=== PATIENT | male | born 1955 | race Caucasian/White ===

== ENCOUNTER 2018-04-10 15:36 | Emergency (ER) | payer OTHER ==
--- OUTSIDE RECORDS SUMMARY | 2018-04-10 15:39 | XMS REPORT | Clinical Summary ---
:1955 Author Organization [facility] Address [address] [place] [address] Phone Care Team Providers Name Role Phone Unavailable Primary Care Provider Unavailable Allergies Active Allergy Reactions Severity Noted Date Comments Other Itching 05/02/2017 All anti inflammatory drugs Current Medications Prescription Sig. Disp. Refills Start Date End Date Status metoprolol Take 0.5 60 tablet 0 05/13/2017 05/13/2018 Active (LOPRESSOR) 25 MG tablets (12.5 tablet mg total) by mouth 2 (two) times daily. atorvastatin Take 1 tablet 30 tablet 0 05/14/2017 05/14/2018 Active (LIPITOR) 10 MG (10 mg total) tablet by mouth nightly. aspirin 81 MG EC Take 1 tablet 30 tablet 0 05/14/2017 05/14/2018 Active tablet (81 mg total) by mouth daily. multivitamin per Take 1 tablet 05/09/2017 Discontinued tablet by mouth daily. SAW PALMETTO Take by mouth 05/09/2017 Discontinued XTR/ZINC PICOLIN daily. (SAW PALMETTO EXTRACT ORAL) acetaminophen-codei Take 1 tablet 30 tablet 0 05/13/2017 05/14/2017 Discontinued ne (TYLENOL #3) by mouth every 300-30 mg per 4 (four) hours tablet as needed for up to 10 days. Max Daily Amount: 6 tablets acetaminophen-codei Take 2 tablets 30 tablet 0 05/14/2017 05/24/2017 ne (TYLENOL #3) by mouth every 300-30 mg per 4 (four) hours tablet as needed for up to 10 days. Max Daily Amount: 12 tablets polyethylene glycol Take 17 g by 14 each 0 05/15/2017 05/18/2017 (GLYCOLAX) 17 gram mouth daily packet for 3 days. Hospital, Clinic, or Other Ordered Dose Route Frequency Start Date End Date Status Facility Administered Medication iopamidol (ISOVUE-370) 76 % 100 mL IV ONCE PRN 09/25/2017 09/25/2017 Ended injection 100 mL Active Problems Problem Noted Date Acute pulmonary insufficiency following non-thoracic surgery (HCC) 05/09/2017 Hyperglycemia 05/09/2017 AAA (abdominal aortic aneurysm) (HCC) 05/08/2017 Smoker 05/03/2017 Aneurysm (HCC) Postoperative anemia due to acute blood loss Encounters Date Type Specialty Care Team Description 09/25/2017 Hospital Encounter Radiology Sae Fulton MD aneurysm (AAA) without rupture (HCC) 09/14/2017 Outside Orders Central Scheduling Sae Fulton MD aneurysm (AAA) without rupture (HCC) (Primary Dx) 09/04/2017 Hospital Encounter Radiology Sae Fulton MD aneurysm (AAA) without rupture (HCC) 08/28/2017 Orders Only Cardiology Sae Fulton MD aneurysm (AAA) without rupture (HCC) (Primary Dx) 05/08/2017 - Hospital Encounter Cardiology Sae Fulton 05/14/2017 MD Hieu 05/08/2017 Procedure Pass 05/08/2017 Surgery Sae Fulton REPAIR,AAA MD Hieu 05/02/2017 Hospital Encounter Sae Fulton Aneurysm (HCC) MD Hieu 05/02/2017 Office Visit Cardiology Sae Fulton MD aneurysm (AAA) without rupture (HCC) (Primary Dx);Aneurysm (HCC);Smoker 05/02/2017 Anesthesia Event Jarrett Artis MD 05/02/2017 Orders Only Cardiology Sae Fulton MD aneurysm (AAA) without rupture (HCC) after 04/09/2017 Family History Medical History Relation Name Comments COPD Mother Relation Name Status Comments Mother Social History Tobacco Use Types Packs/Day Years Used Date Current Every Day Smoker 1.5 47 Smokeless Tobacco: Never Used Alcohol Use Drinks/Week oz/Week Comments Yes 24 Cans of beer 14.4 Sex Assigned at Date Recorded Not on file Last Filed Vital Signs Vital Sign Reading Time Taken Blood Pressure 128/74 05/14/2017 7:20 AM SETTER OFF Pulse 72 05/14/2017 7:20 AM SETTER OFF Temperature 36.5 C (97.7 F) 05/14/2017 7:20 AM SETTER OFF Respiratory Rate 18 05/14/2017 7:20 AM SETTER OFF Oxygen Saturation 97% 05/14/2017 7:20 AM SETTER OFF Inhaled Oxygen Concentration - - Weight 86.5 kg (190 lb 11.2 oz) 05/09/2017 5:56 AM SETTER OFF Height 180.3 cm (5' 11") 05/08/2017 5:42 AM SETTER OFF Body Mass Index 26.6 05/09/2017 5:56 AM SETTER OFF Plan of Treatment Health Maintenance Due Date Last Done Comments INFLUENZA VACCINE 03/19/2018 Implants Implanted Type Area Illuminator Device Expiration Model / Identifier Date Serial / Lot Ivan Dukes [id number] [id number] - Sna Graft/Pa N/A: GETINGE 2019 [id number] / Implanted: Qty: 1 on 05/08/2017 by Sae Fulton MD [facility] Aorta IND:MAQUET: CV NA / [id number] Procedures Procedure Name Priority Date/Time Associated Diagnosis Comments REPAIR,AAA 05/08/2017 7:48 AM SETTER OFF AAA after 04/09/2017 Results CTA abdomen AAA protocol (09/25/2017 10:10 AM) Specimen Performing Laboratory [employer] RIS Narrative Addendum Begins REPORT STATUS:A Addendum: I agree with the previously described non vascular findings by Dr. Castro. Signed: Nathan Johnston MD Report Verified Date/Time:09/25/2017 14:34:58 Reading Location: [place] [address] Angio Body Reading Room Addendum Ends FINAL REPORT CT angiography of the abdominal aorta, 25 September 2017 INDICATIONS: This is a 62 year old male with prior abdominal aortic surgery presents for follow-up assessment. The surgery was performed in April 2017, with open infrarenal abdominal aortic aneurysm repair using a 16 Hemashield\\XA0\\graft. This study is performed in an attempt to avoid an invasive procedure. TECHNIQUES: Spiral acquisition before and during intravenous contrast administration using a GE CT scanner. Images were obtained before and during the dynamic passage of intravenous contrast material. Multi-planar 3-D volume-rendering reconstruction was performed using an independent workstation interactively by the interpreting physician as well as the 3-D specialist for optimal visualisation of the abdominal aorta, pelvic arteries, and its proximal branches. Please refer to the contrast sheet scanned in the [employer] system for the amount and route of contrast given. The office was called, and the pelvis is not needed. This exam was performed according to our departmental dose-optimisation programme, which includes automated exposure control, adjustment of the mA and/or kV according to patient size and/or use of iterative reconstruction technique. Dose modulation, iterative reconstruction, and/or weight based adjustment of the mA/kV was utilized to reduce the radiation dose to as low as reasonably achievable. FINDINGS: VASCULAR: The proximal abdominal aorta is unremarkable. In the infrarenal abdominal aorta, a vascular graft is identified that is widely patent with no anastomotic stenosis or extravasation of contrast identified. Hypodensity is seen surrounding the aortic graft, with peripheral calcification identified, likely represent sequelae of prior aortic repair, considered postsurgical phenomenon. No inflammatory change is identified in the surrounding soft tissue. The visualised proximal pelvic arteries are widely patent proximally with eccentric calcific atherosclerosis identified. Quantitative dimensions of the abdominal aorta are as follows: 2.5 cm at the mesenteric segment; 2.3 cm at the renal segment. The coeliac axis and SMA are widely patent. Single left and right renal arteries that are widely patent. The SARAH is seen to enhance by contrast indicating patency. Single left and two right renal veins are seen draining normally into the IVC. NON-VASCULAR: The lung bases are unremarkable. No pleural effusion is identified. In the abdomen, the liver and spleen appears unremarkable. The liver edge is smooth. No abnormal enhancing structure is identified. The gallbladder, adrenal glands appears unremarkable, and the left adrenal gland could be somewhat hyperplastic. The pancreas appears unremarkable. No acute renal pathology is seen and no hydronephrosis or perirenal fluid collections identified. Nonobstructive renal stones identified in the pelvis of the right kidney, at image 29 measures approximately 1-2 mm in diameter. Bowel is not well assessed by CT angiography as enteric contrast is not given. No obvious bowel dilation is identified, where visualised. No free air free fluid seen abdomen. The pelvis is not requested. No acute bony pathology is identified except for the presence of some degenerative changes. CONCLUSIONS: 1.Patient is post abdominal aortic aneurysm repair with a vascular graftand the graft is widely patent with no anastomotic stenosis identified. See above for details. No acute aortic pathology is identified. 2.Patent mesenteric and renal arteries. 3.Other findings as described above. 4.An addendum will be dictated regarding the non-vascular findings by the Casino Controller Radiologist. Signed: Joaquín Castro MD Report Verified Date/Time:09/25/2017 10:55:28 Reading Location: [place] [address] Cardiology MRI Procedure Note Interface, External Ris In - 09/25/2017 2:37 PM CDT Addendum Begins REPORT STATUS:A Addendum: I agree with the previously described non vascular findings by Dr. Castro. Signed: Nathan Johnston MD Report Verified Date/Time: 09/25/2017 14:34:58 Reading Location: [place] [id number] Angio Body Reading Room Addendum Ends FINAL REPORT CT angiography of the abdominal aorta, 25 September 2017 INDICATIONS: This is a 62 year old male with prior abdominal aortic surgery presents for follow-up assessment. The surgery was performed in April 2017, with open infrarenal abdominal aortic aneurysm repair using a 16 Hemashield\\XA0\\graft. This study is performed in an attempt to avoid an invasive procedure. TECHNIQUES: Spiral acquisition before and during intravenous contrast administration using a [employer] CT scanner. Images were obtained before and during the dynamic passage of intravenous contrast material. Multi-planar 3-D volume-rendering reconstruction was performed using an independent workstation interactively by the interpreting physician as well as the 3-D specialist for optimal visualisation of the abdominal aorta, pelvic arteries, and its proximal branches. Please refer to the contrast sheet scanned in the [employer] system for the amount and route of contrast given. The office was called, and the pelvis is not needed. This exam was performed according to our departmental dose-optimisation programme, which includes automated exposure control, adjustment of the mA and/or kV according to patient size and/or use of iterative reconstruction technique. Dose modulation, iterative reconstruction, and/or weight based adjustment of the mA/kV was utilized to reduce the radiation dose to as low as reasonably achievable. FINDINGS: VASCULAR: The proximal abdominal aorta is unremarkable. In the infrarenal abdominal aorta, a vascular graft is identified that is widely patent with no anastomotic stenosis or extravasation of contrast identified. Hypodensity is seen surrounding the aortic graft, with peripheral calcification identified, likely represent sequelae of prior aortic repair, considered postsurgical phenomenon. No inflammatory change is identified in the surrounding soft tissue. The visualised proximal pelvic arteries are widely patent proximally with eccentric calcific atherosclerosis identified. Quantitative dimensions of the abdominal aorta are as follows: 2.5 cm at the mesenteric segment; 2.3 cm at the renal segment. The coeliac axis and SMA are widely patent. Single left and right renal arteries that are widely patent. The SARAH is seen to enhance by contrast indicating patency. Single left and two right renal veins are seen draining normally into the IVC. NON-VASCULAR: The lung bases are unremarkable. No pleural effusion is identified. In the abdomen, the liver and spleen appears unremarkable. The liver edge is smooth. No abnormal enhancing structure is identified. The gallbladder, adrenal glands appears unremarkable, and the left adrenal gland could be somewhat hyperplastic. The pancreas appears unremarkable. No acute renal pathology is seen and no hydronephrosis or perirenal fluid collections identified. Nonobstructive renal stones identified in the pelvis of the right kidney, at image 29 measures approximately 1-2 mm in diameter. Bowel is not well assessed by CT angiography as enteric contrast is not given. No obvious bowel dilation is identified, where visualised. No free air free fluid seen abdomen. The pelvis is not requested. No acute bony pathology is identified except for the presence of some degenerative changes. CONCLUSIONS: 1. Patient is post abdominal aortic aneurysm repair with a vascular graft and the graft is widely patent with no anastomotic stenosis identified. See above for details. No acute aortic pathology is identified. 2. Patent mesenteric and renal arteries. 3. Other findings as described above. 4. An addendum will be dictated regarding the non-vascular findings by the Casino Controller Radiologist. Signed: Joaquín Castro MD Report Verified Date/Time: 09/25/2017 10:55:28 Reading Location: [place] [address] Cardiology MRI -Creatinine (09/25/2017 9:51 AM)Only the most recent of2 resultswithin the time period is included. Component Value Ref Range POC-Creatinine 0.7Comment: TESTED AT [facility] [address] [place] [address] 0.6 - 1.3 mg/dL [facility] [address] POC-EGFR 114 mL/min/1.73M2 Specimen Performing Laboratory Blood [facility] [address] [address] [address]/CTA chest (09/04/2017 3:52 PM) Specimen Performing Laboratory [employer] [facility] RIS Narrative Addendum Begins REPORT STATUS:A Addendum: I agree with the previously described non vascular findings. Signed: Hubert Stiles MD Report Verified Date/Time:09/05/2017 09:31:21 Reading Location: [facility] [address] Angio Body Reading Room Addendum Ends FINAL REPORT CT angiography of the thoracic aorta, 04 September 2017 INDICATION: This is a 62 year old male with a diagnosis of aortic aneurysm presents for assessment. This study is performed in an attempt to avoid an invasive procedure. A CT angiography of the thoracic aorta is requested. TECHNIQUE: Spiral acquisition before and during intravenous contrast administration using a [employer] multidetector CT scanner. Images were obtained before and during the dynamic passage of intravenous contrast material.Multi-planar 3-D volume-rendering reconstruction was performed using an independent workstation interactively by the interpreting physician as well as the 3-D specialist for optimal visualisation of the thoracic aorta and its proximal branches. Please refer to the contrast sheet scanned in the RIS system for the amount and route of contrast given. This exam was performed according to our departmental dose-optimisation programme, which includes automated exposure control, adjustment of the mA and/or kV according to patient size and/or use of iterative reconstruction technique. Dose modulation, iterative reconstruction, and/or weight based adjustment of the mA/kV was utilized to reduce the radiation dose to as low as reasonably achievable. FINDINGS: VASCULAR: The pericardium has normal appearance. No pericardial effusion is identified. The central pulmonary artery is normal in calibre. No evidence of central pulmonary artery embolism. The cardiac chambers demonstrate normal atrioventricular and ventriculoarterial concordance, and systemic and pulmonary venous return. The left ventricle is normal in size. Aortic valvular calcification is present. The coronary artery origins are normal and scattered coronary artery calcification is seen in the left main coronary artery in the proximal LAD, though the left main coronary artery, the proximal LAD are seen to be patent with no obstructive lesion identified. Aortic valvular calcification is identified. In mid diastole, the aortic valve appears to be tricuspid. Ectasia is seen in the aortic root, as well as in the ascending thoracic aorta though no aneurysmal dilation is seen by measurement criteria. The transverse arch and descending thoracic aorta is normal in course, contour, and calibre. There is no evidence of acute aortic pathology, specifically, there is no dissection, intramural hematoma, or contained rupture. The arch vessel branching pattern is normal and the visualised portion of the arch vessels are widely patent.Scattered calcific and noncalcific atherosclerosis is identified, at the takeoff of the left subclavian artery. It is nonobstructive. In addition, in the descending thoracic aorta, scattered calcific and noncalcific atherosclerosis identified. The maximum thickness of the noncalcific atheroma at image 109, is approximately 6 to 7 mm in thickness. Quantitative dimensions of the aorta are as follows: 3.9 x 3.8 cm at the sinuses of Valsalva (the sino-tubular junction is preserved); 4.2 x 3.8 cm at the proximal ascending thoracic aorta; 4.5 x 4.6cm at the mid ascending aorta; 3.8cm at the distal ascending aorta; 2.9 cm at the mid transverse arch; 2.9 cm at the proximal descending aorta; 2.9 cm at the mid descending aorta; 2.7 cm at the diaphragmatic hiatus. NON-VASCULAR: The visualised thyroid gland appears unremarkable. The chest wall and mediastinum appear normal. No significant adenopathy is identified in the mediastinum, except for some small lymph nodes, considered nonspecific in nature. In the lung windows, no obvious endobronchial lesion is seen and no pleural effusion is identified. Mild Paraseptal emphysematous changes are seen predominantly in the lung apex, bilaterally. Overall, no suspicious pulmonary nodule is identified. Limited images of the upper abdomen reveals no gross abnormality. No acute bony pathology is identified. Some degenerative changes is noted. CONCLUSIONS: 1. 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 Thereafter, remainder of the thoracic aortic aorta is normal in course, contour, and calibre. Some atherosclerosis is seen in the descending thoracic aorta, especially noncalcific atherosclerosis. There is no evidence of acute aortic pathology, specifically, there is no dissection, intramural hematoma, or contained rupture. Quantitative dimension of the aorta are as described above. 2. Normal coronary artery origins. Coronary artery calcification. 3. No acute pulmonary pathology. Mild pulmonary emphysematous changes. 4. Other findings as described above. 5. An addendum will be dictated regarding the non-vascular findings by the Casino Controller Radiologist. Signed: Joaquín Castro MD Report Verified Date/Time:09/04/2017 17:13:07 Reading Location: [place] [id number] Cardiology MRI Procedure Note Interface, External Ris In - 09/05/2017 9:33 AM CDT Addendum Begins REPORT STATUS:A Addendum: I agree with the previously described non vascular findings. Signed: Hubert Stiles MD Report Verified Date/Time: 09/05/2017 09:31:21 Reading Location: [facility] [address] Angio Body Reading Room Addendum Ends FINAL REPORT CT angiography of the thoracic aorta, 04 September 2017 INDICATION: This is a 62 year old male with a diagnosis of aortic aneurysm presents for assessment. This study is performed in an attempt to avoid an invasive procedure. A CT angiography of the thoracic aorta is requested. TECHNIQUE: Spiral acquisition before and during intravenous contrast administration using a [employer] multidetector CT scanner. Images were obtained before and during the dynamic passage of intravenous contrast material. Multi-planar 3-D volume-rendering reconstruction was performed using an independent workstation interactively by the interpreting physician as well as the 3-D specialist for optimal visualisation of the thoracic aorta and its proximal branches. Please refer to the contrast sheet scanned in the RIS system for the amount and route of contrast given. This exam was performed according to our departmental dose-optimisation programme, which includes automated exposure control, adjustment of the mA and/or kV according to patient size and/or use of iterative reconstruction technique. Dose modulation, iterative reconstruction, and/or weight based adjustment of the mA/kV was utilized to reduce the radiation dose to as low as reasonably achievable. FINDINGS: VASCULAR: The pericardium has normal appearance. No pericardial effusion is identified. The central pulmonary artery is normal in calibre. No evidence of central pulmonary artery embolism. The cardiac chambers demonstrate normal atrioventricular and ventriculoarterial concordance, and systemic and pulmonary venous return. The left ventricle is normal in size. Aortic valvular calcification is present. The coronary artery origins are normal and scattered coronary artery calcification is seen in the left main coronary artery in the proximal LAD, though the left main coronary artery, the proximal LAD are seen to be patent with no obstructive lesion identified. Aortic valvular calcification is identified. In mid diastole, the aortic valve appears to be tricuspid. Ectasia is seen in the aortic root, as well as in the ascending thoracic aorta though no aneurysmal dilation is seen by measurement criteria. The transverse arch and descending thoracic aorta is normal in course, contour, and calibre. There is no evidence of acute aortic pathology, specifically, there is no dissection, intramural hematoma, or contained rupture. The arch vessel branching pattern is normal and the visualised portion of the arch vessels are widely patent. Scattered calcific and noncalcific atherosclerosis is identified, at the takeoff of the left subclavian artery. It is nonobstructive. In addition, in the descending thoracic aorta, scattered calcific and noncalcific atherosclerosis identified. The maximum thickness of the noncalcific atheroma at image 109, is approximately 6 to 7 mm in thickness. Quantitative dimensions of the aorta are as follows: 3.9 x 3.8 cm at the sinuses of Valsalva (the sino-tubular junction is preserved); 4.2 x 3.8 cm at the proximal ascending thoracic aorta; 4.5 x 4.6 cm at the mid ascending aorta; 3.8 cm at the distal ascending aorta; 2.9 cm at the mid transverse arch; 2.9 cm at the proximal descending aorta; 2.9 cm at the mid descending aorta; 2.7 cm at the diaphragmatic hiatus. NON-VASCULAR: The visualised thyroid gland appears unremarkable. The chest wall and mediastinum appear normal. No significant adenopathy is identified in the mediastinum, except for some small lymph nodes, considered nonspecific in nature. In the lung windows, no obvious endobronchial lesion is seen and no pleural effusion is identified. Mild Paraseptal emphysematous changes are seen predominantly in the lung apex, bilaterally. Overall, no suspicious pulmonary nodule is identified. Limited images of the upper abdomen reveals no gross abnormality. No acute bony pathology is identified. Some degenerative changes is noted. CONCLUSIONS: 1. 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 Thereafter, remainder of the thoracic aortic aorta is normal in course, contour, and calibre. Some atherosclerosis is seen in the descending thoracic aorta, especially noncalcific atherosclerosis. There is no evidence of acute aortic pathology, specifically, there is no dissection, intramural hematoma, or contained rupture. Quantitative dimension of the aorta are as described above. 2. Normal coronary artery origins. Coronary artery calcification. 3. No acute pulmonary pathology. Mild pulmonary emphysematous changes. 4. Other findings as described above. 5. An addendum will be dictated regarding the non-vascular findings by the Casino Controller Radiologist. Signed: Joaquín Castro MD Report Verified Date/Time: 09/04/2017 17:13:07 Reading Location: [place] [address] Cardiology MRI HM STRIP - SCAN (05/22/2017 11:30 AM)Only the most recent of2 resultswithin the time period is included.CBC with platelet count + automated diff (2016 6:35 AM)Only the most recent of7 resultswithin the time period is included. Component Value Ref Range WBC 8.5 3.5 - 10.5 K/L RBC 3.59 (L) 4.63 - 6.08 M/L Hemoglobin 11.1 (L) 13.7 - 17.5 GM/DL Hematocrit 33.6 (L) 40.1 - 51.0 % MCV 93.6 (H) 79.0 - 92.2 fL MCH 30.9 25.7 - 32.2 pg MCHC 33.0 32.3 - 36.5 GM/DL RDW 13.3 11.6 - 14.4 % Platelets 244 150 - 450 K/CU MM MPV 10.0 9.4 - 12.4 fL nRBC 0 0 - 0 /100 WBC % Neutros 64 % % Lymphs 17 % % Monos 13 % % Eos 5 % % Baso 0 % # Neutros 5.44 (H) 1.78 - 5.38 K/L # Lymphs 1.44 1.32 - 3.57 K/L # Monos 1.12 (H) 0.30 - 0.82 K/L # Eos 0.38 0.04 - 0.54 K/L # Baso 0.03 0.01 - 0.08 K/L Immature Granulocytes-Relative 1 0 - 1 % Specimen Performing Laboratory Blood - Arm, Left [address] [place] [address] CBC with platelet count + automated diff (05/13/2017 6:35 AM)Only the most recent of7 resultswithin the time period is included. Specimen Performing Laboratory Blood Narrative The following orders were created for panel order CBC with platelet count + automated diff. Procedure Abnormality Status --------- ------ CBC with platelet count ...[[id number]]AbnormalFinal result Please view results for these tests on the individual orders. Basic Metabolic Panel (05/13/2017 6:35 AM)Only the most recent of7 resultswithin the time period is included. Component Value Ref Range Sodium 139 136 - 145 meq/L Potassium 3.9 3.5 - 5.1 meq/L Chloride 107 98 - 107 meq/L CO2 26 22 - 29 meq/L BUN 8 7 - 21 mg/dL Creatinine 0.66 0.57 - 1.25 mg/dL Glucose 91 70 - 105 mg/dL Calcium 9.1 8.4 - 10.2 mg/dL EGFR 122Comment: ESTIMATED GFR IS NOT ACCURATE mL/min/1.73 sq m CREATININE CLEARANCE IN PREDICTING GLOMERULAR FILTRATION RATE. ESTIMATED GFR IS NOT APPLICABLE FOR DIALYSIS PATIENTS. Specimen Performing Laboratory Blood - Arm, Left [address] [address] POC-Glucose meter (05/11/2017 7:26 AM)Only the most recent of10 resultswithin the time period is included. Component Value Ref Range POC-Glucose Meter 90Comment: TESTED AT [address] [place] 70 - 110 mg/dL [id number] Specimen Performing Laboratory Blood [address] [address] Urinalysis w/Microscopic + Reflex to Culture (05/10/2017 11:56 AM) Component Value Ref Range Color, UA Yellow Clarity, UA Clear Specific [place], UA 1.018 1.001 - 1.035 pH, UA 6.5 5.0 - 8.0 Protein, UA 50 mg/dL (A) Negative Glucose, UA Negative Negative Ketones, UA 60 mg/dL (A) Negative Bilirubin, UA Negative Negative Blood, UA Small (A) Negative Nitrite, UA Negative Negative Leukocytes, UA Negative Negative Urobilinogen, UA 0.2 0.2 - 1.0 mg/dL RBC, UA 4 /HPF WBC, UA 2 /HPF Mucus Occasional Squam Epithel, UA 1 /HPF Specimen Source Specimen Performing Laboratory Urine - Urine, Clean Catch [facility] [address] [address] XR chest 1 view portable / bedside (05/10/2017 7:35 AM)Only the most recent of3 resultswithin the time period is included. Specimen Performing Laboratory GE RIS Narrative FINAL REPORT Chest one view AP 05/10/2017 7:47 AM CLINICAL INDICATION: Post-Op COMPARISON: 05/09/2017 IMPRESSION: There is bibasilar atelectasis. There is a trace left pleural effusion. Cardiomediastinal contours are within normal limits. The central pulmonary vasculature is not engorged. An enteric tube is present. Signed: Wang Kaiser MD Report Verified Date/Time:05/10/2017 07:48:05 Reading Location: [facility] Radiology Reading Room Procedure Note Interface, External Ris In - 05/10/2017 7:50 AM SETTER OFF FINAL REPORT Chest one view AP 05/10/2017 7:47 AM CLINICAL INDICATION: Post-Op COMPARISON: 05/09/2017 IMPRESSION: There is bibasilar atelectasis. There is a trace left pleural effusion. Cardiomediastinal contours are within normal limits. The central pulmonary vasculature is not engorged. An enteric tube is present. Signed: Wang Kaiser MD Report Verified Date/Time: 05/10/2017 07:48:05 Reading Location: [facility] Radiology Reading Room abdomen / KUB 1 view (05/09/2017 12:35 PM) Specimen Performing Laboratory GE RIS Narrative FINAL REPORT Abdomen two views supine 05/09/2017 12:38 PM CLINICAL INDICATION: ileus COMPARISON: None available IMPRESSION: There is no radiographic evidence for bowel obstruction. There is mild ileus. No abnormal calcifications are seen in the region of the gallbladder or kidneys. There are no acute-appearing skeletal abnormalities. Signed: Wang Kaiser MD Report Verified Date/Time:05/09/2017 12:38:47 Reading Location: [facility] [id number] Consult Reading Room Procedure Note Interface, External Ris In - 05/10/2017 12:08 AM SETTER OFF FINAL REPORT Abdomen two views supine 05/09/2017 12:38 PM CLINICAL INDICATION: ileus COMPARISON: None available IMPRESSION: There is no radiographic evidence for bowel obstruction. There is mild ileus. No abnormal calcifications are seen in the region of the gallbladder or kidneys. There are no acute-appearing skeletal abnormalities. Signed: Wang Kaiser MD Report Verified Date/Time: 05/09/2017 12:38:47 Reading Location: [facility] C013 Consult Reading Room Oxygen saturation, measured (05/09/2017 3:17 AM)Only the most recent of2 resultswithin the time period is included. Component Value Ref Range O2 Saturation (Measured) 64.0 % Specimen Performing Laboratory Blood [address] [address] Calcium, Ionized (05/09/2017 3:17 AM)Only the most recent of4 resultswithin the time period is included. Component Value Ref Range Calcium, Ion 1.15 1.12 - 1.27 mmol/L pH, Blood 7.42 Specimen Performing Laboratory Blood [address] [address] Lactic acid, arterial, whole blood (05/09/2017 3:17 AM)Only the most recent of2 resultswithin the time period is included. Component Value Ref Range Lactate, Art 0.9 0.5 - 2.2 mmol/L Specimen Performing Laboratory Blood, Arterial [address] [address] Narrative Effective 10/21/2015: Units/Reference Range Change New: 0.5-2.2 mmol/LPrevious: 5-20 mg/dL Phosphorus (05/09/2017 3:17 AM) Component Value Ref Range Phosphorus 2.7 2.3 - 4.7 mg/dL Specimen Performing Laboratory Blood [facility] [address] Magnesium (05/09/2017 3:17 AM)Only the most recent of2 resultswithin the time period is included. Component Value Ref Range Magnesium 1.8 1.6 - 2.6 mg/dL Specimen Performing Laboratory Blood [address] [address] TRANSFUSION SERVICE REPORT - SCAN (05/08/2017 5:41 PM)Only the most recent of2 resultswithin the time period is included.Blood gas, arterial (05/08/2017 12:17 PM)Only the most recent of4 resultswithin the time period is included. Component Value Ref Range pH, Arterial 7.36 7.35 - 7.45 pCO2, Arterial 40 35 - 45 mmHg pO2, Arterial 287 (H) 80 - 90 mmHg O2 Sat, Arterial 99.6 (H) 96.0 - 97.0 % HCO3, Arterial 22 21 - 29 mmol/L Base Excess, Arterial -2.8 (L) -2.0 - 3.0 mmol/L Patient Temperature 36.6 C FIO2 60.0 % Specimen Performing Laboratory Blood, Arterial - Line, Arterial [address] [address] [facility] Critical Labs (ABG,NA,K,H&H,GLU) (05/08/2017 10:37 AM)Only the most recent of3 resultswithin the time period is included. Specimen Performing Laboratory Blood, Arterial Narrative The following orders were created for panel order [facility] Critical Labs (ABG,NA,K,H&H,GLU). Procedure Abnormality Status --------- ------ Blood gas, arterial[[id number]]AbnormalFinal result Sodium Na-Stat Lab[[id number]] NormalFinal result Potassium-Stat Lab[[id number]] NormalFinal result Glucose-Stat Lab[[id number]] AbnormalFinal result HGB/HCT (H&H)-Stat Lab[[id number]] Normal Final result Please view results for these tests on the individual orders. Potassium-Stat Lab (05/08/2017 10:37 AM)Only the most recent of3 resultswithin the time period is included. Component Value Ref Range Potassium 4.2 3.6 - 5.5 meq/L Specimen Performing Laboratory Blood, Arterial - Line, [address] [address] Sodium Na-Stat Lab (05/08/2017 10:37 AM)Only the most recent of3 resultswithin the time period is included. Component Value Ref Range Sodium 137 135 - 148 meq/L Specimen Performing Laboratory Blood, Arterial - Line, [address] [address] Glucose-Stat Lab (05/08/2017 10:37 AM)Only the most recent of3 resultswithin the time period is included. Component Value Ref Range Glucose 112 (H) 70 - 110 mg/dL Specimen Performing Laboratory Blood, Arterial - Line, [address] [address] PT/aPTT (05/08/2017 10:37 AM) Component Value Ref Range Protime 14.8 (H) 11.7 - 14.7 seconds INR 1.2 <=5.9 PTT 29.1 22.5 - 36.0 seconds Specimen Performing Laboratory Blood - Line, [address] [address] Narrative RECOMMENDED COUMADIN/WARFARIN INR THERAPY RANGES STANDARD DOSE: 2.0 - 3.0 Includes: PROPHYLAXIS for venous thrombosis, systemic embolization; TREATMENT for venous thrombosis and/or pulmonary embolus. HIGH RISK: Target INR is 2.5-3.5 for patients with mechanical heart valves. HGB/HCT (H&H)-Stat Lab (05/08/2017 10:37 AM)Only the most recent of3 resultswithin the time period is included. Component Value Ref Range Hemoglobin 14.4 13.0 - 16.8 g/dL Hematocrit 42.0 40.0 - 50.0 % Specimen Performing Laboratory Blood, Arterial - Line, [address] [address] Prepare RBC (05/07/2017 4:33 PM) Component Value Ref Range CROSSMATCH COMPATIBLE Unit ABO O Pos UNIT NUMBER [id number] Status READY Blood Bank Product RED BLOOD CELLS PRODUCT CODE T5304M20 CROSSMATCH COMPATIBLE Unit ABO O Pos UNIT NUMBER [id number] Status READY Blood Bank Product RED BLOOD CELLS PRODUCT CODE A9498K64 CROSSMATCH COMPATIBLE Unit ABO O Pos UNIT NUMBER [id number] Status READY Blood Bank Product RED BLOOD CELLS PRODUCT CODE M7522I40 CROSSMATCH COMPATIBLE Unit ABO O Pos UNIT NUMBER [id number] Status READY Blood Bank Product RED BLOOD CELLS PRODUCT CODE [id number] Specimen Performing Laboratory [employer] [place] XR chest 2 views (05/02/2017 11:00 AM) Specimen Performing Laboratory GE RIS Narrative FINAL REPORT Chest x-ray, PA and lateral views Clinical History: Pre-Op Comparison:None Findings: The cardiac silhouette is normal. Aorta is mildly tortuous/ectatic. There is no pneumothorax, jeff pulmonary edema, consolidation or pleural effusion.Lungs appear mildly hyperinflated with flattening of the diaphragm. The bony structures demonstrate degenerative changes. Impression: Mild hyperinflation. Signed: Itzel Astudillo MD Report Verified Date/Time:05/02/2017 11:17:15 Reading Location: [facility] Radiology Reading Room Procedure Note Interface, External Ris In - 05/02/2017 11:32 AM SETTER OFF FINAL REPORT Chest x-ray, PA and lateral views Clinical History: Pre-Op Comparison: None Findings: The cardiac silhouette is normal. Aorta is mildly tortuous/ectatic. There is no pneumothorax, jeff pulmonary edema, consolidation or pleural effusion. Lungs appear mildly hyperinflated with flattening of the diaphragm. The bony structures demonstrate degenerative changes. Impression: Mild hyperinflation. Signed: Itzel Astudillo MD Report Verified Date/Time: 05/02/2017 11:17:15 Reading Location: [facility] Radiology Reading Room Type and screen, automated (05/02/2017 10:16 AM) Component Value Ref Range ABO/RH AUTOMATED (BEAKER) O POSITIVE Ab Scrn NEGATIVE Specimen Performing Laboratory Blood [facility] [address] [address] Prothrombin time/INR (05/02/2017 10:16 AM) Component Value Ref Range Protime 12.9 11.7 - 14.7 seconds INR 1.0 <=5.9 Specimen Performing Laboratory Blood [facility] [address] [place] [address] Narrative RECOMMENDED COUMADIN/WARFARIN INR THERAPY RANGES STANDARD DOSE: 2.0 - 3.0 Includes: PROPHYLAXIS for venous thrombosis, systemic embolization; TREATMENT for venous thrombosis and/or pulmonary embolus. HIGH RISK: Target INR is 2.5-3.5 for patients with mechanical heart valves. Hemoglobin A1c (05/02/2017 10:16 AM) Component Value Ref Range Hemoglobin A1C 5.6 4.3 - 6.1 % Specimen Performing Laboratory Blood [facility] [id number] [place] [address] ECG 12 lead (May substitute report if done w/in last 3 months) (05/02/2017 9: 31 AM) Specimen Performing Laboratory [employer] MUSE Narrative Ventricular Rate 86 BPM Atrial Rate 86 BPM P-R Interval 164 ms QRS Duration 88 ms Q-T Interval 330 ms QTC Calculation(Bazett) 394 ms P [place] 78 degrees R [place] 32 degrees T [place] 49 degrees Normal sinus rhythm Normal ECG No previous ECGs available Confirmed by MD Israel Roberto ([id number]) on 05/02/2017 2:07:47 PM Procedure Note Interface, External Ris In - 05/02/2017 2:07 PM SETTER OFF Ventricular Rate 86 BPM Atrial Rate 86 BPM P-R Interval 164 ms QRS Duration 88 ms Q-T Interval 330 ms QTC Calculation(Bazett) 394 ms P [place] 78 degrees R [place] 32 degrees T [place] 49 degrees Normal sinus rhythm Normal ECG No previous ECGs available Confirmed by MD Israel Roberto ([id number]) on 05/02/2017 2:07:47 PM after 04/09/2017
--- OUTSIDE RECORDS SUMMARY | 2018-04-10 15:40 | XMS REPORT ---
:[address] [facility] Address [address] [place] [address] Dr. Harman[address] [place] [address] Care Team Providers Name Role Phone HELDER HERRERA Unavailable Unavailable Problems This patient has no known problems. Allergies, Adverse Reactions, Alerts This patient has no known allergies or adverse reactions. Medications This patient has no known medications. Results Test Description Test Time Test Comments Text Results Atomic Results Result Comments CT, CTA ABDOMEN, AAA 2017-09-25 14:34:00 Addendum BeginsREPORT STATUS:A PROTOCOL Addendum: I agree with the previously described non vascular findings by Dr. Castro. Signed: Nathan Johnston MDReport Verified Date/Time: 09/25/2017 14:34:58 Reading Location: [place] [address] Angio Body Reading RoomAddendum EndsFINAL REPORT CT angiography of the abdominal aorta, 25 September 2017 INDICATIONS: This is a 62 year old male with prior abdominal aortic surgery presents for follow-up assessment. The surgery was performed in April 2017, with open infrarenal abdominal aortic aneurysm repair using a 16 Hemashield\XA0\graft. This study is performed in an attempt to avoid an invasive procedure. TECHNIQUES: Spiral acquisition before and during intravenous contrast administration using a G2 Crowd CT scanner. Images were obtained before and during the dynamic passage of intravenous contrast material. Multi-planar 3-D volume-rendering reconstruction was performed using an independent workstation interactively by the interpreting physician as well as the 3-D specialist for optimal visualisation of the abdominal aorta, pelvic arteries, and its proximal branches. Please refer to the contrast sheet scanned in the [employer] system for the amount and route of [...] dictated regarding the non-vascular findings by the Room Service Waiter/Waitress Radiologist. Signed: Joaquín Castro MDReport Verified Date/Time: 09/25/2017 10:55:28 Reading Location: [place] [address] Cardiology MRI -CREATININE 2017-09-25 09:56:00 Test Item Value Reference Range Comments POC-CREATININE (IRMA) (test 0.7 mg/dL 0.6-1.3 [place] [facility] [place]fb[place]64[place] [facility] [address] POC-EGFR (IRMA) (test 114 mL/min/1.73M2 wftl=6943) CT, CTA, [id number] 09:31:00Addendum BeginsREPORT STATUS:A Addendum: I agree with the previously described non vascular findings. Signed: Hubert Stiles MDReport Verified Date/Time: 09/05/2017 09:31:21 Reading Location: [place] [address] Angio Body Reading RoomAddendum EndsFINAL REPORT CT angiography of the thoracic aorta, [...] the dynamic passage of intravenous contrast material. Multi- planar3-D volume-rendering reconstruction was performed using an independent [...] coronary artery origins are normal and scattered coronaryartery calcification is seen in the left main coronary artery in the proximal LAD, though the left main coronary artery, the proximal LAD are seen to be patent with no obstructive lesion identified. Aortic valvular calcification is identified. 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 The transverse arch and descending thoracic aorta is normalin course, contour, and calibre. There is no [...] cm at the sinuses of Valsalva (the sino- tubular junction is preserved); 4.2 x 3.8 cm at the proximal ascending thoracic aorta; 4.5 x 4.6 cm at the mid ascending aorta; 3.8 cm at the distal ascending aorta; 2.9 cm at the mid transverse arch; 2.9 cm at the proximal descending aorta; 2.9 cm at the mid descending aorta;2.7 cm at the diaphragmatic hiatus. NON-VASCULAR: The visualised thyroid gland appears unremarkable.The chest wall and mediastinum appear normal. No [...] is noted. CONCLUSIONS: 1. 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 Thereafter, remainder of the thoracic aortic aorta is normal in course, contour , and calibre. Some atherosclerosis is seen in [...] An addendum will be dictated regarding the non -vascular findings by the Room Service Waiter/Waitress Radiologist. Signed: Joaquín Castro MDReport Verified Date/Time: 09/04/2017 17:13:07 Reading Location: [place] [address] Cardiology MRI [id number] 14:44:00 Test Item Value Reference Range Comments POC-CREATININE (BEAKER) 0.8 mg/dL 0.6-1.[address] [facility] [address] [facility] (test xidx=4991) [facility] [address] POC-EGFR (BEAKER) (test 98 mL/min/1.73M2 ezfn=2181) BASIC METABOLIC [id number] 07:48:00 Test Item Value Reference Range Comments SODIUM (BEAKER) (test 139 meq/L 136-145 zaxu=822) POTASSIUM (BEAKER) (test 3.9 meq/L 3.5-5.1 uhym=438) CHLORIDE (BEAKER) (test 107 meq/L 98-107 lunv=641) CO2 (BEAKER) (test 26 meq/L 22-29 zbge=670) BLOOD UREA NITROGEN 8 mg/dL 7-21 (BEAKER) (test jspg=125) CREATININE (BEAKER) (test 0.66 mg/dL 0.57-1.25 jnar=067) GLUCOSE RANDOM (BEAKER) 91 mg/dL 70-105 (test szgu=501) CALCIUM (BEAKER) (test 9.1 mg/dL 8.4-10.2 ibnk=806) EGFR (BEAKER) (test 122 mL/min/1.73 sq m ESTIMATED GFR IS NOT joxx=4918) ACCURATE CREATININE CLEARANCE IN PREDICTING GLOMERULAR FILTRATION RATE. ESTIMATED GFR IS NOT APPLICABLE FOR DIALYSIS PATIENTS. CBC W/PLT COUNT & AUTO [id number] 07:14:00 Test Item Value Reference Range Comments WHITE BLOOD CELL COUNT (BEAKER) (test aszm=633) 8.5 K/ L 3.5-10.5 RED BLOOD CELL COUNT (BEAKER) (test nurc=536) 3.59 M/ L 4.63-6.08 HEMOGLOBIN (BEAKER) (test zocy=747) 11.1 GM/DL 13.7-17.5 HEMATOCRIT (BEAKER) (test vfsz=739) 33.6 % 40.1-51.0 MEAN CORPUSCULAR VOLUME (BEAKER) (test trzp=463) 93.6 fL 79.0-92.2 MEAN CORPUSCULAR HEMOGLOBIN (BEAKER) (test 30.9 pg 25.7-32.2 vqyr=241) MEAN CORPUSCULAR HEMOGLOBIN CONC (BEAKER) (test 33.0 GM/DL 32.3-36.5 bsqw=631) RED CELL DISTRIBUTION WIDTH (BEAKER) (test 13.3 % 11.6-14.4 inxq=862) PLATELET COUNT (BEAKER) (test ycbw=428) 244 K/CU MM 150-450 MEAN PLATELET VOLUME (BEAKER) (test jcnw=973) 10.0 fL 9.4-12.4 NUCLEATED RED BLOOD CELLS (BEAKER) (test 0 /100 WBC 0-0 agoi=219) NEUTROPHILS RELATIVE PERCENT (BEAKER) (test 64 % wosq=467) LYMPHOCYTES RELATIVE PERCENT (BEAKER) (test 17 % fcgt=495) MONOCYTES RELATIVE PERCENT (BEAKER) (test 13 % upzb=854) EOSINOPHILS RELATIVE PERCENT (BEAKER) (test 5 % kdpb=790) BASOPHILS RELATIVE PERCENT (BEAKER) (test 0 % kaas=964) NEUTROPHILS ABSOLUTE COUNT (BEAKER) (test 5.44 K/ L 1.78-5.38 bhis=391) LYMPHOCYTES ABSOLUTE COUNT (BEAKER) (test 1.44 K/ L 1.32-3.57 knia=788) MONOCYTES ABSOLUTE COUNT (BEAKER) (test 1.12 K/ L 0.30-0.82 kwhc=906) EOSINOPHILS ABSOLUTE COUNT (BEAKER) (test 0.38 K/ L 0.04-0.54 qnhk=853) BASOPHILS ABSOLUTE COUNT (BEAKER) (test 0.03 K/ L 0.01-0.08 bfpr=848) IMMATURE GRANULOCYTES-RELATIVE PERCENT (BEAKER) 1 % 0-1 (test ucne=3866) CBC W/PLT COUNT & AUTO [id number] 07:30:00 Test Item Value Reference Range Comments WHITE BLOOD CELL COUNT (BEAKER) (test brza=402) 8.6 K/ L 3.5-10.5 RED BLOOD CELL COUNT (BEAKER) (test pvoa=174) 3.99 M/ L 4.63-6.08 HEMOGLOBIN (BEAKER) (test pavp=750) 12.4 GM/DL 13.7-17.5 HEMATOCRIT (BEAKER) (test tvpg=700) 37.1 % 40.1-51.0 MEAN CORPUSCULAR VOLUME (BEAKER) (test pikw=829) 93.0 fL 79.0-92.2 MEAN CORPUSCULAR HEMOGLOBIN (BEAKER) (test 31.1 pg 25.7-32.2 sjff=195) MEAN CORPUSCULAR HEMOGLOBIN CONC (BEAKER) (test 33.4 GM/DL 32.3-36.5 jhat=641) RED CELL DISTRIBUTION WIDTH (BEAKER) (test 13.2 % 11.6-14.4 gdiz=713) PLATELET COUNT (BEAKER) (test xfbo=021) 209 K/CU MM 150-450 MEAN PLATELET VOLUME (BEAKER) (test sooa=251) 10.2 fL 9.4-12.4 NUCLEATED RED BLOOD CELLS (BEAKER) (test 0 /100 WBC 0-0 rqew=998) NEUTROPHILS RELATIVE PERCENT (BEAKER) (test 72 % dtzv=218) LYMPHOCYTES RELATIVE PERCENT (BEAKER) (test 12 % venm=800) MONOCYTES RELATIVE PERCENT (BEAKER) (test 11 % edgq=512) EOSINOPHILS RELATIVE PERCENT (BEAKER) (test 4 % lzon=415) BASOPHILS RELATIVE PERCENT (BEAKER) (test 0 % rwpi=378) NEUTROPHILS ABSOLUTE COUNT (BEAKER) (test 6.16 K/ L 1.78-5.38 ttol=927) LYMPHOCYTES ABSOLUTE COUNT (BEAKER) (test 1.05 K/ L 1.32-3.57 wdla=262) MONOCYTES ABSOLUTE COUNT (BEAKER) (test 0.93 K/ L 0.30-0.82 tcmh=630) EOSINOPHILS ABSOLUTE COUNT (BEAKER) (test 0.36 K/ L 0.04-0.54 erek=525) BASOPHILS ABSOLUTE COUNT (BEAKER) (test 0.03 K/ L 0.01-0.08 ziru=228) IMMATURE GRANULOCYTES-RELATIVE PERCENT (BEAKER) 1 % 0-1 (test qnvz=0090) BASIC METABOLIC [id number] 07:26:00 Test Item Value Reference Range Comments SODIUM (BEAKER) (test 139 meq/L 136-145 mwap=186) POTASSIUM (BEAKER) (test 3.4 meq/L 3.5-5.1 eert=050) CHLORIDE (BEAKER) (test 105 meq/L 98-107 ompu=048) CO2 (BEAKER) (test 25 meq/L 22-29 dkbi=763) BLOOD UREA NITROGEN 7 mg/dL 7-21 (BEAKER) (test mdgq=998) CREATININE (BEAKER) (test 0.63 mg/dL 0.57-1.25 xtyk=535) GLUCOSE RANDOM (BEAKER) 87 mg/dL 70-105 (test vyqp=023) CALCIUM (BEAKER) (test 9.2 mg/dL 8.4-10.2 amdv=820) EGFR (BEAKER) (test 129 mL/min/1.73 sq m ESTIMATED GFR IS NOT vgrw=7663) ACCURATE CREATININE CLEARANCE IN PREDICTING GLOMERULAR FILTRATION RATE. ESTIMATED GFR IS NOT APPLICABLE FOR DIALYSIS PATIENTS. POCT-GLUCOSE [id number] 08:28:00 Test Item Value Reference Range Comments POC-GLUCOSE METER (BEAKER) 90 mg/dL 70-[address] [facility] [address] [facility] (test hpwc=0888) [facility] [address] CBC W/PLT COUNT & AUTO [id number] 06:41:00 Test Item Value Reference Range Comments WHITE BLOOD CELL COUNT (BEAKER) (test oolz=267) 15.3 K/ L 3.5-10.5 RED BLOOD CELL COUNT (BEAKER) (test dhma=183) 3.90 M/ L 4.63-6.08 HEMOGLOBIN (BEAKER) (test xwek=245) 12.2 GM/DL 13.7-17.5 HEMATOCRIT (BEAKER) (test snak=893) 36.7 % 40.1-51.0 MEAN CORPUSCULAR VOLUME (BEAKER) (test zpkv=957) 94.1 fL 79.0-92.2 MEAN CORPUSCULAR HEMOGLOBIN (BEAKER) (test 31.3 pg 25.7-32.2 mihv=389) MEAN CORPUSCULAR HEMOGLOBIN CONC (BEAKER) (test 33.2 GM/DL 32.3-36.5 isor=585) RED CELL DISTRIBUTION WIDTH (BEAKER) (test 13.4 % 11.6-14.4 dmmf=548) PLATELET COUNT (BEAKER) (test vzcz=901) 200 K/CU MM 150-450 MEAN PLATELET VOLUME (BEAKER) (test wtyd=822) 10.3 fL 9.4-12.4 NUCLEATED RED BLOOD CELLS (BEAKER) (test 0 /100 WBC 0-0 czlo=324) NEUTROPHILS RELATIVE PERCENT (BEAKER) (test 77 % awlz=110) LYMPHOCYTES RELATIVE PERCENT (BEAKER) (test 10 % hfhs=253) MONOCYTES RELATIVE PERCENT (BEAKER) (test 10 % xlxh=776) EOSINOPHILS RELATIVE PERCENT (BEAKER) (test 2 % hkqk=999) BASOPHILS RELATIVE PERCENT (BEAKER) (test 0 % xmka=047) NEUTROPHILS ABSOLUTE COUNT (BEAKER) (test 11.83 K/ L 1.78-5.38 qusf=754) LYMPHOCYTES ABSOLUTE COUNT (BEAKER) (test 1.49 K/ L 1.32-3.57 rbwy=889) MONOCYTES ABSOLUTE COUNT (BEAKER) (test 1.56 K/ L 0.30-0.82 oisb=566) EOSINOPHILS ABSOLUTE COUNT (BEAKER) (test 0.29 K/ L 0.04-0.54 jbqj=082) BASOPHILS ABSOLUTE COUNT (BEAKER) (test 0.03 K/ L 0.01-0.08 juwi=156) IMMATURE GRANULOCYTES-RELATIVE PERCENT (BEAKER) 1 % 0-1 (test fehs=0824) BASIC METABOLIC [id number] 06:11:00 Test Item Value Reference Range Comments SODIUM (BEAKER) (test 138 meq/L 136-145 oqfj=564) POTASSIUM (BEAKER) (test 4.6 meq/L 3.5-5.1 Specimen slightly tppw=601) hemolyzed CHLORIDE (BEAKER) (test 105 meq/L 98-107 uwpm=211) CO2 (BEAKER) (test 24 meq/L 22-29 dyoj=863) BLOOD UREA NITROGEN 11 mg/dL 7-21 (BEAKER) (test pucm=758) CREATININE (BEAKER) (test 0.70 mg/dL 0.57-1.25 Specimen slightly xphs=360) hemolyzed GLUCOSE RANDOM (BEAKER) 81 mg/dL 70-105 (test zcbg=845) CALCIUM (BEAKER) (test 9.2 mg/dL 8.4-10.2 ijfv=237) EGFR (BEAKER) (test 114 mL/min/1.73 sq m ESTIMATED GFR IS NOT xcml=1428) ACCURATE CREATININE CLEARANCE IN PREDICTING GLOMERULAR FILTRATION RATE. ESTIMATED GFR IS NOT APPLICABLE FOR DIALYSIS PATIENTS. POCT-GLUCOSE [id number] 03:06:00 Test Item Value Reference Range Comments POC-GLUCOSE METER (BEAKER) 86 mg/dL 70-110 TESTED AT [address] (test tumk=1281) [place] [address] POCT-GLUCOSE [id number] 17:51:00 Test Item Value Reference Range Comments POC-GLUCOSE METER (BEAKER) 98 mg/dL 70-110 TESTED AT [address] (test jjsh=7983) [place] [address] URINALYSIS W/ REFLEX URINE [id number] 12:37:00 Test Item Value Reference Range Comments COLOR (BEAKER) (test lezi=309) Yellow CLARITY (BEAKER) (test tecq=246) Clear SPECIFIC GRAVITY UA (BEAKER) (test wugh=209) 1.018 1.001-1.035 PH UA (BEAKER) (test rfjk=263) 6.5 5.0-8.0 PROTEIN UA (BEAKER) (test wwhb=950) 50 mg/dL Negative GLUCOSE UA (BEAKER) (test mclc=802) Negative Negative KETONES UA (BEAKER) (test cznk=237) 60 mg/dL Negative BILIRUBIN UA (BEAKER) (test ojxm=878) Negative Negative BLOOD UA (BEAKER) (test hrzw=083) Small Negative NITRITE UA (BEAKER) (test auwi=936) Negative Negative LEUKOCYTE ESTERASE UA (BEAKER) (test vikp=153) Negative Negative UROBILINOGEN UA (BEAKER) (test pjtx=198) 0.2 mg/dL 0.2-1.0 RBC UA (BEAKER) (test jglq=761) 4 /HPF WBC UA (BEAKER) (test reir=257) 2 /HPF MUCUS (BEAKER) (test qzus=6148) Occasional SQUAMOUS EPITHELIAL (BEAKER) (test bgoj=937) 1 /HPF SOURCE(BEAKER) (test jyhn=5195) POCT-GLUCOSE [id number] 12:09:00 Test Item Value Reference Range Comments POC-GLUCOSE METER (BEAKER) 119 mg/dL 70-110 TESTED AT [address] (test defl=4369) [place] [address] BASIC METABOLIC [id number] 09:23:00 Test Item Value Reference Range Comments SODIUM (BEAKER) (test 137 meq/L 136-145 ulpr=539) POTASSIUM (BEAKER) (test 3.9 meq/L 3.5-5.1 jsvf=639) CHLORIDE (BEAKER) (test 107 meq/L 98-107 dfbh=879) CO2 (BEAKER) (test 22 meq/L 22-29 sjhl=996) BLOOD UREA NITROGEN 8 mg/dL 7-21 (BEAKER) (test udgd=892) CREATININE (BEAKER) (test 0.74 mg/dL 0.57-1.25 mjjl=299) GLUCOSE RANDOM (BEAKER) 113 mg/dL 70-105 (test mfxa=331) CALCIUM (BEAKER) (test 8.7 mg/dL 8.4-10.2 clhm=385) EGFR (BEAKER) (test 107 mL/min/1.73 sq m ESTIMATED GFR IS NOT yami=4687) ACCURATE CREATININE CLEARANCE IN PREDICTING GLOMERULAR FILTRATION RATE. ESTIMATED GFR IS NOT APPLICABLE FOR DIALYSIS PATIENTS. POCT-GLUCOSE [id number] 08:41:00 Test Item Value Reference Range Comments POC-GLUCOSE METER (BEAKER) 114 mg/dL 70-110 TESTED AT [address] (test kygp=6349) [place] [address] RAD, CHEST, 1 VIEW, NON [id number] 07:48:00Reason for exam:->Post- OpShould this be performed at the bedside?->YesFINAL REPORT Chest one view AP 05/10/2017 7:47 AM CLINICAL INDICATION: Post-Op COMPARISON: 05/09/2017 IMPRESSION: There is bibasilar atelectasis. There is a trace left pleural effusion. Cardiomediastinal contours are within normal limits. The central pulmonary vasculature is notengorged. An enteric tube is present. Signed: Wang Kaiser MDReport Verified Date/Time: 05/10/2017 07:48: 05 Reading Location: [facility] Radiology Reading Room CBC W/PLT COUNT & AUTO [id number] 07:36:00 Test Item Value Reference Range Comments WHITE BLOOD CELL COUNT (BEAKER) (test lbmd=388) 18.9 K/ L 3.5-10.5 RED BLOOD CELL COUNT (BEAKER) (test yjyz=415) 4.03 M/ L 4.63-6.08 HEMOGLOBIN (BEAKER) (test amdt=174) 12.8 GM/DL 13.7-17.5 HEMATOCRIT (BEAKER) (test nlll=650) 38.3 % 40.1-51.0 MEAN CORPUSCULAR VOLUME (BEAKER) (test ybrc=905) 95.0 fL 79.0-92.2 MEAN CORPUSCULAR HEMOGLOBIN (BEAKER) (test 31.8 pg 25.7-32.2 riaz=639) MEAN CORPUSCULAR HEMOGLOBIN CONC (BEAKER) (test 33.4 GM/DL 32.3-36.5 tllj=042) RED CELL DISTRIBUTION WIDTH (BEAKER) (test 13.1 % 11.6-14.4 vqfv=261) PLATELET COUNT (BEAKER) (test zofg=331) 180 K/CU MM 150-450 MEAN PLATELET VOLUME (BEAKER) (test poqu=674) 9.9 fL 9.4-12.4 NUCLEATED RED BLOOD CELLS (BEAKER) (test 0 /100 WBC 0-0 jntb=904) NEUTROPHILS RELATIVE PERCENT (BEAKER) (test 82 % ilye=625) LYMPHOCYTES RELATIVE PERCENT (BEAKER) (test 6 % tneh=888) MONOCYTES RELATIVE PERCENT (BEAKER) (test 10 % gwvb=884) EOSINOPHILS RELATIVE PERCENT (BEAKER) (test 0 % otby=209) BASOPHILS RELATIVE PERCENT (BEAKER) (test 0 % mpko=526) NEUTROPHILS ABSOLUTE COUNT (BEAKER) (test 15.53 K/ L 1.78-5.38 pxhm=537) LYMPHOCYTES ABSOLUTE COUNT (BEAKER) (test 1.18 K/ L 1.32-3.57 yfjn=087) MONOCYTES ABSOLUTE COUNT (BEAKER) (test 1.92 K/ L 0.30-0.82 zhps=645) EOSINOPHILS ABSOLUTE COUNT (BEAKER) (test 0.07 K/ L 0.04-0.54 xzru=046) BASOPHILS ABSOLUTE COUNT (BEAKER) (test 0.04 K/ L 0.01-0.08 riha=512) IMMATURE GRANULOCYTES-RELATIVE PERCENT (BEAKER) 1 % 0-1 (test vqiq=9869) POCT-GLUCOSE [id number] 22:44:00 Test Item Value Reference Range Comments POC-GLUCOSE METER (BEAKER) 128 mg/dL 70-110 TESTED AT [address] (test afgv=0313) [place] [address] POCT-GLUCOSE [id number] 17:22:00 Test Item Value Reference Range Comments POC-GLUCOSE METER (BEAKER) 106 mg/dL 70-110 TESTED AT [address] (test xiiz=1155) [place] [address] RAD, ABDOMEN/KUB, 1 VIEW [id number] 12:38:00Reason for exam:->ileusFINAL REPORT Abdomen two views supine 05/09/2017 12:38 PM CLINICAL INDICATION: ileus COMPARISON: None available IMPRESSION: There is no radiographic evidence for bowel obstruction. There is mild ileus. No abnormal calcifications are seen in the region of the gallbladder or kidneys. There are no acute-appearing skeletal abnormalities. Signed: Wang Kaiser Verified Date/Time: 05/09/2017 12:38:47 Reading Location: [facility] C0[facility] Consult Reading Room POCT-GLUCOSE [id number] 12:19:00 Test Item Value Reference Range Comments POC-GLUCOSE METER (BEAKER) 102 mg/dL 70-110 TESTED AT [address] (test tqnm=6090) [place] [address] POCT-GLUCOSE [id number] 06:45:00 Test Item Value Reference Range Comments POC-GLUCOSE METER (BEAKER) 104 mg/dL 70-110 TESTED AT [address] (test cbih=4647) [facility] [address] RAD, CHEST, 1 VIEW, NON [id number] 05:01:00Reason for exam:->Post- OpShould this be performed at the bedside?->YesFINAL REPORT EXAMINATION: AP PORTABLE CHEST RADIOGRAPH CLINICAL INDICATION: Shortness of breath IMPRESSION: Compared with 05/08/2017 The endotracheal tube has been removed in the interval. The left lung volume has slightly decreased following extubation. Curvilinear opacities along the heart borders persist and are suggestive of atelectatic lung. Increased consolidation of the left lung base is also likely secondary to subsegmental atelectasis. The heart is mildly enlarged but stable. Mediastinal contours are grossly unchanged. No evidence of a significant pneumothorax. Signed: [facility] Verified Date/Time: 05/09/2017 05:01:39 Reading Location: [address] Reading Room [id number] 03:47:00 Test Item Value Reference Range Comments PHOSPHORUS (BEAKER) (test rfuh=117) 2.7 mg/dL 2.3-4.7 [id number] 03:47:00 Test Item Value Reference Range Comments MAGNESIUM (BEAKER) (test bijn=885) 1.8 mg/dL 1.6-2.6 BASIC METABOLIC [id number] 03:47:00 Test Item Value Reference Range Comments SODIUM (BEAKER) (test 139 meq/L 136-145 dnhl=814) POTASSIUM (BEAKER) (test 4.1 meq/L 3.5-5.1 tukn=704) CHLORIDE (BEAKER) (test 111 meq/L 98-107 ilmq=285) CO2 (BEAKER) (test 25 meq/L 22-29 sbga=831) BLOOD UREA NITROGEN 8 mg/dL 7-21 (BEAKER) (test avgv=196) CREATININE (BEAKER) (test 0.71 mg/dL 0.57-1.25 drsj=272) GLUCOSE RANDOM (BEAKER) 106 mg/dL 70-105 (test qjmt=226) CALCIUM (BEAKER) (test 8.2 mg/dL 8.4-10.2 jqfi=440) EGFR (BEAKER) (test 112 mL/min/1.73 sq m ESTIMATED GFR IS NOT gdnz=2372) ACCURATE CREATININE CLEARANCE IN PREDICTING GLOMERULAR FILTRATION RATE. ESTIMATED GFR IS NOT APPLICABLE FOR DIALYSIS PATIENTS. LACTIC ACID, ARTERIAL, WHOLE [id number] 03:42:00 Test Item Value Reference Range Comments LACTATE BLOOD ARTERIAL (2) (BEAKER) (test 0.9 mmol/L 0.5-2.2 qogk=7378) Effective 10/21/2015: Units/Reference Range ChangeNew: 0.5-2.2 mmol/L Previous: 5 -20 mg/dLCALCIUM, [id number] 03:39:00 Test Item Value Reference Range Comments CALCIUM IONIZED (BEAKER) (test usdc=219) 1.15 mmol/L 1.12-1.27 PH, BLOOD (BEAKER) (test wcak=1257) 7.42 CBC W/PLT COUNT & AUTO [id number] 03:36:00 Test Item Value Reference Range Comments WHITE BLOOD CELL COUNT (BEAKER) (test tnoy=488) 13.6 K/ L 3.5-10.5 RED BLOOD CELL COUNT (BEAKER) (test xovv=259) 3.99 M/ L 4.63-6.08 HEMOGLOBIN (BEAKER) (test ublt=215) 12.5 GM/DL 13.7-17.5 HEMATOCRIT (BEAKER) (test pzjk=910) 37.1 % 40.1-51.0 MEAN CORPUSCULAR VOLUME (BEAKER) (test ltqa=822) 93.0 fL 79.0-92.2 MEAN CORPUSCULAR HEMOGLOBIN (BEAKER) (test 31.3 pg 25.7-32.2 orme=707) MEAN CORPUSCULAR HEMOGLOBIN CONC (BEAKER) (test 33.7 GM/DL 32.3-36.5 giff=891) RED CELL DISTRIBUTION WIDTH (BEAKER) (test 13.2 % 11.6-14.4 appo=946) PLATELET COUNT (BEAKER) (test kyaz=773) 162 K/CU MM 150-450 MEAN PLATELET VOLUME (BEAKER) (test vpcd=201) 9.7 fL 9.4-12.4 NUCLEATED RED BLOOD CELLS (BEAKER) (test 0 /100 WBC 0-0 tlmp=867) NEUTROPHILS RELATIVE PERCENT (BEAKER) (test 80 % tvtg=613) LYMPHOCYTES RELATIVE PERCENT (BEAKER) (test 9 % jgvy=146) MONOCYTES RELATIVE PERCENT (BEAKER) (test 10 % wafg=357) EOSINOPHILS RELATIVE PERCENT (BEAKER) (test 1 % mdel=686) BASOPHILS RELATIVE PERCENT (BEAKER) (test 0 % fkbo=566) NEUTROPHILS ABSOLUTE COUNT (BEAKER) (test 10.78 K/ L 1.78-5.38 ikja=556) LYMPHOCYTES ABSOLUTE COUNT (BEAKER) (test 1.28 K/ L 1.32-3.57 xpld=205) MONOCYTES ABSOLUTE COUNT (BEAKER) (test 1.29 K/ L 0.30-0.82 jqmh=666) EOSINOPHILS ABSOLUTE COUNT (BEAKER) (test 0.12 K/ L 0.04-0.54 efib=282) BASOPHILS ABSOLUTE COUNT (BEAKER) (test 0.03 K/ L 0.01-0.08 eeun=661) IMMATURE GRANULOCYTES-RELATIVE PERCENT (BEAKER) 0 % 0-1 (test mfcc=4976) OXYGEN SATURATION, [id number] 03:35:00 Test Item Value Reference Range Comments O2 SATURATION (MEASURED) (BEAKER) (test iwun=0520) 64.0 % POCT-GLUCOSE [id number] 01:07:00 Test Item Value Reference Range Comments POC-GLUCOSE METER (BEAKER) 96 mg/dL 70-110 TESTED AT [address] (test chhf=9418) [facility] [address] BLOOD GAS, [id number] 12:28:00 Test Item Value Reference Range Comments PH ARTERIAL (BEAKER) (test vcby=428) 7.36 7.35-7.45 PCO2 ARTERIAL (BEAKER) (test csyj=933) 40 mmHg 35-45 PO2 ARTERIAL (BEAKER) (test rhja=166) 287 mmHg 80-90 O2 SATURATION ARTERIAL (BEAKER) (test hwqf=376) 99.6 % 96.0-97.0 HCO3 ARTERIAL (BEAKER) (test gevw=221) 22 mmol/L 21-29 BASE EXCESS ARTERIAL (BEAKER) (test ceug=617) -2.8 mmol/L -2.0-3.0 PATIENT TEMPERATURE (BEAKER) (test tgms=5841) 36.6 C FIO2 (BEAKER) (test jpsf=3588) 60.0 % RAD, CHEST, 1 VIEW, NON [id number] 11:05:00Reason for exam:->Post- OpShould this be performed at the bedside?->YesFINAL REPORT Chest one view AP 05/08/2017 11:05 AM CLINICAL INDICATION: Post-Op COMPARISON: 05/02/2017 IMPRESSION: Support hardware is in satisfactory radiographic position. Cardiomediastinal contours are stable. The central pulmonary vasculature is not engorged. The lungs are clear, save for scattered foci of linear atelectasis. Signed: Wang Kaisereport Verified Date/Time : 05/08/2017 11:05:58 Reading Location: [facility] Radiology Reading Room [id number] 11:03:00 Test Item Value Reference Range Comments MAGNESIUM (BEAKER) (test fjwn=588) 2.0 mg/dL 1.6-2.6 BASIC METABOLIC [id number] 11:03:00 Test Item Value Reference Range Comments SODIUM (BEAKER) (test 141 meq/L 136-145 adwd=971) POTASSIUM (BEAKER) (test 4.3 meq/L 3.5-5.1 gsue=134) CHLORIDE (BEAKER) (test 113 meq/L 98-107 jmub=154) CO2 (BEAKER) (test 24 meq/L 22-29 qjnm=927) BLOOD UREA NITROGEN 9 mg/dL 7-21 (BEAKER) (test xvni=909) CREATININE (BEAKER) (test 0.70 mg/dL 0.57-1.25 uweh=989) GLUCOSE RANDOM (BEAKER) 116 mg/dL 70-105 (test ddbe=643) CALCIUM (BEAKER) (test 8.7 mg/dL 8.4-10.2 dwdd=914) EGFR (BEAKER) (test 114 mL/min/1.73 sq m ESTIMATED GFR IS NOT xamy=1524) ACCURATE CREATININE CLEARANCE IN PREDICTING GLOMERULAR FILTRATION RATE. ESTIMATED GFR IS NOT APPLICABLE FOR DIALYSIS PATIENTS. LACTIC ACID, ARTERIAL, WHOLE [id number] 10:58:00 Test Item Value Reference Range Comments LACTATE BLOOD ARTERIAL (2) (BEAKER) (test 0.6 mmol/L 0.5-2.2 kzuv=8164) Effective 10/21/2015: Units/Reference Range ChangeNew: 0.5-2.2 mmol/L Previous: 5 -20 mg/dLPT/[id number] 10:57:00 Test Item Value Reference Range Comments PROTIME (BEAKER) (test wogt=616) 14.8 seconds 11.7-14.7 INR (BEAKER) (test engu=676) 1.2 <=5.9 PARTIAL THROMBOPLASTIN TIME (BEAKER) (test 29.1 seconds 22.5-36.0 zbae=283) RECOMMENDED COUMADIN/WARFARIN INR THERAPY RANGESSTANDARD DOSE: 2.0 - 3.0 Includes: PROPHYLAXIS forvenous thrombosis, systemic embolization; TREATMENT for venous thrombosis and/or pulmonary embolus.HIGH RISK: Target INR is 2.5-3.5 for patients with mechanical heart valves.CBC W/PLT COUNT & AUTO [id number] 10:53:00 Test Item Value Reference Range Comments WHITE BLOOD CELL COUNT (BEAKER) (test yetg=446) 18.0 K/ L 3.5-10.5 RED BLOOD CELL COUNT (BEAKER) (test tbob=993) 4.36 M/ L 4.63-6.08 HEMOGLOBIN (BEAKER) (test qnvj=492) 13.7 GM/DL 13.7-17.5 HEMATOCRIT (BEAKER) (test iguw=187) 40.2 % 40.1-51.0 MEAN CORPUSCULAR VOLUME (BEAKER) (test wtlx=691) 92.2 fL 79.0-92.2 MEAN CORPUSCULAR HEMOGLOBIN (BEAKER) (test 31.4 pg 25.7-32.2 pcuk=394) MEAN CORPUSCULAR HEMOGLOBIN CONC (BEAKER) (test 34.1 GM/DL 32.3-36.5 fpgy=262) RED CELL DISTRIBUTION WIDTH (BEAKER) (test 13.0 % 11.6-14.4 cdng=204) PLATELET COUNT (BEAKER) (test phlm=079) 177 K/CU MM 150-450 MEAN PLATELET VOLUME (BEAKER) (test iauy=476) 9.7 fL 9.4-12.4 NUCLEATED RED BLOOD CELLS (BEAKER) (test 0 /100 WBC 0-0 owbn=000) NEUTROPHILS RELATIVE PERCENT (BEAKER) (test 81 % nzvt=311) LYMPHOCYTES RELATIVE PERCENT (BEAKER) (test 10 % anpu=965) MONOCYTES RELATIVE PERCENT (BEAKER) (test 7 % zeps=459) EOSINOPHILS RELATIVE PERCENT (BEAKER) (test 1 % rljh=452) BASOPHILS RELATIVE PERCENT (BEAKER) (test 0 % joij=810) NEUTROPHILS ABSOLUTE COUNT (BEAKER) (test 14.49 K/ L 1.78-5.38 jpjq=937) LYMPHOCYTES ABSOLUTE COUNT (BEAKER) (test 1.76 K/ L 1.32-3.57 akgh=623) MONOCYTES ABSOLUTE COUNT (BEAKER) (test 1.19 K/ L 0.30-0.82 iovp=844) EOSINOPHILS ABSOLUTE COUNT (BEAKER) (test 0.19 K/ L 0.04-0.54 ygqp=760) BASOPHILS ABSOLUTE COUNT (BEAKER) (test 0.04 K/ L 0.01-0.08 avru=038) IMMATURE GRANULOCYTES-RELATIVE PERCENT (BEAKER) 2 % 0-1 (test sfjd=7559) OXYGEN SATURATION, [id number] 10:44:00 Test Item Value Reference Range Comments O2 SATURATION (MEASURED) (BEAKER) (test jnce=1209) 71.8 % BLOOD GAS, [id number] 10:42:00 Test Item Value Reference Range Comments PH ARTERIAL (BEAKER) (test pjmo=170) 7.37 7.35-7.45 PCO2 ARTERIAL (BEAKER) (test vyau=095) 42 mmHg 35-45 PO2 ARTERIAL (BEAKER) (test veok=216) 158 mmHg 80-90 O2 SATURATION ARTERIAL (BEAKER) (test uziu=060) 99.0 % 96.0-97.0 HCO3 ARTERIAL (BEAKER) (test ipan=616) 24 mmol/L 21-29 BASE EXCESS ARTERIAL (BEAKER) (test ytqm=321) -1.4 mmol/L -2.0-3.0 PATIENT TEMPERATURE (BEAKER) (test fpfm=8676) 36.4 C FIO2 (BEAKER) (test foyn=2613) 60.0 % GLUCOSE-STAT [id number] 10:42:00 Test Item Value Reference Range Comments GLUCOSE RANDOM (BEAKER) (test svnd=636) 112 mg/dL 70-110 SODIUM NA-STAT [id number] 10:41:00 Test Item Value Reference Range Comments SODIUM (BEAKER) (test cijc=091) 137 meq/L 135-148 POTASSIUM-STAT [id number] 10:41:00 Test Item Value Reference Range Comments POTASSIUM (BEAKER) (test mdvk=052) 4.2 meq/L 3.6-5.5 HGB/HCT (H&H) - STAT [id number] 10:41:00 Test Item Value Reference Range Comments HEMOGLOBIN (BEAKER) (test unst=979) 14.4 g/dL 13.0-16.8 HEMATOCRIT (BEAKER) (test tobl=594) 42.0 % 40.0-50.0 CALCIUM, [id number] 10:41:00 Test Item Value Reference Range Comments CALCIUM IONIZED (BEAKER) (test uhwh=403) 1.23 mmol/L 1.12-1.27 PH, BLOOD (BEAKER) (test izct=9500) 7.37 CALCIUM, [id number] 09:43:00 Test Item Value Reference Range Comments CALCIUM IONIZED (BEAKER) (test aupf=343) 1.25 mmol/L 1.12-1.27 PH, BLOOD (BEAKER) (test todz=1568) 7.32 SODIUM NA-STAT [id number] 09:42:00 Test Item Value Reference Range Comments SODIUM (BEAKER) (test wjgn=040) 138 meq/L 135-148 POTASSIUM-STAT [id number] 09:42:00 Test Item Value Reference Range Comments POTASSIUM (BEAKER) (test utmq=739) 3.8 meq/L 3.6-5.5 BLOOD GAS, [id number] 09:42:00 Test Item Value Reference Range Comments PH ARTERIAL (BEAKER) (test qwrv=772) 7.35 7.35-7.45 PCO2 ARTERIAL (BEAKER) (test fqik=036) 46 mmHg 35-45 PO2 ARTERIAL (BEAKER) (test xfhn=895) 99 mmHg 80-90 O2 SATURATION ARTERIAL (BEAKER) (test qtxz=072) 97.6 % 96.0-97.0 HCO3 ARTERIAL (BEAKER) (test tkgv=397) 25 mmol/L 21-29 BASE EXCESS ARTERIAL (BEAKER) (test fihj=206) -1.4 mmol/L -2.0-3.0 PATIENT TEMPERATURE (BEAKER) (test jyny=4058) 35.0 C FIO2 (BEAKER) (test rnks=6590) 61.0 % GLUCOSE-STAT [id number] 09:42:00 Test Item Value Reference Range Comments GLUCOSE RANDOM (BEAKER) (test nbvn=994) 112 mg/dL 70-110 HGB/HCT (H&H) - STAT [id number] 09:42:00 Test Item Value Reference Range Comments HEMOGLOBIN (BEAKER) (test shqv=090) 13.1 g/dL 13.0-16.8 HEMATOCRIT (BEAKER) (test ykjk=548) 39.0 % 40.0-50.0 SODIUM NA-STAT [id number] 08:37:00 Test Item Value Reference Range Comments SODIUM (BEAKER) (test tzxc=619) 137 meq/L 135-148 POTASSIUM-STAT [id number] 08:37:00 Test Item Value Reference Range Comments POTASSIUM (BEAKER) (test eoht=385) 3.9 meq/L 3.6-5.5 HGB/HCT (H&H) - STAT [id number] 08:37:00 Test Item Value Reference Range Comments HEMOGLOBIN (BEAKER) (test pntz=845) 15.2 g/dL 13.0-16.8 HEMATOCRIT (BEAKER) (test inlj=589) 45.0 % 40.0-50.0 CALCIUM, [id number] 08:37:00 Test Item Value Reference Range Comments CALCIUM IONIZED (BEAKER) (test wevu=088) 1.15 mmol/L 1.12-1.27 PH, BLOOD (BEAKER) (test aeyk=5900) 7.37 BLOOD GAS, [id number] 08:37:00 Test Item Value Reference Range Comments PH ARTERIAL (BEAKER) (test cbwc=361) 7.38 7.35-7.45 PCO2 ARTERIAL (BEAKER) (test glik=360) 43 mmHg 35-45 PO2 ARTERIAL (BEAKER) (test ogny=898) 442 mmHg 80-90 O2 SATURATION ARTERIAL (BEAKER) (test cyen=374) 99.8 % 96.0-97.0 HCO3 ARTERIAL (BEAKER) (test nesk=127) 25 mmol/L 21-29 BASE EXCESS ARTERIAL (BEAKER) (test zwsx=695) -0.8 mmol/L -2.0-3.0 PATIENT TEMPERATURE (BEAKER) (test bynq=3768) 36.3 C FIO2 (BEAKER) (test hdvb=2715) 64.0 % GLUCOSE-STAT [id number] 08:37:00 Test Item Value Reference Range Comments GLUCOSE RANDOM (BEAKER) (test dqwg=214) 111 mg/dL 70-110 HEMOGLOBIN [id number] 12:07:00 Test Item Value Reference Range Comments HEMOGLOBIN A1C (BEAKER) (test msjz=469) 5.6 % 4.3-6.1 RAD, CHEST, 2 [id number] 11:17:00Reason for Exam:->Pre-OpFINAL REPORT Chest x-ray, PA and lateral views Clinical History: Pre- Op Comparison: None Findings: The cardiac silhouette is normal. Aorta is mildly tortuous/ectatic. There is no pneumothorax, jeff pulmonary edema, consolidation or pleural effusion. Lungs appear mildly hyperinflated with flattening of the diaphragm. The bony structures demonstrate degenerative changes. Impression: Mild hyperinflation. Signed: Itzel Astudillo Verified Date/Time: 05/02/2017 11:17:15 Reading Location: [facility] Radiology Reading Room Electronically signed by: ITZEL ASTUDILLO M.D. on05/02/2017 11: 17 AMBASIC METABOLIC [id number] 11:09:00 Test Item Value Reference Range Comments SODIUM (BEAKER) (test 138 meq/L 136-145 mmku=276) POTASSIUM (BEAKER) (test 4.6 meq/L 3.5-5.1 kmbl=394) CHLORIDE (BEAKER) (test 105 meq/L 98-107 jooy=753) CO2 (BEAKER) (test 24 meq/L 22-29 eglz=658) BLOOD UREA NITROGEN 13 mg/dL 7-21 (BEAKER) (test rdtn=699) CREATININE (BEAKER) (test 0.81 mg/dL 0.57-1.25 ufjd=303) GLUCOSE RANDOM (BEAKER) 97 mg/dL 70-105 (test shux=635) CALCIUM (BEAKER) (test 9.6 mg/dL 8.4-10.2 eufj=297) EGFR (BEAKER) (test 97 mL/min/1.73 sq m ESTIMATED GFR IS NOT jvef=1547) ACCURATE CREATININE CLEARANCE IN PREDICTING GLOMERULAR FILTRATION RATE. ESTIMATED GFR IS NOT APPLICABLE FOR DIALYSIS PATIENTS. PROTHROMBIN TIME/[id number] 11:05:00 Test Item Value Reference Range Comments PROTIME (BEAKER) (test emlh=584) 12.9 seconds 11.7-14.7 INR (BEAKER) (test mygl=363) 1.0 <=5.9 RECOMMENDED COUMADIN/WARFARIN INR THERAPY RANGESSTANDARD DOSE: 2.0 - 3.0 Includes: PROPHYLAXIS forvenous thrombosis, systemic embolization; TREATMENT for venous thrombosis and/or pulmonary embolus.HIGH RISK: Target INR is 2.5-3.5 for patients with mechanical heart valves.CBC W/PLT COUNT & AUTO [id number] 10:46:00 Test Item Value Reference Range Comments WHITE BLOOD CELL COUNT (BEAKER) (test kect=650) 10.8 K/ L 3.5-10.5 RED BLOOD CELL COUNT (BEAKER) (test tnsm=705) 5.04 M/ L 4.63-6.08 HEMOGLOBIN (BEAKER) (test dppr=753) 15.6 GM/DL 13.7-17.5 HEMATOCRIT (BEAKER) (test elak=403) 46.7 % 40.1-51.0 MEAN CORPUSCULAR VOLUME (BEAKER) (test jvym=719) 92.7 fL 79.0-92.2 MEAN CORPUSCULAR HEMOGLOBIN (BEAKER) (test 31.0 pg 25.7-32.2 lsbn=480) MEAN CORPUSCULAR HEMOGLOBIN CONC (BEAKER) (test 33.4 GM/DL 32.3-36.5 riyt=594) RED CELL DISTRIBUTION WIDTH (BEAKER) (test 13.0 % 11.6-14.4 hdoq=940) PLATELET COUNT (BEAKER) (test vdmb=395) 254 K/CU MM 150-450 MEAN PLATELET VOLUME (BEAKER) (test rtrk=375) 9.8 fL 9.4-12.4 NUCLEATED RED BLOOD CELLS (BEAKER) (test 0 /100 WBC 0-0 oxcu=416) NEUTROPHILS RELATIVE PERCENT (BEAKER) (test 71 % wfnm=537) LYMPHOCYTES RELATIVE PERCENT (BEAKER) (test 17 % mwkb=377) MONOCYTES RELATIVE PERCENT (BEAKER) (test 9 % kkja=515) EOSINOPHILS RELATIVE PERCENT (BEAKER) (test 1 % zdwf=430) BASOPHILS RELATIVE PERCENT (BEAKER) (test 1 % liiu=501) NEUTROPHILS ABSOLUTE COUNT (BEAKER) (test 7.62 K/ L 1.78-5.38 qwse=164) LYMPHOCYTES ABSOLUTE COUNT (BEAKER) (test 1.87 K/ L 1.32-3.57 pkzc=794) MONOCYTES ABSOLUTE COUNT (BEAKER) (test 1.02 K/ L 0.30-0.82 peiv=719) EOSINOPHILS ABSOLUTE COUNT (BEAKER) (test 0.14 K/ L 0.04-0.54 aaxg=297) BASOPHILS ABSOLUTE COUNT (BEAKER) (test 0.06 K/ L 0.01-0.08 iwln=602) IMMATURE GRANULOCYTES-RELATIVE PERCENT (BEAKER) 1 % 0-1 (test qnjt=2106)
--- NOTE | 2018-04-10 17:18 | RAD REPORT ---
EXAM DESCRIPTION: US - AAA Screening - 04/10/2018 4:45 pm CLINICAL HISTORY: r/o AAA;Abd pain COMPARISON: No comparisons FINDINGS: Grayscale, color power, spectral Doppler assessment of the aorta was performed. Normal rocio w velocity is seen throughout the visualized abdominal aorta. Portions of the aorta along the midline were incompletely visualized due to bowel gas. There is no evidence of abdominal aortic aneurysm. Maximum dimension of the aorta seen is 2.8 cm. IMPRESSION: No evidence of abdominal aortic aneurysm.
--- NOTE | 2018-04-10 17:20 | ER ---
Nurse's Notes [facility] Name: Sae Cardozo Age: 62 yrs Sex: Male : 1955 Arrival Date: 04/10/2018 Time: 15:39 Bed 16 Private MD: Adriano Linares Diagnosis: Generalized abdominal pain Presentation: 04/10 15:53 Presenting complaint: Patient states: I have a pain in my abdomen for the last 10 days, la1 I cant really describe it but it doesn't feel right. Pt reports hx of AAA repair. Transition of care: patient was not received from another setting of care. Onset of symptoms was April 10, 2018. Risk Assessment: Do you want to hurt yourself or someone else? Patient reports no desire to harm self or others. Initial Sepsis Screen: Does the patient meet any 2 criteria? No. Patient's initial sepsis screen is negative. Does the patient have a suspected source of infection? No. Patient's initial sepsis screen is negative. Care prior to arrival: None. 15:53 Method Of Arrival: Ambulatory la1 15:53 Acuity: JIMMIE 3 la1 Historical: - Allergies: 15:52 No Known Allergies; la1 - Home Meds: 15:52 None [Active]; la1 - PMHx: 15:52 None; la1 - PSHx: 15:52 AAA repair; neck; la1 - Immunization history:: Adult Immunizations up to date. - Social history:: Smoking status: Patient uses tobacco products, smokes one pack cigarettes per day. - Ebola Screening: : No symptoms or risks identified at this time. Screenin:22 Abuse screen: Denies threats or abuse. Nutritional screening: No deficits noted. tw2 Tuberculosis screening: Fall Risk None identified. Assessment: 16:18 General: Appears in no apparent distress. Behavior is calm, cooperative, appropriate tw2 for age. Pain: Complains of pain in abdomen. Neuro: Level of Consciousness is awake, alert, obeys commands, Oriented to person, place, time, situation. Cardiovascular: Denies chest pain, shortness of breath, Heart tones S1 S2 Patient's skin is warm and dry. Respiratory: Airway is patent Respiratory effort is even, unlabored, Respiratory pattern is regular, symmetrical, Breath sounds are clear bilaterally. GI: Abdomen is round non-distended, Bowel sounds present X 4 quads. Abd is soft X 4 quads Reports lower abdominal pain, upper abdominal pain. : No signs and/or symptoms were reported regarding the genitourinary system. EENT: No signs and/or symptoms were reported regarding the EENT system. Derm: No signs and/or symptoms reported regarding the dermatologic system. Musculoskeletal: Range of motion: intact in all extremities. 16:27 Reassessment: US at bedside at this time. tw2 17:10 Reassessment: pt pacing in room states "im ready to go have my beer can you get me out tw2 of here", provider notified. 17:22 Reassessment: Patient appears in no apparent distress at this time. No changes from tw2 previously documented assessment. Patient and/or family updated on plan of care and expected duration. Pain level reassessed. Patient is alert, oriented x 3, equal unlabored respirations, skin warm/dry/pink. Vital Signs: 15:54 BP 148 / 97; Pulse 85; Resp 16; Temp 98.2(O); Pulse Ox 99% on R/A; Weight 83.46 kg; la1 Height 5 ft. 11 in. (180.34 cm); Pain 3/10; 17:21 BP 147 / 87; Pulse 72; Resp 17; Pulse Ox 100% on R/A; tw2 15:54 Body Mass Index 25.66 (83.46 kg, 180.34 cm) la1 ED Course: 15:39 Patient arrived in ED. as 15:40 Adriano Linares MD is Private Physician. as 15:53 Arm band placed on right wrist. la1 15:54 Triage completed. la1 15:56 Lizzie Avery FNP-C [facility]. kb 15:56 Blayne Decker MD is Attending Physician. kb 15:57 Jonelle Delarosa, [facility] is Primary Nurse. tw2 16:01 Placed in gown. Bed in low position. environmental monitoring specialist on. Pulse ox on. NIBP on. tw2 16:45 AAA Screening In Process Unspecified. EDMS 17:20 Adriano Linares MD is Referral Physician. kb 17:23 No provider procedures requiring assistance completed. Patient did not have IV access tw2 during this emergency room visit. Administered Medications: No medications were administered Outcome: 17:20 Discharge ordered by . kb 17:23 Discharged to home ambulatory. tw2 17:23 Condition: stable 17:23 Discharge instructions given to patient, Instructed on discharge instructions, follow up and referral plans. Demonstrated understanding of instructions, follow-up care. 17:23 Patient left the ED. tw2 Signatures: Dispatcher [employer] Lizzie Hope, LANI-C LANI-Elida Woods Lee, RN RN la1 Jonelle Delarosa RN RN tw2
--- NOTE | 2018-04-10 17:20 | EDPHYS ---
Physician Documentation [facility] Name: Sae Cardozo Age: 62 yrs Sex: Male : 1955 Arrival Date: 04/10/2018 Time: 15:39 Bed 16 Private MD: Adriano Linares ED Physician Blayne Decker HPI: 04/10 16:24 This 62 yrs old Male presents to ER via Ambulatory with complaints of kb Abdominal Pain. 16:24 The patient presents with abdominal pain in the periumbilical area. Onset: The kb symptoms/episode began/occurred 1 week(s) ago. The symptoms do not radiate. Associated signs and symptoms: none. The symptoms are described as constant. Modifying factors: The symptoms are alleviated by nothing, the symptoms are aggravated by nothing. Severity of pain: At its worst the pain was mild moderate in the emergency department the pain is unchanged. The patient has not experienced similar symptoms in the past. The patient has been recently seen by a physician: the patient's primary care provider, Dr. Linares earlier today, with similar presenting complaints, and was sent to the [facility] Emergency Department for further evaluation. Pt reports abd pain for a week. States "I had a triple A repair 11 months ago and want to make sure everything looks ok there. I do not want a cat scan because I've had a lot of them. I only want an ultrasound to make sure the repair still looks good.". Historical: - Allergies: 15:52 No Known Allergies; la1 - Home Meds: 15:52 None [Active]; la1 - PMHx: 15:52 None; la1 - PSHx: 15:52 AAA repair; neck; la1 - Immunization history:: Adult Immunizations up to date. - Social history:: Smoking status: Patient uses tobacco products, smokes one pack cigarettes per day. - Ebola Screening: : No symptoms or risks identified at this time. ROS: 16:23 Constitutional: Negative for fever, chills, and weight loss, Cardiovascular: Negative kb for chest pain, palpitations, and edema, Respiratory: Negative for shortness of breath, cough, wheezing, and pleuritic chest pain, Back: Negative for injury and pain, : Negative for injury, bleeding, discharge, and swelling, MS/Extremity: Negative for injury and deformity, Skin: Negative for injury, rash, and discoloration, Neuro: Negative for headache, weakness, numbness, tingling, and seizure. 16:23 Abdomen/GI: Positive for abdominal pain, Negative for nausea, vomiting, and diarrhea, constipation, abdominal cramps, abdominal distension, anorexia. Exam: 16:26 Constitutional: This is a well developed, well nourished patient who is awake, alert, kb and in no acute distress. Head/Face: Normocephalic, atraumatic. Chest/axilla: Normal chest wall appearance and motion. Nontender with no deformity. No lesions are appreciated. Cardiovascular: Regular rate and rhythm with a normal S1 and S2. No gallops, murmurs, or rubs. Normal PMI, no JVD. No pulse deficits. Respiratory: Lungs have equal breath sounds bilaterally, clear to auscultation and percussion. No rales, rhonchi or wheezes noted. No increased work of breathing, no retractions or nasal flaring. Skin: Warm, dry with normal turgor. Normal color with no rashes, no lesions, and no evidence of cellulitis. MS/ Extremity: Pulses equal, no cyanosis. Neurovascular intact. Full, normal range of motion. Neuro: Awake and alert, GCS 15, oriented to person, place, time, and situation. Cranial nerves II-XII grossly intact. Motor strength 5/5 in all extremities. Sensory grossly intact. Cerebellar exam normal. Normal gait. 16:26 Abdomen/GI: Inspection: scar(s), Bowel sounds: normal, Palpation: abdomen is soft and non-tender. Vital Signs: 15:54 BP 148 / 97; Pulse 85; Resp 16; Temp 98.2(O); Pulse Ox 99% on R/A; Weight 83.46 kg; la1 Height 5 ft. 11 in. (180.34 cm); Pain 3/10; 17:21 BP 147 / 87; Pulse 72; Resp 17; Pulse Ox 100% on R/A; tw2 15:54 Body Mass Index 25.66 (83.46 kg, 180.34 cm) la1 MDM: 15:56 Patient medically screened. kb 16:24 Data reviewed: vital signs, nurses notes. Data interpreted: Pulse oximetry: on room air kb is 99 %. Interpretation: normal. 17:19 Counseling: I had a detailed discussion with the patient and/or guardian regarding: the kb historical points, exam findings, and any diagnostic results supporting the discharge/admit diagnosis, radiology results, the need for outpatient follow up, a family practitioner, to return to the emergency department if symptoms worsen or persist or if there are any questions or concerns that arise at home. ED course: Pt is ready to leave. Refuses CT and lab work. Educated on US results and need for follow up. 04/10 16:19 Order name: AAA Screening; Complete Time: 17:19 EDHI Administered Medications: No medications were administered Disposition: 18:44 Co-signature as Attending Physician, Blayne Decker MD available for consultation at ps1 all times. Disposition: 04/10/18 17:20 Discharged to Home. Impression: Generalized abdominal pain. - Condition is Stable. - Discharge Instructions: Abdominal Pain, Adult, Bzbl-[id number]. - Medication Reconciliation Form, Thank You Letter, Antibiotic Education, Prescription Opioid Use form. - Follow up: Emergency Department; When: As needed; Reason: Worsening of condition. Follow up: Adriano Linares MD; When: 2 - 3 days; Reason: Recheck today's complaints, Continuance of care, Re-evaluation by your physician. Signatures: Dispatcher [employer] [facility] Lizzie Avery, MEDIA ASSOCIATE-C MEDIA ASSOCIATE-Lenny Vinson RN RN la1 Jonelle Delarosa RN RN tw2 Blayne Decker MD MD ps1 Corrections: (The following items were deleted from the chart) 16:19 16:16 Abdomen Complete+US.RAD.BRZ ordered. [facility] 17:23 17:20 04/10/2018 17:20 Discharged to Home. Impression: Generalized abdominal pain. tw2 Condition is Stable. Forms are Medication Reconciliation Form, Thank You Letter, Antibiotic Education, Prescription Opioid Use. Follow up: Emergency Department; When: As needed; Reason: Worsening of condition. Follow up: Adriano Linares; When: 2 - 3 days; Reason: Recheck today's complaints, Continuance of care, Re-evaluation by your physician. kb
== END 2018-04-10 17:23 | disposition home or self-care (01) ==
LOC: ER 15:36
DX: R10.84 Generalized abdominal pain (principal); F17.210 Nicotine dependence, cigarettes, uncomplicated
CPT/HCPCS: 76706; 99284

== ENCOUNTER 2018-08-01 18:18 | Inpatient (IN) | payer OTHER ==
--- OUTSIDE RECORDS SUMMARY | 2018-08-01 18:20 | XMS REPORT | Clinical Summary ---
:1955 Author Organization [facility] Address [address] [place] [address] Care Team Providers Name Role Phone Vijay Adriano Teo Primary Care Provider Viet Brady Unavailable Allergies Active Allergy Reactions Severity Noted Date Comments Other Itching 05/02/2017 All anti inflammatory drugs Medications Medication Sig Dispensed Refills Start Date End Date Status metoprolol Take 0.5 tablets 60 tablet 0 05/13/2017 05/13/2018 (LOPRESSOR) 25 MG (12.5 mg total) tablet by mouth 2 (two) times daily. atorvastatin Take 1 tablet 30 tablet 0 05/14/2017 05/14/2018 (LIPITOR) 10 MG (10 mg total) by tablet mouth nightly. aspirin 81 MG EC Take 1 tablet 30 tablet 0 05/14/2017 05/14/2018 tablet (81 mg total) by mouth daily. Hospital, Clinic, or Ordered Dose Route Frequency Start Date End Date Status Other Facility Administered Medication iopamidol 100 mL IV IMG once as 09/25/2017 09/25/2017 Ended (ISOVUE-370) 76 % needed injection 100 mL Active Problems Problem Noted Date Acute pulmonary insufficiency following non-thoracic surgery 05/09/2017 Hyperglycemia 05/09/2017 AAA (abdominal aortic aneurysm) 05/08/2017 Smoker 05/03/2017 Aneurysm Postoperative anemia due to acute blood loss Encounters Date Type Specialty Care Team Description 09/25/2017 Hospital Encounter Radiology Sae Fulton MD aneurysm (AAA) without rupture (HCC) 09/14/2017 Outside Orders Central Scheduling Sae Fulton MD aneurysm (AAA) without rupture (HCC) (Primary Dx) 09/04/2017 Hospital Encounter Radiology Sae Fulton MD aneurysm (AAA) without rupture (HCC) 08/28/2017 Orders Only Cardiology Sae Fulton Abdominal aortic MD Hieu aneurysm (AAA) without rupture (HCC) (Primary Dx) after 07/31/2017 Family History Medical History Relation Name Comments COPD Mother Relation Name Status Comments Mother Social History Tobacco Use Types Packs/Day Years Used Date Current Every Day Smoker 1.5 47 Smokeless Tobacco: Never Used Alcohol Use Drinks/Week oz/Week Comments Yes 24 Cans of beer 14.4 Sex Assigned at Date Recorded Not on file Job Start Date Occupation Industry Not on file Not on file Not on file Travel History Travel Start Travel End No recent travel history available. Last Filed Vital Signs Not on file Plan of Treatment Health Maintenance Due Date Last Done Comments INFLUENZA VACCINE 03/19/2018 Implants Implanted Type Area Portable Power Tool Repairer Device Shelf Model / Identifier Expiration Serial / Date Lot Ivan Santos Knit Gld [id number] - Sna Graft/Pa N/A: GETINGE 2019 [id number] / Implanted: Qty: 1 on 05/08/2017 by Sae Fulton MD [facility] Aorta IND:MAQUET: CV NA / [id number] Procedures Procedure Name Priority Date/Time Associated Diagnosis Comments CT/CTA ABDOMEN AAA Routine 09/25/2017 10:10 AM Abdominal aortic Results for this PROTOCOL CDT aneurysm (AAA) procedure are in without rupture the results (HCC) section. POCT-CREATININE Routine 09/25/2017 9:51 AM Results for this CDT procedure are in the results section. CT/CTA CHEST Routine 09/04/2017 3:52 PM Abdominal aortic Results for this CDT aneurysm (AAA) procedure are in without rupture the results (HCC) section. POCT-CREATININE Routine 09/04/2017 2:36 PM Results for this CDT procedure are in the results section. after 07/31/2017 Results CTA abdomen AAA protocol (09/25/2017 10:10 AM CDT) Narrative Performed At Addendum [facility] [facility] REPORT STATUS:A Addendum: I agree with the previously described non vascular findings by Dr. Castro. Signed: Nathan Johnston MD Report Verified Date/Time:09/25/2017 14:34:58 Reading Location: [place] [address] Angio Body Reading Room Addendum Ends FINAL [...] and during intravenous contrast administration using a Kids360 CT scanner. Images were obtained before and during the dynamic passage of intravenous contrast material. Multi-planar 3-D volume-rendering reconstruction was performed using an independent workstation interactively by the interpreting physician as well as the 3-D specialist for optimal visualisation of the abdominal aorta, pelvic arteries, and its proximal branches. Please refer to the contrast sheet scanned in the [employer] system for the amount and route of [...] dictated regarding the non-vascular findings by the Sewage Plant Operator Radiologist. Signed: Joaquín Castro MD Report Verified Date/Time:09/25/2017 10:55:28 Reading Location: [place] [address] Cardiology MRI Procedure Note Interface, External Ris In - 09/25/2017 2:37 PM CDT Addendum Begins REPORT STATUS:A Addendum: I agree with the previously described non vascular findings by Dr. Castro. Signed: Nathan Johnston MD Report Verified Date/Time: 09/25/2017 14:34:58 Reading Location: [place] [address] Angio Body Reading Room Addendum Ends FINAL [...] and during intravenous contrast administration using a Kids360 CT scanner. Images were obtained before and during the dynamic passage of intravenous contrast material. Multi-planar 3-D volume-rendering reconstruction was performed using an independent workstation interactively by the interpreting physician as well as the 3-D specialist for optimal visualisation of the abdominal aorta, pelvic arteries, and its proximal branches. Please refer to the contrast sheet scanned in the [employer] system for the amount and route of [...] dictated regarding the non-vascular findings by the Sewage Plant Operator Radiologist. Signed: Joaquín Castro MD Report Verified Date/Time: 09/25/2017 10:55:28 Reading Location: [place] [address] Cardiology MRI Performing Organization Address City/State/Zipcode Phone Number [facility] POC-Creatinine (09/25/2017 9:51 AM CDT)Only the most recent of2 resultswithin the time period is included. POC-Creatinine 0.7Comment: TESTED AT 0.6 - 1.3 mg/dL [facility] [address] [place] [address] POC-EGFR 114 mL/min/1.73M2 [facility] Specimen Blood Narrative Performed At Performing Organization Address City/State/[place] [address]/CTA chest (09/04/2017 3:52 PM CDT) Narrative Performed At Addendum Begins [facility] REPORT STATUS:A Addendum: I agree with the previously described non vascular findings. Signed: Hubert Stiles MD Report Verified Date/Time:09/05/2017 09:31:21 Reading Location: [place] [id number] Angio Body Reading Room Addendum Ends FINAL [...] dictated regarding the non-vascular findings by the Sewage Plant Operator Radiologist. Signed: Joaquín Castro MD Report Verified Date/Time:09/04/2017 17:13:07 Reading Location: [place] [address] Cardiology MRI Procedure Note Interface, External Ris In - 09/05/2017 9:33 AM CDT Addendum Begins REPORT STATUS:A Addendum: I agree with the previously described non vascular findings. Signed: Hubert Stiles MD Report Verified Date/Time: 09/05/2017 09:31:21 Reading Location: [place] [id number] Angio Body Reading Room Addendum Ends FINAL [...] dictated regarding the non-vascular findings by the Sewage Plant Operator Radiologist. Signed: Joaquín Castro MD Report Verified Date/Time: 09/04/2017 17:13:07 Reading Location: [place] [address] Cardiology MRI Performing Organization Address City/State/Zipcode Phone Number [facility] after 07/31/2017 Insurance Payer Benefit Plan / Group Subscriber ID Type Phone Address [employer] - [employer] PPO xxxxxxxxx PPO Advance Directives For more information, please contact:[address] [phone] Code Status Date Activated Date Inactivated Comments Full Code 05/08/2017 5:38 AM 05/14/2017 2:07 PM This code status was determined by: Patient
--- OUTSIDE RECORDS SUMMARY | 2018-08-01 18:21 | XMS REPORT ---
:1955 Author Organization [facility] Address [address] [place] [address] Dr. Harman. [address] [place] [address] Care Team Providers Name Role Phone HELDER [...] MDReport Verified Date/Time: 09/25/2017 14:34:58 Reading Location: [place] [address] Angio Body Reading RoomAddendum EndsFINAL REPORT CT [...] and during intravenous contrast administration using a [employer] CT scanner. Images were obtained before and during the dynamic passage of intravenous contrast material. Multi-planar 3-D volume-rendering reconstruction was performed using an independent workstation interactively by the interpreting physician as well as the 3-D specialist for optimal visualisation of the abdominal aorta, pelvic arteries, and its proximal branches. Please refer to the contrast sheet scanned in the [employer] system for the amount and route of [...] dictated regarding the non-vascular findings by the Loan Teller Radiologist. Signed: Joaquín Castro MDReport Verified Date/Time: 09/25/2017 10:55:28 Reading Location: [place] [address] Cardiology MRI -CREATININE 2017-09-25 09:56:00 Test Item Value Reference Range Comments POC-CREATININE (IRMA) (test 0.7 mg/dL 0.6-1.3 TESTED [place] [facility] [place] edzy=6907) [facility] [address] POC-EGFR (IRMA) (test 114 mL/min/1.73M2 uuju=4655) CT, CTA, [id number] 09:31:00Addendum BeginsREPORT STATUS:A Addendum: I agree with the previously described non vascular findings. Signed: Hubert Stiles MDReport Verified Date/Time: 09/05/2017 09:31:21 Reading Location: [place] [address] Angio Body Reading RoomAddendum EndsFINAL REPORT CT [...] regarding the non -vascular findings by the Loan Teller Radiologist. Signed: Joaquín Castro MDReport Verified Date/Time: 09/04/2017 17:13:07 Reading Location: [place] [address] Cardiology MRI [id number] 14:44:00 Test Item Value Reference Range Comments POC-CREATININE (BEAKER) 0.8 mg/dL 0.6-1.[address] [facility] [address] (test tlmt=8645) [facility] [address] POC-EGFR (BEAKER) (test 98 mL/min/1.73M2 uzsy=4073) BASIC METABOLIC [id number] 07:48:00 Test Item Value Reference Range Comments SODIUM (BEAKER) (test 139 meq/L 136-145 zrzm=443) POTASSIUM (BEAKER) (test 3.9 meq/L 3.5-5.1 vakn=916) CHLORIDE (BEAKER) (test 107 meq/L 98-107 wnie=924) CO2 (BEAKER) (test 26 meq/L 22-29 vbkm=015) BLOOD UREA NITROGEN 8 mg/dL 7-21 (BEAKER) (test ydlh=710) CREATININE (BEAKER) (test 0.66 mg/dL 0.57-1.25 bjbm=237) GLUCOSE RANDOM (BEAKER) 91 mg/dL 70-105 (test bjzk=967) CALCIUM (BEAKER) (test 9.1 mg/dL 8.4-10.2 viaf=590) EGFR (BEAKER) (test 122 mL/min/1.73 sq m ESTIMATED GFR IS NOT ufpd=8089) ACCURATE CREATININE CLEARANCE IN PREDICTING GLOMERULAR FILTRATION RATE. ESTIMATED GFR IS NOT APPLICABLE FOR DIALYSIS PATIENTS. CBC W/PLT COUNT & AUTO [id number] 07:14:00 Test Item Value Reference Range Comments WHITE BLOOD CELL COUNT (BEAKER) (test amkx=786) 8.5 K/ L 3.5-10.5 RED BLOOD CELL COUNT (BEAKER) (test ljmu=257) 3.59 M/ L 4.63-6.08 HEMOGLOBIN (BEAKER) (test bgby=930) 11.1 GM/DL 13.7-17.5 HEMATOCRIT (BEAKER) (test naba=353) 33.6 % 40.1-51.0 MEAN CORPUSCULAR VOLUME (BEAKER) (test zmff=841) 93.6 fL 79.0-92.2 MEAN CORPUSCULAR HEMOGLOBIN (BEAKER) (test 30.9 pg 25.7-32.2 rzjd=237) MEAN CORPUSCULAR HEMOGLOBIN CONC (BEAKER) (test 33.0 GM/DL 32.3-36.5 eowx=014) RED CELL DISTRIBUTION WIDTH (BEAKER) (test 13.3 % 11.6-14.4 zppf=240) PLATELET COUNT (BEAKER) (test nfem=740) 244 K/CU MM 150-450 MEAN PLATELET VOLUME (BEAKER) (test ybce=411) 10.0 fL 9.4-12.4 NUCLEATED RED BLOOD CELLS (BEAKER) (test 0 /100 WBC 0-0 qsob=611) NEUTROPHILS RELATIVE PERCENT (BEAKER) (test 64 % uhkd=976) LYMPHOCYTES RELATIVE PERCENT (BEAKER) (test 17 % fwwr=888) MONOCYTES RELATIVE PERCENT (BEAKER) (test 13 % pdca=157) EOSINOPHILS RELATIVE PERCENT (BEAKER) (test 5 % vxqx=428) BASOPHILS RELATIVE PERCENT (BEAKER) (test 0 % xhxt=694) NEUTROPHILS ABSOLUTE COUNT (BEAKER) (test 5.44 K/ L 1.78-5.38 hsyo=399) LYMPHOCYTES ABSOLUTE COUNT (BEAKER) (test 1.44 K/ L 1.32-3.57 yirr=224) MONOCYTES ABSOLUTE COUNT (BEAKER) (test 1.12 K/ L 0.30-0.82 dvuv=021) EOSINOPHILS ABSOLUTE COUNT (BEAKER) (test 0.38 K/ L 0.04-0.54 dvkv=226) BASOPHILS ABSOLUTE COUNT (BEAKER) (test 0.03 K/ L 0.01-0.08 agrk=346) IMMATURE GRANULOCYTES-RELATIVE PERCENT (BEAKER) 1 % 0-1 (test qflx=5467) CBC W/PLT COUNT & AUTO [id number] 07:30:00 Test Item Value Reference Range Comments WHITE BLOOD CELL COUNT (BEAKER) (test kqzk=385) 8.6 K/ L 3.5-10.5 RED BLOOD CELL COUNT (BEAKER) (test cbez=825) 3.99 M/ L 4.63-6.08 HEMOGLOBIN (BEAKER) (test tuwi=448) 12.4 GM/DL 13.7-17.5 HEMATOCRIT (BEAKER) (test gcul=685) 37.1 % 40.1-51.0 MEAN CORPUSCULAR VOLUME (BEAKER) (test txbj=155) 93.0 fL 79.0-92.2 MEAN CORPUSCULAR HEMOGLOBIN (BEAKER) (test 31.1 pg 25.7-32.2 xitc=329) MEAN CORPUSCULAR HEMOGLOBIN CONC (BEAKER) (test 33.4 GM/DL 32.3-36.5 cbba=995) RED CELL DISTRIBUTION WIDTH (BEAKER) (test 13.2 % 11.6-14.4 zzmn=473) PLATELET COUNT (BEAKER) (test gkmu=861) 209 K/CU MM 150-450 MEAN PLATELET VOLUME (BEAKER) (test bwqf=058) 10.2 fL 9.4-12.4 NUCLEATED RED BLOOD CELLS (BEAKER) (test 0 /100 WBC 0-0 qmuq=522) NEUTROPHILS RELATIVE PERCENT (BEAKER) (test 72 % lcgm=008) LYMPHOCYTES RELATIVE PERCENT (BEAKER) (test 12 % oghw=894) MONOCYTES RELATIVE PERCENT (BEAKER) (test 11 % rfow=407) EOSINOPHILS RELATIVE PERCENT (BEAKER) (test 4 % sfcs=320) BASOPHILS RELATIVE PERCENT (BEAKER) (test 0 % sxuj=701) NEUTROPHILS ABSOLUTE COUNT (BEAKER) (test 6.16 K/ L 1.78-5.38 ogzg=638) LYMPHOCYTES ABSOLUTE COUNT (BEAKER) (test 1.05 K/ L 1.32-3.57 sjpo=736) MONOCYTES ABSOLUTE COUNT (BEAKER) (test 0.93 K/ L 0.30-0.82 eqcx=424) EOSINOPHILS ABSOLUTE COUNT (BEAKER) (test 0.36 K/ L 0.04-0.54 uhpq=971) BASOPHILS ABSOLUTE COUNT (BEAKER) (test 0.03 K/ L 0.01-0.08 jiaj=269) IMMATURE GRANULOCYTES-RELATIVE PERCENT (BEAKER) 1 % 0-1 (test qjkf=1417) BASIC METABOLIC [id number] 07:26:00 Test Item Value Reference Range Comments SODIUM (BEAKER) (test 139 meq/L 136-145 bubv=337) POTASSIUM (BEAKER) (test 3.4 meq/L 3.5-5.1 tapc=135) CHLORIDE (BEAKER) (test 105 meq/L 98-107 hnnh=882) CO2 (BEAKER) (test 25 meq/L 22-29 lpcu=174) BLOOD UREA NITROGEN 7 mg/dL 7-21 (BEAKER) (test jwws=604) CREATININE (BEAKER) (test 0.63 mg/dL 0.57-1.25 hayo=245) GLUCOSE RANDOM (BEAKER) 87 mg/dL 70-105 (test mfok=151) CALCIUM (BEAKER) (test 9.2 mg/dL 8.4-10.2 cidi=026) EGFR (BEAKER) (test 129 mL/min/1.73 sq m ESTIMATED GFR IS NOT jyae=3396) ACCURATE CREATININE CLEARANCE IN PREDICTING GLOMERULAR FILTRATION RATE. ESTIMATED GFR IS NOT APPLICABLE FOR DIALYSIS PATIENTS. POCT-GLUCOSE [id number] 08:28:00 Test Item Value Reference Range Comments POC-GLUCOSE METER (BEAKER) 90 mg/dL 70-[address] [facility] [address] (test zjkr=5997) [facility] [address] CBC W/PLT COUNT & AUTO [id number] 06:41:00 Test Item Value Reference Range Comments WHITE BLOOD CELL COUNT (BEAKER) (test wica=222) 15.3 K/ L 3.5-10.5 RED BLOOD CELL COUNT (BEAKER) (test oonj=668) 3.90 M/ L 4.63-6.08 HEMOGLOBIN (BEAKER) (test ffzo=745) 12.2 GM/DL 13.7-17.5 HEMATOCRIT (BEAKER) (test vcce=417) 36.7 % 40.1-51.0 MEAN CORPUSCULAR VOLUME (BEAKER) (test cmgp=244) 94.1 fL 79.0-92.2 MEAN CORPUSCULAR HEMOGLOBIN (BEAKER) (test 31.3 pg 25.7-32.2 itqe=018) MEAN CORPUSCULAR HEMOGLOBIN CONC (BEAKER) (test 33.2 GM/DL 32.3-36.5 jciu=829) RED CELL DISTRIBUTION WIDTH (BEAKER) (test 13.4 % 11.6-14.4 onrx=797) PLATELET COUNT (BEAKER) (test lcru=629) 200 K/CU MM 150-450 MEAN PLATELET VOLUME (BEAKER) (test lean=731) 10.3 fL 9.4-12.4 NUCLEATED RED BLOOD CELLS (BEAKER) (test 0 /100 WBC 0-0 tuvk=828) NEUTROPHILS RELATIVE PERCENT (BEAKER) (test 77 % annm=195) LYMPHOCYTES RELATIVE PERCENT (BEAKER) (test 10 % dfjo=007) MONOCYTES RELATIVE PERCENT (BEAKER) (test 10 % ydah=447) EOSINOPHILS RELATIVE PERCENT (BEAKER) (test 2 % rqpa=958) BASOPHILS RELATIVE PERCENT (BEAKER) (test 0 % oquh=338) NEUTROPHILS ABSOLUTE COUNT (BEAKER) (test 11.83 K/ L 1.78-5.38 onys=671) LYMPHOCYTES ABSOLUTE COUNT (BEAKER) (test 1.49 K/ L 1.32-3.57 btcd=455) MONOCYTES ABSOLUTE COUNT (BEAKER) (test 1.56 K/ L 0.30-0.82 dvtq=170) EOSINOPHILS ABSOLUTE COUNT (BEAKER) (test 0.29 K/ L 0.04-0.54 snpl=489) BASOPHILS ABSOLUTE COUNT (BEAKER) (test 0.03 K/ L 0.01-0.08 kkbd=393) IMMATURE GRANULOCYTES-RELATIVE PERCENT (BEAKER) 1 % 0-1 (test yiyy=8758) BASIC METABOLIC [id number] 06:11:00 Test Item Value Reference Range Comments SODIUM (BEAKER) (test 138 meq/L 136-145 gmix=207) POTASSIUM (BEAKER) (test 4.6 meq/L 3.5-5.1 Specimen slightly rsep=649) hemolyzed CHLORIDE (BEAKER) (test 105 meq/L 98-107 hafg=669) CO2 (BEAKER) (test 24 meq/L 22-29 whjk=739) BLOOD UREA NITROGEN 11 mg/dL 7-21 (BEAKER) (test etqv=825) CREATININE (BEAKER) (test 0.70 mg/dL 0.57-1.25 Specimen slightly ufko=474) hemolyzed GLUCOSE RANDOM (BEAKER) 81 mg/dL 70-105 (test khrj=555) CALCIUM (BEAKER) (test 9.2 mg/dL 8.4-10.2 xaya=863) EGFR (BEAKER) (test 114 mL/min/1.73 sq m ESTIMATED GFR IS NOT hlmq=6749) ACCURATE CREATININE CLEARANCE IN PREDICTING GLOMERULAR FILTRATION RATE. ESTIMATED GFR IS NOT APPLICABLE FOR DIALYSIS PATIENTS. POCT-GLUCOSE [id number] 03:06:00 Test Item Value Reference Range Comments POC-GLUCOSE METER (BEAKER) 86 mg/dL 70-110 TESTED AT [address] (test txzp=7756) [place] [address] POCT-GLUCOSE [id number] 17:51:00 Test Item Value Reference Range Comments POC-GLUCOSE METER (BEAKER) 98 mg/dL 70-110 TESTED AT [address] (test hmik=6501) [place] [address] URINALYSIS W/ REFLEX URINE [id number] 12:37:00 Test Item Value Reference Range Comments COLOR (BEAKER) (test qudm=148) Yellow CLARITY (BEAKER) (test lida=828) Clear SPECIFIC GRAVITY UA (BEAKER) (test dttl=008) 1.018 1.001-1.035 PH UA (BEAKER) (test hclm=485) 6.5 5.0-8.0 PROTEIN UA (BEAKER) (test ufbv=344) 50 mg/dL Negative GLUCOSE UA (BEAKER) (test nlqn=968) Negative Negative KETONES UA (BEAKER) (test oexv=583) 60 mg/dL Negative BILIRUBIN UA (BEAKER) (test ayky=729) Negative Negative BLOOD UA (BEAKER) (test lvcs=701) Small Negative NITRITE UA (BEAKER) (test qnto=824) Negative Negative LEUKOCYTE ESTERASE UA (BEAKER) (test dygr=550) Negative Negative UROBILINOGEN UA (BEAKER) (test hpoc=091) 0.2 mg/dL 0.2-1.0 RBC UA (BEAKER) (test fsqp=227) 4 /HPF WBC UA (BEAKER) (test qxlu=265) 2 /HPF MUCUS (BEAKER) (test dshp=2068) Occasional SQUAMOUS EPITHELIAL (BEAKER) (test egnd=122) 1 /HPF SOURCE(BEAKER) (test nrre=7844) POCT-GLUCOSE [id number] 12:09:00 Test Item Value Reference Range Comments POC-GLUCOSE METER (BEAKER) 119 mg/dL 70-110 TESTED AT [address] (test yolb=0112) [place] [address] BASIC METABOLIC [id number] 09:23:00 Test Item Value Reference Range Comments SODIUM (BEAKER) (test 137 meq/L 136-145 koyc=463) POTASSIUM (BEAKER) (test 3.9 meq/L 3.5-5.1 hzmd=317) CHLORIDE (BEAKER) (test 107 meq/L 98-107 gnnz=046) CO2 (BEAKER) (test 22 meq/L 22-29 nawu=748) BLOOD UREA NITROGEN 8 mg/dL 7-21 (BEAKER) (test ezjt=365) CREATININE (BEAKER) (test 0.74 mg/dL 0.57-1.25 ljrz=385) GLUCOSE RANDOM (BEAKER) 113 mg/dL 70-105 (test ihhp=854) CALCIUM (BEAKER) (test 8.7 mg/dL 8.4-10.2 ekcl=654) EGFR (BEAKER) (test 107 mL/min/1.73 sq m ESTIMATED GFR IS NOT vbtn=9261) ACCURATE CREATININE CLEARANCE IN PREDICTING GLOMERULAR FILTRATION RATE. ESTIMATED GFR IS NOT APPLICABLE FOR DIALYSIS PATIENTS. POCT-GLUCOSE [id number] 08:41:00 Test Item Value Reference Range Comments POC-GLUCOSE METER (BEAKER) 114 mg/dL 70-110 TESTED AT [address] (test cvux=1094) [place] [address] RAD, CHEST, 1 VIEW, NON [id number] 07:48:00Reason for exam:->Post- OpShould this be performed at the bedside?->YesFINAL REPORT Chest one view AP 05/10/2017 7:47 AM CLINICAL INDICATION: Post-Op COMPARISON: 05/09/2017 IMPRESSION: There is bibasilar atelectasis. There is a trace left pleural effusion. Cardiomediastinal contours are within normal limits. The central pulmonary vasculature is notengorged. An enteric tube is present. Signed: Wang Kaiser MDReport Verified Date/Time: 05/10/2017 07:48: 05 Reading Location: [facility] Radiology Reading Room CBC W/PLT COUNT & AUTO [id number] 07:36:00 Test Item Value Reference Range Comments WHITE BLOOD CELL COUNT (BEAKER) (test kuyd=536) 18.9 K/ L 3.5-10.5 RED BLOOD CELL COUNT (BEAKER) (test jkge=901) 4.03 M/ L 4.63-6.08 HEMOGLOBIN (BEAKER) (test lfkf=265) 12.8 GM/DL 13.7-17.5 HEMATOCRIT (BEAKER) (test bhau=830) 38.3 % 40.1-51.0 MEAN CORPUSCULAR VOLUME (BEAKER) (test tbne=423) 95.0 fL 79.0-92.2 MEAN CORPUSCULAR HEMOGLOBIN (BEAKER) (test 31.8 pg 25.7-32.2 jkdt=532) MEAN CORPUSCULAR HEMOGLOBIN CONC (BEAKER) (test 33.4 GM/DL 32.3-36.5 vnne=817) RED CELL DISTRIBUTION WIDTH (BEAKER) (test 13.1 % 11.6-14.4 qsfs=043) PLATELET COUNT (BEAKER) (test njmc=642) 180 K/CU MM 150-450 MEAN PLATELET VOLUME (BEAKER) (test mhki=453) 9.9 fL 9.4-12.4 NUCLEATED RED BLOOD CELLS (BEAKER) (test 0 /100 WBC 0-0 zlje=257) NEUTROPHILS RELATIVE PERCENT (BEAKER) (test 82 % cabe=121) LYMPHOCYTES RELATIVE PERCENT (BEAKER) (test 6 % ryet=810) MONOCYTES RELATIVE PERCENT (BEAKER) (test 10 % jotk=168) EOSINOPHILS RELATIVE PERCENT (BEAKER) (test 0 % vqjm=542) BASOPHILS RELATIVE PERCENT (BEAKER) (test 0 % ptrb=760) NEUTROPHILS ABSOLUTE COUNT (BEAKER) (test 15.53 K/ L 1.78-5.38 vkyl=638) LYMPHOCYTES ABSOLUTE COUNT (BEAKER) (test 1.18 K/ L 1.32-3.57 kqws=273) MONOCYTES ABSOLUTE COUNT (BEAKER) (test 1.92 K/ L 0.30-0.82 fsos=618) EOSINOPHILS ABSOLUTE COUNT (BEAKER) (test 0.07 K/ L 0.04-0.54 ojrn=443) BASOPHILS ABSOLUTE COUNT (BEAKER) (test 0.04 K/ L 0.01-0.08 pwde=203) IMMATURE GRANULOCYTES-RELATIVE PERCENT (BEAKER) 1 % 0-1 (test kvlu=6225) POCT-GLUCOSE [id number] 22:44:00 Test Item Value Reference Range Comments POC-GLUCOSE METER (BEAKER) 128 mg/dL 70-110 TESTED AT [address] (test lacu=2932) [place] [address] POCT-GLUCOSE [id number] 17:22:00 Test Item Value Reference Range Comments POC-GLUCOSE METER (BEAKER) 106 mg/dL 70-110 TESTED AT [address] (test evjv=6095) [place] [address] RAD, ABDOMEN/KUB, 1 VIEW [id number] 12:38:00Reason for exam:->ileusFINAL REPORT Abdomen two views supine 05/09/2017 12:38 PM CLINICAL INDICATION: ileus COMPARISON: None available IMPRESSION: There is no radiographic evidence for bowel obstruction. There is mild ileus. No abnormal calcifications are seen in the region of the gallbladder or kidneys. There are no acute-appearing skeletal abnormalities. Signed: Wang Kaiser Verified Date/Time: 05/09/2017 12:38:47 Reading Location: [facility] Consult Reading Room POCT-GLUCOSE [id number] 12:19:00 Test Item Value Reference Range Comments POC-GLUCOSE METER (BEAKER) 102 mg/dL 70-110 TESTED AT [address] (test qcep=5924) [place] [address] POCT-GLUCOSE [id number] 06:45:00 Test Item Value Reference Range Comments POC-GLUCOSE METER (BEAKER) 104 mg/dL 70-110 TESTED AT [address] (test uknu=9850) [facility] [address] RAD, CHEST, 1 VIEW, NON [id number] 05:01:00Reason for exam:->Post- OpShould this be performed [...] evidence of a significant pneumothorax. Signed: [facility] Verified Date/Time: 05/09/2017 05:01:39 Reading Location: [address] Reading Room [id number] 03:47:00 Test Item Value Reference Range Comments PHOSPHORUS (BEAKER) (test dtcc=658) 2.7 mg/dL 2.3-4.7 [id number] 03:47:00 Test Item Value Reference Range Comments MAGNESIUM (BEAKER) (test wrlw=068) 1.8 mg/dL 1.6-2.6 BASIC METABOLIC [id number] 03:47:00 Test Item Value Reference Range Comments SODIUM (BEAKER) (test 139 meq/L 136-145 qsfb=928) POTASSIUM (BEAKER) (test 4.1 meq/L 3.5-5.1 ebcy=091) CHLORIDE (BEAKER) (test 111 meq/L 98-107 wfai=348) CO2 (BEAKER) (test 25 meq/L 22-29 toud=484) BLOOD UREA NITROGEN 8 mg/dL 7-21 (BEAKER) (test zfbs=139) CREATININE (BEAKER) (test 0.71 mg/dL 0.57-1.25 ytqj=530) GLUCOSE RANDOM (BEAKER) 106 mg/dL 70-105 (test ervi=225) CALCIUM (BEAKER) (test 8.2 mg/dL 8.4-10.2 naop=300) EGFR (BEAKER) (test 112 mL/min/1.73 sq m ESTIMATED GFR IS NOT fhze=5966) ACCURATE CREATININE CLEARANCE IN PREDICTING GLOMERULAR FILTRATION RATE. ESTIMATED GFR IS NOT APPLICABLE FOR DIALYSIS PATIENTS. LACTIC ACID, ARTERIAL, WHOLE [id number] 03:42:00 Test Item Value Reference Range Comments LACTATE BLOOD ARTERIAL (2) (BEAKER) (test 0.9 mmol/L 0.5-2.2 vyqv=6667) Effective 10/21/2015: Units/Reference Range ChangeNew: 0.5-2.2 mmol/L Previous: 5 -20 mg/dLCALCIUM, [id number] 03:39:00 Test Item Value Reference Range Comments CALCIUM IONIZED (BEAKER) (test zqos=298) 1.15 mmol/L 1.12-1.27 PH, BLOOD (BEAKER) (test eava=3459) 7.42 CBC W/PLT COUNT & AUTO [id number] 03:36:00 Test Item Value Reference Range Comments WHITE BLOOD CELL COUNT (BEAKER) (test liga=946) 13.6 K/ L 3.5-10.5 RED BLOOD CELL COUNT (BEAKER) (test iecc=488) 3.99 M/ L 4.63-6.08 HEMOGLOBIN (BEAKER) (test nffx=926) 12.5 GM/DL 13.7-17.5 HEMATOCRIT (BEAKER) (test xwag=667) 37.1 % 40.1-51.0 MEAN CORPUSCULAR VOLUME (BEAKER) (test ywpw=734) 93.0 fL 79.0-92.2 MEAN CORPUSCULAR HEMOGLOBIN (BEAKER) (test 31.3 pg 25.7-32.2 rwwi=713) MEAN CORPUSCULAR HEMOGLOBIN CONC (BEAKER) (test 33.7 GM/DL 32.3-36.5 iddk=931) RED CELL DISTRIBUTION WIDTH (BEAKER) (test 13.2 % 11.6-14.4 aduv=097) PLATELET COUNT (BEAKER) (test iekl=433) 162 K/CU MM 150-450 MEAN PLATELET VOLUME (BEAKER) (test gckk=381) 9.7 fL 9.4-12.4 NUCLEATED RED BLOOD CELLS (BEAKER) (test 0 /100 WBC 0-0 vqtd=335) NEUTROPHILS RELATIVE PERCENT (BEAKER) (test 80 % liei=874) LYMPHOCYTES RELATIVE PERCENT (BEAKER) (test 9 % vlae=772) MONOCYTES RELATIVE PERCENT (BEAKER) (test 10 % zmok=620) EOSINOPHILS RELATIVE PERCENT (BEAKER) (test 1 % thqs=926) BASOPHILS RELATIVE PERCENT (BEAKER) (test 0 % ajxb=313) NEUTROPHILS ABSOLUTE COUNT (BEAKER) (test 10.78 K/ L 1.78-5.38 kzvi=166) LYMPHOCYTES ABSOLUTE COUNT (BEAKER) (test 1.28 K/ L 1.32-3.57 eaod=939) MONOCYTES ABSOLUTE COUNT (BEAKER) (test 1.29 K/ L 0.30-0.82 fira=537) EOSINOPHILS ABSOLUTE COUNT (BEAKER) (test 0.12 K/ L 0.04-0.54 gqxk=431) BASOPHILS ABSOLUTE COUNT (BEAKER) (test 0.03 K/ L 0.01-0.08 fvzm=912) IMMATURE GRANULOCYTES-RELATIVE PERCENT (BEAKER) 0 % 0-1 (test nabi=7285) OXYGEN SATURATION, [id number] 03:35:00 Test Item Value Reference Range Comments O2 SATURATION (MEASURED) (BEAKER) (test zapw=0687) 64.0 % POCT-GLUCOSE [id number] 01:07:00 Test Item Value Reference Range Comments POC-GLUCOSE METER (BEAKER) 96 mg/dL 70-110 TESTED AT [address] (test mbgw=5742) [facility] [address] BLOOD GAS, [id number] 12:28:00 Test Item Value Reference Range Comments PH ARTERIAL (BEAKER) (test znyg=229) 7.36 7.35-7.45 PCO2 ARTERIAL (BEAKER) (test djxs=833) 40 mmHg 35-45 PO2 ARTERIAL (BEAKER) (test zflf=519) 287 mmHg 80-90 O2 SATURATION ARTERIAL (BEAKER) (test mnty=602) 99.6 % 96.0-97.0 HCO3 ARTERIAL (BEAKER) (test xvgn=189) 22 mmol/L 21-29 BASE EXCESS ARTERIAL (BEAKER) (test lank=617) -2.8 mmol/L -2.0-3.0 PATIENT TEMPERATURE (BEAKER) (test ekho=1394) 36.6 C FIO2 (BEAKER) (test qdsq=4143) 60.0 % RAD, CHEST, 1 VIEW, NON [id number] 11:05:00Reason for exam:->Post- OpShould this be performed at the bedside?->YesFINAL REPORT Chest one view AP 05/08/2017 11:05 AM CLINICAL INDICATION: Post-Op COMPARISON: 05/02/2017 IMPRESSION: Support hardware is in satisfactory radiographic position. Cardiomediastinal contours are stable. The central pulmonary vasculature is not engorged. The lungs are clear, save for scattered foci of linear atelectasis. Signed: Wang Kaisereport Verified Date/Time : 05/08/2017 11:05:58 Reading Location: [facility] Radiology Reading Room [id number] 11:03:00 Test Item Value Reference Range Comments MAGNESIUM (BEAKER) (test gwpk=969) 2.0 mg/dL 1.6-2.6 BASIC METABOLIC [id number] 11:03:00 Test Item Value Reference Range Comments SODIUM (BEAKER) (test 141 meq/L 136-145 mjxt=283) POTASSIUM (BEAKER) (test 4.3 meq/L 3.5-5.1 iuaf=268) CHLORIDE (BEAKER) (test 113 meq/L 98-107 mkeo=467) CO2 (BEAKER) (test 24 meq/L 22-29 ijyu=788) BLOOD UREA NITROGEN 9 mg/dL 7-21 (BEAKER) (test fwva=311) CREATININE (BEAKER) (test 0.70 mg/dL 0.57-1.25 wwnn=817) GLUCOSE RANDOM (BEAKER) 116 mg/dL 70-105 (test ovek=720) CALCIUM (BEAKER) (test 8.7 mg/dL 8.4-10.2 uuem=462) EGFR (BEAKER) (test 114 mL/min/1.73 sq m ESTIMATED GFR IS NOT nyuz=1191) ACCURATE CREATININE CLEARANCE IN PREDICTING GLOMERULAR FILTRATION RATE. ESTIMATED GFR IS NOT APPLICABLE FOR DIALYSIS PATIENTS. LACTIC ACID, ARTERIAL, WHOLE [id number] 10:58:00 Test Item Value Reference Range Comments LACTATE BLOOD ARTERIAL (2) (BEAKER) (test 0.6 mmol/L 0.5-2.2 pptw=4813) Effective 10/21/2015: Units/Reference Range ChangeNew: 0.5-2.2 mmol/L Previous: 5 -20 mg/[id number] 10:57:00 Test Item Value Reference Range Comments PROTIME (BEAKER) (test jkdz=685) 14.8 seconds 11.7-14.7 INR (BEAKER) (test reap=513) 1.2 <=5.9 PARTIAL THROMBOPLASTIN TIME (BEAKER) (test 29.1 seconds 22.5-36.0 pwlb=866) RECOMMENDED COUMADIN/WARFARIN INR THERAPY RANGESSTANDARD DOSE: 2.0 - 3.0 Includes: PROPHYLAXIS forvenous thrombosis, systemic embolization; TREATMENT for venous thrombosis and/or pulmonary embolus.HIGH RISK: Target INR is 2.5-3.5 for patients with mechanical heart valves.CBC W/PLT COUNT & AUTO [id number] 10:53:00 Test Item Value Reference Range Comments WHITE BLOOD CELL COUNT (BEAKER) (test ixdl=531) 18.0 K/ L 3.5-10.5 RED BLOOD CELL COUNT (BEAKER) (test owuq=101) 4.36 M/ L 4.63-6.08 HEMOGLOBIN (BEAKER) (test lxhr=859) 13.7 GM/DL 13.7-17.5 HEMATOCRIT (BEAKER) (test cgsp=119) 40.2 % 40.1-51.0 MEAN CORPUSCULAR VOLUME (BEAKER) (test zkmj=136) 92.2 fL 79.0-92.2 MEAN CORPUSCULAR HEMOGLOBIN (BEAKER) (test 31.4 pg 25.7-32.2 ghbs=310) MEAN CORPUSCULAR HEMOGLOBIN CONC (BEAKER) (test 34.1 GM/DL 32.3-36.5 qiqa=203) RED CELL DISTRIBUTION WIDTH (BEAKER) (test 13.0 % 11.6-14.4 faiu=039) PLATELET COUNT (BEAKER) (test jzgr=010) 177 K/CU MM 150-450 MEAN PLATELET VOLUME (BEAKER) (test vuss=933) 9.7 fL 9.4-12.4 NUCLEATED RED BLOOD CELLS (BEAKER) (test 0 /100 WBC 0-0 disj=695) NEUTROPHILS RELATIVE PERCENT (BEAKER) (test 81 % qsbo=782) LYMPHOCYTES RELATIVE PERCENT (BEAKER) (test 10 % ikbz=529) MONOCYTES RELATIVE PERCENT (BEAKER) (test 7 % kajn=708) EOSINOPHILS RELATIVE PERCENT (BEAKER) (test 1 % xshd=252) BASOPHILS RELATIVE PERCENT (BEAKER) (test 0 % ltrk=472) NEUTROPHILS ABSOLUTE COUNT (BEAKER) (test 14.49 K/ L 1.78-5.38 nzes=156) LYMPHOCYTES ABSOLUTE COUNT (BEAKER) (test 1.76 K/ L 1.32-3.57 qcst=276) MONOCYTES ABSOLUTE COUNT (BEAKER) (test 1.19 K/ L 0.30-0.82 unvy=888) EOSINOPHILS ABSOLUTE COUNT (BEAKER) (test 0.19 K/ L 0.04-0.54 dnif=472) BASOPHILS ABSOLUTE COUNT (BEAKER) (test 0.04 K/ L 0.01-0.08 szxq=632) IMMATURE GRANULOCYTES-RELATIVE PERCENT (BEAKER) 2 % 0-1 (test zscf=9640) OXYGEN SATURATION, [id number] 10:44:00 Test Item Value Reference Range Comments O2 SATURATION (MEASURED) (BEAKER) (test pffe=4009) 71.8 % BLOOD GAS, [id number] 10:42:00 Test Item Value Reference Range Comments PH ARTERIAL (BEAKER) (test dita=894) 7.37 7.35-7.45 PCO2 ARTERIAL (BEAKER) (test yopf=589) 42 mmHg 35-45 PO2 ARTERIAL (BEAKER) (test xrgp=372) 158 mmHg 80-90 O2 SATURATION ARTERIAL (BEAKER) (test cwqo=759) 99.0 % 96.0-97.0 HCO3 ARTERIAL (BEAKER) (test bsft=510) 24 mmol/L 21-29 BASE EXCESS ARTERIAL (BEAKER) (test sqnq=029) -1.4 mmol/L -2.0-3.0 PATIENT TEMPERATURE (BEAKER) (test gsze=1873) 36.4 C FIO2 (BEAKER) (test vlur=2099) 60.0 % GLUCOSE-STAT [id number] 10:42:00 Test Item Value Reference Range Comments GLUCOSE RANDOM (BEAKER) (test brbz=862) 112 mg/dL 70-110 SODIUM NA-STAT [id number] 10:41:00 Test Item Value Reference Range Comments SODIUM (BEAKER) (test nlqi=173) 137 meq/L 135-148 POTASSIUM-STAT [id number] 10:41:00 Test Item Value Reference Range Comments POTASSIUM (BEAKER) (test icvz=025) 4.2 meq/L 3.6-5.5 HGB/HCT (H&H) - STAT [id number] 10:41:00 Test Item Value Reference Range Comments HEMOGLOBIN (BEAKER) (test qqsz=606) 14.4 g/dL 13.0-16.8 HEMATOCRIT (BEAKER) (test fakq=626) 42.0 % 40.0-50.0 CALCIUM, [id number] 10:41:00 Test Item Value Reference Range Comments CALCIUM IONIZED (BEAKER) (test ybyw=621) 1.23 mmol/L 1.12-1.27 PH, BLOOD (BEAKER) (test cuvu=6371) 7.37 CALCIUM, [id number] 09:43:00 Test Item Value Reference Range Comments CALCIUM IONIZED (BEAKER) (test jbun=388) 1.25 mmol/L 1.12-1.27 PH, BLOOD (BEAKER) (test avlx=2824) 7.32 SODIUM NA-STAT [id number] 09:42:00 Test Item Value Reference Range Comments SODIUM (BEAKER) (test rawh=045) 138 meq/L 135-148 POTASSIUM-STAT [id number] 09:42:00 Test Item Value Reference Range Comments POTASSIUM (BEAKER) (test wmhn=590) 3.8 meq/L 3.6-5.5 BLOOD GAS, [id number] 09:42:00 Test Item Value Reference Range Comments PH ARTERIAL (BEAKER) (test vqqt=188) 7.35 7.35-7.45 PCO2 ARTERIAL (BEAKER) (test tchs=325) 46 mmHg 35-45 PO2 ARTERIAL (BEAKER) (test fxrr=060) 99 mmHg 80-90 O2 SATURATION ARTERIAL (BEAKER) (test hkle=469) 97.6 % 96.0-97.0 HCO3 ARTERIAL (BEAKER) (test fhwm=194) 25 mmol/L 21-29 BASE EXCESS ARTERIAL (BEAKER) (test jxic=425) -1.4 mmol/L -2.0-3.0 PATIENT TEMPERATURE (BEAKER) (test dzhf=5271) 35.0 C FIO2 (BEAKER) (test pgdu=0107) 61.0 % GLUCOSE-STAT [id number] 09:42:00 Test Item Value Reference Range Comments GLUCOSE RANDOM (BEAKER) (test mvgg=774) 112 mg/dL 70-110 HGB/HCT (H&H) - STAT [id number] 09:42:00 Test Item Value Reference Range Comments HEMOGLOBIN (BEAKER) (test heyt=470) 13.1 g/dL 13.0-16.8 HEMATOCRIT (BEAKER) (test hqrf=495) 39.0 % 40.0-50.0 SODIUM NA-STAT [id number] 08:37:00 Test Item Value Reference Range Comments SODIUM (BEAKER) (test hgho=340) 137 meq/L 135-148 POTASSIUM-STAT [id number] 08:37:00 Test Item Value Reference Range Comments POTASSIUM (BEAKER) (test goke=175) 3.9 meq/L 3.6-5.5 HGB/HCT (H&H) - STAT [id number] 08:37:00 Test Item Value Reference Range Comments HEMOGLOBIN (BEAKER) (test tnpx=605) 15.2 g/dL 13.0-16.8 HEMATOCRIT (BEAKER) (test plzh=053) 45.0 % 40.0-50.0 CALCIUM, [id number] 08:37:00 Test Item Value Reference Range Comments CALCIUM IONIZED (BEAKER) (test agwr=429) 1.15 mmol/L 1.12-1.27 PH, BLOOD (BEAKER) (test rxuf=5927) 7.37 BLOOD GAS, [id number] 08:37:00 Test Item Value Reference Range Comments PH ARTERIAL (BEAKER) (test vaxt=618) 7.38 7.35-7.45 PCO2 ARTERIAL (BEAKER) (test mfoi=538) 43 mmHg 35-45 PO2 ARTERIAL (BEAKER) (test ayhh=333) 442 mmHg 80-90 O2 SATURATION ARTERIAL (BEAKER) (test qjnz=655) 99.8 % 96.0-97.0 HCO3 ARTERIAL (BEAKER) (test aorb=308) 25 mmol/L 21-29 BASE EXCESS ARTERIAL (BEAKER) (test aejf=597) -0.8 mmol/L -2.0-3.0 PATIENT TEMPERATURE (BEAKER) (test gpbt=0538) 36.3 C FIO2 (BEAKER) (test unzp=6985) 64.0 % GLUCOSE-STAT [id number] 08:37:00 Test Item Value Reference Range Comments GLUCOSE RANDOM (BEAKER) (test twpx=538) 111 mg/dL 70-110 HEMOGLOBIN [id number] 12:07:00 Test Item Value Reference Range Comments HEMOGLOBIN A1C (BEAKER) (test drzf=856) 5.6 % 4.3-6.1 RAD, CHEST, 2 [id number] 11:17:00Reason for Exam:->Pre-OpFINAL REPORT Chest x-ray, PA [...] Astudillo Verified Date/Time: 05/02/2017 11:17:15 Reading Location: [facility] Radiology Reading Room Electronically signed by: ITZEL ASTUDILLO M.D. on05/02/2017 11: 17 AMBASIC METABOLIC [id number] 11:09:00 Test Item Value Reference Range Comments SODIUM (BEAKER) (test 138 meq/L 136-145 dryj=828) POTASSIUM (BEAKER) (test 4.6 meq/L 3.5-5.1 snqc=477) CHLORIDE (BEAKER) (test 105 meq/L 98-107 vejj=776) CO2 (BEAKER) (test 24 meq/L 22-29 hzom=245) BLOOD UREA NITROGEN 13 mg/dL 7-21 (BEAKER) (test ecgh=731) CREATININE (BEAKER) (test 0.81 mg/dL 0.57-1.25 tleh=464) GLUCOSE RANDOM (BEAKER) 97 mg/dL 70-105 (test ahij=098) CALCIUM (BEAKER) (test 9.6 mg/dL 8.4-10.2 mrzu=488) EGFR (BEAKER) (test 97 mL/min/1.73 sq m ESTIMATED GFR IS NOT gcrb=4408) ACCURATE CREATININE CLEARANCE IN PREDICTING GLOMERULAR FILTRATION RATE. ESTIMATED GFR IS NOT APPLICABLE FOR DIALYSIS PATIENTS. PROTHROMBIN TIME/[id number] 11:05:00 Test Item Value Reference Range Comments PROTIME (BEAKER) (test yyal=563) 12.9 seconds 11.7-14.7 INR (BEAKER) (test gcum=274) 1.0 <=5.9 RECOMMENDED COUMADIN/WARFARIN INR THERAPY RANGESSTANDARD DOSE: 2.0 - 3.0 Includes: PROPHYLAXIS forvenous thrombosis, systemic embolization; TREATMENT for venous thrombosis and/or pulmonary embolus.HIGH RISK: Target INR is 2.5-3.5 for patients with mechanical heart valves.CBC W/PLT COUNT & AUTO [id number] 10:46:00 Test Item Value Reference Range Comments WHITE BLOOD CELL COUNT (BEAKER) (test oaeu=522) 10.8 K/ L 3.5-10.5 RED BLOOD CELL COUNT (BEAKER) (test fprq=179) 5.04 M/ L 4.63-6.08 HEMOGLOBIN (BEAKER) (test ibqq=963) 15.6 GM/DL 13.7-17.5 HEMATOCRIT (BEAKER) (test vtdj=530) 46.7 % 40.1-51.0 MEAN CORPUSCULAR VOLUME (BEAKER) (test lwme=888) 92.7 fL 79.0-92.2 MEAN CORPUSCULAR HEMOGLOBIN (BEAKER) (test 31.0 pg 25.7-32.2 bjsd=750) MEAN CORPUSCULAR HEMOGLOBIN CONC (BEAKER) (test 33.4 GM/DL 32.3-36.5 muou=412) RED CELL DISTRIBUTION WIDTH (BEAKER) (test 13.0 % 11.6-14.4 xlmd=797) PLATELET COUNT (BEAKER) (test xwhf=051) 254 K/CU MM 150-450 MEAN PLATELET VOLUME (BEAKER) (test xyll=659) 9.8 fL 9.4-12.4 NUCLEATED RED BLOOD CELLS (BEAKER) (test 0 /100 WBC 0-0 gazx=162) NEUTROPHILS RELATIVE PERCENT (BEAKER) (test 71 % kruq=168) LYMPHOCYTES RELATIVE PERCENT (BEAKER) (test 17 % arde=119) MONOCYTES RELATIVE PERCENT (BEAKER) (test 9 % dwrq=996) EOSINOPHILS RELATIVE PERCENT (BEAKER) (test 1 % teth=017) BASOPHILS RELATIVE PERCENT (BEAKER) (test 1 % fmet=409) NEUTROPHILS ABSOLUTE COUNT (BEAKER) (test 7.62 K/ L 1.78-5.38 tfnh=360) LYMPHOCYTES ABSOLUTE COUNT (BEAKER) (test 1.87 K/ L 1.32-3.57 atwg=541) MONOCYTES ABSOLUTE COUNT (BEAKER) (test 1.02 K/ L 0.30-0.82 ptuk=559) EOSINOPHILS ABSOLUTE COUNT (BEAKER) (test 0.14 K/ L 0.04-0.54 lzls=201) BASOPHILS ABSOLUTE COUNT (BEAKER) (test 0.06 K/ L 0.01-0.08 wido=204) IMMATURE GRANULOCYTES-RELATIVE PERCENT (BEAKER) 1 % 0-1 (test kpum=7059)
[2018-08-01] MEDS ORDERED: LEVALBUTEROL 1.25 MG/3 ML NEB ONE (18:50)
[2018-08-01] MEDS ORDERED: IBUPROFEN 400 MG TAB ONE (18:50)
[2018-08-01] MEDS ORDERED: MAGNESIUM SULFATE 1 gm IVPB 1 GM/100 ML BAG IV ONE ×2 (18:50→19:41)
[2018-08-01] MEDS ORDERED: NA CHLORIDE 0.9% 1,000 ML ONE (18:50)
[2018-08-01] MEDS ORDERED: METHYLPREDNISOLONE 125 MG INJ ONE (18:50)
[2018-08-01] MEDS ORDERED: AMIODARONE HCL 150 MG/3 ML INJ IV ONE (18:59)
[2018-08-01 19:03] LABS: Absolute Lymphocytes (CBC) 0.6 K/uL (0.7-4.9); Absolute Monocytes 1.1 K/uL (0.1-1.3); Absolute Neutrophil 9.6 K/uL (1.8-8.0); Basophils % 0.4 % (0-1.3); Eosinophils % 0.3 % (0-4.4); Hematocrit 48.4 % (39.6-49.0); Lymphocytes % 5.2 % (15.3-44.8); MPV 8.6 fL (7.6-11.3); Monocytes % 9.9 % (3.3-12.3)
[2018-08-01 19:17] LABS: BUN Blood Urea Nitrogen 11 mg/dL (7-18); Bicarbonate 27 mmol/L (21-32); Glucose Level 100 mg/dL (74-106); NT PRO-BNP 147 pg/mL (<125); Potassium 3.9 mmol/L (3.5-5.1); Sodium Level 135 mmol/L (136-145); Troponin (Emerg Dept Use Only) < 0.02 ng/mL (0.0-0.045)
--- NOTE | 2018-08-01 19:44 | ER ---
Nurse's Notes [facility] Name: Sae Cardozo Age: 63 yrs Sex: Male : 1955 Arrival Date: 08/01/2018 Time: 18:20 Bed 3 Private MD: Adriano Linares Diagnosis: Chronic obstructive pulmonary disease with (acute) exacerbation;Ventricular tachycardia;Fever, unspecified;Acute upper respiratory infection, unspecified Presentation: 08/01 18:23 Presenting complaint: Patient states: SOB, nonproductive cough, and fever x 3-4 days. hb TMAX 101. Transition of care: patient was not received from another setting of care. Onset of symptoms was July 29, 2018. Risk Assessment: Do you want to hurt yourself or someone else? Patient reports no desire to harm self or others. Care prior to arrival: None. 18:23 Method Of Arrival: Ambulatory hb 18:23 Acuity: JIMMIE 2 hb 18:25 Initial Sepsis Screen: Does the patient meet any 2 criteria? RR > 20 per min. Temp sg <36.0*C (96.8*F)) or > 38.3*C (100.9*F). HR > 90 bpm. Yes Does the patient have a suspected source of infection? Yes: Productive cough/pneumonia. Historical: - Allergies: 18:24 No Known Allergies; hb - Home Meds: 22:27 None [Active]; aa1 - PMHx: 22:27 None; aa1 - PSHx: 18:24 AAA repair; neck; hb - Immunization history:: Adult Immunizations up to date. - Social history:: Smoking status: Patient uses tobacco products, smokes one-half pack cigarettes per day. - Ebola Screening: : No symptoms or risks identified at this time. - Family history:: not pertinent. - Hospitalizations: : No recent hospitalization is reported. Screenin:40 Abuse screen: Denies threats or abuse. Denies injuries from another. Nutritional sg screening: No deficits noted. Tuberculosis screening: No symptoms or risk factors identified. Never had TB. Fall Risk None identified. No fall in past 12 months (0 pts). Sepsis Screening: SIRS - Systemic Inflammatory Response Syndrome: 2 or more indicates positive screen: [heart rate greater than 90 beats per minute] [respiratory rate is greater than 20 breaths per minute] Provider has been notified and patient further screened based on infection criteria. Assessment: 18:40 General: Appears in no apparent distress. comfortable, well groomed, well developed, sg well nourished, Behavior is calm, cooperative, appropriate for age. Pain: Denies pain. Neuro: Level of Consciousness is awake, alert, obeys commands, Oriented to person, place, time, Sifter And Miller are equal bilaterally Moves all extremities. Speech is normal, Facial symmetry appears normal. Cardiovascular: Heart tones S1 S2 present Patient's skin is warm and dry. Chest pain is denied. Cardiovascular: Rhythm is sinus tachycardia with multifocal PVCs. Respiratory: Airway is patent Respiratory effort is labored, shallow, Respiratory pattern is symmetrical, tachypnea Breath sounds are diminished in left posterior lower lobe and right posterior lower lobe Breath sounds with wheezes. GI: Abdomen is round non-distended, Bowel sounds present X 4 quads. Patient currently denies. : No signs and/or symptoms were reported regarding the genitourinary system. EENT: No signs and/or symptoms were reported regarding the EENT system. Derm: Skin is pink, warm \T\ dry. Musculoskeletal: Circulation, motion, and sensation intact. Range of motion: Swelling absent. 19:02 Reassessment: orders received to hold on administering the IV amiodarone drip at this sg time, ordered to administer the IV medication if the pt goes back into runs of VTACH. 19:15 Reassessment: Patient appears in no apparent distress at this time. Patient and/or sg family updated on plan of care and expected duration. Pain level reassessed. Patient is alert, oriented x 3, equal unlabored respirations, skin warm/dry/pink. Cardiovascular: Rhythm is sinus rhythm with unifocal PVCs. 19:26 Reassessment: Patient appears in no apparent distress at this time. Patient and/or aa1 family updated on plan of care and expected duration. Pain level reassessed. Patient is alert, oriented x 3, equal unlabored respirations, skin warm/dry/pink. Pt having frequent runs of V-tach once again, per Dr. Cummins's order will initiate amiodarone infusion at this time. Patient denies pain at this time. 20:30 Reassessment: Patient appears in no apparent distress at this time. Patient and/or aa1 family updated on plan of care and expected duration. Pain level reassessed. Patient is alert, oriented x 3, equal unlabored respirations, skin warm/dry/pink. Awaiting admission to ICU. 21:30 Reassessment: Patient appears in no apparent distress at this time. Patient and/or aa1 family updated on plan of care and expected duration. Pain level reassessed. Patient is alert, oriented x 3, equal unlabored respirations, skin warm/dry/pink. Pt continues to await orders from admitting MD for admission to ICU. Dr. lAexandre aware of pt. Vital Signs: 18:22 BP 96 / 71; Pulse 144; Resp 24; Temp 101.9(TE); Pulse Ox 93% on R/A; Pain 3/10; hb 18:46 BP 101 / 69; Pulse 131; Resp 24; Pulse Ox 100% on Nebulizer Mask; sv 19:00 BP 98 / 60; Pulse 62; Resp 22; Pulse Ox 100% ; sv 19:20 BP 119 / 81; Pulse 88 LA; Resp 20; Pulse Ox 96% on R/A; sg 19:53 BP 109 / 78; Pulse 109; Resp 18; Temp 99.8(O); Pulse Ox 96% on 2 lpm NC; Pain 0/10; aa1 20:50 BP 102 / 70; Pulse 91; Resp 16; Pulse Ox 96% on R/A; Pain 0/10; aa1 21:30 BP 102 / 66; Pulse 88; Resp 16; Temp 98.9; Pulse Ox 96% on R/A; Pain 0/10; aa1 22:23 BP 97 / 69; Pulse 76; Resp 16; Temp 98.8; Pulse Ox 97% on R/A; Pain 0/10; aa1 19:20 irregular sg ED Course: 18:20 Patient arrived in ED. sb2 18:20 Adriano Linares MD is Private Physician. sb2 18:24 Triage completed. hb 18:24 Arm band placed on. hb 18:30 Kee Cummins MD is Attending Physician. rn 18:50 Inserted saline lock: 20 gauge in left antecubital area, using aseptic technique. Blood sg collected. 18:57 Donald Gould, RN is Primary Nurse. sg 18:59 XRAY CXR (1 view) In Process Unspecified. EDMS 19:00 Patient has correct armband on for positive identification. Placed in gown. Bed in low aa1 position. Call light in reach. Side rails up X2. personnel monitor on. Pulse ox on. NIBP on. Warm blanket given. Head of bed lowered. 19:23 Attending Physician role handed off by Kee Cummins MD angela 19:23 Duane Zamarripa MD is Attending Physician. angela 19:42 Christopher Alxeandre MD is Hospitalizing Provider. angela 19:56 Patient admitted, IV remains in place. aa1 22:24 No provider procedures requiring assistance completed. aa1 Administered Medications: Discontinued: amiodarone 900 mg, D5W 500 ml IVPB at 1 mg/min continuous; for 6 hrs, then change to 0.5 mg/min 18:40 Drug: Xopenex (3) 1.25 mg Route: Inhalation; sg 18:45 Drug: SOLU-Medrol 125 mg Route: IVP; Site: right antecubital; sg 18:45 Drug: NS 0.9% 1000 ml Route: IV; Rate: 1000 ml; Site: right antecubital; sg 19:30 Follow up: IV Status: Completed infusion aa1 18:45 Drug: Motrin 800 mg Route: PO; sg 20:46 Follow up: Response: No adverse reaction; Temperature is decreased aa1 18:45 Drug: Magnesium Sulfate 1 grams Route: IVPB; Infused Over: 1 hrs; Site: right sg antecubital; 19:35 Follow up: IV Status: Completed infusion aa1 19:28 Drug: amiodarone 900 mg, D5W 500 ml Route: IVPB; Rate: 1 mg/min; Site: left antecubital;aa1 19:35 Drug: Magnesium Sulfate 1 grams Route: IVPB; Infused Over: 1 hrs; Site: right aa1 antecubital; 20:47 Follow up: IV Status: Completed infusion aa1 19:51 Drug: Zosyn 3.375 grams Route: IVPB; Infused Over: 60 mins; Site: right antecubital; aa1 20:46 Follow up: IV Status: Completed infusion aa1 19:51 Drug: amiodarone 900 mg, D5W 500 ml Route: IVPB; Rate: 1 mg/min; Site: left antecubital;aa1 22:35 Follow up: IV Status: Infusion continued upon admission aa1 Outcome: 19:44 Decision to Hospitalize by Provider. angela 22:51 Admitted to ICU accompanied by nurse, accompanied by tech, via stretcher, room 5, with aa1 oxygen, on monitor, with chart, Other bedside report given to Vera Cordero RN 22:51 Condition: stable 22:51 Discharge instructions given to patient, Instructed on the need for admit, Demonstrated understanding of instructions. 22:52 Patient left the ED. aa1 Signatures: Dispatcher [employer] EDMS Valarie Maria RN Donald Orr RN RN sg Kern, Alissa, RN RN aa1 Duane Zamarripa MD MD cha Nieto, Roman, MD MD rn Baxter, Heather, RN RN hb Billeau, Sheri sb2
--- NOTE | 2018-08-01 19:44 | EDPHYS ---
Physician Documentation [facility] Name: Sae Cardozo Age: 63 yrs Sex: Male : 1955 Arrival Date: 08/01/2018 Time: 18:20 Bed 3 Private MD: Adriano Linares ED Physician Duane Zamarripa HPI: 08/01 18:38 This 63 yrs old Male presents to ER via Ambulatory with complaints of rn Shortness Of Breath. 18:38 The patient has shortness of breath at rest, with light activity. rn 18:38 Onset: The symptoms/episode began/occurred 3 day(s) ago. Duration: The symptoms are rn continuous. The patient's shortness of breath is aggravated by exertion, light activity, talking, walking. Severity of symptoms: At their worst the symptoms were moderate in the emergency department the symptoms are unchanged. The patient has not experienced similar symptoms in the past. Reports sob, cough/fever/chills/sob for 3 days, getting worse, winded, trouble walking, no hemoptysis, active smoker.. Historical: - Allergies: 18:24 No Known Allergies; hb - Home Meds: 22:27 None [Active]; aa1 - PMHx: 22:27 None; aa1 - PSHx: 18:24 AAA repair; neck; hb - Immunization history:: Adult Immunizations up to date. - Social history:: Smoking status: Patient uses tobacco products, smokes one-half pack cigarettes per day. - Ebola Screening: : No symptoms or risks identified at this time. - Family history:: not pertinent. - Hospitalizations: : No recent hospitalization is reported. 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 Eyes: Pupils equal round and reactive to light, extra-ocular motions intact. Lids and lashes normal. Conjunctiva and sclera are non-icteric and not injected. Cornea within normal limits. Periorbital areas with no swelling, redness, or edema. ENT: No stridor, + pursed lip breathing Neck: Nontender cervical LAD Cardiovascular: tachycardic, irregular, no murmur Respiratory: + moderate respiratory distress with tachypnea and diminished bilateral breath sounds Abdomen/GI: soft, non-tender MS/ Extremity: Pulses equal, no cyanosis. Neurovascular intact. Full, normal range of motion. Equal circumference. Neuro: Awake and alert, GCS 15, oriented to person, place, time, and situation. Cranial nerves II-XII grossly intact. Motor strength 5/5 in all extremities. Sensory grossly intact. Cerebellar exam normal. Vital Signs: 18:22 BP 96 / 71; Pulse 144; Resp 24; Temp 101.9(TE); Pulse Ox 93% on R/A; Pain 3/10; hb 18:46 BP 101 / 69; Pulse 131; Resp 24; Pulse Ox 100% on Nebulizer Mask; sv 19:00 BP 98 / 60; Pulse 62; Resp 22; Pulse Ox 100% ; sv 19:20 BP 119 / 81; Pulse 88 LA; Resp 20; Pulse Ox 96% on R/A; sg 19:53 BP 109 / 78; Pulse 109; Resp 18; Temp 99.8(O); Pulse Ox 96% on 2 lpm NC; Pain 0/10; aa1 20:50 BP 102 / 70; Pulse 91; Resp 16; Pulse Ox 96% on R/A; Pain 0/10; aa1 21:30 BP 102 / 66; Pulse 88; Resp 16; Temp 98.9; Pulse Ox 96% on R/A; Pain 0/10; aa1 22:23 BP 97 / 69; Pulse 76; Resp 16; Temp 98.8; Pulse Ox 97% on R/A; Pain 0/10; aa1 19:20 irregular sg MDM: 18:30 Patient medically screened. rn 19:01 ED course: Pt with persistent runs of vtach, amio ordered, improved, with intermittent rn PVCs.. 19:27 Data reviewed: vital signs, nurses notes, lab test result(s), EKG, radiologic studies. [facility] 08/01 18:37 Order name: Blood Culture Adult (2) 08/01 18:37 Order name: BMP; Complete Time: 19:27 08/01 18:37 Order name: CBC with Diff; Complete Time: 19:27 08/01 18:37 Order name: NT PRO-BNP; Complete Time: 19:27 08/01 18:37 Order name: Troponin (emerg Dept Use Only); Complete Time: 19:27 08/01 18:37 Order name: Flu; Complete Time: 19:27 08/01 18:37 Order name: XRAY CXR (1 view); Complete Time: 20:27 08/01 21:18 Order name: LFT's [facility] 08/01 21:18 Order name: Magnesium [facility] 08/01 21:18 Order name: PT-INR [facility] 08/01 21:39 Order name: Echo with Doppler [facility] 08/01 18:37 Order name: EKG; Complete Time: 18:38 08/01 18:37 Order name: Cardiac monitoring; Complete Time: 19: 08/01 18:37 Order name: EKG - Nurse/Tech; Complete Time: 19:13 08/01 18:37 Order name: IV Saline Lock; Complete Time: 19:13 08/01 18:37 Order name: Labs collected and sent; Complete Time: 19:15 08/01 18:37 Order name: O2 Per Protocol; Complete Time: 19:14 08/01 18:37 Order name: O2 Sat Monitoring; Complete Time: 19:14 08/01 21:39 Order name: CONS Physician Consult EDSC Administered Medications: Discontinued: amiodarone 900 mg, D5W 500 ml IVPB at 1 mg/min continuous; for 6 hrs, then change to 0.5 mg/min 18:40 Drug: Xopenex (3) 1.25 mg Route: Inhalation; sg 18:45 Drug: SOLU-Medrol 125 mg Route: IVP; Site: right antecubital; sg 18:45 Drug: NS 0.9% 1000 ml Route: IV; Rate: 1000 ml; Site: right antecubital; sg 19:30 Follow up: IV Status: Completed infusion aa1 18:45 Drug: Motrin 800 mg Route: PO; sg 20:46 Follow up: Response: No adverse reaction; Temperature is decreased aa1 18:45 Drug: Magnesium Sulfate 1 grams Route: IVPB; Infused Over: 1 hrs; Site: right sg antecubital; 19:35 Follow up: IV Status: Completed infusion aa1 19:28 Drug: amiodarone 900 mg, D5W 500 ml Route: IVPB; Rate: 1 mg/min; Site: left antecubital;aa1 19:35 Drug: Magnesium Sulfate 1 grams Route: IVPB; Infused Over: 1 hrs; Site: right aa1 antecubital; 20:47 Follow up: IV Status: Completed infusion aa1 19:51 Drug: Zosyn 3.375 grams Route: IVPB; Infused Over: 60 mins; Site: right antecubital; aa1 20:46 Follow up: IV Status: Completed infusion aa1 19:51 Drug: amiodarone 900 mg, D5W 500 ml Route: IVPB; Rate: 1 mg/min; Site: left antecubital;aa1 22:35 Follow up: IV Status: Infusion continued upon admission aa1 Disposition: 08/01/18 19:44 Hospitalization ordered by Christopher Alexandre for Inpatient Admission. Preliminary diagnosis are Chronic obstructive pulmonary disease with (acute) exacerbation, Ventricular tachycardia, Fever, unspecified, Acute upper respiratory infection, unspecified. - Bed requested for Intensive Care Unit. - Status is Inpatient Admission. aa1 - Condition is Fair. - Problem is new. - Symptoms have improved. UTI on Admission? No Signatures: Dispatcher [employer] EDMS Donald Gould RN RN Beatriz Arango RN RN [facility] Duane Zamarripa MD MD cha Nieto, Roman, MD MD rn Smirch, Shelby, RN RN Rossana Sauceda RN RN Yanelis Tobin RN RN Corrections: (The following items were deleted from the chart) 21:47 19:44 Hospitalization Ordered by Christopher Alexandre MD for Inpatient Admission. Preliminary diagnosis is Chronic obstructive pulmonary disease with (acute) exacerbation; Ventricular tachycardia; Fever, unspecified; Acute upper respiratory infection, unspecified. Bed requested for Intensive Care Unit. Status is Inpatient Admission. Condition is Fair. Problem is new. Symptoms have improved. UTI on Admission? No. angela 22:52 21:47 08/01/2018 19:44 Hospitalization Ordered by Christopher Alexandre MD for Inpatient aa1 Admission. Preliminary diagnosis is Chronic obstructive pulmonary disease with (acute) exacerbation; Ventricular tachycardia; Fever, unspecified; Acute upper respiratory infection, unspecified. Bed requested for Intensive Care Unit. Status is Inpatient Admission. Condition is Fair. Problem is new. Symptoms have improved. UTI on Admission? No. cg
[2018-08-01] MEDS ORDERED: PIPER/TAZO/NS 3.375gm 3.375 GM/100 ML BAG ONE (19:49)
--- NOTE | 2018-08-01 20:09 | RAD REPORT ---
EXAM DESCRIPTION: RAD - Chest Single View - 08/01/2018 7:01 pm CLINICAL HISTORY: Cough;Dyspnea Chest pain. COMPARISON: ABDOMEN 1 VIEW KUB dated 10/15/2014; Ribs Right dated 01/29/2015 FINDINGS: Portable technique limits examination quality. Linear opacities are present in the left lung base likely representing subsegmental atelectasis. Ther e is mild elevation of left hemidiaphragm seen. The heart is normal in size. No displaced fractures. IMPRESSION: Mild elevation of left hemidiaphragm with subsegmental atelectasis in the left lung.
[2018-08-01] MEDS ORDERED: ACETAMINOPHEN 500 MG TAB PO PRN (21:33)
[2018-08-01] MEDS ORDERED: MAGNESIUM HYDROXIDE 8% 30 ML PO PRN (21:33)
[2018-08-01] MEDS ORDERED: HYDROCODONE/APAP 5/325 MG TAB PO PRN (21:33)
[2018-08-01] MEDS ORDERED: ONDANSETRON 4 MG/2 ML VIAL IV PRN (21:33)
[2018-08-01] MEDS ORDERED: MORPHINE 4 MG/ML SYR IV PRN (21:33)
[2018-08-01] MEDS ORDERED: ALPRAZOLAM 0.25 MG TABLET PO PRN (21:33)
[2018-08-01 21:40] LABS: Protime INR 1.09
[2018-08-01 21:52] LABS: Albumin 4.2 g/dL (3.4-5.0); Bilirubin Direct 0.1 mg/dL (0-0.2); Bilirubin Total 0.5 mg/dL (0.2-1.0); Protein, Total 7.8 g/dL (6.4-8.2)
[2018-08-01] MEDS ORDERED: AMIODARONE HCL 450 MG in D5W 241 ML IV SCH (22:00)
[2018-08-02 05:18] LABS: Absolute Lymphocytes (CBC) 0.5 K/uL (0.7-4.9); Absolute Monocytes 0.3 K/uL (0.1-1.3); Absolute Neutrophil 7.1 K/uL (1.8-8.0); Basophils % 0.1 % (0-1.3); Lymphocytes % 6.3 % (15.3-44.8); MPV 8.1 fL (7.6-11.3); Monocytes % 3.4 % (3.3-12.3)
[2018-08-02 06:00] LABS: Albumin 3.6 g/dL (3.4-5.0); Bilirubin Total 0.3 mg/dL (0.2-1.0); Magnesium 2.8 mg/dL (1.8-2.4); Phosphorus 3.9 mg/dL (2.5-4.9); Potassium 5.1 mmol/L (3.5-5.1); Protein, Total 6.9 g/dL (6.4-8.2)
[2018-08-02 08:22] LABS: Blood Morphology Comment NOT SEEN (NOT SEEN); Platelet Estimate ADEQ
[2018-08-02] MEDS ORDERED: ENOXAPARIN 40 MG/0.4 ML SQ SCH (09:00)
[2018-08-02] MEDS ORDERED: ASPIRIN EC 81 MG TAB PO SCH (09:00)
[2018-08-02] MEDS ORDERED: METOPROLOL TAR 50 MG TAB PO SCH (09:00)
[2018-08-02] MEDS ORDERED: CLOPIDOGREL 75 MG TABLET PO SCH (09:00)
[2018-08-02] MEDS ORDERED: REGADENOSON 0.4 MG/5 ML SYR IV ONE (09:31)
--- NOTE | 2018-08-02 09:50 | EKG ---
Test Date: 2018-08-01 Test Time: 18:35:07 Quality Control Supervisor: CHINO MEASUREMENT RESULTS: Intervals: Rate: 130 [place]: 146 QRSD: 82 QT: 270 QTc: 397 [place]: P: 73 [place]: 146 QRS: 7 T: 76 INTERPRETIVE STATEMENTS: Sinus tachycardia with frequent premature ventricular complexes and fusion complexes Otherwise normal ECG No previous ECG available for comparison Electronically Signed On 08-02-18 08:34:45 MAKEUP SALES ADVISOR by Jatinder Carrillo
--- NOTE | 2018-08-02 10:38 | CON ---
History Of Present Illness: Mr. Cardozo came to the hospital because of cough and congestion, and while he was being evaluated, he was seemed to have frequent runs of ventricular tachycardia. Mr. Cardozo marquez s never had any heart trouble before. He has COPD. He is a regular cigarette smoker. Denies any hi story of CAD, diabetes, dyslipidemia, and hypertension. Takes no medications. Denies any drug aller gies. Alcohol use, moderate. Illegal drug use, none. Physical Examination: General: He is alert, oriented, pleasant. He is not in distress. Lungs: Clear. Heart Exam: Within normal limits. Abdomen: Soft. Laboratory Data: There is no EKG available for viewing. Telemetry shows sinus rhythm. Impression: I think we should do a workup for ischemic and myocardial disease to see why he has vent ricular tachycardia. He is a patient very likely to have ischemic heart disease. We will do a pharm acologic stress test, echo, discontinue amiodarone, and see what we learn. MAX/ANASTASIYA Voice ID: [id number] Report ID: [id number]
[2018-08-02] MEDS ORDERED: Ringers Lactate 1,000 ML IV ONE (12:31)
--- NOTE | 2018-08-02 12:45 | RAD REPORT ---
EXAM DESCRIPTION: NM - Rest Stress Cardiac Imaging - 08/02/2018 12:24 pm CLINICAL HISTORY: Chest pain COMPARISON: None. TECHNIQUE: The patient was administered 10.5 mCi of Tc 99m Sestamibi prior to resting SPECT imaging of the heart. The patient was then administered 32.1 mCi of Tc 99m Sestamibi following exercise or ph armacologic stress. Multiplanar SPECT images were reviewed. FINDINGS: The end diastolic volume is 123 ml, the end systolic volume is 53 ml, and the ejection fra ction is 57 %. No stress-induced ischemia confirmed. Diminished activity it extends along the inferior wall from bas e through the apex not substantially between rest and stress imaging. This is favored to be scarring rather than diaphragm attenuation artifact. IMPRESSION: No stress-induced ischemic change. Fixed defect along the inferior wall favored to be scarring rather than diaphragm attenuation artifac t. End-diastolic volume was 123 mL with 57% ejection fraction.
--- NOTE | 2018-08-02 13:01 | ECHO ---
HEIGHT: 5 ft 11 in WEIGHT: 182 lb 0 oz DATE OF STUDY: 08/02/[address]: Christopher Alexandre MD 2-DIMENSIONAL: YES M.MODE: YES DOPPLER: YES COLOR FLOW: YES TDS: NO PORTABLE: YES DEFINITY: NO BUBBLE STUDY: NO DIAGNOSIS: VTACH CARDIAC HISTORY: CATHERIZATION: NO SURGERY: YES PROSTHETIC VALVE: NO PACEMAKER: NO MEASUREMENTS (cm) DIASTOLIC (NORMALS) SYSTOLIC (NORMALS) IVSd 1.1 (0.6-1.2) LA Diam (1.9-4.0) LVEF 62% LVIDd 4.6 (3.5-5.7) LVIDs 3.1 (2.0-3.5) %FS 33% LVPWd 1.2 (0.6-1.2) Ao Diam 3.7 (2.0-3.7) 2 DIMENSIONAL ASSESSMENT: RIGHT ATRIUM: NORMAL LEFT ATRIUM: NORMAL RIGHT VENTRICLE: NORMAL LEFT VENTRICLE: NORMAL TRICUSPID VALVE: NORMAL MITRAL VALVE: NORMAL PULMONIC VALVE: NORMAL AORTIC VALVE: MILD SCLEROSIS PERICARDIAL EFFUSION: NONE AORTIC ROOT: NORMLA LEFT VENTRICULAR WALL MOTION: NORMAL DOPPLER/COLOR FLOW: MILD AORTIC REGURGITATION. COMMENTS: NORMAL LEFT VENTRICULAR EJECTION FRACTION. MILD AORTIC VALVE SCLEROSIS WITH NO AORTIC SCLEROSIS. MILD AORTIC REGURGITATION. TECHNOLOGIST: Bharti MARLOW
--- NOTE | 2018-08-02 13:21 | TREADPHA ---
DX: CHEST PAIN Date of Study: 08/02/2018 Ht: 5 11 Wt: 182 lb 0 oz Consulting Physician: UNRULY MEDICATIONS: TYLENOL, NORCO, XANAX, ASPIRIN, LIPITOR, PLAVIX, LOVENOX HISTORY: 63 YEAR OLD MALE WITH COMPLAINTS OF CHEST PAIN. MEDICAL HISTORY OF COPD, SMOKER OF 15 CIGARETTES. PHYSICIAL EXAMINATION: RESTING B.P.: 115/80 RESTING H.R.: 60 RESTING EKG: SINUS, LEFT VENTRICULAR HYPERTROPHY BY VOLTAGE. PROTOCOL: LEXISCAN EXERCISE TIME: 3:30 B.P. AT PEAK STRESS: 69/53 101/64 IMPRESSION: LEXISCAN INJECTED. CARDIOLITE INJECTED PER PROTOCOL. SEE NUCLEAR MEDICINE REPORT. NO SUPRAVENTRICULAR TACHYCARDIA. NO VENTRICULAR TACHYCARDIA. OCCASIONAL PREMATURE VENTRICULAR COMPLEXES POST TEST. DENIED CHEST PAIN. PATIENT BECAME CLAMY AND DIZZY AFTER ADMINISTRATION. BLOOD PRESSURE DROPPED. 250 ml BOLUS OF NORMAL SALINE. NON DIAGNOSTIC EKG WITH LEXISCAN.
[2018-08-02] MEDS ORDERED: SODIUM CHL 0.9% 500 ML BAG ONE (13:26)
[2018-08-02] MEDS ORDERED: ATORVASTATIN 20 MG TAB PO SCH (21:00)
--- NOTE | 2018-08-06 06:09 | P.HP ---
Certification for Inpatient Patient admitted to: Observation With expected LOS: <2 Midnights Practitioner: I am a practitioner with admitting privileges, knowledge of patient current condition, hospital course, and medical plan of care. Services: Services provided to patient in accordance with Admission requirements found in Title 42 Section 412.3 of the Code of Federal Regulations Patient History Date of Service: 08/01/18 Reason for admission: CP r/o ACS History of Present Illness: Patient is a 63-year-old gentleman came into the hospital with chest pain. Pain was mainly the sternal region. Patient came into the ER his troponins were negative. EKG did not reveal any acute abnormalities. Patient was admitted to the hospital for further workup. Allergies No Known Allergies Allergy (Verified 08/02/18 12:23) Home Medications: NK [No Home Meds] 08/01/18 - Past Medical/Surgical History Has patient received pneumonia vaccine in the past: No Diabetic: No Past Medical History: Patient denies medical history -: AAA repar -: neck surgery - Family History Mother History Unknown: Yes Medical History: Lung disease - Social History Smoking Status: Current every day smoker Alcohol use: Yes CD- Drugs: No Caffeine use: Yes Place of Residence: Home Review of Systems 10-point ROS is otherwise unremarkable Physical Examination - Vital Signs Temperature: 98.0 F Blood Pressure: 96/51 Pulse: 67 Respirations: 23 Pulse Ox (%): 96 - Physical Exam General: Alert, In no apparent distress, Oriented x3 HEENT: Atraumatic, PERRLA, Mucous membr. moist/pink, EOMI, Sclerae nonicteric Neck: Supple, 2+ carotid pulse no bruit, No LAD, Without JVD or thyroid abnormality Respiratory: Clear to auscultation bilaterally, Normal air movement Cardiovascular: Regular rate/rhythm, Normal S1 S2, No murmurs Gastrointestinal: Normal bowel sounds, Soft and benign, Non-distended, No tenderness Musculoskeletal: No clubbing, No contractures, No tenderness Integumentary: No rashes Neurological: Normal gait, Normal speech, Normal strength at 5/5 x4 extr, Normal tone, Sensation intact, Cranial nerves 3-12 intact, Normal affect Lymphatics: No axilla or inguinal lymphadenopathy Assessment & Plan - Problems (Diagnosis) (1) Chest pain, rule out acute myocardial infarction Status: Acute - Plan 1. Serial troponins and EKG 2. Cardiology consultation 3. Echocardiogram and stress test if cardiology is agreeable 4. Anti-platelet therapy, anti coagulation, beta-paulino, statin, and O2 as needed 5. IV morphine for pain 6. Nitro p.r.n. - Advance Directives Does patient have a Living Will: Yes Does patient have a Durable POA for Healthcare: Yes - Code Status/Comfort Care Code Status Assessed: Yes Code Status: Full Code Critical Care: No Time Spent Managing PTS Care (In Minutes): 50
--- NOTE | 2018-09-25 09:17 | P.DS ---
Discharge Date: 08/02/18 Disposition: ROUTINE DISCHARGE Discharge Condition: GOOD Reason for Admission: CP r/o ACS Consultations: Cardiology - Problems (1) Chest pain, rule out acute myocardial infarction Status: Acute Brief History of Present Illness: Patient is a 63-year-old gentleman came into the hospital with chest pain. Pain was mainly the sternal region. Patient came into the ER his troponins were negative. EKG did not reveal any acute abnormalities. Patient was admitted to the hospital for further workup. Hospital Course: Patient stress test did not reveal any reversible ischemia. Echocardiogram did not reveal any significant abnormality. At this time patient is stable for discharge home with outpatient follow-up with PCP. Vital Signs/Physical Exam: Temp Pulse Resp BP Pulse Ox 98.0 F 67 23 H 96/51 L 96 09/25/18 09:15 09/25/18 09:15 09/25/18 09:15 09/25/18 09:15 09/25/18 09:15 General: Alert, In no apparent distress, Oriented x3 Laboratory Data at Discharge: WBC 7.9 K/uL (4.3-10.9) D 08/02/18 04:54 Hgb 15.8 g/dL (13.6-17.9) 08/02/18 04:54 Hct 46.0 % (39.6-49.0) 08/02/18 04:54 Plt Count 189 K/uL (152-406) 08/02/18 04:54 PT 12.8 SECONDS (9.5-12.5) H 08/01/18 18:45 INR 1.09 08/01/18 18:45 Sodium 140 mmol/L (136-145) 08/02/18 04:54 Potassium 5.1 mmol/L (3.5-5.1) 08/02/18 04:54 BUN 11 mg/dL (7-18) 08/02/18 04:54 Creatinine 0.90 mg/dL (0.55-1.3) 08/02/18 04:54 Glucose 181 mg/dL (74-106) H 08/02/18 04:54 Phosphorus 3.9 mg/dL (2.5-4.9) 08/02/18 04:54 Magnesium 2.8 mg/dL (1.8-2.4) H D 08/02/18 04:54 Total Bilirubin 0.3 mg/dL (0.2-1.0) 08/02/18 04:54 AST 13 U/L (15-37) L 08/02/18 04:54 ALT 24 U/L (12-78) 08/02/18 04:54 Alkaline Phosphatase 70 U/L (45-117) 08/02/18 04:54 Triglycerides 32 mg/dL (<150) 08/02/18 04:54 Cholesterol 183 mg/dL (<200) 08/02/18 04:54 HDL Cholesterol 65 mg/dL (40-60) H 08/02/18 04:54 Cholesterol/HDL Ratio 2.82 08/02/18 04:54 Home Medications: NK [No Home Meds] 08/01/18 Patient Discharge Instructions: Please follow up with the primary care physician in 1 week. Please follow up with cardiology to 3 weeks. Information provided to you, please call the clinic to schedule an appointment. Please return to the emergency room for worsening symptoms. Diet: AHA Activity: Ad derrick Followup: Jatinder Carrillo MD [ACTIVE - CAN ADMIT] - 1-2 Weeks (Call office to schedule an appointment if desired) Time spent managing pt's care (in minutes): 20
== END 2018-08-02 14:40 | disposition home or self-care (01) | DRG 313 ==
LOC: ER 18:18 → ERHOLD 21:33 → 3RD-ICU 22:25
PROVIDERS: ADMIT Hospitalist; ATTEND Hospitalist
DX: R07.9 Chest pain, unspecified (principal); I47.2 Ventricular tachycardia; J44.9 Chronic obstructive pulmonary disease, unspecified; F17.210 Nicotine dependence, cigarettes, uncomplicated
CPT/HCPCS: 36415; 71045; 78452; 80048; 80053; 80061; 80076; 83735; 83880; 84100; 84484; 85025; 85610; 87040; 87804; 93005; 93017; 93306; 99285; A9500; J0282; J1650; J2543; J2785; J2930; J3475; J7030; J7060

== ENCOUNTER 2019-07-07 20:10 | Emergency (ER) | payer OTHER ==
--- OUTSIDE RECORDS SUMMARY | 2019-07-07 20:14 | XMS REPORT ---
:1955 Author Organization [facility] Address [address] [place] [address] Dr. [address]man[address] [place] [address] Care Team Providers Name Role Phone HELDER [...] MDReport Verified Date/Time: 09/25/2017 14:34:58 Reading Location: [place] [address] Angio Body Reading RoomAddendum EndsFINAL REPORT CT [...] and during intravenous contrast administration using a Photorank CT scanner. Images were obtained before and during the dynamic passage of intravenous contrast material. Multi-planar 3-D volume-rendering reconstruction was performed using an independent workstation interactively by the interpreting physician as well as the 3-D specialist for optimal visualisation of the abdominal aorta, pelvic arteries, and its proximal branches. Please refer to the contrast sheet scanned in the [employer] system for the amount and route of [...] dictated regarding the non-vascular findings by the Mechanical Assembly Radiologist. Signed: Joaquín Castro MDReport Verified Date/Time: 09/25/2017 10:55:28 Reading Location: [place] [address] Cardiology MRI -CREATININE 2017-09-25 09:56:00 Test Item Value Reference Range Comments POC-CREATININE (IRMA) (test 0.7 mg/dL 0.6-1.3 TESTED AT [facility] 2457 kpib=4602) [facility] [address] POC-EGFR (IRMA) (test 114 mL/min/1.73M2 ggob=4500) CT, CTA, [id number] 09:31:00Addendum BeginsREPORT STATUS:A Addendum: I agree with the previously described non vascular findings. Signed: Hubert Stiles MDReport Verified Date/Time: 09/05/2017 09:31:21 Reading Location: [place] [address] Angio Body Reading RoomAddendum EndsFINAL REPORT CT [...] regarding the non -vascular findings by the Mechanical Assembly Radiologist. Signed: Joauqín Castro MDReport Verified Date/Time: 09/04/2017 17:13:07 Reading Location: [place] [address] Cardiology MRI [id number] 14:44:00 Test Item Value Reference Range Comments POC-CREATININE (BEAKER) 0.8 mg/dL 0.6-1.3 TESTED AT [facility] [address] [facility] (test fyil=0678) [facility] [address] POC-EGFR (BEAKER) (test 98 mL/min/1.73M2 edmu=4579) BASIC METABOLIC [id number] 07:48:00 Test Item Value Reference Range Comments SODIUM (BEAKER) (test 139 meq/L 136-145 ctsj=701) POTASSIUM (BEAKER) (test 3.9 meq/L 3.5-5.1 mpor=907) CHLORIDE (BEAKER) (test 107 meq/L 98-107 nqje=460) CO2 (BEAKER) (test 26 meq/L 22-29 aonq=779) BLOOD UREA NITROGEN 8 mg/dL 7-21 (BEAKER) (test ttpe=434) CREATININE (BEAKER) (test 0.66 mg/dL 0.57-1.25 fhxe=172) GLUCOSE RANDOM (BEAKER) 91 mg/dL 70-105 (test loei=540) CALCIUM (BEAKER) (test 9.1 mg/dL 8.4-10.2 lkbt=217) EGFR (BEAKER) (test 122 mL/min/1.73 sq m ESTIMATED GFR IS NOT vlxb=8856) ACCURATE CREATININE CLEARANCE IN PREDICTING GLOMERULAR FILTRATION RATE. ESTIMATED GFR IS NOT APPLICABLE FOR DIALYSIS PATIENTS. CBC W/PLT COUNT & AUTO [id number] 07:14:00 Test Item Value Reference Range Comments WHITE BLOOD CELL COUNT (BEAKER) (test tuvw=665) 8.5 K/ L 3.5-10.5 RED BLOOD CELL COUNT (BEAKER) (test hqpi=896) 3.59 M/ L 4.63-6.08 HEMOGLOBIN (BEAKER) (test iptm=298) 11.1 GM/DL 13.7-17.5 HEMATOCRIT (BEAKER) (test tnrv=097) 33.6 % 40.1-51.0 MEAN CORPUSCULAR VOLUME (BEAKER) (test lhiz=302) 93.6 fL 79.0-92.2 MEAN CORPUSCULAR HEMOGLOBIN (BEAKER) (test 30.9 pg 25.7-32.2 vykp=647) MEAN CORPUSCULAR HEMOGLOBIN CONC (BEAKER) (test 33.0 GM/DL 32.3-36.5 vfad=230) RED CELL DISTRIBUTION WIDTH (BEAKER) (test 13.3 % 11.6-14.4 gqol=115) PLATELET COUNT (BEAKER) (test hseo=194) 244 K/CU MM 150-450 MEAN PLATELET VOLUME (BEAKER) (test esys=079) 10.0 fL 9.4-12.4 NUCLEATED RED BLOOD CELLS (BEAKER) (test 0 /100 WBC 0-0 ytic=831) NEUTROPHILS RELATIVE PERCENT (BEAKER) (test 64 % fqpi=431) LYMPHOCYTES RELATIVE PERCENT (BEAKER) (test 17 % kdlj=675) MONOCYTES RELATIVE PERCENT (BEAKER) (test 13 % ksnc=708) EOSINOPHILS RELATIVE PERCENT (BEAKER) (test 5 % ktpi=291) BASOPHILS RELATIVE PERCENT (BEAKER) (test 0 % nmal=752) NEUTROPHILS ABSOLUTE COUNT (BEAKER) (test 5.44 K/ L 1.78-5.38 mvua=369) LYMPHOCYTES ABSOLUTE COUNT (BEAKER) (test 1.44 K/ L 1.32-3.57 jpxy=027) MONOCYTES ABSOLUTE COUNT (BEAKER) (test 1.12 K/ L 0.30-0.82 xmst=371) EOSINOPHILS ABSOLUTE COUNT (BEAKER) (test 0.38 K/ L 0.04-0.54 vwla=374) BASOPHILS ABSOLUTE COUNT (BEAKER) (test 0.03 K/ L 0.01-0.08 vqhw=443) IMMATURE GRANULOCYTES-RELATIVE PERCENT (BEAKER) 1 % 0-1 (test lcxa=4244) CBC W/PLT COUNT & AUTO [id number] 07:30:00 Test Item Value Reference Range Comments WHITE BLOOD CELL COUNT (BEAKER) (test dpny=826) 8.6 K/ L 3.5-10.5 RED BLOOD CELL COUNT (BEAKER) (test oise=969) 3.99 M/ L 4.63-6.08 HEMOGLOBIN (BEAKER) (test hjko=499) 12.4 GM/DL 13.7-17.5 HEMATOCRIT (BEAKER) (test muhu=519) 37.1 % 40.1-51.0 MEAN CORPUSCULAR VOLUME (BEAKER) (test lotm=815) 93.0 fL 79.0-92.2 MEAN CORPUSCULAR HEMOGLOBIN (BEAKER) (test 31.1 pg 25.7-32.2 qavq=657) MEAN CORPUSCULAR HEMOGLOBIN CONC (BEAKER) (test 33.4 GM/DL 32.3-36.5 xypa=358) RED CELL DISTRIBUTION WIDTH (BEAKER) (test 13.2 % 11.6-14.4 ubvl=032) PLATELET COUNT (BEAKER) (test lvvd=642) 209 K/CU MM 150-450 MEAN PLATELET VOLUME (BEAKER) (test mcik=150) 10.2 fL 9.4-12.4 NUCLEATED RED BLOOD CELLS (BEAKER) (test 0 /100 WBC 0-0 cfml=305) NEUTROPHILS RELATIVE PERCENT (BEAKER) (test 72 % ihhu=173) LYMPHOCYTES RELATIVE PERCENT (BEAKER) (test 12 % cgnt=980) MONOCYTES RELATIVE PERCENT (BEAKER) (test 11 % hsso=661) EOSINOPHILS RELATIVE PERCENT (BEAKER) (test 4 % qzoy=097) BASOPHILS RELATIVE PERCENT (BEAKER) (test 0 % cdvk=295) NEUTROPHILS ABSOLUTE COUNT (BEAKER) (test 6.16 K/ L 1.78-5.38 thmu=724) LYMPHOCYTES ABSOLUTE COUNT (BEAKER) (test 1.05 K/ L 1.32-3.57 ubim=997) MONOCYTES ABSOLUTE COUNT (BEAKER) (test 0.93 K/ L 0.30-0.82 pdkq=868) EOSINOPHILS ABSOLUTE COUNT (BEAKER) (test 0.36 K/ L 0.04-0.54 virb=124) BASOPHILS ABSOLUTE COUNT (BEAKER) (test 0.03 K/ L 0.01-0.08 gtcq=998) IMMATURE GRANULOCYTES-RELATIVE PERCENT (BEAKER) 1 % 0-1 (test abbi=3320) BASIC METABOLIC [id number] 07:26:00 Test Item Value Reference Range Comments SODIUM (BEAKER) (test 139 meq/L 136-145 lrjx=935) POTASSIUM (BEAKER) (test 3.4 meq/L 3.5-5.1 izlu=851) CHLORIDE (BEAKER) (test 105 meq/L 98-107 crxq=214) CO2 (BEAKER) (test 25 meq/L 22-29 rtfh=335) BLOOD UREA NITROGEN 7 mg/dL 7-21 (BEAKER) (test cuih=438) CREATININE (BEAKER) (test 0.63 mg/dL 0.57-1.25 pfbs=739) GLUCOSE RANDOM (BEAKER) 87 mg/dL 70-105 (test bndg=136) CALCIUM (BEAKER) (test 9.2 mg/dL 8.4-10.2 qcco=317) EGFR (BEAKER) (test 129 mL/min/1.73 sq m ESTIMATED GFR IS NOT xjzi=2546) ACCURATE CREATININE CLEARANCE IN PREDICTING GLOMERULAR FILTRATION RATE. ESTIMATED GFR IS NOT APPLICABLE FOR DIALYSIS PATIENTS. POCT-GLUCOSE [id number] 08:28:00 Test Item Value Reference Range Comments POC-GLUCOSE METER (BEAKER) 90 mg/dL 70-110 TESTED AT [facility] [address] [facility] (test zyyw=0624) [facility] [address] CBC W/PLT COUNT & AUTO [id number] 06:41:00 Test Item Value Reference Range Comments WHITE BLOOD CELL COUNT (BEAKER) (test tazt=785) 15.3 K/ L 3.5-10.5 RED BLOOD CELL COUNT (BEAKER) (test trhd=054) 3.90 M/ L 4.63-6.08 HEMOGLOBIN (BEAKER) (test ivjs=241) 12.2 GM/DL 13.7-17.5 HEMATOCRIT (BEAKER) (test lbln=879) 36.7 % 40.1-51.0 MEAN CORPUSCULAR VOLUME (BEAKER) (test huua=488) 94.1 fL 79.0-92.2 MEAN CORPUSCULAR HEMOGLOBIN (BEAKER) (test 31.3 pg 25.7-32.2 fbvc=059) MEAN CORPUSCULAR HEMOGLOBIN CONC (BEAKER) (test 33.2 GM/DL 32.3-36.5 gdpm=854) RED CELL DISTRIBUTION WIDTH (BEAKER) (test 13.4 % 11.6-14.4 zcna=161) PLATELET COUNT (BEAKER) (test ahpm=324) 200 K/CU MM 150-450 MEAN PLATELET VOLUME (BEAKER) (test rdch=909) 10.3 fL 9.4-12.4 NUCLEATED RED BLOOD CELLS (BEAKER) (test 0 /100 WBC 0-0 ckpi=088) NEUTROPHILS RELATIVE PERCENT (BEAKER) (test 77 % wbhv=273) LYMPHOCYTES RELATIVE PERCENT (BEAKER) (test 10 % uvte=875) MONOCYTES RELATIVE PERCENT (BEAKER) (test 10 % oyzo=280) EOSINOPHILS RELATIVE PERCENT (BEAKER) (test 2 % tfdr=011) BASOPHILS RELATIVE PERCENT (BEAKER) (test 0 % hgsd=162) NEUTROPHILS ABSOLUTE COUNT (BEAKER) (test 11.83 K/ L 1.78-5.38 mvvh=735) LYMPHOCYTES ABSOLUTE COUNT (BEAKER) (test 1.49 K/ L 1.32-3.57 jisl=745) MONOCYTES ABSOLUTE COUNT (BEAKER) (test 1.56 K/ L 0.30-0.82 jnfb=619) EOSINOPHILS ABSOLUTE COUNT (BEAKER) (test 0.29 K/ L 0.04-0.54 apkz=792) BASOPHILS ABSOLUTE COUNT (BEAKER) (test 0.03 K/ L 0.01-0.08 dbkq=330) IMMATURE GRANULOCYTES-RELATIVE PERCENT (BEAKER) 1 % 0-1 (test bpma=6362) BASIC METABOLIC [id number] 06:11:00 Test Item Value Reference Range Comments SODIUM (BEAKER) (test 138 meq/L 136-145 oxgc=823) POTASSIUM (BEAKER) (test 4.6 meq/L 3.5-5.1 Specimen slightly rewe=203) hemolyzed CHLORIDE (BEAKER) (test 105 meq/L 98-107 boiy=061) CO2 (BEAKER) (test 24 meq/L 22-29 scvc=958) BLOOD UREA NITROGEN 11 mg/dL 7-21 (BEAKER) (test zksd=844) CREATININE (BEAKER) (test 0.70 mg/dL 0.57-1.25 Specimen slightly oius=012) hemolyzed GLUCOSE RANDOM (BEAKER) 81 mg/dL 70-105 (test gryi=942) CALCIUM (BEAKER) (test 9.2 mg/dL 8.4-10.2 elav=834) EGFR (BEAKER) (test 114 mL/min/1.73 sq m ESTIMATED GFR IS NOT inbk=4257) ACCURATE CREATININE CLEARANCE IN PREDICTING GLOMERULAR FILTRATION RATE. ESTIMATED GFR IS NOT APPLICABLE FOR DIALYSIS PATIENTS. POCT-GLUCOSE [id number] 03:06:00 Test Item Value Reference Range Comments POC-GLUCOSE METER (BEAKER) 86 mg/dL 70-110 TESTED AT [address] (test xoqw=4239) [place] [address] POCT-GLUCOSE [id number] 17:51:00 Test Item Value Reference Range Comments POC-GLUCOSE METER (BEAKER) 98 mg/dL 70-110 TESTED AT [address] (test ofyb=1071) [place] [address] URINALYSIS W/ REFLEX URINE [id number] 12:37:00 Test Item Value Reference Range Comments COLOR (BEAKER) (test huqo=209) Yellow CLARITY (BEAKER) (test hors=693) Clear SPECIFIC GRAVITY UA (BEAKER) (test otsn=419) 1.018 1.001-1.035 PH UA (BEAKER) (test xseg=598) 6.5 5.0-8.0 PROTEIN UA (BEAKER) (test qdlg=417) 50 mg/dL Negative GLUCOSE UA (BEAKER) (test xhpf=451) Negative Negative KETONES UA (BEAKER) (test xjsa=650) 60 mg/dL Negative BILIRUBIN UA (BEAKER) (test kjsj=264) Negative Negative BLOOD UA (BEAKER) (test xnvs=501) Small Negative NITRITE UA (BEAKER) (test pegx=638) Negative Negative LEUKOCYTE ESTERASE UA (BEAKER) (test vqes=978) Negative Negative UROBILINOGEN UA (BEAKER) (test sqvj=958) 0.2 mg/dL 0.2-1.0 RBC UA (BEAKER) (test aftz=988) 4 /HPF WBC UA (BEAKER) (test dnqw=954) 2 /HPF MUCUS (BEAKER) (test uvua=5997) Occasional SQUAMOUS EPITHELIAL (BEAKER) (test iksn=612) 1 /HPF SOURCE(BEAKER) (test eprm=9421) POCT-GLUCOSE [id number] 12:09:00 Test Item Value Reference Range Comments POC-GLUCOSE METER (BEAKER) 119 mg/dL 70-110 TESTED AT [address] (test pfox=7818) [place] [address] BASIC METABOLIC [id number] 09:23:00 Test Item Value Reference Range Comments SODIUM (BEAKER) (test 137 meq/L 136-145 atdn=432) POTASSIUM (BEAKER) (test 3.9 meq/L 3.5-5.1 umau=228) CHLORIDE (BEAKER) (test 107 meq/L 98-107 cizf=684) CO2 (BEAKER) (test 22 meq/L 22-29 ihko=315) BLOOD UREA NITROGEN 8 mg/dL 7-21 (BEAKER) (test ypiz=975) CREATININE (BEAKER) (test 0.74 mg/dL 0.57-1.25 yruc=640) GLUCOSE RANDOM (BEAKER) 113 mg/dL 70-105 (test rulz=473) CALCIUM (BEAKER) (test 8.7 mg/dL 8.4-10.2 vytn=505) EGFR (BEAKER) (test 107 mL/min/1.73 sq m ESTIMATED GFR IS NOT xgxc=7045) ACCURATE CREATININE CLEARANCE IN PREDICTING GLOMERULAR FILTRATION RATE. ESTIMATED GFR IS NOT APPLICABLE FOR DIALYSIS PATIENTS. POCT-GLUCOSE [id number] 08:41:00 Test Item Value Reference Range Comments POC-GLUCOSE METER (BEAKER) 114 mg/dL 70-110 TESTED AT [address] (test rvwy=1012) [place] [address] RAD, CHEST, 1 VIEW, NON [id number] 07:48:00Reason for exam:->Post- OpShould this be performed at the bedside?->YesFINAL REPORT Chest one view AP 05/10/2017 7:47 AM CLINICAL INDICATION: Post-Op COMPARISON: 05/09/2017 IMPRESSION: There is bibasilar atelectasis. There is a trace left pleural effusion. Cardiomediastinal contours are within normal limits. The central pulmonary vasculature is notengorged. An enteric tube is present. Signed: Wang Kaiser MDReport Verified Date/Time: 05/10/2017 07:48: 05 Reading Location: [facility] Radiology Reading Room CBC W/PLT COUNT & AUTO [id number] 07:36:00 Test Item Value Reference Range Comments WHITE BLOOD CELL COUNT (BEAKER) (test hsio=155) 18.9 K/ L 3.5-10.5 RED BLOOD CELL COUNT (BEAKER) (test edye=394) 4.03 M/ L 4.63-6.08 HEMOGLOBIN (BEAKER) (test bbcj=671) 12.8 GM/DL 13.7-17.5 HEMATOCRIT (BEAKER) (test uttv=414) 38.3 % 40.1-51.0 MEAN CORPUSCULAR VOLUME (BEAKER) (test ekgi=145) 95.0 fL 79.0-92.2 MEAN CORPUSCULAR HEMOGLOBIN (BEAKER) (test 31.8 pg 25.7-32.2 fspp=245) MEAN CORPUSCULAR HEMOGLOBIN CONC (BEAKER) (test 33.4 GM/DL 32.3-36.5 jbpd=747) RED CELL DISTRIBUTION WIDTH (BEAKER) (test 13.1 % 11.6-14.4 whnp=263) PLATELET COUNT (BEAKER) (test imid=775) 180 K/CU MM 150-450 MEAN PLATELET VOLUME (BEAKER) (test nmxt=020) 9.9 fL 9.4-12.4 NUCLEATED RED BLOOD CELLS (BEAKER) (test 0 /100 WBC 0-0 igzi=450) NEUTROPHILS RELATIVE PERCENT (BEAKER) (test 82 % ptdi=991) LYMPHOCYTES RELATIVE PERCENT (BEAKER) (test 6 % xvfb=809) MONOCYTES RELATIVE PERCENT (BEAKER) (test 10 % ryzw=430) EOSINOPHILS RELATIVE PERCENT (BEAKER) (test 0 % pjqr=997) BASOPHILS RELATIVE PERCENT (BEAKER) (test 0 % vfyg=917) NEUTROPHILS ABSOLUTE COUNT (BEAKER) (test 15.53 K/ L 1.78-5.38 ugju=472) LYMPHOCYTES ABSOLUTE COUNT (BEAKER) (test 1.18 K/ L 1.32-3.57 nlmp=528) MONOCYTES ABSOLUTE COUNT (BEAKER) (test 1.92 K/ L 0.30-0.82 ites=682) EOSINOPHILS ABSOLUTE COUNT (BEAKER) (test 0.07 K/ L 0.04-0.54 mkme=640) BASOPHILS ABSOLUTE COUNT (BEAKER) (test 0.04 K/ L 0.01-0.08 eiko=227) IMMATURE GRANULOCYTES-RELATIVE PERCENT (BEAKER) 1 % 0-1 (test xuol=9160) POCT-GLUCOSE [id number] 22:44:00 Test Item Value Reference Range Comments POC-GLUCOSE METER (BEAKER) 128 mg/dL 70-110 TESTED AT [address] (test vulq=7559) [place] [address] POCT-GLUCOSE [id number] 17:22:00 Test Item Value Reference Range Comments POC-GLUCOSE METER (BEAKER) 106 mg/dL 70-110 TESTED AT [address] (test aibo=6880) [place] [address] RAD, ABDOMEN/KUB, 1 VIEW [id number] 12:38:00Reason for exam:->ileusFINAL REPORT Abdomen two views supine 05/09/2017 12:38 PM CLINICAL INDICATION: ileus COMPARISON: None available IMPRESSION: There is no radiographic evidence for bowel obstruction. There is mild ileus. No abnormal calcifications are seen in the region of the gallbladder or kidneys. There are no acute-appearing skeletal abnormalities. Signed: Wang Kaiser Verified Date/Time: 05/09/2017 12:38:47 Reading Location: [facility] POCT-GLUCOSE [id number] 12:19:00 Test Item Value Reference Range Comments POC-GLUCOSE METER (BEAKER) 102 mg/dL 70-110 TESTED AT [address] (test twku=7459) [place] [address] POCT-GLUCOSE [id number] 06:45:00 Test Item Value Reference Range Comments POC-GLUCOSE METER (BEAKER) 104 mg/dL 70-110 TESTED AT [address] (test uunt=3170) [facility] [address] RAD, CHEST, 1 VIEW, NON [id number] 05:01:00Reason for exam:->Post- OpShould this be performed [...] evidence of a significant pneumothorax. Signed: [facility] Verified Date/Time: 05/09/2017 05:01:39 Reading Location: [address] Reading Room [id number] 03:47:00 Test Item Value Reference Range Comments PHOSPHORUS (BEAKER) (test zeyz=718) 2.7 mg/dL 2.3-4.7 [id number] 03:47:00 Test Item Value Reference Range Comments MAGNESIUM (BEAKER) (test wgdw=642) 1.8 mg/dL 1.6-2.6 BASIC METABOLIC [id number] 03:47:00 Test Item Value Reference Range Comments SODIUM (BEAKER) (test 139 meq/L 136-145 hruv=783) POTASSIUM (BEAKER) (test 4.1 meq/L 3.5-5.1 jpdm=495) CHLORIDE (BEAKER) (test 111 meq/L 98-107 irvu=711) CO2 (BEAKER) (test 25 meq/L 22-29 qecb=118) BLOOD UREA NITROGEN 8 mg/dL 7-21 (BEAKER) (test nkkn=499) CREATININE (BEAKER) (test 0.71 mg/dL 0.57-1.25 mmlb=165) GLUCOSE RANDOM (BEAKER) 106 mg/dL 70-105 (test hbkb=611) CALCIUM (BEAKER) (test 8.2 mg/dL 8.4-10.2 bynj=462) EGFR (BEAKER) (test 112 mL/min/1.73 sq m ESTIMATED GFR IS NOT wahc=4581) ACCURATE CREATININE CLEARANCE IN PREDICTING GLOMERULAR FILTRATION RATE. ESTIMATED GFR IS NOT APPLICABLE FOR DIALYSIS PATIENTS. LACTIC ACID, ARTERIAL, WHOLE [id number] 03:42:00 Test Item Value Reference Range Comments LACTATE BLOOD ARTERIAL (2) (BEAKER) (test 0.9 mmol/L 0.5-2.2 jpyz=1719) Effective 10/21/2015: Units/Reference Range ChangeNew: 0.5-2.2 mmol/L Previous: 5 -20 mg/dLCALCIUM, [id number] 03:39:00 Test Item Value Reference Range Comments CALCIUM IONIZED (BEAKER) (test dmrs=656) 1.15 mmol/L 1.12-1.27 PH, BLOOD (BEAKER) (test pqyi=5778) 7.42 CBC W/PLT COUNT & AUTO [id number] 03:36:00 Test Item Value Reference Range Comments WHITE BLOOD CELL COUNT (BEAKER) (test xizq=149) 13.6 K/ L 3.5-10.5 RED BLOOD CELL COUNT (BEAKER) (test gsok=715) 3.99 M/ L 4.63-6.08 HEMOGLOBIN (BEAKER) (test iahv=221) 12.5 GM/DL 13.7-17.5 HEMATOCRIT (BEAKER) (test mkog=399) 37.1 % 40.1-51.0 MEAN CORPUSCULAR VOLUME (BEAKER) (test qwkf=864) 93.0 fL 79.0-92.2 MEAN CORPUSCULAR HEMOGLOBIN (BEAKER) (test 31.3 pg 25.7-32.2 rxex=974) MEAN CORPUSCULAR HEMOGLOBIN CONC (BEAKER) (test 33.7 GM/DL 32.3-36.5 vlcj=168) RED CELL DISTRIBUTION WIDTH (BEAKER) (test 13.2 % 11.6-14.4 nazj=746) PLATELET COUNT (BEAKER) (test vpfv=094) 162 K/CU MM 150-450 MEAN PLATELET VOLUME (BEAKER) (test kynm=363) 9.7 fL 9.4-12.4 NUCLEATED RED BLOOD CELLS (BEAKER) (test 0 /100 WBC 0-0 oqmu=147) NEUTROPHILS RELATIVE PERCENT (BEAKER) (test 80 % jtsn=704) LYMPHOCYTES RELATIVE PERCENT (BEAKER) (test 9 % kibb=359) MONOCYTES RELATIVE PERCENT (BEAKER) (test 10 % amta=826) EOSINOPHILS RELATIVE PERCENT (BEAKER) (test 1 % lrrj=507) BASOPHILS RELATIVE PERCENT (BEAKER) (test 0 % rdje=756) NEUTROPHILS ABSOLUTE COUNT (BEAKER) (test 10.78 K/ L 1.78-5.38 jhjl=205) LYMPHOCYTES ABSOLUTE COUNT (BEAKER) (test 1.28 K/ L 1.32-3.57 xqpg=820) MONOCYTES ABSOLUTE COUNT (BEAKER) (test 1.29 K/ L 0.30-0.82 blzv=055) EOSINOPHILS ABSOLUTE COUNT (BEAKER) (test 0.12 K/ L 0.04-0.54 dgtc=082) BASOPHILS ABSOLUTE COUNT (BEAKER) (test 0.03 K/ L 0.01-0.08 oqfp=131) IMMATURE GRANULOCYTES-RELATIVE PERCENT (BEAKER) 0 % 0-1 (test xpgg=7598) OXYGEN SATURATION, [id number] 03:35:00 Test Item Value Reference Range Comments O2 SATURATION (MEASURED) (BEAKER) (test uepv=0681) 64.0 % POCT-GLUCOSE [id number] 01:07:00 Test Item Value Reference Range Comments POC-GLUCOSE METER (BEAKER) 96 mg/dL 70-110 TESTED AT [address] (test srwv=4490) [facility] [address] BLOOD GAS, [id number] 12:28:00 Test Item Value Reference Range Comments PH ARTERIAL (BEAKER) (test qhld=345) 7.36 7.35-7.45 PCO2 ARTERIAL (BEAKER) (test joay=369) 40 mmHg 35-45 PO2 ARTERIAL (BEAKER) (test zkbj=839) 287 mmHg 80-90 O2 SATURATION ARTERIAL (BEAKER) (test kxwq=413) 99.6 % 96.0-97.0 HCO3 ARTERIAL (BEAKER) (test zlyh=480) 22 mmol/L 21-29 BASE EXCESS ARTERIAL (BEAKER) (test cosn=158) -2.8 mmol/L -2.0-3.0 PATIENT TEMPERATURE (BEAKER) (test odcm=9794) 36.6 C FIO2 (BEAKER) (test rmji=0058) 60.0 % RAD, CHEST, 1 VIEW, NON [id number] 11:05:00Reason for exam:->Post- OpShould this be performed at the bedside?->YesFINAL REPORT Chest one view AP 05/08/2017 11:05 AM CLINICAL INDICATION: Post-Op COMPARISON: 05/02/2017 IMPRESSION: Support hardware is in satisfactory radiographic position. Cardiomediastinal contours are stable. The central pulmonary vasculature is not engorged. The lungs are clear, save for scattered foci of linear atelectasis. Signed: Wang Kaisereport Verified Date/Time : 05/08/2017 11:05:58 Reading Location: [facility] Radiology Reading Room [id number] 11:03:00 Test Item Value Reference Range Comments MAGNESIUM (BEAKER) (test ussa=279) 2.0 mg/dL 1.6-2.6 BASIC METABOLIC [id number] 11:03:00 Test Item Value Reference Range Comments SODIUM (BEAKER) (test 141 meq/L 136-145 nzzf=853) POTASSIUM (BEAKER) (test 4.3 meq/L 3.5-5.1 qiwb=167) CHLORIDE (BEAKER) (test 113 meq/L 98-107 rhhu=205) CO2 (BEAKER) (test 24 meq/L 22-29 ffua=803) BLOOD UREA NITROGEN 9 mg/dL 7-21 (BEAKER) (test giqm=111) CREATININE (BEAKER) (test 0.70 mg/dL 0.57-1.25 seut=853) GLUCOSE RANDOM (BEAKER) 116 mg/dL 70-105 (test hcct=007) CALCIUM (BEAKER) (test 8.7 mg/dL 8.4-10.2 shli=103) EGFR (BEAKER) (test 114 mL/min/1.73 sq m ESTIMATED GFR IS NOT ccra=6809) ACCURATE CREATININE CLEARANCE IN PREDICTING GLOMERULAR FILTRATION RATE. ESTIMATED GFR IS NOT APPLICABLE FOR DIALYSIS PATIENTS. LACTIC ACID, ARTERIAL, WHOLE [id number] 10:58:00 Test Item Value Reference Range Comments LACTATE BLOOD ARTERIAL (2) (BEAKER) (test 0.6 mmol/L 0.5-2.2 rtgl=7774) Effective 10/21/2015: Units/Reference Range ChangeNew: 0.5-2.2 mmol/L Previous: 5 -20 mg/dLPT/[id number] 10:57:00 Test Item Value Reference Range Comments PROTIME (BEAKER) (test oqsp=537) 14.8 seconds 11.7-14.7 INR (BEAKER) (test cvsw=927) 1.2 <=5.9 PARTIAL THROMBOPLASTIN TIME (BEAKER) (test 29.1 seconds 22.5-36.0 rlpm=840) RECOMMENDED COUMADIN/WARFARIN INR THERAPY RANGESSTANDARD DOSE: 2.0 - 3.0 Includes: PROPHYLAXIS forvenous thrombosis, systemic embolization; TREATMENT for venous thrombosis and/or pulmonary embolus.HIGH RISK: Target INR is 2.5-3.5 for patients with mechanical heart valves.CBC W/PLT COUNT & AUTO [id number] 10:53:00 Test Item Value Reference Range Comments WHITE BLOOD CELL COUNT (BEAKER) (test fgug=735) 18.0 K/ L 3.5-10.5 RED BLOOD CELL COUNT (BEAKER) (test nzyj=632) 4.36 M/ L 4.63-6.08 HEMOGLOBIN (BEAKER) (test agcm=815) 13.7 GM/DL 13.7-17.5 HEMATOCRIT (BEAKER) (test xcgp=447) 40.2 % 40.1-51.0 MEAN CORPUSCULAR VOLUME (BEAKER) (test lwcj=244) 92.2 fL 79.0-92.2 MEAN CORPUSCULAR HEMOGLOBIN (BEAKER) (test 31.4 pg 25.7-32.2 cmbm=641) MEAN CORPUSCULAR HEMOGLOBIN CONC (BEAKER) (test 34.1 GM/DL 32.3-36.5 pmtd=915) RED CELL DISTRIBUTION WIDTH (BEAKER) (test 13.0 % 11.6-14.4 umsy=943) PLATELET COUNT (BEAKER) (test rqld=848) 177 K/CU MM 150-450 MEAN PLATELET VOLUME (BEAKER) (test hfqb=308) 9.7 fL 9.4-12.4 NUCLEATED RED BLOOD CELLS (BEAKER) (test 0 /100 WBC 0-0 vevo=936) NEUTROPHILS RELATIVE PERCENT (BEAKER) (test 81 % trad=675) LYMPHOCYTES RELATIVE PERCENT (BEAKER) (test 10 % tccy=734) MONOCYTES RELATIVE PERCENT (BEAKER) (test 7 % bhvv=435) EOSINOPHILS RELATIVE PERCENT (BEAKER) (test 1 % zrtl=506) BASOPHILS RELATIVE PERCENT (BEAKER) (test 0 % saec=136) NEUTROPHILS ABSOLUTE COUNT (BEAKER) (test 14.49 K/ L 1.78-5.38 epaw=834) LYMPHOCYTES ABSOLUTE COUNT (BEAKER) (test 1.76 K/ L 1.32-3.57 gith=214) MONOCYTES ABSOLUTE COUNT (BEAKER) (test 1.19 K/ L 0.30-0.82 zjfj=520) EOSINOPHILS ABSOLUTE COUNT (BEAKER) (test 0.19 K/ L 0.04-0.54 bacr=319) BASOPHILS ABSOLUTE COUNT (BEAKER) (test 0.04 K/ L 0.01-0.08 dghu=672) IMMATURE GRANULOCYTES-RELATIVE PERCENT (BEAKER) 2 % 0-1 (test ckmg=2857) OXYGEN SATURATION, [id number] 10:44:00 Test Item Value Reference Range Comments O2 SATURATION (MEASURED) (BEAKER) (test abuq=6353) 71.8 % BLOOD GAS, [id number] 10:42:00 Test Item Value Reference Range Comments PH ARTERIAL (BEAKER) (test sbkb=648) 7.37 7.35-7.45 PCO2 ARTERIAL (BEAKER) (test slbl=186) 42 mmHg 35-45 PO2 ARTERIAL (BEAKER) (test kvyt=571) 158 mmHg 80-90 O2 SATURATION ARTERIAL (BEAKER) (test fque=185) 99.0 % 96.0-97.0 HCO3 ARTERIAL (BEAKER) (test joic=999) 24 mmol/L 21-29 BASE EXCESS ARTERIAL (BEAKER) (test tsfe=323) -1.4 mmol/L -2.0-3.0 PATIENT TEMPERATURE (BEAKER) (test vsbp=2441) 36.4 C FIO2 (BEAKER) (test tpey=0152) 60.0 % GLUCOSE-STAT [id number] 10:42:00 Test Item Value Reference Range Comments GLUCOSE RANDOM (BEAKER) (test gzrp=446) 112 mg/dL 70-110 SODIUM NA-STAT [id number] 10:41:00 Test Item Value Reference Range Comments SODIUM (BEAKER) (test flss=158) 137 meq/L 135-148 POTASSIUM-STAT [id number] 10:41:00 Test Item Value Reference Range Comments POTASSIUM (BEAKER) (test lsba=749) 4.2 meq/L 3.6-5.5 HGB/HCT (H&H) - STAT [id number] 10:41:00 Test Item Value Reference Range Comments HEMOGLOBIN (BEAKER) (test vvbb=436) 14.4 g/dL 13.0-16.8 HEMATOCRIT (BEAKER) (test zhld=224) 42.0 % 40.0-50.0 CALCIUM, [id number] 10:41:00 Test Item Value Reference Range Comments CALCIUM IONIZED (BEAKER) (test mpbk=365) 1.23 mmol/L 1.12-1.27 PH, BLOOD (BEAKER) (test tqiy=4742) 7.37 CALCIUM, [id number] 09:43:00 Test Item Value Reference Range Comments CALCIUM IONIZED (BEAKER) (test tvfm=521) 1.25 mmol/L 1.12-1.27 PH, BLOOD (BEAKER) (test bhiy=1274) 7.32 SODIUM NA-STAT [id number] 09:42:00 Test Item Value Reference Range Comments SODIUM (BEAKER) (test skgj=862) 138 meq/L 135-148 POTASSIUM-STAT [id number] 09:42:00 Test Item Value Reference Range Comments POTASSIUM (BEAKER) (test bzlv=112) 3.8 meq/L 3.6-5.5 BLOOD GAS, [id number] 09:42:00 Test Item Value Reference Range Comments PH ARTERIAL (BEAKER) (test ieuh=926) 7.35 7.35-7.45 PCO2 ARTERIAL (BEAKER) (test gdci=834) 46 mmHg 35-45 PO2 ARTERIAL (BEAKER) (test aiuh=595) 99 mmHg 80-90 O2 SATURATION ARTERIAL (BEAKER) (test wxmh=297) 97.6 % 96.0-97.0 HCO3 ARTERIAL (BEAKER) (test aywi=413) 25 mmol/L 21-29 BASE EXCESS ARTERIAL (BEAKER) (test izzs=026) -1.4 mmol/L -2.0-3.0 PATIENT TEMPERATURE (BEAKER) (test rfvq=5824) 35.0 C FIO2 (BEAKER) (test mtgb=5365) 61.0 % GLUCOSE-STAT [id number] 09:42:00 Test Item Value Reference Range Comments GLUCOSE RANDOM (BEAKER) (test jldz=956) 112 mg/dL 70-110 HGB/HCT (H&H) - STAT [id number] 09:42:00 Test Item Value Reference Range Comments HEMOGLOBIN (BEAKER) (test yfro=896) 13.1 g/dL 13.0-16.8 HEMATOCRIT (BEAKER) (test tlua=276) 39.0 % 40.0-50.0 SODIUM NA-STAT [id number] 08:37:00 Test Item Value Reference Range Comments SODIUM (BEAKER) (test dblj=629) 137 meq/L 135-148 POTASSIUM-STAT [id number] 08:37:00 Test Item Value Reference Range Comments POTASSIUM (BEAKER) (test idgc=966) 3.9 meq/L 3.6-5.5 HGB/HCT (H&H) - STAT [id number] 08:37:00 Test Item Value Reference Range Comments HEMOGLOBIN (BEAKER) (test eotg=334) 15.2 g/dL 13.0-16.8 HEMATOCRIT (BEAKER) (test ffuw=590) 45.0 % 40.0-50.0 CALCIUM, [id number] 08:37:00 Test Item Value Reference Range Comments CALCIUM IONIZED (BEAKER) (test vpti=961) 1.15 mmol/L 1.12-1.27 PH, BLOOD (BEAKER) (test gxkk=4334) 7.37 BLOOD GAS, [id number] 08:37:00 Test Item Value Reference Range Comments PH ARTERIAL (BEAKER) (test ubch=759) 7.38 7.35-7.45 PCO2 ARTERIAL (BEAKER) (test sjkd=034) 43 mmHg 35-45 PO2 ARTERIAL (BEAKER) (test gkfe=023) 442 mmHg 80-90 O2 SATURATION ARTERIAL (BEAKER) (test txrm=918) 99.8 % 96.0-97.0 HCO3 ARTERIAL (BEAKER) (test rvaa=134) 25 mmol/L 21-29 BASE EXCESS ARTERIAL (BEAKER) (test vynq=105) -0.8 mmol/L -2.0-3.0 PATIENT TEMPERATURE (BEAKER) (test hfus=2778) 36.3 C FIO2 (BEAKER) (test xsbd=8266) 64.0 % GLUCOSE-STAT [id number] 08:37:00 Test Item Value Reference Range Comments GLUCOSE RANDOM (BEAKER) (test hins=579) 111 mg/dL 70-110 HEMOGLOBIN [id number] 12:07:00 Test Item Value Reference Range Comments HEMOGLOBIN A1C (BEAKER) (test ajuc=161) 5.6 % 4.3-6.1 RAD, CHEST, 2 [id number] 11:17:00Reason for Exam:->Pre-OpFINAL REPORT Chest x-ray, PA [...] Astudillo Verified Date/Time: 05/02/2017 11:17:15 Reading Location: [facility] Radiology Reading Room Electronically signed by: ITZEL ASTUDILLO M.D. on05/02/2017 11: 17 AMBASIC METABOLIC [id number] 11:09:00 Test Item Value Reference Range Comments SODIUM (BEAKER) (test 138 meq/L 136-145 laep=302) POTASSIUM (BEAKER) (test 4.6 meq/L 3.5-5.1 oopb=927) CHLORIDE (BEAKER) (test 105 meq/L 98-107 yczg=976) CO2 (BEAKER) (test 24 meq/L 22-29 zadn=391) BLOOD UREA NITROGEN 13 mg/dL 7-21 (BEAKER) (test dmfa=367) CREATININE (BEAKER) (test 0.81 mg/dL 0.57-1.25 npcf=415) GLUCOSE RANDOM (BEAKER) 97 mg/dL 70-105 (test kkro=248) CALCIUM (BEAKER) (test 9.6 mg/dL 8.4-10.2 sovr=830) EGFR (BEAKER) (test 97 mL/min/1.73 sq m ESTIMATED GFR IS NOT rmew=8121) ACCURATE CREATININE CLEARANCE IN PREDICTING GLOMERULAR FILTRATION RATE. ESTIMATED GFR IS NOT APPLICABLE FOR DIALYSIS PATIENTS. PROTHROMBIN TIME/[id number] 11:05:00 Test Item Value Reference Range Comments PROTIME (BEAKER) (test iuan=049) 12.9 seconds 11.7-14.7 INR (BEAKER) (test juwl=940) 1.0 <=5.9 RECOMMENDED COUMADIN/WARFARIN INR THERAPY RANGESSTANDARD DOSE: 2.0 - 3.0 Includes: PROPHYLAXIS forvenous thrombosis, systemic embolization; TREATMENT for venous thrombosis and/or pulmonary embolus.HIGH RISK: Target INR is 2.5-3.5 for patients with mechanical heart valves.CBC W/PLT COUNT & AUTO [id number] 10:46:00 Test Item Value Reference Range Comments WHITE BLOOD CELL COUNT (BEAKER) (test ubbo=853) 10.8 K/ L 3.5-10.5 RED BLOOD CELL COUNT (BEAKER) (test gxkm=751) 5.04 M/ L 4.63-6.08 HEMOGLOBIN (BEAKER) (test yyke=236) 15.6 GM/DL 13.7-17.5 HEMATOCRIT (BEAKER) (test hfbd=462) 46.7 % 40.1-51.0 MEAN CORPUSCULAR VOLUME (BEAKER) (test qffg=586) 92.7 fL 79.0-92.2 MEAN CORPUSCULAR HEMOGLOBIN (BEAKER) (test 31.0 pg 25.7-32.2 nayo=655) MEAN CORPUSCULAR HEMOGLOBIN CONC (BEAKER) (test 33.4 GM/DL 32.3-36.5 vtsc=793) RED CELL DISTRIBUTION WIDTH (BEAKER) (test 13.0 % 11.6-14.4 ecuh=628) PLATELET COUNT (BEAKER) (test ibwi=136) 254 K/CU MM 150-450 MEAN PLATELET VOLUME (BEAKER) (test udrx=353) 9.8 fL 9.4-12.4 NUCLEATED RED BLOOD CELLS (BEAKER) (test 0 /100 WBC 0-0 bbkw=309) NEUTROPHILS RELATIVE PERCENT (BEAKER) (test 71 % afrt=571) LYMPHOCYTES RELATIVE PERCENT (BEAKER) (test 17 % powv=131) MONOCYTES RELATIVE PERCENT (BEAKER) (test 9 % xixx=215) EOSINOPHILS RELATIVE PERCENT (BEAKER) (test 1 % nfwk=365) BASOPHILS RELATIVE PERCENT (BEAKER) (test 1 % lntk=855) NEUTROPHILS ABSOLUTE COUNT (BEAKER) (test 7.62 K/ L 1.78-5.38 uxww=971) LYMPHOCYTES ABSOLUTE COUNT (BEAKER) (test 1.87 K/ L 1.32-3.57 exhr=213) MONOCYTES ABSOLUTE COUNT (BEAKER) (test 1.02 K/ L 0.30-0.82 cchd=769) EOSINOPHILS ABSOLUTE COUNT (BEAKER) (test 0.14 K/ L 0.04-0.54 dkug=188) BASOPHILS ABSOLUTE COUNT (BEAKER) (test 0.06 K/ L 0.01-0.08 epyu=543) IMMATURE GRANULOCYTES-RELATIVE PERCENT (BEAKER) 1 % 0-1 (test eqyo=1129)
[2019-07-07] MEDS ORDERED: NA CHLORIDE 0.9% 1,000 ML ONE (20:41)
[2019-07-07 20:47] LABS: Absolute Lymphocytes (CBC) 3.4 K/uL (0.7-4.9); Basophils % 0.3 % (0-1.3); Hematocrit 46.4 % (39.6-49.0); MPV 8.5 fL (7.6-11.3); RBC Red Blood Cell Count 4.94 M/uL (4.33-5.43)
[2019-07-07 20:48] LABS: Protime INR 0.95
[2019-07-07 21:03] LABS: ALT/SGPT 143 U/L (12-78); AST/SGOT 133 U/L (15-37); Albumin 3.7 g/dL (3.4-5.0); Alkaline Phosphatase 72 U/L (45-117); BUN Blood Urea Nitrogen 10 mg/dL (7-18); Bicarbonate 27 mmol/L (21-32); Bilirubin Direct 0.1 mg/dL (0-0.2); Bilirubin Total 0.2 mg/dL (0.2-1.0); Glucose Level 107 mg/dL (74-106); Magnesium 2.6 mg/dL (1.8-2.4); NT PRO-BNP 47 pg/mL (<125); Protein, Total 7.3 g/dL (6.4-8.2); Sodium Level 141 mmol/L (136-145); Troponin (Emerg Dept Use Only) < 0.02 ng/mL (0.0-0.045)
--- NOTE | 2019-07-07 21:21 | EDPHYS ---
Physician Documentation [facility] Name: Sae Cardozo Age: 64 yrs Sex: Male : 1955 Arrival Date: 07/07/2019 Time: 20:17 Bed 2 Private MD: ED Physician Duane Zamarripa HPI: 07/07 21:14 This 64 yrs old Male presents to ER via EMS with complaints of choking, angela respiratory arrest and cpr. 21:14 The patient has shortness of breath with light activity. Onset: The symptoms/episode angela began/occurred just prior to arrival. Duration: The symptoms resolved with cpr, food bolus dislodged. The patient's shortness of breath is aggravated by eating, food bolus. Preceding the arrest, the patient was choking. The arrest occurred in a restaurant. smoking, drinking and eating. Historical: - Allergies: 20:17 No Known Allergies; jb4 - Home Meds: 20:17 None [Active]; jb4 - PMHx: 20:17 AAA; jb4 - PSHx: 20:17 AAA Repair; jb4 - Immunization history:: Adult Immunizations up to date. - Social history:: Smoking status: Patient/guardian denies using tobacco, Patient uses alcohol, patient/guardian reports recent binge of alcohol consumption. - Ebola Screening: : No symptoms or risks identified at this time. - Family history:: not pertinent. ROS: 21:14 Constitutional: Negative for fever, chills, and weight loss, Eyes: Negative for injury, angela pain, redness, and discharge, ENT: Negative for injury, pain, and discharge, Neck: Negative for injury, pain, and swelling, Respiratory: Negative for shortness of breath, cough, wheezing, and pleuritic chest pain, Back: Negative for injury and pain, : Negative for injury, bleeding, discharge, and swelling, MS/Extremity: Negative for injury and deformity, Skin: Negative for injury, rash, and discoloration, Neuro: Negative for headache, weakness, numbness, tingling, and seizure, Psych: Negative for depression, anxiety, suicide ideation, homicidal ideation, and hallucinations, Allergy/Immunology: Negative for hives, rash, and allergies, Endocrine: Negative for neck swelling, polydipsia, polyuria, polyphagia, and marked weight changes. 21:14 Cardiovascular: Positive for chest pain. 21:14 Abdomen/GI: Positive for choking. Exam: 21:14 Constitutional: This is a well developed, well nourished patient who is awake, alert, angela and in no acute distress. Head/Face: Normocephalic, atraumatic. Eyes: Pupils equal round and reactive to light, extra-ocular motions intact. Lids and lashes normal. Conjunctiva and sclera are non-icteric and not injected. Cornea within normal limits. Periorbital areas with no swelling, redness, or edema. ENT: Nares patent. No nasal discharge, no septal abnormalities noted. Tympanic membranes are normal and external auditory canals are clear. Oropharynx with no redness, swelling, or masses, exudates, or evidence of obstruction, uvula midline. Mucous membranes moist. Neck: Trachea midline, no thyromegaly or masses palpated, and no cervical lymphadenopathy. Supple, full range of motion without nuchal rigidity, or vertebral point tenderness. No Meningismus. Chest/axilla: Normal chest wall appearance and motion. Nontender with no deformity. No lesions are appreciated. Respiratory: Lungs have equal breath sounds bilaterally, clear to auscultation and percussion. No rales, rhonchi or wheezes noted. No increased work of breathing, no retractions or nasal flaring. Abdomen/GI: Soft, non-tender, with normal bowel sounds. No distension or tympany. No guarding or rebound. No evidence of tenderness throughout. Back: No spinal tenderness. No costovertebral tenderness. Full range of motion. Male : Normal genitalia with no discharge or lesions. MS/ Extremity: Pulses equal, no cyanosis. Neurovascular intact. Full, normal range of motion. Neuro: Awake and alert, GCS 15, oriented to person, place, time, and situation. Cranial nerves II-XII grossly intact. Motor strength 5/5 in all extremities. Sensory grossly intact. Cerebellar exam normal. Normal gait. Psych: Awake, alert, with orientation to person, place and time. Behavior, mood, and affect are within normal limits. 21:14 Cardiovascular: Rate: tachycardic, Rhythm: regular, Pulses: Pulses are 4+ in bilateral radial, brachial, femoral, popliteal, posterior tibial and and dorsalis pedis arteries.. Heart sounds: normal, Edema: is not appreciated, JVD: is not appreciated. Vital Signs: 20:17 BP 136 / 93; Pulse 108; Resp 22; Temp 97.3(O); Pulse Ox 100% on R/A; Weight 92.08 kg jb4 (R); Height 5 ft. 10 in. (177.80 cm) (R); Pain 3/10; 21:00 BP 122 / 78; Pulse 109; Resp 17; Pulse Ox 95% on R/A; jb4 20:17 Body Mass Index 29.13 (92.08 kg, 177.80 cm) jb4 [place] Coma Score: 20:17 Eye Response: spontaneous(4). Verbal Response: confused(4). Motor Response: obeys jb4 commands(6). Total: 14. 21:00 Eye Response: spontaneous(4). Verbal Response: oriented(5). Motor Response: obeys jb4 commands(6). Total: 15. Trauma Score (Adult): 20:17 Eye Response: spontaneous(1); Verbal Response: confused(1); Motor Response: obeys jb4 commands(2); Systolic BP: > 89 mm Hg(4); Respiratory Rate: 10 to 29 per min(4); Ashley Score: 14; Trauma Score: 12 21:00 Eye Response: spontaneous(1); Verbal Response: oriented(1); Motor Response: obeys jb4 commands(2); Systolic BP: > 89 mm Hg(4); Respiratory Rate: 10 to 29 per min(4); [place] Score: 15; Trauma Score: 12 MDM: 20:24 Patient medically screened. [facility] 21:17 Data reviewed: vital signs, nurses notes, lab test result(s), EKG, radiologic studies, [facility] CT scan, plain films. 07/07 20:26 Order name: Basic Metabolic Panel; Complete Time: 21:13 [facility] 07/07 20:26 Order name: CBC with Diff; Complete Time: 21:13 [facility] 07/07 20:26 Order name: LFT's; Complete Time: 21:13 [facility] 07/07 20:26 Order name: Magnesium; Complete Time: 21:13 [facility] 07/07 20:26 Order name: NT PRO-BNP; Complete Time: 21:13 [facility] 07/07 20:26 Order name: PT-INR; Complete Time: 21:13 [facility] 07/07 20:26 Order name: Troponin (emerg Dept Use Only); Complete Time: 21:13 [facility] 07/07 20:26 Order name: XRAY Chest (1 view) [facility] 07/07 20:26 Order name: Cardiac monitoring; Complete Time: 21:18 [facility] 07/07 20:26 Order name: ETOH Level; Complete Time: 21:13 [facility] 07/07 20:26 Order name: EKG - Nurse/Tech; Complete Time: 21:18 [facility] 07/07 20:26 Order name: IV Saline Lock; Complete Time: 21: [facility] 07/07 20: Order name: Labs collected and sent; Complete Time: 21: [facility] 07/07 20: Order name: O2 Per Protocol; Complete Time: : [facility] 07/07 20: Order name: O2 Sat Monitoring; Complete Time: : [facility] Administered Medications: 20:39 Drug: NS 0.9% 1000 ml Route: IV; Rate: 1 bolus; Site: left antecubital; rv 21:10 Follow up: Response: No adverse reaction; IV Status: Order to discontinue infusion; IV jb4 Intake: 700ml Disposition: 07/07/19 21:20 Patient has left against medical advice. Impression: Respiratory arrest - choking, Tobacco use, Alcohol abuse with intoxication, Unspecified injury of face and head. - Patients states they are going to Home. - Condition is Serious. Follow up: Private Physician; When: Upon discharge from the Emergency Department; Reason: Recheck today's complaints, Continuance of care, Re-evaluation by your physician. - Problem is new. - Symptoms have improved. Signatures: Dispatcher [employer] EDMS Duane Zamarripa MD MD cha Bryson, James, RN RN jb4 Daniel Garcia RN RN rv Corrections: (The following items were deleted from the chart) 21:25 21:20 07/07/2019 21:20 Patients has left against medical advice. Impression: jb4 Respiratory arrest - choking; Tobacco use; Alcohol abuse with intoxication; Unspecified injury of face and head. Patient states they are going to Home. Condition is Serious. Follow up: Private Physician; When: Upon discharge from the Emergency Department; Reason: Recheck today's complaints, Continuance of care, Re-evaluation by your physician. Problem is new. Symptoms have improved. [facility]
--- NOTE | 2019-07-07 21:21 | ER ---
Nurse's Notes [facility] Name: Sae Cardozo Age: 64 yrs Sex: Male : 1955 Arrival Date: 07/07/2019 Time: 20:17 Bed 2 Private MD: Diagnosis: Respiratory arrest-choking;Tobacco use;Alcohol abuse with intoxication;Unspecified injury of face and head Presentation: 07/07 20:17 Presenting complaint: EMS states: PT was at the bar drinking, per his friends he choked jb4 or had a seizure and went un-responsive. PT fell to the ground, his friends initiated CPR. We witness a food bolus being expelled. Pt had slow aganol breathing. Pt progressively improved until he was awake and alert, color returned to normal , respirations even and unlabored. Pt has a skin tear to his right elbow, 18g in the LAC. Transition of care: patient was not received from another setting of care. Onset of symptoms was July 07, 2019. Risk Assessment: Do you want to hurt yourself or someone else? Patient reports no desire to harm self or others. Initial Sepsis Screen: Does the patient meet any 2 criteria? RR > 20 per min. HR > 90 bpm. Yes Does the patient have a suspected source of infection? No. Patient's initial sepsis screen is negative. Care prior to arrival: IV initiated. 18 GA, in the left antecubital area. 20:17 Method Of Arrival: EMS: [facility] jb4 20:17 Acuity: JIMMIE 2 jb4 20:17 Trauma event details: Injury occurred in the [facility]. jb4 Trauma Activation: Alert Physician: ED Physician; Name: Dallin; Notified At: 20:26; Arrived At: 20:26 Physician: General Surgeon; Name: ; Notified At: 20:26; Arrived At: Physician: Radiology; Name: Jaron; Notified At: 20:26; Arrived At: 20:26 Physician: Respiratory; Name: ; Notified At: 20:26; Arrived At: Physician: Lab; Name: ; Notified At: 20:26; Arrived At: Historical: - Allergies: 20:17 No Known Allergies; jb4 - Home Meds: 20:17 None [Active]; jb4 - PMHx: 20:17 AAA; jb4 - PSHx: 20:17 AAA Repair; jb4 - Immunization history:: Adult Immunizations up to date. - Social history:: Smoking status: Patient/guardian denies using tobacco, Patient uses alcohol, patient/guardian reports recent binge of alcohol consumption. - Ebola Screening: : No symptoms or risks identified at this time. - Family history:: not pertinent. Screenin:17 Abuse screen: Denies threats or abuse. Tuberculosis screening: No symptoms or risk jb4 factors identified. 20:17 Nutritional screening: No deficits noted. Fall Risk IV access (20 points). jb4 Primary Survey: 20:17 NO uncontrolled hemorrhage observed. A: The patient is alert. Airway: patent, No jb4 supplemental oxygen in use on arrival. Breathing/Chest: Respiratory pattern: regular, Respiratory effort: spontaneous, unlabored, Breath sounds: clear, bilaterally. Chest inspection: symmetrical rise and fall of the chest. Circulation: Skin color: pink, Skin temperature: warm, dry. Disability Alert. Exposure/Environment: All clothing and personal items were removed. Forensic evidence collection is not deemed to be indicated at this time. Items placed in patient belonging bag. There is no evidence of uncontrolled external bleeding. Obvious injury(ies) are noted at this time: abrasion to the right of the forehead, skin tear to the right elbow. A warming method has been applied: A warm blanket has been provided to the patient. 21:00 Reassessment Airway Airway Patent Oxygen No O2 Breathing/Chest Respiratory pattern jb4 Regular Respiratory effort Spontaneous Unlabored Circulation Color [place] Temperature Warm. Secondary Survey: 20:17 HEENT: Head Other Abrasion to the right of the forehead. Face No injury/deformity Eyes: jb4 No injury or deformity noted. Ears: clear Nose: clear Throat: is clear with gag reflex present. Gastrointestinal: No deficits noted. : No deficits noted. Musculoskeletal: No deficits noted. Injury Description: Abrasion sustained to forehead Skin tears sustained to right elbow. Assessment: 20:17 General: Appears in no apparent distress. comfortable, Behavior is calm, cooperative, jb4 appropriate for age. Pain: Complains of pain in chest Pain does not radiate. Pain currently is 3 out of 10 on a pain scale. Neuro: Level of Consciousness is awake, alert, obeys commands, Oriented to person, place, time. Cardiovascular: Patient's skin is warm and dry. Respiratory: Airway is patent Respiratory effort is even, unlabored, Respiratory pattern is regular, symmetrical. GI: No signs and/or symptoms were reported involving the gastrointestinal system. : No signs and/or symptoms were reported regarding the genitourinary system. EENT: No signs and/or symptoms were reported regarding the EENT system. Derm: Skin is pink, warm \T\ dry. Musculoskeletal: Circulation, motion, and sensation intact. Range of motion: intact in all extremities. 21:22 Reassessment: Patient appears in no apparent distress at this time. Patient and/or jb4 family updated on plan of care and expected duration. Pain level reassessed. Patient is alert, oriented x 3, equal unlabored respirations, skin warm/dry/pink. Provider at the bedside explaining the possibility of worsening of symptoms such as seizures, and cardiac Arrythmias, up to . Pt verbalized understanding of these possibilities, pt and friend signed AMA form. PT discharged home ambulatory with steady gait with friend. Vital Signs: 20:17 BP 136 / 93; Pulse 108; Resp 22; Temp 97.3(O); Pulse Ox 100% on R/A; Weight 92.08 kg jb4 (R); Height 5 ft. 10 in. (177.80 cm) (R); Pain 3/10; 21:00 BP 122 / 78; Pulse 109; Resp 17; Pulse Ox 95% on R/A; jb4 20:17 Body Mass Index 29.13 (92.08 kg, 177.80 cm) jb4 [place] Coma Score: 20:17 Eye Response: spontaneous(4). Verbal Response: confused(4). Motor Response: obeys jb4 commands(6). Total: 14. 21:00 Eye Response: spontaneous(4). Verbal Response: oriented(5). Motor Response: obeys jb4 commands(6). Total: 15. Trauma Score (Adult): 20:17 Eye Response: spontaneous(1); Verbal Response: confused(1); Motor Response: obeys jb4 commands(2); Systolic BP: > 89 mm Hg(4); Respiratory Rate: 10 to 29 per min(4); [place] Score: 14; Trauma Score: 12 21:00 Eye Response: spontaneous(1); Verbal Response: oriented(1); Motor Response: obeys jb4 commands(2); Systolic BP: > 89 mm Hg(4); Respiratory Rate: 10 to 29 per min(4); Ashley Score: 15; Trauma Score: 12 ED Course: 20:17 Patient arrived in ED. jb4 20:17 Arm band placed on right wrist. jb4 20:17 Patient has correct armband on for positive identification. Patient maintains SpO2 jb4 saturation greater than 95% on room air. 20:17 Patient maintains SpO2 saturation greater than 95% on room air. jb4 20:17 Maintain EMS IV. Dressing intact. Good blood return noted. Site clean \T\ dry. Gauge \T\ radha 4 site: 20g LAC. 20:17 Thermoregulation: warm blanket given to patient. jb4 20:24 Duane Zamarripa MD is Attending Physician. angela 20:27 Triage completed. jb4 20:37 Yessi Garcia, RN is Primary Nurse. rv 20:54 Note: pt stated hes very claustraphobic. Note: pt tried to climb out of the gantry bq twice. pts nurseyessi notified. 21:23 No provider procedures requiring assistance completed. IV discontinued, intact, jb4 bleeding controlled, No redness/swelling at site. Pressure dressing applied. 21:30 XRAY Chest (1 view) In Process Unspecified. EDMS Administered Medications: 20:39 Drug: NS 0.9% 1000 ml Route: IV; Rate: 1 bolus; Site: left antecubital; rv 21:10 Follow up: Response: No adverse reaction; IV Status: Order to discontinue infusion; IV jb4 Intake: 700ml Intake: 21:10 IV: 700ml; Total: 700ml. jb4 Outcome: 21:23 AMA AMA form signed jb4 21:23 Condition: stable 21:25 Patient left the ED. jb4 Signatures: Dispatcher [employer] EDMS Duane Zamarripa MD MD cha Quilty, Betty bq Bryson, James, RN RN jb4 Yessi Garcia, PARADISE RN rv Corrections: (The following items were deleted from the chart) 20:27 20:17 Care prior to arrival: None. jb4 jb4 21:24 21:24 Reassessment Airway Airway Patent Oxygen No O2 Breathing/Chest Respiratory jb4 pattern Regular Respiratory effort Spontaneous Unlabored Circulation Color [place] Temperature Warm jb4 22:56 21:22 Reassessment: Patient appears in no apparent distress at this time. Patient jb4 and/or family updated on plan of care and expected duration. Pain level reassessed. Patient is alert, oriented x 3, equal unlabored respirations, skin warm/dry/pink. jb4
--- NOTE | 2019-07-07 21:48 | RAD REPORT ---
EXAM DESCRIPTION: RAD - Chest Single View - 07/07/2019 9:30 pm CLINICAL HISTORY: COUGH Chest pain. COMPARISON: Chest Single View dated 08/01/2018; ABDOMEN 1 VIEW KUB dated 10/15/2014 FINDINGS: Portable technique limits examination quality. The lungs are underinflated resulting in vascular crowding. The heart is normal in size. Prominent to rtuous thoracic aorta is seen.This aortic tortuosity is more prominent than on the prior study. IMPRESSION: Thoracic aorta appears more tortuous than on the comparative study. Suggest followup CT angiogram of the aorta clinically indicated.
[2019-07-07 22:28] VITALS: TEMP 97.3
[2019-07-07 22:31] VITALS: BP 122/78; O2SAT 95
== END 2019-07-07 21:25 | disposition left against medical advice (07) ==
LOC: ER 20:10
DX: R09.2 Respiratory arrest (principal); S09.90XA Unspecified injury of head, initial encounter; W18.30XA Fall on same level, unspecified, initial encounter; Y93.89 Activity, other specified; Y92.89 Other specified places as the place of occurrence of the external cause; F10.129 Alcohol abuse with intoxication, unspecified; Z72.0 Tobacco use
CPT/HCPCS: 85025; 80048; 36415; 80320; 83735; 85610; 80076; 84484; 83880; 71045; 96360; 99284; J7030

== ENCOUNTER 2020-01-23 06:30 | Day surgery (SDC) | payer OTHER ==
--- OUTSIDE RECORDS SUMMARY | 2020-01-23 06:32 | XMS REPORT | Clinical Summary ---
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 05/09/2017 Hyperglycemia 05/09/2017 AAA (abdominal aortic aneurysm) 05/08/2017 Smoker 05/03/2017 Aneurysm Postoperative anemia due to acute blood loss Family History Medical History Relation Name Comments [...] Health Maintenance Due Date Last Done Comments COLON CANCER SCREENING COLONOSCOPY 1955 PNEUMOCOCCAL 65+ LOW/MEDIUM RISK (1 of 2 - PCV13) 2019 INFLUENZA VACCINE (#1) 2020 Implants Implanted Type Area Pharmaceutical Operator Device Shelf Model / Identifier Expiration Serial / Date Lot Ivan [employer] [id number] - Sna Graft/Pa N/A: GETING E 07/19/2019 [id number] / Implanted: Qty: 1 on 05/08/2017 by Sae Fulton MD [facility] Aor ta IND:MAQUET:CV NA / [id number] Results Not on fileafter 01/22/2019 Insurance Payer Benefit Plan / Group Subscriber ID Type Phone A ddress [employer] - [place] CARE CIG[employer] PPO xxxxxxxxx PPO Advance Directives For more information, please contact:[address] [phone] Code Status Date Activated Date Inactivated Comments Full Code 05/08/2017 5:38 AM 05/14/2017 2:07 PM This code status was determined by: Patient
--- OUTSIDE RECORDS SUMMARY | 2020-01-23 06:33 | XMS REPORT | Continuity of Care Document ---
:1955 Author Organization [facility] t Address [address] [place] [address] Care Team Providers Name Role Phone ErinTeo alvarado Primary Care Physician RABIA HERRERA Attending Clinician Unavailable RABIA HERRERA Admitting Clinician Unavailable Problems Condition Condition Condition Status Onset Resolution Last Treating Co mments Source Name Details Category Date Date Treatment Clinician Date Acute Acute Disease Active 2016-[address] [facility] pulmonary pulmonary 07-09 [facility] - insufficie insufficie 00:00: Me dical ncy ncy 00 Center following following non-thorac non-thorac ic surgery ic surgery Hyperglyce Hyperglyce Disease Active 2016-[address] florencio florencio 07[facility]09 [facility] 00 Center AAA AAA Disease Active 2016-[address] [facility] [address] (abdominal (abdominal 20 [facility]ney kes - aortic aortic 00:00: Medical aneurysm) aneurysm) 00 Cent er Smoker Smoker Disease Active 2016-[address] [facility] - 00:[facility]: Medical 00 [place] Aneurysm Aneurysm Disease [facility] Postoperat Postoperat Disease Active [facility] compa anemia compa anemia Courtney kes - due to due to Medical acute acute Center blood loss blood loss Allergies, Adverse Reactions, Alerts Allergy Allergy Status Severity Reaction(s) Onset Inactive Treating Comm ents Source Name Type Date Date Clinician Other Propensi Active Itching 2016-06 All anti [facility] 14 inflammat [facility] - adverse 00:00: ory drugs Medica l reaction 00 Center s Family History Family Member Diagnosis Comments Start Date Stop Date Source Natural mother COPD [facility] Social History Social Habit Start Date Stop Date Quantity Comments Source Sex Assigned At [facility] Cigarettes smoked 2017-05-10 2017-05-10 [facility] - current (pack per 00:00:00 00:00:00 Medical Center day) - Reported Cigarette pack-years 2017-05[facility]10 [facility] Center Smoking Status Start Date Stop Date Source Current every day smoker 2017-05-10 00:00:00 [facility] Medications This patient has no known medications. Procedures This patient has no known procedures. Plan of Care Planned Activity Planned Date Details Comments Source Future Scheduled 2020-02-18 INFLUENZA VACCINE (#1) [facility] 00:00:00 [code = INFLUENZA Medical Ce nter VACCINE (#1)] Future Scheduled 2019 PNEUMOCOCCAL [address] Test 00:00:00 LOW/MEDIUM RISK (1 of [facility] 2 - PCV13) [code = PNEUMOCOCCAL 65+ LOW/MEDIUM RISK (1 of 2 - PCV13)] Future Scheduled 1955 Screening for [facility] - Test 00:00:00 malignant neoplasm of [facility] colon (procedure) [code = 651980455] Results Test Description Test Time Test Comments Results Result Sour e Comments CT, CTA ABDOMEN, 2017-09-25 Addendum BeginsREPORT AAA PROTOCOL 14:34:00 STATUS:A Addendum: I agree with the previously described non vascular findings by Dr. Castro. Signed: Nathan Johnston MDReport Verified Date/Time: 09/25/2017 14:34:58 Reading Location: [place] [id number] Angio Body Reading RoomAddendum EndsFINAL REPORT CT [...] and during intravenous contrast administration using a [employer] CT scanner. Images were obtained before and [...] dictated regarding the non-vascular findings by the Rice Drier Operator Radiologist. Signed: Joaquín Castro MDReport Verified Date/Time: 09/25/2017 10:55:28 Reading Location: [place] [address] Cardiology MRI -CREATININE 2017-09-25 09:56:00 Test Item Value Reference Range Interpretation Comme nts POC-CREATININE (BEAKER) (test 0.7 mg/dL 0.6-1.3 TESTED AT [place] [address] code = 1859) [facility] [address] POC-EGFR (BEAKER) (test code = 114 mL/min/1.73M2 1860) CT, CTA, [id number] 09:31:00Addendum BeginsREPORT STATUS:A Addendum: I agree with the previously described non vascular findings. Signed: Maryellen Quinones MDReport Verified Date/Time: 09/05/2017 09:31:21 Reading Location: [place] [address] Angio Body Reading RoomAddendum EndsFINAL REPORT CT [...] the dynamic passage of intravenous contrast material. Cjuip--Y volume- rendering reconstruction was performed using an independent workstation [...] atheroma at image 109, is approximately 6 t o 7 mm in thickness. Quantitative dimensions of [...] artery origins. Coronary artery calcification. 3. No acut e pulmonary pathology. Mild pulmonary emphysematous changes. 4. Other findings as described above. 5. An addendum will be dictated regarding the non-vascular findings by the Rice Drier Operator Radiologist. Signed: Joaquín Castro Verified Date/Time: 09/04/2017 17:13:07 Reading Location: [place] [address] Cardiology MRI -[id number] 14:44:00 Test Item Value Reference Range Interpretation Comments POC-CREATININE 0.8 mg/dL 0.6-1.3 TESTED AT [facility] 6720 (BEAKER) (test [place] code = 1859) [address] POC-EGFR (BEAKER) 98 mL/min/1.73M2 (test code = 1860) BASIC METABOLIC [id number] 07:48:00 Test Item Value Reference Range Interpretation Comments SODIUM (BEAKER) 139 meq/L 136-145 (test code = 381) POTASSIUM (BEAKER) 3.9 meq/L 3.5-5.1 (test code = 379) CHLORIDE (BEAKER) 107 meq/L 98-107 (test code = 382) CO2 (BEAKER) (test 26 meq/L 22-29 code = 355) BLOOD UREA NITROGEN 8 mg/dL 7-21 (BEAKER) (test code = 354) CREATININE (BEAKER) 0.66 mg/dL 0.57-1.25 (test code = 358) GLUCOSE RANDOM 91 mg/dL 70-105 (BEAKER) (test code = 652) CALCIUM (BEAKER) 9.1 mg/dL 8.4-10.2 (test code = 697) EGFR (BEAKER) (test 122 mL/min/1.73 ESTIM ATED GFR IS code = 1092) sq m NOT ACCURATE CREATININE CLEARANCE IN PREDICTING GLOMERULAR FILTRATION RATE . ESTIMATED GFR I S NOT APPLICABLE FOR DIALYSIS PATIEN TS. CBC W/PLT COUNT & AUTO [id number] 07:14:00 Test Item Value Reference Range Interpretation Comments WHITE BLOOD CELL COUNT (BEAKER) 8.5 K/ L 3.5-10.5 (test code = 775) RED BLOOD CELL COUNT (BEAKER) 3.59 M/ L 4.63-6.08 L (test code = 761) HEMOGLOBIN (BEAKER) (test code = 11.1 GM/DL 13.7-17.5 L 410) HEMATOCRIT (BEAKER) (test code = 33.6 % 40.1-51.0 L 411) MEAN CORPUSCULAR VOLUME (BEAKER) 93.6 fL 79.0-92.2 H (test code = 753) MEAN CORPUSCULAR HEMOGLOBIN 30.9 pg 25.7-32.2 (BEAKER) (test code = 751) MEAN CORPUSCULAR HEMOGLOBIN CONC 33.0 GM/DL 32.3-36.5 (BEAKER) (test code = 752) RED CELL DISTRIBUTION WIDTH 13.3 % 11.6-14.4 (BEAKER) (test code = 412) PLATELET COUNT (BEAKER) (test 244 K/CU MM 150-450 code = 756) MEAN PLATELET VOLUME (BEAKER) 10.0 fL 9.4-12.4 (test code = 754) NUCLEATED RED BLOOD CELLS 0 /100 WBC 0-0 (BEAKER) (test code = 413) NEUTROPHILS RELATIVE PERCENT 64 % (BEAKER) (test code = 429) LYMPHOCYTES RELATIVE PERCENT 17 % (BEAKER) (test code = 430) MONOCYTES RELATIVE PERCENT 13 % (BEAKER) (test code = 431) EOSINOPHILS RELATIVE PERCENT 5 % (BEAKER) (test code = 432) BASOPHILS RELATIVE PERCENT 0 % (BEAKER) (test code = 437) NEUTROPHILS ABSOLUTE COUNT 5.44 K/ L 1.78-5.38 H (BEAKER) (test code = 670) LYMPHOCYTES ABSOLUTE COUNT 1.44 K/ L 1.32-3.57 (BEAKER) (test code = 414) MONOCYTES ABSOLUTE COUNT (BEAKER) 1.12 K/ L 0.30-0.82 H (test code = 415) EOSINOPHILS ABSOLUTE COUNT 0.38 K/ L 0.04-0.54 (BEAKER) (test code = 416) BASOPHILS ABSOLUTE COUNT (BEAKER) 0.03 K/ L 0.01-0.08 (test code = 417) IMMATURE GRANULOCYTES-RELATIVE 1 % 0-1 PERCENT (BEAKER) (test code = 2801) CBC W/PLT COUNT & AUTO [id number] 07:30:00 Test Item Value Reference Range Interpretation Comments WHITE BLOOD CELL COUNT (BEAKER) 8.6 K/ L 3.5-10.5 (test code = 775) RED BLOOD CELL COUNT (BEAKER) 3.99 M/ L 4.63-6.08 L (test code = 761) HEMOGLOBIN (BEAKER) (test code = 12.4 GM/DL 13.7-17.5 L 410) HEMATOCRIT (BEAKER) (test code = 37.1 % 40.1-51.0 L 411) MEAN CORPUSCULAR VOLUME (BEAKER) 93.0 fL 79.0-92.2 H (test code = 753) MEAN CORPUSCULAR HEMOGLOBIN 31.1 pg 25.7-32.2 (BEAKER) (test code = 751) MEAN CORPUSCULAR HEMOGLOBIN CONC 33.4 GM/DL 32.3-36.5 (BEAKER) (test code = 752) RED CELL DISTRIBUTION WIDTH 13.2 % 11.6-14.4 (BEAKER) (test code = 412) PLATELET COUNT (BEAKER) (test 209 K/CU MM 150-450 code = 756) MEAN PLATELET VOLUME (BEAKER) 10.2 fL 9.4-12.4 (test code = 754) NUCLEATED RED BLOOD CELLS 0 /100 WBC 0-0 (BEAKER) (test code = 413) NEUTROPHILS RELATIVE PERCENT 72 % (BEAKER) (test code = 429) LYMPHOCYTES RELATIVE PERCENT 12 % (BEAKER) (test code = 430) MONOCYTES RELATIVE PERCENT 11 % (BEAKER) (test code = 431) EOSINOPHILS RELATIVE PERCENT 4 % (BEAKER) (test code = 432) BASOPHILS RELATIVE PERCENT 0 % (BEAKER) (test code = 437) NEUTROPHILS ABSOLUTE COUNT 6.16 K/ L 1.78-5.38 H (BEAKER) (test code = 670) LYMPHOCYTES ABSOLUTE COUNT 1.05 K/ L 1.32-3.57 L (BEAKER) (test code = 414) MONOCYTES ABSOLUTE COUNT (BEAKER) 0.93 K/ L 0.30-0.82 H (test code = 415) EOSINOPHILS ABSOLUTE COUNT 0.36 K/ L 0.04-0.54 (BEAKER) (test code = 416) BASOPHILS ABSOLUTE COUNT (BEAKER) 0.03 K/ L 0.01-0.08 (test code = 417) IMMATURE GRANULOCYTES-RELATIVE 1 % 0-1 PERCENT (BEAKER) (test code = 2801) BASIC METABOLIC [id number] 07:26:00 Test Item Value Reference Range Interpretation Comments SODIUM (BEAKER) 139 meq/L 136-145 (test code = 381) POTASSIUM (BEAKER) 3.4 meq/L 3.5-5.1 L (test code = 379) CHLORIDE (BEAKER) 105 meq/L 98-107 (test code = 382) CO2 (BEAKER) (test 25 meq/L 22-29 code = 355) BLOOD UREA NITROGEN 7 mg/dL 7-21 (BEAKER) (test code = 354) CREATININE (BEAKER) 0.63 mg/dL 0.57-1.25 (test code = 358) GLUCOSE RANDOM 87 mg/dL 70-105 (BEAKER) (test code = 652) CALCIUM (BEAKER) 9.2 mg/dL 8.4-10.2 (test code = 697) EGFR (BEAKER) (test 129 mL/min/1.73 ESTIM ATED GFR IS code = 1092) sq m NOT ACCURATE CREATININE CLEARANCE IN PREDICTING GLOMERULAR FILTRATION RATE . ESTIMATED GFR I S NOT APPLICABLE FOR DIALYSIS PATIEN TS. POCT-GLUCOSE [id number] 08:28:00 Test Item Value Reference Range Interpretation Comments POC-GLUCOSE METER 90 mg/dL 70-110 TESTED AT [facility] 6720 (BEAKER) (test code = [place] [address] 1538) CBC W/PLT COUNT & AUTO [id number] 06:41:00 Test Item Value Reference Range Interpretation Comments WHITE BLOOD CELL COUNT (BEAKER) 15.3 K/ L 3.5-10.5 H (test code = 775) RED BLOOD CELL COUNT (BEAKER) 3.90 M/ L 4.63-6.08 L (test code = 761) HEMOGLOBIN (BEAKER) (test code = 12.2 GM/DL 13.7-17.5 L 410) HEMATOCRIT (BEAKER) (test code = 36.7 % 40.1-51.0 L 411) MEAN CORPUSCULAR VOLUME (BEAKER) 94.1 fL 79.0-92.2 H (test code = 753) MEAN CORPUSCULAR HEMOGLOBIN 31.3 pg 25.7-32.2 (BEAKER) (test code = 751) MEAN CORPUSCULAR HEMOGLOBIN CONC 33.2 GM/DL 32.3-36.5 (BEAKER) (test code = 752) RED CELL DISTRIBUTION WIDTH 13.4 % 11.6-14.4 (BEAKER) (test code = 412) PLATELET COUNT (BEAKER) (test 200 K/CU MM 150-450 code = 756) MEAN PLATELET VOLUME (BEAKER) 10.3 fL 9.4-12.4 (test code = 754) NUCLEATED RED BLOOD CELLS 0 /100 WBC 0-0 (BEAKER) (test code = 413) NEUTROPHILS RELATIVE PERCENT 77 % (BEAKER) (test code = 429) LYMPHOCYTES RELATIVE PERCENT 10 % (BEAKER) (test code = 430) MONOCYTES RELATIVE PERCENT 10 % (BEAKER) (test code = 431) EOSINOPHILS RELATIVE PERCENT 2 % (BEAKER) (test code = 432) BASOPHILS RELATIVE PERCENT 0 % (BEAKER) (test code = 437) NEUTROPHILS ABSOLUTE COUNT 11.83 K/ L 1.78-5.38 H (BEAKER) (test code = 670) LYMPHOCYTES ABSOLUTE COUNT 1.49 K/ L 1.32-3.57 (BEAKER) (test code = 414) MONOCYTES ABSOLUTE COUNT (BEAKER) 1.56 K/ L 0.30-0.82 H (test code = 415) EOSINOPHILS ABSOLUTE COUNT 0.29 K/ L 0.04-0.54 (BEAKER) (test code = 416) BASOPHILS ABSOLUTE COUNT (BEAKER) 0.03 K/ L 0.01-0.08 (test code = 417) IMMATURE GRANULOCYTES-RELATIVE 1 % 0-1 PERCENT (BEAKER) (test code = 2801) BASIC METABOLIC [id number] 06:11:00 Test Item Value Reference Range Interpretation Comments SODIUM (BEAKER) 138 meq/L 136-145 (test code = 381) POTASSIUM (BEAKER) 4.6 meq/L 3.5-5.1 Specimen slightly (test code = 379) hemolyzed CHLORIDE (BEAKER) 105 meq/L 98-107 (test code = 382) CO2 (BEAKER) (test 24 meq/L 22-29 code = 355) BLOOD UREA NITROGEN 11 mg/dL 7-21 (BEAKER) (test code = 354) CREATININE (BEAKER) 0.70 mg/dL 0.57-1.25 Specimen slightly (test code = 358) hemolyzed GLUCOSE RANDOM 81 mg/dL 70-105 (BEAKER) (test code = 652) CALCIUM (BEAKER) 9.2 mg/dL 8.4-10.2 (test code = 697) EGFR (BEAKER) (test 114 mL/min/1.73 ESTIM ATED GFR IS code = 1092) sq m NOT ACCURATE CREATININE CLEARANCE IN PREDICTING GLOMERULAR FILTRATION RATE . ESTIMATED GFR I S NOT APPLICABLE FOR DIALYSIS PATIEN TS. POCT-GLUCOSE [id number] 03:06:00 Test Item Value Reference Range Interpretation Comments POC-GLUCOSE METER 86 mg/dL 70-110 TESTED AT [facility] 6720 (BEAKER) (test code = [facility] [place] [address] 1538) POCT-GLUCOSE [id number] 17:51:00 Test Item Value Reference Range Interpretation Comments POC-GLUCOSE METER 98 mg/dL 70-110 TESTED AT [place] [id number] (BEAKER) (test code = [facility] [place] [address] 1538) URINALYSIS W/ REFLEX URINE [id number] 12:37:00 Test Item Value Reference Range Interpretation Comments COLOR (BEAKER) (test code = 470) Yellow CLARITY (BEAKER) (test code = 469) Clear SPECIFIC GRAVITY UA (BEAKER) (test 1.018 1.001-1.035 code = 468) PH UA (BEAKER) (test code = 467) 6.5 5.0-8.0 PROTEIN UA (BEAKER) (test code = 50 mg/dL Negative A 464) GLUCOSE UA (BEAKER) (test code = Negative Negative 365) KETONES UA (BEAKER) (test code = 60 mg/dL Negative A 371) BILIRUBIN UA (BEAKER) (test code = Negative Negative 462) BLOOD UA (BEAKER) (test code = Small Negative A 461) NITRITE UA (BEAKER) (test code = Negative Negative 465) LEUKOCYTE ESTERASE UA (BEAKER) Negative Negative (test code = 466) UROBILINOGEN UA (BEAKER) (test 0.2 mg/dL 0.2-1.0 code = 463) RBC UA (BEAKER) (test code = 519) 4 /HPF WBC UA (BEAKER) (test code = 520) 2 /HPF MUCUS (BEAKER) (test code = 1574) Occasional SQUAMOUS EPITHELIAL (BEAKER) (test 1 /HPF code = 516) SOURCE(BEAKER) (test code = 2795) POCT-GLUCOSE [id number] 12:09:00 Test Item Value Reference Range Interpretation Comments POC-GLUCOSE METER 119 mg/dL 70-110 H TESTED AT [facility] 6720 (BEAKER) (test code = [facility] [place] 1538) [address] BASIC METABOLIC [id number] 09:23:00 Test Item Value Reference Range Interpretation Comments SODIUM (BEAKER) 137 meq/L 136-145 (test code = 381) POTASSIUM (BEAKER) 3.9 meq/L 3.5-5.1 (test code = 379) CHLORIDE (BEAKER) 107 meq/L 98-107 (test code = 382) CO2 (BEAKER) (test 22 meq/L 22-29 code = 355) BLOOD UREA NITROGEN 8 mg/dL 7-21 (BEAKER) (test code = 354) CREATININE (BEAKER) 0.74 mg/dL 0.57-1.25 (test code = 358) GLUCOSE RANDOM 113 mg/dL 70-105 H (BEAKER) (test code = 652) CALCIUM (BEAKER) 8.7 mg/dL 8.4-10.2 (test code = 697) EGFR (BEAKER) (test 107 mL/min/1.73 ESTIM ATED GFR IS code = 1092) sq m NOT ACCURATE CREATININE CLEARANCE IN PREDICTING GLOMERULAR FILTRATION RATE . ESTIMATED GFR I S NOT APPLICABLE FOR DIALYSIS PATIEN TS. POCT-GLUCOSE [id number] 08:41:00 Test Item Value Reference Range Interpretation Comments POC-GLUCOSE METER 114 mg/dL 70-110 H TESTED AT [facility] 6720 (BEAKER) (test code = [place] 1538) [address] RAD, CHEST, 1 VIEW, NON [id number] 07:48:00Reason for exam:->Post-OpShould this be performed at the bedside?->YesFINAL REPORT Chest one view AP 05/10/2017 7:47 AM CLINICAL INDICATION: Post-Op COMPARISON: 05/09/2017 IMPRESSION: There is bibasilar atelectasis. There is a trace left pleural effusion. Cardiomediastinal contours are within normal limits. The central pulmonary vasculature is notengorged. An enteric tube is present. Signed: Wang Kaiser Verified Date/Time: 05/10/2017 07:48:05 Reading Location: [facility] Radiology Reading Room CBC W/PLT COUNT & AUTO [id number] 07:36:00 Test Item Value Reference Range Interpretation Comments WHITE BLOOD CELL COUNT (BEAKER) 18.9 K/ L 3.5-10.5 H (test code = 775) RED BLOOD CELL COUNT (BEAKER) 4.03 M/ L 4.63-6.08 L (test code = 761) HEMOGLOBIN (BEAKER) (test code = 12.8 GM/DL 13.7-17.5 L 410) HEMATOCRIT (BEAKER) (test code = 38.3 % 40.1-51.0 L 411) MEAN CORPUSCULAR VOLUME (BEAKER) 95.0 fL 79.0-92.2 H (test code = 753) MEAN CORPUSCULAR HEMOGLOBIN 31.8 pg 25.7-32.2 (BEAKER) (test code = 751) MEAN CORPUSCULAR HEMOGLOBIN CONC 33.4 GM/DL 32.3-36.5 (BEAKER) (test code = 752) RED CELL DISTRIBUTION WIDTH 13.1 % 11.6-14.4 (BEAKER) (test code = 412) PLATELET COUNT (BEAKER) (test 180 K/CU MM 150-450 code = 756) MEAN PLATELET VOLUME (BEAKER) 9.9 fL 9.4-12.4 (test code = 754) NUCLEATED RED BLOOD CELLS 0 /100 WBC 0-0 (BEAKER) (test code = 413) NEUTROPHILS RELATIVE PERCENT 82 % (BEAKER) (test code = 429) LYMPHOCYTES RELATIVE PERCENT 6 % (BEAKER) (test code = 430) MONOCYTES RELATIVE PERCENT 10 % (BEAKER) (test code = 431) EOSINOPHILS RELATIVE PERCENT 0 % (BEAKER) (test code = 432) BASOPHILS RELATIVE PERCENT 0 % (BEAKER) (test code = 437) NEUTROPHILS ABSOLUTE COUNT 15.53 K/ L 1.78-5.38 H (BEAKER) (test code = 670) LYMPHOCYTES ABSOLUTE COUNT 1.18 K/ L 1.32-3.57 L (BEAKER) (test code = 414) MONOCYTES ABSOLUTE COUNT (BEAKER) 1.92 K/ L 0.30-0.82 H (test code = 415) EOSINOPHILS ABSOLUTE COUNT 0.07 K/ L 0.04-0.54 (BEAKER) (test code = 416) BASOPHILS ABSOLUTE COUNT (BEAKER) 0.04 K/ L 0.01-0.08 (test code = 417) IMMATURE GRANULOCYTES-RELATIVE 1 % 0-1 PERCENT (BEAKER) (test code = 2801) POCT-GLUCOSE [id number] 22:44:00 Test Item Value Reference Range Interpretation Comments POC-GLUCOSE METER 128 mg/dL 70-110 H TESTED AT [place] [address] ([facility]) (test code = [place] [facility] 1538) [address] POCT-GLUCOSE [id number] 17:22:00 Test Item Value Reference Range Interpretation Comments POC-GLUCOSE METER 106 mg/dL 70-110 TESTED AT [facility] 6720 ([facility]) (test code = [facility] Marg[place] [facility] 1538) [address] RAD, ABDOMEN/KUB, 1 VIEW [id number] 12:38:00Reason for exam:->ileusFINAL REPORT Abdomen two views supine 05/09/2017 12:38 PM CLINICAL INDICATION: ileus COMPARISON: None available IMPRESSION: There is no radiographic evidence for bowel obstruction. There is mild ileus. No abnormal calcifications are seen in the region of the gallbladder or kidneys. There are no acute-appearing skeletal abnormalities. Signed: Wang Kaiser Verified Date/Time: 05/09/2017 12:38:47 Reading Location: [place] [id number] Consult Reading Room POCT-GLUCOSE [id number] 12:19:00 Test Item Value Reference Range Interpretation Comments POC-GLUCOSE METER 102 mg/dL 70-110 TESTED AT [place] [address] ([facility]) (test code = [facility] Margareth [facility] 1538) [address] POCT-GLUCOSE [id number] 06:45:00 Test Item Value Reference Range Interpretation Comments POC-GLUCOSE METER 104 mg/dL 70-110 TESTED AT [place] [address] ([facility]) (test code = [facility] [place] 1538) [address] RAD, CHEST, 1 VIEW, NON [id number] 05:01:00Reason for exam:->Post-OpShould this be performed at the bedside?->YesFINAL REPORT EXAMINATION: AP PORTABLE CHEST RADIOGRAPH CLINICAL INDICATION:Shortness of breath IMPRESSION: Compared with 05/08/2017 The [...] evidence of a significant pneumothorax. Signed: Solomon Peres Verified Date/Time: 05/09/2017 05:01:39 Reading Location: [facility] C013T Tra nsitional Reading Room [id number] 03:47:00 Test Item Value Reference Range Interpretation Comments PHOSPHORUS (BEAKER) (test code = 2.7 mg/dL 2.3-4.7 604) [id number] 03:47:00 Test Item Value Reference Range Interpretation Comments MAGNESIUM (BEAKER) (test code = 1.8 mg/dL 1.6-2.6 627) BASIC METABOLIC [id number] 03:47:00 Test Item Value Reference Range Interpretation Comments SODIUM (BEAKER) 139 meq/L 136-145 (test code = 381) POTASSIUM (BEAKER) 4.1 meq/L 3.5-5.1 (test code = 379) CHLORIDE (BEAKER) 111 meq/L 98-107 H (test code = 382) CO2 (BEAKER) (test 25 meq/L 22-29 code = 355) BLOOD UREA NITROGEN 8 mg/dL 7-21 (BEAKER) (test code = 354) CREATININE (BEAKER) 0.71 mg/dL 0.57-1.25 (test code = 358) GLUCOSE RANDOM 106 mg/dL 70-105 H (BEAKER) (test code = 652) CALCIUM (BEAKER) 8.2 mg/dL 8.4-10.2 L (test code = 697) EGFR (BEAKER) (test 112 mL/min/1.73 ESTIM ATED GFR IS code = 1092) sq m NOT ACCURATE CREATININE CLEARANCE IN PREDICTING GLOMERULAR FILTRATION RATE . ESTIMATED GFR I S NOT APPLICABLE FOR DIALYSIS PATIEN TS. LACTIC ACID, ARTERIAL, WHOLE [id number] 03:42:00 Test Item Value Reference Range Interpretation Comments LACTATE BLOOD ARTERIAL (2) 0.9 mmol/L 0.5-2.2 (BEAKER) (test code = 2874) Effective 10/21/2015: Units/Reference Range ChangeNew: 0.5-2.2 mmol/L Previous: 5-20 mg/dLCALCIUM, [id number] 03:39:00 Test Item Value Reference Range Interpretation Comments CALCIUM IONIZED (BEAKER) (test 1.15 mmol/L 1.12-1.27 code = 698) PH, BLOOD (BEAKER) (test code = 7.42 1810) CBC W/PLT COUNT & AUTO [id number] 03:36:00 Test Item Value Reference Range Interpretation Comments WHITE BLOOD CELL COUNT (BEAKER) 13.6 K/ L 3.5-10.5 H (test code = 775) RED BLOOD CELL COUNT (BEAKER) 3.99 M/ L 4.63-6.08 L (test code = 761) HEMOGLOBIN (BEAKER) (test code = 12.5 GM/DL 13.7-17.5 L 410) HEMATOCRIT (BEAKER) (test code = 37.1 % 40.1-51.0 L 411) MEAN CORPUSCULAR VOLUME (BEAKER) 93.0 fL 79.0-92.2 H (test code = 753) MEAN CORPUSCULAR HEMOGLOBIN 31.3 pg 25.7-32.2 (BEAKER) (test code = 751) MEAN CORPUSCULAR HEMOGLOBIN CONC 33.7 GM/DL 32.3-36.5 (BEAKER) (test code = 752) RED CELL DISTRIBUTION WIDTH 13.2 % 11.6-14.4 (BEAKER) (test code = 412) PLATELET COUNT (BEAKER) (test 162 K/CU MM 150-450 code = 756) MEAN PLATELET VOLUME (BEAKER) 9.7 fL 9.4-12.4 (test code = 754) NUCLEATED RED BLOOD CELLS 0 /100 WBC 0-0 (BEAKER) (test code = 413) NEUTROPHILS RELATIVE PERCENT 80 % (BEAKER) (test code = 429) LYMPHOCYTES RELATIVE PERCENT 9 % (BEAKER) (test code = 430) MONOCYTES RELATIVE PERCENT 10 % (BEAKER) (test code = 431) EOSINOPHILS RELATIVE PERCENT 1 % (BEAKER) (test code = 432) BASOPHILS RELATIVE PERCENT 0 % (BEAKER) (test code = 437) NEUTROPHILS ABSOLUTE COUNT 10.78 K/ L 1.78-5.38 H (BEAKER) (test code = 670) LYMPHOCYTES ABSOLUTE COUNT 1.28 K/ L 1.32-3.57 L (BEAKER) (test code = 414) MONOCYTES ABSOLUTE COUNT (BEAKER) 1.29 K/ L 0.30-0.82 H (test code = 415) EOSINOPHILS ABSOLUTE COUNT 0.12 K/ L 0.04-0.54 (BEAKER) (test code = 416) BASOPHILS ABSOLUTE COUNT (BEAKER) 0.03 K/ L 0.01-0.08 (test code = 417) IMMATURE GRANULOCYTES-RELATIVE 0 % 0-1 PERCENT (BEAKER) (test code = 2801) OXYGEN SATURATION, [id number] 03:35:00 Test Item Value Reference Range Interpretation Comments O2 SATURATION (MEASURED) (BEAKER) 64.0 % (test code = 1455) POCT-GLUCOSE [id number] 01:07:00 Test Item Value Reference Range Interpretation Comments POC-GLUCOSE METER 96 mg/dL 70-110 TESTED AT [facility] [address] (BEAKER) (test code = [place] [address] 1538) BLOOD GAS, [id number] 12:28:00 Test Item Value Reference Range Interpretation Comments PH ARTERIAL (BEAKER) (test code = 7.36 7.35-7.45 383) PCO2 ARTERIAL (BEAKER) (test code 40 mmHg 35-45 = 384) PO2 ARTERIAL (BEAKER) (test code 287 mmHg 80-90 H = 385) O2 SATURATION ARTERIAL (BEAKER) 99.6 % 96.0-97.0 H (test code = 386) HCO3 ARTERIAL (BEAKER) (test code 22 mmol/L 21-29 = 388) BASE EXCESS ARTERIAL (BEAKER) -2.8 mmol/L -2.0-3.0 L (test code = 387) PATIENT TEMPERATURE (BEAKER) 36.6 C (test code = 1818) FIO2 (BEAKER) (test code = 1819) 60.0 % RAD, CHEST, 1 VIEW, NON [id number] 11:05:00Reason for exam:->Post-OpShould this be performed at the bedside?->YesFINAL REPORT Chest one view AP 05/08/2017 11:05 AM CLINICAL INDICATION: Post-Op COMPARISON: 05/02/2017 IMPRESSION: Support hardware is in satisfactory radiographic position. Cardiomediastinal contours are stable. The central pulmonary vasculature is not engorged. The lungs are clear, save for scattered foci of linear atelectasis. Signed: Wang Kaiser Verified Date/Time: 05/08/2017 11:05:58 Reading Location: [facility] Radiology Reading Room [id number] 11:03:00 Test Item Value Reference Range Interpretation Comments MAGNESIUM (BEAKER) (test code = 2.0 mg/dL 1.6-2.6 627) BASIC METABOLIC [id number] 11:03:00 Test Item Value Reference Range Interpretation Comments SODIUM (BEAKER) 141 meq/L 136-145 (test code = 381) POTASSIUM (BEAKER) 4.3 meq/L 3.5-5.1 (test code = 379) CHLORIDE (BEAKER) 113 meq/L 98-107 H (test code = 382) CO2 (BEAKER) (test 24 meq/L 22-29 code = 355) BLOOD UREA NITROGEN 9 mg/dL 7-21 (BEAKER) (test code = 354) CREATININE (BEAKER) 0.70 mg/dL 0.57-1.25 (test code = 358) GLUCOSE RANDOM 116 mg/dL 70-105 H (BEAKER) (test code = 652) CALCIUM (BEAKER) 8.7 mg/dL 8.4-10.2 (test code = 697) EGFR (BEAKER) (test 114 mL/min/1.73 ESTIM ATED GFR IS code = 1092) sq m NOT ACCURATE CREATININE CLEARANCE IN PREDICTING GLOMERULAR FILTRATION RATE . ESTIMATED GFR I S NOT APPLICABLE FOR DIALYSIS PATIEN TS. LACTIC ACID, ARTERIAL, WHOLE [id number] 10:58:00 Test Item Value Reference Range Interpretation Comments LACTATE BLOOD ARTERIAL (2) 0.6 mmol/L 0.5-2.2 (BEAKER) (test code = 2874) Effective 10/21/2015: Units/Reference Range ChangeNew: 0.5-2.2 mmol/L Previous: 5-20 mg/dLPT/[id number] 10:57:00 Test Item Value Reference Range Interpretation Comments PROTIME (BEAKER) (test code = 14.8 seconds 11.7-14.7 H 759) INR (BEAKER) (test code = 370) 1.2 <=5.9 PARTIAL THROMBOPLASTIN TIME 29.1 seconds 22.5-36.0 (BEAKER) (test code = 760) RECOMMENDED COUMADIN/WARFARIN INR THERAPY RANGESSTANDARD DOSE: 2.0 - 3.0 Includes: PROPHYLAXIS forvenous thrombosis, systemic embolization; TREATMENT for venous thrombosis and/or pulmonary embolus.HIGH RISK: Target INR is 2.5-3.5 for patients with mechanical heart valves.CBC W/PLT COUNT & AUTO DIFFERENTIAL 2017-05-08 10:53:00 Test Item Value Reference Range Interpretation Comments WHITE BLOOD CELL COUNT (BEAKER) 18.0 K/ L 3.5-10.5 H (test code = 775) RED BLOOD CELL COUNT (BEAKER) 4.36 M/ L 4.63-6.08 L (test code = 761) HEMOGLOBIN (BEAKER) (test code = 13.7 GM/DL 13.7-17.5 410) HEMATOCRIT (BEAKER) (test code = 40.2 % 40.1-51.0 411) MEAN CORPUSCULAR VOLUME (BEAKER) 92.2 fL 79.0-92.2 (test code = 753) MEAN CORPUSCULAR HEMOGLOBIN 31.4 pg 25.7-32.2 (BEAKER) (test code = 751) MEAN CORPUSCULAR HEMOGLOBIN CONC 34.1 GM/DL 32.3-36.5 (BEAKER) (test code = 752) RED CELL DISTRIBUTION WIDTH 13.0 % 11.6-14.4 (BEAKER) (test code = 412) PLATELET COUNT (BEAKER) (test 177 K/CU MM 150-450 code = 756) MEAN PLATELET VOLUME (BEAKER) 9.7 fL 9.4-12.4 (test code = 754) NUCLEATED RED BLOOD CELLS 0 /100 WBC 0-0 (BEAKER) (test code = 413) NEUTROPHILS RELATIVE PERCENT 81 % (BEAKER) (test code = 429) LYMPHOCYTES RELATIVE PERCENT 10 % (BEAKER) (test code = 430) MONOCYTES RELATIVE PERCENT 7 % (BEAKER) (test code = 431) EOSINOPHILS RELATIVE PERCENT 1 % (BEAKER) (test code = 432) BASOPHILS RELATIVE PERCENT 0 % (BEAKER) (test code = 437) NEUTROPHILS ABSOLUTE COUNT 14.49 K/ L 1.78-5.38 H (BEAKER) (test code = 670) LYMPHOCYTES ABSOLUTE COUNT 1.76 K/ L 1.32-3.57 (BEAKER) (test code = 414) MONOCYTES ABSOLUTE COUNT (BEAKER) 1.19 K/ L 0.30-0.82 H (test code = 415) EOSINOPHILS ABSOLUTE COUNT 0.19 K/ L 0.04-0.54 (BEAKER) (test code = 416) BASOPHILS ABSOLUTE COUNT (BEAKER) 0.04 K/ L 0.01-0.08 (test code = 417) IMMATURE GRANULOCYTES-RELATIVE 2 % 0-1 H PERCENT (BEAKER) (test code = 2801) OXYGEN SATURATION, [id number] 10:44:00 Test Item Value Reference Range Interpretation Comments O2 SATURATION (MEASURED) (BEAKER) 71.8 % (test code = 1455) BLOOD GAS, [id number] 10:42:00 Test Item Value Reference Range Interpretation Comments PH ARTERIAL (BEAKER) (test code = 7.37 7.35-7.45 383) PCO2 ARTERIAL (BEAKER) (test code 42 mmHg 35-45 = 384) PO2 ARTERIAL (BEAKER) (test code 158 mmHg 80-90 H = 385) O2 SATURATION ARTERIAL (BEAKER) 99.0 % 96.0-97.0 H (test code = 386) HCO3 ARTERIAL (BEAKER) (test code 24 mmol/L 21-29 = 388) BASE EXCESS ARTERIAL (BEAKER) -1.4 mmol/L -2.0-3.0 (test code = 387) PATIENT TEMPERATURE (BEAKER) 36.4 C (test code = 1818) FIO2 (BEAKER) (test code = 1819) 60.0 % GLUCOSE-STAT [id number] 10:42:00 Test Item Value Reference Range Interpretation Comments GLUCOSE RANDOM (BEAKER) (test code 112 mg/dL 70-110 H = 652) SODIUM NA-STAT [id number] 10:41:00 Test Item Value Reference Range Interpretation Comments SODIUM (BEAKER) (test code = 381) 137 meq/L 135-148 POTASSIUM-STAT [id number] 10:41:00 Test Item Value Reference Range Interpretation Comments POTASSIUM (BEAKER) (test code = 4.2 meq/L 3.6-5.5 379) HGB/HCT (H&H) - STAT [id number] 10:41:00 Test Item Value Reference Range Interpretation Comments HEMOGLOBIN (BEAKER) (test code = 14.4 g/dL 13.0-16.8 410) HEMATOCRIT (BEAKER) (test code = 42.0 % 40.0-50.0 411) CALCIUM, [id number] 10:41:00 Test Item Value Reference Range Interpretation Comments CALCIUM IONIZED (BEAKER) (test 1.23 mmol/L 1.12-1.27 code = 698) PH, BLOOD (BEAKER) (test code = 7.37 1810) CALCIUM, [id number] 09:43:00 Test Item Value Reference Range Interpretation Comments CALCIUM IONIZED (BEAKER) (test 1.25 mmol/L 1.12-1.27 code = 698) PH, BLOOD (BEAKER) (test code = 7.32 1810) SODIUM NA-STAT [id number] 09:42:00 Test Item Value Reference Range Interpretation Comments SODIUM (BEAKER) (test code = 381) 138 meq/L 135-148 POTASSIUM-STAT [id number] 09:42:00 Test Item Value Reference Range Interpretation Comments POTASSIUM (BEAKER) (test code = 3.8 meq/L 3.6-5.5 379) BLOOD GAS, [id number] 09:42:00 Test Item Value Reference Range Interpretation Comments PH ARTERIAL (BEAKER) (test code = 7.35 7.35-7.45 383) PCO2 ARTERIAL (BEAKER) (test code 46 mmHg 35-45 H = 384) PO2 ARTERIAL (BEAKER) (test code 99 mmHg 80-90 H = 385) O2 SATURATION ARTERIAL (BEAKER) 97.6 % 96.0-97.0 H (test code = 386) HCO3 ARTERIAL (BEAKER) (test code 25 mmol/L 21-29 = 388) BASE EXCESS ARTERIAL (BEAKER) -1.4 mmol/L -2.0-3.0 (test code = 387) PATIENT TEMPERATURE (BEAKER) 35.0 C (test code = 1818) FIO2 (BEAKER) (test code = 1819) 61.0 % GLUCOSE-STAT [id number] 09:42:00 Test Item Value Reference Range Interpretation Comments GLUCOSE RANDOM (BEAKER) (test code 112 mg/dL 70-110 H = 652) HGB/HCT (H&H) - STAT [id number] 09:42:00 Test Item Value Reference Range Interpretation Comments HEMOGLOBIN (BEAKER) (test code = 13.1 g/dL 13.0-16.8 410) HEMATOCRIT (BEAKER) (test code = 39.0 % 40.0-50.0 L 411) SODIUM NA-STAT [id number] 08:37:00 Test Item Value Reference Range Interpretation Comments SODIUM (BEAKER) (test code = 381) 137 meq/L 135-148 POTASSIUM-STAT [id number] 08:37:00 Test Item Value Reference Range Interpretation Comments POTASSIUM (BEAKER) (test code = 3.9 meq/L 3.6-5.5 379) HGB/HCT (H&H) - STAT [id number] 08:37:00 Test Item Value Reference Range Interpretation Comments HEMOGLOBIN (BEAKER) (test code = 15.2 g/dL 13.0-16.8 410) HEMATOCRIT (BEAKER) (test code = 45.0 % 40.0-50.0 411) CALCIUM, [id number] 08:37:00 Test Item Value Reference Range Interpretation Comments CALCIUM IONIZED (BEAKER) (test 1.15 mmol/L 1.12-1.27 code = 698) PH, BLOOD (BEAKER) (test code = 7.37 1810) BLOOD GAS, [id number] 08:37:00 Test Item Value Reference Range Interpretation Comments PH ARTERIAL (BEAKER) (test code = 7.38 7.35-7.45 383) PCO2 ARTERIAL (BEAKER) (test code 43 mmHg 35-45 = 384) PO2 ARTERIAL (BEAKER) (test code 442 mmHg 80-90 H = 385) O2 SATURATION ARTERIAL (BEAKER) 99.8 % 96.0-97.0 H (test code = 386) HCO3 ARTERIAL (BEAKER) (test code 25 mmol/L 21-29 = 388) BASE EXCESS ARTERIAL (BEAKER) -0.8 mmol/L -2.0-3.0 (test code = 387) PATIENT TEMPERATURE (BEAKER) 36.3 C (test code = 1818) FIO2 (BEAKER) (test code = 1819) 64.0 % GLUCOSE-STAT [id number] 08:37:00 Test Item Value Reference Range Interpretation Comments GLUCOSE RANDOM (BEAKER) (test code 111 mg/dL 70-110 H = 652) HEMOGLOBIN [id number] 12:07:00 Test Item Value Reference Range Interpretation Comments HEMOGLOBIN A1C (BEAKER) (test code = 5.6 % 4.3-6.1 368) RAD, CHEST, 2 [id number] 11:17:00Reason for Exam:->Pre-OpFINAL REPORT Chest x-ray, PA and lateral views Clinical History: Pre- Op Comparison: None Findings: The cardiac silhouette is normal. Aorta is mildly tortuous/ectatic. There is no pneumothorax, jeff pulmonary edema, consolidation or pleural effusion. Lungs appear mildly hyperinflated with flattening of the diaphragm. The bony structures demonstrate degenerative changes. Impression: Mild hyperinflation. Signed: Itzel Astudilloeport Verified Date/Time: 05/02/2017 11:17:15 Reading Location: [facility] Radiology Reading Room Electronically signed by: ITZEL ASTUDILLO M.D. on05/02/2017 11:17 AMBASIC METABOLIC [id number] 11:09:00 Test Item Value Reference Range Interpretation Comments SODIUM (BEAKER) 138 meq/L 136-145 (test code = 381) POTASSIUM (BEAKER) 4.6 meq/L 3.5-5.1 (test code = 379) CHLORIDE (BEAKER) 105 meq/L 98-107 (test code = 382) CO2 (BEAKER) (test 24 meq/L 22-29 code = 355) BLOOD UREA NITROGEN 13 mg/dL 7-21 (BEAKER) (test code = 354) CREATININE (BEAKER) 0.81 mg/dL 0.57-1.25 (test code = 358) GLUCOSE RANDOM 97 mg/dL 70-105 (BEAKER) (test code = 652) CALCIUM (BEAKER) 9.6 mg/dL 8.4-10.2 (test code = 697) EGFR (BEAKER) (test 97 mL/min/1.73 ESTIMA LUCIANO GFR IS code = 1092) sq m NOT ACCURATE CREATININE CLEARANCE IN PREDICTING GLOMERULAR FILTRATION RATE . ESTIMATED GFR I S NOT APPLICABLE FOR DIALYSIS PATIEN TS. PROTHROMBIN TIME/[id number] 11:05:00 Test Item Value Reference Range Interpretation Comments PROTIME (BEAKER) (test code = 12.9 seconds 11.7-14.7 759) INR (BEAKER) (test code = 370) 1.0 <=5.9 RECOMMENDED COUMADIN/WARFARIN INR THERAPY RANGESSTANDARD DOSE: 2.0 - 3.0 Includes: PROPHYLAXIS forvenous thrombosis, systemic embolization; TREATMENT for venous thrombosis and/or pulmonary embolus.HIGH RISK: Target INR is 2.5-3.5 for patients with mechanical heart valves.CBC W/PLT COUNT & AUTO DIFFERENTIAL 2017-05-02 10:46:00 Test Item Value Reference Range Interpretation Comments WHITE BLOOD CELL COUNT (BEAKER) 10.8 K/ L 3.5-10.5 H (test code = 775) RED BLOOD CELL COUNT (BEAKER) 5.04 M/ L 4.63-6.08 (test code = 761) HEMOGLOBIN (BEAKER) (test code = 15.6 GM/DL 13.7-17.5 410) HEMATOCRIT (BEAKER) (test code = 46.7 % 40.1-51.0 411) MEAN CORPUSCULAR VOLUME (BEAKER) 92.7 fL 79.0-92.2 H (test code = 753) MEAN CORPUSCULAR HEMOGLOBIN 31.0 pg 25.7-32.2 (BEAKER) (test code = 751) MEAN CORPUSCULAR HEMOGLOBIN CONC 33.4 GM/DL 32.3-36.5 (BEAKER) (test code = 752) RED CELL DISTRIBUTION WIDTH 13.0 % 11.6-14.4 (BEAKER) (test code = 412) PLATELET COUNT (BEAKER) (test 254 K/CU MM 150-450 code = 756) MEAN PLATELET VOLUME (BEAKER) 9.8 fL 9.4-12.4 (test code = 754) NUCLEATED RED BLOOD CELLS 0 /100 WBC 0-0 (BEAKER) (test code = 413) NEUTROPHILS RELATIVE PERCENT 71 % (BEAKER) (test code = 429) LYMPHOCYTES RELATIVE PERCENT 17 % (BEAKER) (test code = 430) MONOCYTES RELATIVE PERCENT 9 % (BEAKER) (test code = 431) EOSINOPHILS RELATIVE PERCENT 1 % (BEAKER) (test code = 432) BASOPHILS RELATIVE PERCENT 1 % (BEAKER) (test code = 437) NEUTROPHILS ABSOLUTE COUNT 7.62 K/ L 1.78-5.38 H (BEAKER) (test code = 670) LYMPHOCYTES ABSOLUTE COUNT 1.87 K/ L 1.32-3.57 (BEAKER) (test code = 414) MONOCYTES ABSOLUTE COUNT (BEAKER) 1.02 K/ L 0.30-0.82 H (test code = 415) EOSINOPHILS ABSOLUTE COUNT 0.14 K/ L 0.04-0.54 (BEAKER) (test code = 416) BASOPHILS ABSOLUTE COUNT (BEAKER) 0.06 K/ L 0.01-0.08 (test code = 417) IMMATURE GRANULOCYTES-RELATIVE 1 % 0-1 PERCENT (IRMA) (test code = 2801)
[2020-01-23] MEDS ORDERED: LIDOCAINE 2% MPF 5 ML VIAL ONE (07:46)
[2020-01-23] MEDS ORDERED: propofoL 200 MG/20 ML VIAL IV ONE ×2 (07:46→09:24)
[2020-01-23] MEDS ORDERED: FENTANYL CITR 100 MCG/2 ML ONE (07:46)
[2020-01-23] MEDS ORDERED: MIDAZOLAM HCL 2 MG/2 ML INJ ONE (07:46)
[2020-01-23] MEDS ORDERED: Phenylephrine HCl 10 MG/ML 1 ML VIAL ONE (07:49)
[2020-01-23] MEDS ORDERED: ONDANSETRON 4 MG/2 ML VIAL ONE (07:51)
[2020-01-23] MEDS: Ringers Lactate 1,000 ML IV ONE (07:52)
[2020-01-23] MEDS ORDERED: SUCCINYLCHOLINE 20 MG/ML (10 ML) IV ONE (07:54)
[2020-01-23] MEDS ORDERED: LIDOCAINE 1% MPF 30 ML VIAL ONE ×2 (07:56→08:00)
[2020-01-23] MEDS ORDERED: LIDOCAINE VISCOUS 2% SOLN 15 ML UDC ONE (07:57)
--- NOTE | 2020-01-23 09:47 | RAD REPORT ---
EXAM DESCRIPTION: RAD - FLUORO-GUIDE FOR BRONCH UPT1HR - 01/23/2020 9:41 am FINDINGS: There were 10 portable C-arm images acquired during a fluoroscopic assisted left lower lob e bronchoscopy. No suspicious or unexpected findings. Fluoro time was 3.6 minutes. Cumulative dose was 37.8 mGy.
--- NOTE | 2020-01-23 10:39 | RAD REPORT ---
EXAM DESCRIPTION: RAD - Chest Single View - 01/23/2020 10:33 am CLINICAL HISTORY: S/P BRONCHOSCOPY; R/O PNEUMO COMPARISON: CT chest August 2019, two view chest June 2019 TECHNIQUE: AP portable chest image was obtained 01/23/2020 10:33 am . FINDINGS: No post bronchoscopy pneumothorax present. Right lung field is clear. Left base parenchyma l opacification is present. No recent chest imaging available. Lung parenchymal opacification can be an infiltrative process, mass, post bronchoscopy parenchymal hemorrhage or a combination. IMPRESSION: No post bronchoscopy pneumothorax.
[2020-01-23 10:40] VITALS: O2SAT 97
[2020-01-23 10:42] VITALS: BP 130/80; TEMP 98
--- NOTE | 2020-02-26 08:43 | P.OP ---
Date of Service: 01/23/20 Findings and Operative Technique Patient is 64 years of age evaluated by me for a left lung mass has a reason for bronchoscopy left lower lobe mass was extending to the hilum Narrative report after obtaining informed consent from the patient he was premedicated by anesthesia finding normal vocal cords normal trachea normal negrita multiple biopsies were obtained from the left lower lobe patient tolerated the procedure very well did not experience any hemodynamic compromise or hypoxemia
== END 2020-01-23 10:58 | disposition home or self-care (01) ==
LOC: PRE 06:30
PROVIDERS: ATTEND Internal Medicine Sleep Medicine
PROC: 0BBB8ZX Excision of Left Lower Lobe Bronchus, Via Natural or Artificial Opening Endoscopic, Diagnostic (ICD-10-PCS; principal; 2020-01-23 08:00)
DX: C34.32 Malignant neoplasm of lower lobe, left bronchus or lung (principal); J44.9 Chronic obstructive pulmonary disease, unspecified; Z87.891 Personal history of nicotine dependence; Z20.828 Contact with and (suspected) exposure to other viral communicable diseases
CPT/HCPCS: 31625; 87070; 88108; 88305 ×2; 87015; 87206; 87116; 87102; 71045; 76000; U0002; J2704 ×2; J0330; J2370; J7120; J2405; J2250; J3010

== ENCOUNTER 2020-03-25 14:34 | Emergency (ER) | payer OTHER ==
[2020-03-25] MEDS ORDERED: ONDANSETRON 4 MG/2 ML VIAL ONE (15:07)
[2020-03-25 15:26] LABS: Protime INR 0.91
[2020-03-25 15:30] LABS: Absolute Lymphocytes (CBC) 0.4 K/uL (0.7-4.9); Basophils % 0.2 % (0-1.3); Hematocrit 44.5 % (39.6-49.0); Lymphocytes % 40.9 % (15.3-44.8); MPV 8.8 fL (7.6-11.3); RBC Red Blood Cell Count 4.79 M/uL (4.33-5.43)
[2020-03-25 15:43] LABS: ALT/SGPT 27 U/L (12-78); AST/SGOT 14 U/L (15-37); Albumin 3.3 g/dL (3.4-5.0); Alkaline Phosphatase 96 U/L (45-117); BUN Blood Urea Nitrogen 15 mg/dL (7-18); Bicarbonate 27 mmol/L (21-32); Bilirubin Direct 0.3 mg/dL (0-0.2); Bilirubin Total 1.1 mg/dL (0.2-1.0); Glucose Level 100 mg/dL (74-106); Lipase 90 U/L (73-393); Potassium 4.1 mmol/L (3.5-5.1); Protein, Total 6.5 g/dL (6.4-8.2); Sodium Level 134 mmol/L (136-145)
--- NOTE | 2020-03-25 16:04 | RAD REPORT ---
EXAM DESCRIPTION: CT - Angio Aorta For Dissection - 03/25/2020 3:54 pm CLINICAL HISTORY: Chest pain radiating to the back. abdominal pain;Abdominal distention COMPARISON: CT-RAD THERAPY FLD PLACE-CHEST dated 03/12/2020 TECHNIQUE: CT angiography of the aorta was performed with MIPs. All CT scans are performed using dose optimization technique as appropriate and may include automated exposure control or mA/KV adjustment according to patient size. FINDINGS: A left aortic arch is present with normal branching pattern of the great vessels.Evidence of previous AAA repair noted involving the abdominal aorta. There is slight dilatation of the infrare nal abdominal aorta measuring 3.6 cm seen. 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 The celiac axis, SMA, SARAH and renal arteries are widely rubio nt. No evidence of pulmonary embolism. Scarring is present in the left lung base. Lungs are grossly clear. Mild fatty liver noted.The spleen, pancreas, adrenal glands and kidneys are within normal limits for arterial phase imaging. No bowel obstruction, free fluid or abscess.Normal appendix.No pathologic enlarged lymphadenopathy id entified. Moderate lumbosacral degenerative changes. IMPRESSION: No acute aortic finding is demonstrated. Mild fatty liver. Evidence of previous AAA repair.
[2020-03-25 16:11] LABS: Blood Morphology Comment NOT SEEN (NOT SEEN); Platelet Estimate DECR; Platelets, Giant PRESENT; White Blood Cell Scan OK (OK)
[2020-03-25] MEDS ORDERED: DICYCLOMINE HCL 10 MG CAP ONE (16:35)
[2020-03-25] MEDS ORDERED: KETOROLAC 30 MG/ML INJ ONE (16:35)
--- NOTE | 2020-03-25 16:40 | EDPHYS ---
Physician Documentation [facility] – [place], [place] Name: Sae Cardozo Age: 64 yrs Sex: Male : 1955 Arrival Date: 03/25/2020 Time: 14:35 Bed 5 Private MD: ED Physician Kee Cummins HPI: 03/25 14:55 This 64 yrs old Male presents to ER via Wheelchair with complaints of cp Abdominal Pain, Vision Problem. 14:55 The patient presents with abdominal pain that is diffuse, abdominal distention that is cp diffuse. Onset: The symptoms/episode began/occurred this morning. Associated signs and symptoms: Pertinent positives: diarrhea, Pertinent negatives: blood in stools, chest pain, constipation, fever, shortness of breath, vomiting, flatulence. Patient reports brief episode of right eye blurry vision while traveling to ED. Denies loss of vision, denies headache, denies weakness. Historical: - Allergies: 14:54 No Known Allergies; iw - Home Meds: 14:54 trelegy inhaler [Active]; iw - PMHx: 14:54 AAA; Cancer, Lung; COPD; iw - PSHx: 14:54 AAA Repair; iw - Immunization history:: Adult Immunizations not up to date. - Social history:: Smoking status: Patient/guardian denies using tobacco, the patient reports quitting approximately 2 years ago. ROS: 15:00 Constitutional: Negative for body aches, chills, fever, poor PO intake. cp 15:00 Eyes: Negative for injury, pain, redness, and discharge. cp 15:00 Cardiovascular: Negative for chest pain, palpitations. 15:00 Respiratory: Negative for cough, shortness of breath, wheezing. 15:00 Abdomen/GI: Positive for abdominal pain, diarrhea, abdominal distension, Negative for vomiting, constipation, anorexia, black/tarry stool, rectal bleeding. 15:00 Back: Negative for radiated pain. 15:00 : Negative for urinary symptoms. 15:00 Neuro: Negative for altered mental status, dizziness, headache, syncope, weakness. 15:00 All other systems are negative. Exam: 15:05 Constitutional: The patient appears in no acute distress, alert, awake, cp non-diaphoretic, non-toxic, well developed, well nourished, uncomfortable. 15:05 Head/Face: Normocephalic, atraumatic. cp 15:05 Eyes: Periorbital structures: appear normal, Conjunctiva: normal, no exudate, no injection, Sclera: no appreciated abnormality, Lids and lashes: appear normal, bilaterally. 15:05 ENT: External ear(s): are unremarkable, Nose: is normal, Posterior pharynx: Airway: no evidence of obstruction, patent. 15:05 Chest/axilla: Inspection: normal, Palpation: is normal, no crepitus, no tenderness. 15:05 Cardiovascular: Rate: tachycardic, Rhythm: regular, Edema: is not appreciated, JVD: is not appreciated. 15:05 Respiratory: the patient does not display signs of respiratory distress, Respirations: normal, no use of accessory muscles, no retractions, labored breathing, is not present, Breath sounds: stridor, is not appreciated, wheezing: is not appreciated. 15:05 Abdomen/GI: Inspection: distension, that is mild, Bowel sounds: active, all quadrants, Palpation: soft, in all quadrants, moderate abdominal tenderness, in all quadrants, rebound tenderness, is not appreciated, involuntary guarding, is not appreciated. 15:05 Back: CVA tenderness, is absent. Vital Signs: 14:51 BP 122 / 80; Pulse 107; Resp 16 S; Pulse Ox 95% on R/A; Weight 94.35 kg; Height 5 ft. iw 10 in. (177.80 cm); Pain 3/10; 15:56 BP 134 / 80; Pulse 98; Resp 17; Pulse Ox 97% ; bp 16:53 BP 114 / 80; Pulse 98; Resp 16; Temp 98; Pulse Ox 97% ; bp 14:51 Body Mass Index 29.84 (94.35 kg, 177.80 cm) iw MDM: 14:53 Patient medically screened. cp 16:36 Data reviewed: vital signs, nurses notes, lab test result(s), radiologic studies, CT cp scan. Counseling: I had a detailed discussion with the patient and/or guardian regarding: the historical points, exam findings, and any diagnostic results supporting the discharge/admit diagnosis, lab results, radiology results, the need for outpatient follow up, oncology, to return to the emergency department if symptoms worsen or persist or if there are any questions or concerns that arise at home. 03/25 14:50 Order name: Basic Metabolic Panel; Complete Time: 16:02 cp 03/25 16:08 Interpretation: Normal except: NA 134. cp 03/25 14:50 Order name: CBC with Diff; Complete Time: 16:15 cp 03/25 16:16 Interpretation: Normal except: PLT 39; NEUT A 0.5; LYMA 0.4. cp 03/25 14:50 Order name: Hepatic Function; Complete Time: 16:02 cp 03/25 16:09 Interpretation: Normal except: AST 14; BILIT 1.1; BILID 0.3; ALB 3.3; A/G 1.0. cp 03/25 14:50 Order name: Lipase; Complete Time: 16:02 cp 03/25 14:53 Order name: PT-INR; Complete Time: 16:02 cp 03/25 14:53 Order name: Magnesium; Complete Time: 16:02 cp 03/25 14:50 Order name: IV Saline Lock; Complete Time: 15:05 cp 03/25 14:53 Order name: CT Aorta for Dissection; Complete Time: 16:06 cp 03/25 16:11 Order name: CBC Smear Scan; Complete Time: 16:15 EDMS 03/25 14:50 Order name: Labs collected and sent; Complete Time: 15:05 cp Administered Medications: 15:00 Drug: NS 0.9% 500 ml Route: IV; Rate: bolus; Site: right forearm; bp 16:55 Follow up: IV Status: Completed infusion; IV Intake: 500ml bp 15:00 Drug: Zofran (Ondansetron) 4 mg Route: IVP; Site: right forearm; bp 16:20 Follow up: Response: Nausea is decreased bp 16:26 Not Given (Patient Refused): morphine 2 mg IVP once; (PAIN>8) RASS on ADMN: Combtv4, bp Very Agttd3, Agttd2, Rstlss1, AlertClm0, Drwsy-1, LtSdtn-2, ModSdtn-3, DpSdtn-4, UnArsble-5 x2 16:26 Drug: Bentyl 20 mg Route: PO; bp 16:55 Follow up: Response: Pain is decreased bp 16:26 Drug: Ketorolac 15 mg Route: IVP; Site: right forearm; bp 16:55 Follow up: Response: Pain is decreased bp Disposition: 17:31 Co-signature as Attending Physician, Kee Cummins MD. rn Disposition: 03/25/20 16:39 Discharged to Home. Impression: Generalized abdominal pain, Diarrhea, unspecified. - Condition is Stable. - Discharge Instructions: Abdominal Pain, Adult, Diarrhea, Adult. - Prescriptions for Bentyl 20 mg Oral Tablet - take 1 tablet by ORAL route every 6 hours As needed; 30 tablet. Zofran 4 mg Oral Tablet - take 1 tablet by ORAL route every 12 hours As needed; 20 tablet. - Medication Reconciliation Form, Thank You Letter, Antibiotic Education, Prescription Opioid Use form. - Follow up: Private Physician; When: 1 - 2 days; Reason: Recheck today's complaints. - Problem is new. - Symptoms have improved. Signatures: Dispatcher [employer] Anat Wright RN RN Kee Wooten MD MD rn Duane Burrows PA PA cp Peltier, Brian, RN RN bp Corrections: (The following items were deleted from the chart) 16:16 16:15 Normal except: WBC 0.9; PLT 39. cp cp 16:55 16:39 03/25/2020 16:39 Discharged to Home. Impression: Generalized abdominal pain; bp Diarrhea, unspecified. Condition is Stable. Forms are Medication Reconciliation Form, Thank You Letter, Antibiotic Education, Prescription Opioid Use. Follow up: Private Physician; When: 1 - 2 days; Reason: Recheck today's complaints. Problem is new. Symptoms have improved. cp
--- NOTE | 2020-03-25 16:40 | ER ---
Nurse's Notes [facility] Name: Sae Cardozo Age: 64 yrs Sex: Male : 1955 Arrival Date: 03/25/2020 Time: 14:35 Bed 5 Private MD: Diagnosis: Generalized abdominal pain;Diarrhea, unspecified Presentation: 03/25 14:51 Chief complaint: Patient states: mid abd pain and diarrhea since about 0200 today, iw feels like he has a lot of gas, currently on chemo for lung cancer. Ebola Screen: Patient negative for fever greater than or equal to 101.5 degrees Fahrenheit, and additional compatible Ebola Virus Disease symptoms Patient denies exposure to infectious person. Patient denies travel to an Ebola-affected area in the 21 days before illness onset. No symptoms or risks identified at this time. Initial Sepsis Screen: Does the patient meet any 2 criteria? No. Patient's initial sepsis screen is negative. Does the patient have a suspected source of infection? No. Patient's initial sepsis screen is negative. Risk Assessment: Do you want to hurt yourself or someone else? Patient reports no desire to harm self or others. Onset of symptoms was March 25, 2020. 14:51 Method Of Arrival: Wheelchair iw 14:51 Acuity: JIMMIE 3 iw 15:00 Coronavirus screen: At this time, the client does not indicate any symptoms associated bp with coronavirus-19. Triage Assessment: 15:00 General: Appears in no apparent distress. uncomfortable, Behavior is cooperative, bp appropriate for age, anxious. Pain: Complains of pain in abdomen. EENT: No deficits noted. Neuro: No deficits noted. Cardiovascular: No deficits noted. Respiratory: No deficits noted. GI: Reports lower abdominal pain, diarrhea, nausea. : No signs and/or symptoms were reported regarding the genitourinary system. Derm: No deficits noted. Musculoskeletal: No deficits noted. Historical: - Allergies: 14:54 No Known Allergies; iw - Home Meds: 14:54 trelegy inhaler [Active]; iw - PMHx: 14:54 AAA; Cancer, Lung; COPD; iw - PSHx: 14:54 AAA Repair; iw - Immunization history:: Adult Immunizations not up to date. - Social history:: Smoking status: Patient/guardian denies using tobacco, the patient reports quitting approximately 2 years ago. Screenin:00 Abuse screen: Denies threats or abuse. Denies injuries from another. Nutritional bp screening: No deficits noted. Tuberculosis screening: No symptoms or risk factors identified. Fall Risk None identified. Assessment: 15:00 General: SEE TRIAGE NOTE. Pain: Complains of pain in abdomen. GI: Bowel sounds present bp X 4 quads. Abd is soft X 4 quads. 15:45 Reassessment: PT TO RAD. bp 15:57 Reassessment: PT RETURNED FROM RAD. bp 16:53 Reassessment: PT D/C HOME AMBULATORY, DX WITH GENERALIZED ABDOMINAL PAIN. bp Vital Signs: 14:51 BP 122 / 80; Pulse 107; Resp 16 S; Pulse Ox 95% on R/A; Weight 94.35 kg; Height 5 ft. iw 10 in. (177.80 cm); Pain 3/10; 15:56 BP 134 / 80; Pulse 98; Resp 17; Pulse Ox 97% ; bp 16:53 BP 114 / 80; Pulse 98; Resp 16; Temp 98; Pulse Ox 97% ; bp 14:51 Body Mass Index 29.84 (94.35 kg, 177.80 cm) iw ED Course: 14:35 Patient arrived in ED. ag5 14:37 Duane Burrows PA is PHCP. cp 14:37 Kee Cummins MD is Attending Physician. cp 14:38 Adriano Han, [place] is Primary Nurse. bp 14:53 Triage completed. iw 14:54 Arm band placed on. iw 15:00 Patient has correct armband on for positive identification. Allergy band placed. Bed in bp low position. Call light in reach. Side rails up X2. 15:00 Inserted saline lock: 20 gauge in right forearm, using aseptic technique. Blood bp collected. 15:33 Notified Nurse Practitioner and/or Physician Associate Embalmer/Funeral Director of a critical lab result(s), iw WBC=0.9, PLT=40. 15:54 CT Aorta for Dissection In Process Unspecified. EDMS 16:53 No provider procedures requiring assistance completed. IV discontinued, intact, bp bleeding controlled, No redness/swelling at site. Pressure dressing applied. Administered Medications: 15:00 Drug: NS 0.9% 500 ml Route: IV; Rate: bolus; Site: right forearm; bp 16:55 Follow up: IV Status: Completed infusion; IV Intake: 500ml bp 15:00 Drug: Zofran (Ondansetron) 4 mg Route: IVP; Site: right forearm; bp 16:20 Follow up: Response: Nausea is decreased bp 16:26 Not Given (Patient Refused): morphine 2 mg IVP once; (PAIN>8) RASS on ADMN: Combtv4, bp Very Agttd3, Agttd2, Rstlss1, AlertClm0, Drwsy-1, LtSdtn-2, ModSdtn-3, DpSdtn-4, UnArsble-5 x2 16:26 Drug: Bentyl 20 mg Route: PO; bp 16:55 Follow up: Response: Pain is decreased bp 16:26 Drug: Ketorolac 15 mg Route: IVP; Site: right forearm; bp 16:55 Follow up: Response: Pain is decreased bp Intake: 16:55 IV: 500ml; Total: 500ml. bp Outcome: 16:39 Discharge ordered by MD. cp 16:53 Discharged to home ambulatory. bp 16:53 Condition: stable 16:53 Discharge instructions given to patient, Instructed on discharge instructions, follow up and referral plans. medication usage, Demonstrated understanding of instructions, follow-up care, medications, Prescriptions given X 2. 16:55 Patient left the ED. bp Signatures: Dispatcher [employer] EDAnat Chong RN RN Duane Palacios PA PA Adriano Mansfield RN RN Audelia Hidalgo ag5 Corrections: (The following items were deleted from the chart) 15:58 15:45 Reassessment: PT TO U/S bp bp
[2020-03-25 17:27] VITALS: O2SAT 97
[2020-03-25 17:28] VITALS: BP 114/80; TEMP 98
--- OUTSIDE RECORDS SUMMARY | 2020-03-26 21:23 | XMS REPORT | Clinical Summary ---
:1955 Author Organization [facility] Address [address] [place] [address] Care Team Providers Name Role Phone Teo Linares Primary Care Provider [facility] Unavailable Allergies Active Allergy Reactions Severity [...] VACCINE (#1) 2020 Implants Implanted Type Area Digital Design Engineer Device Shelf Model / Identifier Expiration Serial / Date Lot Ivan Santos [place] [id number] - Sna Graft/Pa N/A: GETING E 07/19/2019 [id number] / Implanted: Qty: 1 on 05/08/2017 by Sae Fulton MD [facility] Aor ta IND:MAQUET:CV NA / [id number] Results Not on fileafter 03/25/2019 Insurance Payer Benefit Plan / Group Subscriber ID Type Phone A ddress CIGNA - MGD CARE CIGNA PPO xxxxxxxxx PPO Advance Directives For more information, please contact:[address] [phone] Code Status Date Activated Date Inactivated Comments Full Code 05/08/2017 5:38 AM 05/14/2017 2:07 PM This code status was determined by: Patient
--- OUTSIDE RECORDS SUMMARY | 2020-03-26 21:24 | XMS REPORT | Continuity of Care Document ---
:1955 Author Organization [facility] t Address [address] [place] [address] Care Team Providers Name Role Phone VijayTeo Primary Care Physician RABIA HERRERA Attending Clinician [...] [facility] [place] Aneurysm Aneurysm Disease [facility] Cigarettes smoked 2017-05-10 2017-05-10 [facility] - current (pack per 00:00:00 00:00:00 Medical Center day) - Reported Cigarette pack-years 2017-05-10 [facility] Smoking Status Start Date Stop Date Source Current every day smoker 2017-05-10 00:00:00 [facility] Medications This patient has no known medications. Procedures This patient has no known procedures. Plan of Care Planned Activity Planned Date Details Comments Source Future Scheduled 2020-02-18 INFLUENZA VACCINE (#1) [facility] - Test 00:00:00 [code = INFLUENZA Medical Ce nter VACCINE (#1)] Future Scheduled 2019 PNEUMOCOCCAL [address] - Test 00:00:00 LOW/MEDIUM RISK (1 of [facility] 2 - PCV13) [code = PNEUMOCOCCAL 65+ LOW/MEDIUM RISK (1 of 2 - PCV13)] Future Scheduled [address] [facility] - Test 00:00:00 malignant neoplasm of [facility] colon (procedure) [code = 191455236] Results Test Description Test Time Test Comments Results Result Sour e Comments CT, CTA ABDOMEN, 2017-09-25 Addendum BeginsREPORT AAA PROTOCOL 14:34:00 STATUS:A Addendum: I agree with the previously described non vascular findings by Dr. Castro. Signed: Nathan Johnston MDReport Verified Date/Time: 09/25/2017 14:34:58 Reading Location: [place] [id number] Angio Body Reading RoomAddendum EndsFINAL REPORT CT [...] and during intravenous contrast administration using a [employer] CT scanner. Images were obtained before and [...] dictated regarding the non-vascular findings by the Used Car Renovator Radiologist. Signed: Joaquín Castro MDReport Verified Date/Time: 09/25/2017 10:55:28 Reading Location: [place] [address] Cardiology MRI -CREATININE 2017-09-25 09:56:00 Test Item Value Reference Range Interpretation Comme nts POC-CREATININE (BEAKER) (test 0.7 mg/dL 0.6-1.3 TESTED AT [place] [address] code = 1859) [facility] [address] POC-EGFR (BEAKER) (test code = 114 mL/min/1.73M2 1860) CT, CTA, [id number] 09:31:00Addendum BeginsREPORT STATUS:A Addendum: I agree with the previously described non vascular findings. Signed: Maryellen Stiles MDReport Verified Date/Time: 09/05/2017 09:31:21 Reading Location: [place] [address] Angio Body Reading RoomAddendum EndsFINAL REPORT CT [...] the dynamic passage of intravenous contrast material. Zpxcg--F volume- rendering reconstruction was performed using an [...] dictated regarding the non-vascular findings by the Used Car [employer]ovator Radiologist. Signed: Joaquín Castro Verified Date/Time: 09/04/2017 17:13:07 Reading Location: [place] [address] Cardiology MRI -[id number] 14:44:00 Test Item Value Reference Range Interpretation Comments POC-CREATININE 0.8 mg/dL 0.6-1.[address] [facility] 6720 (BEAKER) (test [place] code = 1859) [address] POC-EGFR (BEAKER) 98 mL/min/1.73M2 (test code = 1860) BASIC METABOLIC [id number] 07:48:00 Test Item Value Reference Range Interpretation [...] PATIEN TS. CBC W/PLT COUNT & AUTO [id number] 07:14:00 Test Item Value Reference Range Interpretation [...] = 2801) CBC W/PLT COUNT & AUTO [id number] 07:30:00 Test Item Value Reference Range Interpretation [...] (BEAKER) (test code = 2801) BASIC METABOLIC [id number] 07:26:00 Test Item Value Reference Range Interpretation [...] NOT APPLICABLE FOR DIALYSIS PATIEN TS. POCT-GLUCOSE [id number] 08:28:00 Test Item Value Reference Range Interpretation Comments POC-GLUCOSE METER 90 mg/dL 70-[address] [facility] 67[address] (BEAKER) (test code = [place] [address] 1538) CBC W/PLT COUNT & AUTO [id number] 06:41:00 Test Item Value Reference Range Interpretation [...] (BEAKER) (test code = 2801) BASIC METABOLIC [id number] 06:11:00 Test Item Value Reference Range Interpretation [...] NOT APPLICABLE FOR DIALYSIS PATIEN TS. POCT-GLUCOSE [id number] 03:06:00 Test Item Value Reference Range Interpretation Comments POC-GLUCOSE METER 86 mg/dL 70-[address] [facility] 6720 (BEAKER) (test code = [facility] [address] 1538) POCT-GLUCOSE [id number] 17:51:00 Test Item Value Reference Range Interpretation Comments POC-GLUCOSE METER 98 mg/dL 70-110 TESTED AT [place] [id number] (BEAKER) (test code = [facility] [address] 1538) URINALYSIS W/ REFLEX URINE [id number] 12:37:00 Test Item Value Reference Range Interpretation [...] 516) SOURCE(BEAKER) (test code = 2795) POCT-GLUCOSE [id number] 12:09:00 Test Item Value Reference Range Interpretation Comments POC-GLUCOSE METER 119 mg/dL 70-[address] [facility] 67[address] (BEAKER) (test code = [facility] 1538) [address] BASIC METABOLIC [id number] 09:23:00 Test Item Value Reference Range Interpretation [...] NOT APPLICABLE FOR DIALYSIS PATIEN TS. POCT-GLUCOSE [id number] 08:41:00 Test Item Value Reference Range Interpretation Comments POC-GLUCOSE METER 114 mg/dL 70-[address] [facility] 67[address] (BEAKER) (test code = [place] 1538) [address] RAD, CHEST, 1 VIEW, NON [id number] 07:48:00Reason for exam:->Post-OpShould this be performed at the bedside?->YesFINAL REPORT Chest one view AP 05/10/2017 7:47 AM CLINICAL INDICATION: Post-Op COMPARISON: 05/09/2017 IMPRESSION: There is bibasilar atelectasis. There is a trace left pleural effusion. Cardiomediastinal contours are within normal limits. The central pulmonary vasculature is notengorged. An enteric tube is present. Signed: Wang Kaiser Verified Date/Time: 05/10/2017 07:48:05 Reading Location: [facility] Radiology Reading Room CBC W/PLT COUNT & AUTO [id number] 07:36:00 Test Item Value Reference Range Interpretation [...] PERCENT (BEAKER) (test code = 2801) POCT-GLUCOSE [id number] 22:44:00 Test Item Value Reference Range Interpretation Comments POC-GLUCOSE METER 128 mg/dL 70-110 H TESTED AT [place] [address] ([facility]) (test code = [place] [facility] 1538) [address] POCT-GLUCOSE [id number] 17:22:00 Test Item Value Reference Range Interpretation Comments POC-GLUCOSE METER 106 mg/dL 70-[address] [facility] 6720 ([facility]) (test code = [facility] [place] [facility] 1538) [address] RAD, ABDOMEN/KUB, 1 VIEW [id number] 12:38:00Reason for exam:->ileusFINAL REPORT Abdomen two views supine 05/09/2017 12:38 PM CLINICAL INDICATION: ileus COMPARISON: None available IMPRESSION: There is no radiographic evidence for bowel obstruction. There is mild ileus. No abnormal calcifications are seen in the region of the gallbladder or kidneys. There are no acute-appearing skeletal abnormalities. Signed: Wang Kaiser Verified Date/Time: 05/09/2017 12:38:47 Reading Location: [place] [id number] Consult Reading Room POCT-GLUCOSE [id number] 12:19:00 Test Item Value Reference Range Interpretation Comments POC-GLUCOSE METER 102 mg/dL 70-110 TESTED AT [place] [address] ([facility]) (test code = [facility] Margareth [facility] 1538) [address] POCT-GLUCOSE [id number] 06:45:00 Test Item Value Reference Range Interpretation Comments POC-GLUCOSE METER 104 mg/dL 70-110 TESTED AT [place] [address] ([facility]) (test code = [facility] 1538) [address] RAD, CHEST, 1 VIEW, NON [id number] 05:01:00Reason for exam:->Post-OpShould this be performed at [...] Verified Date/Time: 05/09/2017 05:01:39 Reading Location: [facility] C013T Tra nsitional Reading Room [id number] 03:47:00 Test Item Value Reference Range Interpretation Comments PHOSPHORUS (BEAKER) (test code = 2.7 mg/dL 2.3-4.7 604) [id number] 03:47:00 Test Item Value Reference Range Interpretation Comments MAGNESIUM (BEAKER) (test code = 1.8 mg/dL 1.6-2.6 627) BASIC METABOLIC [id number] 03:47:00 Test Item Value Reference Range Interpretation [...] DIALYSIS PATIEN TS. LACTIC ACID, ARTERIAL, WHOLE [id number] 03:42:00 Test Item Value Reference Range Interpretation Comments LACTATE BLOOD ARTERIAL (2) 0.9 mmol/L 0.5-2.2 (BEAKER) (test code = 2874) Effective 10/21/2015: Units/Reference Range ChangeNew: 0.5-2.2 mmol/L Previous: 5-20 mg/dLCALCIUM, [id number] 03:39:00 Test Item Value Reference Range Interpretation Comments CALCIUM IONIZED (BEAKER) (test 1.15 mmol/L 1.12-1.27 code = 698) PH, BLOOD (BEAKER) (test code = 7.42 1810) CBC W/PLT COUNT & AUTO [id number] 03:36:00 Test Item Value Reference Range Interpretation [...] (BEAKER) (test code = 2801) OXYGEN SATURATION, [id number] 03:35:00 Test Item Value Reference Range Interpretation Comments O2 SATURATION (MEASURED) (BEAKER) 64.0 % (test code = 1455) POCT-GLUCOSE [id number] 01:07:00 Test Item Value Reference Range Interpretation Comments POC-GLUCOSE METER 96 mg/dL 70-[address] [facility] 6720 (BEAKER) (test code = [place] [address]38) BLOOD GAS, [id number] 12:28:00 Test Item Value Reference Range Interpretation [...] 60.0 % RAD, CHEST, 1 VIEW, NON [id number] 11:05:00Reason for exam:->Post-OpShould this be performed at the bedside?->YesFINAL REPORT Chest one view AP 05/08/2017 11:05 AM CLINICAL INDICATION: Post-Op COMPARISON: 05/02/2017 IMPRESSION: Support hardware is in satisfactory radiographic position. Cardiomediastinal contours are stable. The central pulmonary vasculature is not engorged. The lungs are clear, save for scattered foci of linear atelectasis. Signed: Wang Kaiser Verified Date/Time: 05/08/2017 11:05:58 Reading Location: [facility] Radiology Reading Room [id number] 11:03:00 Test Item Value Reference Range Interpretation Comments MAGNESIUM (BEAKER) (test code = 2.0 mg/dL 1.6-2.6 627) BASIC METABOLIC [id number] 11:03:00 Test Item Value Reference Range Interpretation [...] DIALYSIS PATIEN TS. LACTIC ACID, ARTERIAL, WHOLE [id number] 10:58:00 Test Item Value Reference Range Interpretation Comments LACTATE BLOOD ARTERIAL (2) 0.6 mmol/L 0.5-2.2 (BEAKER) (test code = 2874) Effective 10/21/2015: Units/Reference Range ChangeNew: 0.5-2.2 mmol/L Previous: 5-20 mg/dLPT/[id number] 10:57:00 Test Item Value Reference Range Interpretation [...] (BEAKER) (test code = 2801) OXYGEN SATURATION, [id number] 10:44:00 Test Item Value Reference Range Interpretation Comments O2 SATURATION (MEASURED) (BEAKER) 71.8 % (test code = 1455) BLOOD GAS, [id number] 10:42:00 Test Item Value Reference Range Interpretation [...] (test code = 1819) 60.0 % GLUCOSE-STAT [id number] 10:42:00 Test Item Value Reference Range Interpretation Comments GLUCOSE RANDOM (BEAKER) (test code 112 mg/dL 70-110 H = 652) SODIUM NA-STAT [id number] 10:41:00 Test Item Value Reference Range Interpretation Comments SODIUM (BEAKER) (test code = 381) 137 meq/L 135-148 POTASSIUM-STAT [id number] 10:41:00 Test Item Value Reference Range Interpretation Comments POTASSIUM (BEAKER) (test code = 4.2 meq/L 3.6-5.5 379) HGB/HCT (H&H) - STAT [id number] 10:41:00 Test Item Value Reference Range Interpretation Comments HEMOGLOBIN (BEAKER) (test code = 14.4 g/dL 13.0-16.8 410) HEMATOCRIT (BEAKER) (test code = 42.0 % 40.0-50.0 411) CALCIUM, [id number] 10:41:00 Test Item Value Reference Range Interpretation Comments CALCIUM IONIZED (BEAKER) (test 1.23 mmol/L 1.12-1.27 code = 698) PH, BLOOD (BEAKER) (test code = 7.37 1810) CALCIUM, [id number] 09:43:00 Test Item Value Reference Range Interpretation Comments CALCIUM IONIZED (BEAKER) (test 1.25 mmol/L 1.12-1.27 code = 698) PH, BLOOD (BEAKER) (test code = 7.32 1810) SODIUM NA-STAT [id number] 09:42:00 Test Item Value Reference Range Interpretation Comments SODIUM (BEAKER) (test code = 381) 138 meq/L 135-148 POTASSIUM-STAT [id number] 09:42:00 Test Item Value Reference Range Interpretation Comments POTASSIUM (BEAKER) (test code = 3.8 meq/L 3.6-5.5 379) BLOOD GAS, [id number] 09:42:00 Test Item Value Reference Range Interpretation [...] (test code = 1819) 61.0 % GLUCOSE-STAT [id number] 09:42:00 Test Item Value Reference Range Interpretation Comments GLUCOSE RANDOM (BEAKER) (test code 112 mg/dL 70-110 H = 652) HGB/HCT (H&H) - STAT [id number] 09:42:00 Test Item Value Reference Range Interpretation Comments HEMOGLOBIN (BEAKER) (test code = 13.1 g/dL 13.0-16.8 410) HEMATOCRIT (BEAKER) (test code = 39.0 % 40.0-50.0 L 411) SODIUM NA-STAT [id number] 08:37:00 Test Item Value Reference Range Interpretation Comments SODIUM (BEAKER) (test code = 381) 137 meq/L 135-148 POTASSIUM-STAT [id number] 08:37:00 Test Item Value Reference Range Interpretation Comments POTASSIUM (BEAKER) (test code = 3.9 meq/L 3.6-5.5 379) HGB/HCT (H&H) - STAT [id number] 08:37:00 Test Item Value Reference Range Interpretation Comments HEMOGLOBIN (BEAKER) (test code = 15.2 g/dL 13.0-16.8 410) HEMATOCRIT (BEAKER) (test code = 45.0 % 40.0-50.0 411) CALCIUM, [id number] 08:37:00 Test Item Value Reference Range Interpretation Comments CALCIUM IONIZED (BEAKER) (test 1.15 mmol/L 1.12-1.27 code = 698) PH, BLOOD (BEAKER) (test code = 7.37 1810) BLOOD GAS, [id number] 08:37:00 Test Item Value Reference Range Interpretation [...] (test code = 1819) 64.0 % GLUCOSE-STAT [id number] 08:37:00 Test Item Value Reference Range Interpretation Comments GLUCOSE RANDOM (BEAKER) (test code 111 mg/dL 70-110 H = 652) HEMOGLOBIN [id number] 12:07:00 Test Item Value Reference Range Interpretation Comments HEMOGLOBIN A1C (BEAKER) (test code = 5.6 % 4.3-6.1 368) RAD, CHEST, 2 [id number] 11:17:00Reason for Exam:->Pre-OpFINAL REPORT Chest x-ray, PA [...] [place] Verified Date/Time: 05/02/2017 11:17:15 Reading Location: [facility] Radiology Reading Room Electronically signed by: ITZEL ASTUDILLO M.D. on05/02/2017 11:17 AMBASIC METABOLIC [id number] 11:09:00 Test Item Value Reference Range Interpretation [...] NOT APPLICABLE FOR DIALYSIS PATIEN TS. PROTHROMBIN TIME/[id number] 11:05:00 Test Item Value Reference Range Interpretation [...]
== END 2020-03-25 16:55 | disposition home or self-care (01) ==
LOC: ER 14:34
DX: R19.7 Diarrhea, unspecified (principal); Z85.118 Personal history of other malignant neoplasm of bronchus and lung
CPT/HCPCS: 96361; 85025; 80048; 36415; 83735; 85610; 80076; 83690; 71275; 74175; 96375; 96374; 99284; Q9967; J2405

== ENCOUNTER 2020-06-09 03:14 | Emergency (ER) | payer OTHER ==
--- OUTSIDE RECORDS SUMMARY | 2020-06-09 03:17 | XMS REPORT | Clinical Summary ---
:1955 Author Organization [facility] Address [address] [place] [address] Care Team Providers Name Role Phone Teo Linares Primary Care Provider Jose Antonio Medrano Unavailable Allergies Active Allergy Reactions Severity Noted [...] oz/Week Comments Yes 24 Cans of beer 24.0 Sex Assigned at Date Recorded Not on file Last Filed Vital Signs Not on file Plan of Treatment Health Maintenance Due Date Last Done Comments COLON CANCER SCREENING COLONOSCOPY 1955 LIPID PANEL 1989 PNEUMOCOCCAL 65+ YRS (1 of 1 - [id number] PCV13) 2019 INFLUENZA VACCINE (#1) 2020 Implants Implanted Type Area Recruitment Manager Device Shelf Model / Identifier Expiration Serial / Date Lot Grft Vasc Knit Gld [id number] - Sna Graft/Pa N/A: GETING E 07/19/2019 [id number] / Implanted: Qty: 1 on 05/08/2017 by Sae Fulton MD at [facility] Aorta IND:MAQUET:CV NA / [id number] Description:ABDOMINAL AORTIC ARTERY Results Not on fileafter 06/09/2019 Insurance Payer Benefit Plan / Subscriber ID Effective Dates Phone Addre ss Type Group CIGNA - MGD CARE CIGNA PPO [id number] 2016-Present PPO Advance Directives For more information, please contact: [phone] Code Status Date Activated Date Inactivated Comments Full Code 05/08/2017 5:38 AM 05/14/2017 2:07 PM This code status was determined by: Patient
--- OUTSIDE RECORDS SUMMARY | 2020-06-09 03:18 | XMS REPORT | Continuity of Care Document ---
:1955 Author Organization [facility] t Address [address] [place] [address] Care Team Providers Name Role Phone Vijay Teo Primary Care Physician RABIA HERRERA Attending Clinician [...] Smoker Smoker Disease Active 2016-[address] [facility] 00 [place] Aneurysm Aneurysm Disease Active [facility] Postoperat Postoperat Disease Active C [facility] [...] Date Stop Date Source Natural mother COPD [facility] Social History Social Habit Start Date Stop Date Quantity Comments Source Sex Assigned At [facility] Cigarettes smoked 2017-05-10 2017-05-[address] [facility] - current (pack per 00:00:00 00:00:00 [facility] day) - Reported Cigarette 2017-05-10 2017-05-10 NASR[facility] Sams - pack-years 00:00:00 00:00:00 [facility] Tobacco use and 2017-05-10 2017-05-10 Never used [facility] - exposure 00:00:00 00:00:00 [facility] Alcohol intake 2017-05-10 2017-05-10 Current drinker NASRIN Vaughan - 00:00:00 00:00:00 of alcohol [facility] (finding) Smoking Status Start Date Stop Date Source Current every day smoker 2017-05-10 00:00:00 [facility] Medications This patient has no known medications. Procedures This patient has no known procedures. Plan of Care Planned Activity Planned Date Details Comments Source Future Scheduled 2020-02-18 INFLUENZA VACCINE (#1) [facility] - Test 00:00:00 [code = INFLUENZA Medical nter VACCINE (#1)] Future Scheduled 2019 PNEUMOCOCCAL 65+ YRS [facility] - Test 00:00:00 (1 of 1 - [facility] [id number] PCV13) [code = PNEUMOCOCCAL 65+ YRS (1 of 1 - [id number] PCV13)] Future Scheduled 1989 Lipid panel [facility] s - Test 00:00:00 (procedure) [code = [facility] [id number]] Future Scheduled 1955 Screening for [facility] [place] [facility] - Test 00:00:00 malignant neoplasm of Medica l Center colon (procedure) [code = 560272983] Results Test Description Test Time Test Comments Results Result Sour e Comments CT, CTA ABDOMEN, 2017-09-25 Addendum BeginsREPORT AAA PROTOCOL 14:34:00 STATUS:A Addendum: I agree with the previously described non vascular findings by Dr. Castro. Signed: Nathan Johnston MDReport Verified Date/Time: 09/25/2017 14:34:58 Reading Location: [facility] P048 Angio Body Reading RoomAddendum EndsFINAL REPORT CT [...] and during intravenous contrast administration using a [employer] CT scanner. Images were obtained before and during the dynamic passage of intravenous contrast material. Multi-planar 3-D volume-rendering reconstruction was performed using an independent workstation interactively by the interpreting physician as well as the 3-D specialist for optimal visualisation of the abdominal aorta, pelvic arteries, and its proximal branches. Please refer to the contrast sheet scanned in the Digi[employer] system for the amount and route of [...] dictated regarding the non-vascular findings by the Injection Molding Machine Operator Radiologist. Signed: Joaquín Castro MDReport Verified Date/Time: 09/25/2017 10:55:28 Reading Location: [place] [address] Cardiology MRI -CREATININE 2017-09-25 09:56:00 Test Item Value Reference Range Interpretation Comme [facility] POC-CREATININE (BEAKER) (test 0.7 mg/dL 0.6-1.3 TESTED AT [place] [address] code = 1859) [facility] [address] POC-EGFR (BEAKER) (test code = 114 mL/min/1.73M2 1860) CT, CTA, [id number] 09:31:00Addendum BeginsREPORT STATUS:A Addendum: I agree with the previously described non vascular findings. Signed: Maryellen Stiles MDReport Verified Date/Time: 09/05/2017 09:31:21 Reading Location: [place] [id number] Angio Body Reading RoomAddendum EndsFINAL REPORT CT [...] the dynamic passage of intravenous contrast material. [id number]-I volume- rendering reconstruction was performed using an [...] dictated regarding the non-vascular findings by the Injection Molding Machine Operator Radiologist. Signed: Joaquín Castro Verified Date/Time: 09/04/2017 17:13:07 Reading Location: [place] [address] Cardiology MRI -[id number] 14:44:00 Test Item Value Reference Range Interpretation Comments POC-CREATININE 0.8 mg/dL 0.6-1.[address] [facility] [address] ([facility]) (test [place] code = 1859) [address] POC-EGFR ([facility]) 98 mL/min/1.73M2 (test code = 1860) BASIC METABOLIC [id number] 07:48:00 Test Item Value Reference Range Interpretation Comments SODIUM ([facility]) 139 meq/L 136-145 (test code = 381) [...] PATIEN TS. CBC W/PLT COUNT & AUTO [id number] 07:14:00 Test Item Value Reference Range Interpretation [...] = 2801) CBC W/PLT COUNT & AUTO [id number] 07:30:00 Test Item Value Reference Range Interpretation [...] (BEAKER) (test code = 2801) BASIC METABOLIC [id number] 07:26:00 Test Item Value Reference Range Interpretation [...] NOT APPLICABLE FOR DIALYSIS PATIEN TS. POCT-GLUCOSE [id number] 08:28:00 Test Item Value Reference Range Interpretation Comments POC-GLUCOSE METER 90 mg/dL 70-110 TESTED AT [facility] 67[address] (BEAKER) (test code = [place] [address] 1538) CBC W/PLT COUNT & AUTO [id number] 06:41:00 Test Item Value Reference Range Interpretation [...] (BEAKER) (test code = 2801) BASIC METABOLIC [id number] 06:11:00 Test Item Value Reference Range Interpretation [...] NOT APPLICABLE FOR DIALYSIS PATIEN TS. POCT-GLUCOSE [id number] 03:06:00 Test Item Value Reference Range Interpretation Comments POC-GLUCOSE METER 86 mg/dL 70-110 TESTED AT [facility] [address] [facility] (test code = [facility] [address] 1538) POCT-GLUCOSE [id number] 17:51:00 Test Item Value Reference Range Interpretation Comments POC-GLUCOSE METER 98 mg/dL 70-110 TESTED AT [facility] 67[address] ([facility]) (test code = [facility] [address]38) URINALYSIS W/ REFLEX URINE [id number] 12:37:00 Test Item Value Reference Range Interpretation [...] 516) SOURCE(BEAKER) (test code = 2795) POCT-GLUCOSE [id number] 12:09:00 Test Item Value Reference Range Interpretation Comments POC-GLUCOSE METER 119 mg/dL 70-110 H TESTED AT [facility] 67[address] (BEAKER) (test code = [place] 1538) [address] BASIC METABOLIC [id number] 09:23:00 Test Item Value Reference Range Interpretation [...] NOT APPLICABLE FOR DIALYSIS PATIEN TS. POCT-GLUCOSE [id number] 08:41:00 Test Item Value Reference Range Interpretation Comments POC-GLUCOSE METER 114 mg/dL 70-110 H TESTED AT [facility] 67[address] (AKER) (test code = [place] 1538) [address] RAD, CHEST, 1 VIEW, NON [id number] 07:48:00Reason for exam:->Post-OpShould this be performed at the bedside?->YesFINAL REPORT Chest one view AP 05/10/2017 7:47 AM CLINICAL INDICATION: Post-Op COMPARISON: 05/09/2017 IMPRESSION: There is bibasilar atelectasis. There is a trace left pleural effusion. Cardiomediastinal contours are within normal limits. The central pulmonary vasculature is notengorged. An enteric tube is present. Signed: Wang Jung Verified Date/Time: 05/10/2017 07:48:05 Reading Location: [facility] Radiology Reading Room CBC W/PLT COUNT & AUTO [id number] 07:36:00 Test Item Value Reference Range Interpretation [...] % 0-1 PERCENT (BEAKER) (test code = 2809) POCT-GLUCOSE [id number] 22:44:00 Test Item Value Reference Range Interpretation Comments POC-GLUCOSE METER 128 mg/dL 70-110 H TESTED AT [place] [address] ([facility]) (test code = [place] 1538) [address] POCT-GLUCOSE [id number] 17:22:00 Test Item Value Reference Range Interpretation Comments POC-GLUCOSE METER 106 mg/dL 70-110 TESTED AT [place] [address] ([facility]) (test code = [place] [facility] 1538) [address] RAD, ABDOMEN/KUB, 1 VIEW [id number] 12:38:00Reason for exam:->ileusFINAL REPORT Abdomen two views supine 05/09/2017 12:38 PM CLINICAL INDICATION: ileus COMPARISON: None available IMPRESSION: There is no radiographic evidence for bowel obstruction. There is mild ileus. No abnormal calcifications are seen in the region of the gallbladder or kidneys. There are no acute-appearing skeletal abnormalities. Signed: Wang Jungort Verified Date/Time: 05/09/2017 12:38:47 Reading Location: [place] [id number] Consult Reading Room POCT-GLUCOSE [id number] 12:19:00 Test Item Value Reference Range Interpretation Comments POC-GLUCOSE METER 102 mg/dL 70-110 TESTED AT [place] [address] ([facility]) (test code = [place] [facility] 1538) [address] POCT-GLUCOSE [id number] 06:45:00 Test Item Value Reference Range Interpretation Comments POC-GLUCOSE METER 104 mg/dL 70-110 TESTED AT [place] [address] ([facility]) (test code = [place] [facility] 1538) [address] RAD, CHEST, 1 VIEW, NON [id number] 05:01:00Reason for exam:->Post-OpShould this be performed at [...] evidence of a significant pneumothorax. Signed: Solomon Peresort Verified Date/Time: 05/09/2017 05:01:39 Reading Location: [facility] C013T Tra nsitional Reading Room [id number] 03:47:00 Test Item Value Reference Range Interpretation Comments PHOSPHORUS (BEAKER) (test code = 2.7 mg/dL 2.3-4.7 604) [id number] 03:47:00 Test Item Value Reference Range Interpretation Comments MAGNESIUM (BEAKER) (test code = 1.8 mg/dL 1.6-2.6 627) BASIC METABOLIC [id number] 03:47:00 Test Item Value Reference Range Interpretation [...] DIALYSIS PATIEN TS. LACTIC ACID, ARTERIAL, WHOLE [id number] 03:42:00 Test Item Value Reference Range Interpretation Comments LACTATE BLOOD ARTERIAL (2) 0.9 mmol/L 0.5-2.2 (BEAKER) (test code = 2874) Effective 10/21/2015: Units/Reference Range ChangeNew: 0.5-2.2 mmol/L Previous: 5-20 mg/dLCALCIUM, [id number] 03:39:00 Test Item Value Reference Range Interpretation Comments CALCIUM IONIZED (BEAKER) (test 1.15 mmol/L 1.12-1.27 code = 698) PH, BLOOD (BEAKER) (test code = 7.42 1810) CBC W/PLT COUNT & AUTO [id number] 03:36:00 Test Item Value Reference Range Interpretation [...] (BEAKER) (test code = 2801) OXYGEN SATURATION, [id number] 03:35:00 Test Item Value Reference Range Interpretation Comments O2 SATURATION (MEASURED) (BEAKER) 64.0 % (test code = 1455) POCT-GLUCOSE [id number] 01:07:00 Test Item Value Reference Range Interpretation Comments POC-GLUCOSE METER 96 mg/dL 70-110 TESTED AT [facility] 6720 (BEAKER) (test code = [place] [facility] [address]38) BLOOD GAS, [id number] 12:28:00 Test Item Value Reference Range Interpretation [...] 60.0 % RAD, CHEST, 1 VIEW, NON [id number] 11:05:00Reason for exam:->Post-OpShould this be performed at the bedside?->YesFINAL REPORT Chest one view AP 05/08/2017 11:05 AM CLINICAL INDICATION: Post-Op COMPARISON: 05/02/2017 IMPRESSION: Support hardware is in satisfactory radiographic position. Cardiomediastinal contours are stable. The central pulmonary vasculature is not engorged. The lungs are clear, save for scattered foci of linear atelectasis. Signed: Wang Jung Verified Date/Time: 05/08/2017 11:05:58 Reading Location: [facility] Radiology Reading Room [id number] 11:03:00 Test Item Value Reference Range Interpretation Comments MAGNESIUM (BEAKER) (test code = 2.0 mg/dL 1.6-2.6 627) BASIC METABOLIC [id number] 11:03:00 Test Item Value Reference Range Interpretation [...] DIALYSIS PATIEN TS. LACTIC ACID, ARTERIAL, WHOLE [id number] 10:58:00 Test Item Value Reference Range Interpretation Comments LACTATE BLOOD ARTERIAL (2) 0.6 mmol/L 0.5-2.2 (BEAKER) (test code = 2874) Effective 10/21/2015: Units/Reference Range ChangeNew: 0.5-2.2 mmol/L Previous: 5-20 mg/dLPT/[id number] 10:57:00 Test Item Value Reference Range Interpretation [...] (BEAKER) (test code = 2801) OXYGEN SATURATION, [id number] 10:44:00 Test Item Value Reference Range Interpretation Comments O2 SATURATION (MEASURED) (BEAKER) 71.8 % (test code = 1455) BLOOD GAS, [id number] 10:42:00 Test Item Value Reference Range Interpretation [...] (test code = 1819) 60.0 % GLUCOSE-STAT [id number] 10:42:00 Test Item Value Reference Range Interpretation Comments GLUCOSE RANDOM (BEAKER) (test code 112 mg/dL 70-110 H = 652) SODIUM NA-STAT [id number] 10:41:00 Test Item Value Reference Range Interpretation Comments SODIUM (BEAKER) (test code = 381) 137 meq/L 135-148 POTASSIUM-STAT [id number] 10:41:00 Test Item Value Reference Range Interpretation Comments POTASSIUM (BEAKER) (test code = 4.2 meq/L 3.6-5.5 379) HGB/HCT (H&H) - STAT [id number] 10:41:00 Test Item Value Reference Range Interpretation Comments HEMOGLOBIN (BEAKER) (test code = 14.4 g/dL 13.0-16.8 410) HEMATOCRIT (BEAKER) (test code = 42.0 % 40.0-50.0 411) CALCIUM, [id number] 10:41:00 Test Item Value Reference Range Interpretation Comments CALCIUM IONIZED (BEAKER) (test 1.23 mmol/L 1.12-1.27 code = 698) PH, BLOOD (BEAKER) (test code = 7.37 1810) CALCIUM, [id number] 09:43:00 Test Item Value Reference Range Interpretation Comments CALCIUM IONIZED (BEAKER) (test 1.25 mmol/L 1.12-1.27 code = 698) PH, BLOOD (BEAKER) (test code = 7.32 1810) SODIUM NA-STAT [id number] 09:42:00 Test Item Value Reference Range Interpretation Comments SODIUM (BEAKER) (test code = 381) 138 meq/L 135-148 POTASSIUM-STAT [id number] 09:42:00 Test Item Value Reference Range Interpretation Comments POTASSIUM (BEAKER) (test code = 3.8 meq/L 3.6-5.5 379) BLOOD GAS, [id number] 09:42:00 Test Item Value Reference Range Interpretation [...] (test code = 1819) 61.0 % GLUCOSE-STAT [id number] 09:42:00 Test Item Value Reference Range Interpretation Comments GLUCOSE RANDOM (BEAKER) (test code 112 mg/dL 70-110 H = 652) HGB/HCT (H&H) - STAT [id number] 09:42:00 Test Item Value Reference Range Interpretation Comments HEMOGLOBIN (BEAKER) (test code = 13.1 g/dL 13.0-16.8 410) HEMATOCRIT (BEAKER) (test code = 39.0 % 40.0-50.0 L 411) SODIUM NA-STAT [id number] 08:37:00 Test Item Value Reference Range Interpretation Comments SODIUM (BEAKER) (test code = 381) 137 meq/L 135-148 POTASSIUM-STAT [id number] 08:37:00 Test Item Value Reference Range Interpretation Comments POTASSIUM (BEAKER) (test code = 3.9 meq/L 3.6-5.5 379) HGB/HCT (H&H) - STAT [id number] 08:37:00 Test Item Value Reference Range Interpretation Comments HEMOGLOBIN (BEAKER) (test code = 15.2 g/dL 13.0-16.8 410) HEMATOCRIT (BEAKER) (test code = 45.0 % 40.0-50.0 411) CALCIUM, [id number] 08:37:00 Test Item Value Reference Range Interpretation Comments CALCIUM IONIZED (BEAKER) (test 1.15 mmol/L 1.12-1.27 code = 698) PH, BLOOD (BEAKER) (test code = 7.37 1810) BLOOD GAS, [id number] 08:37:00 Test Item Value Reference Range Interpretation [...] (test code = 1819) 64.0 % GLUCOSE-STAT [id number] 08:37:00 Test Item Value Reference Range Interpretation Comments GLUCOSE RANDOM (BEAKER) (test code 111 mg/dL 70-110 H = 652) HEMOGLOBIN [id number] 12:07:00 Test Item Value Reference Range Interpretation Comments HEMOGLOBIN A1C (BEAKER) (test code = 5.6 % 4.3-6.1 368) RAD, CHEST, 2 [id number] 11:17:00Reason for Exam:->Pre-OpFINAL REPORT Chest x-ray, PA [...] Astudilloeport Verified Date/Time: 05/02/2017 11:17:15 Reading Location: [facility] Radiology Reading Room Electronically signed by: ITZEL ASTUDILLO M.D. on05/02/2017 11:17 AMBASIC METABOLIC [id number] 11:09:00 Test Item Value Reference Range Interpretation [...] NOT APPLICABLE FOR DIALYSIS PATIEN TS. PROTHROMBIN [id number] 11:05:00 Test Item Value Reference Range Interpretation [...]
[2020-06-09] MEDS ORDERED: ACETAMINOPHEN 500 MG TAB ONE (04:52)
[2020-06-09] MEDS ORDERED: AZITHROMYCIN 500 MG INJ IVPB ONE (04:52)
[2020-06-09 04:53] LABS: Absolute Lymphocytes (CBC) 0.2 K/uL (0.7-4.9); Basophils % 0.2 % (0-1.3); Hematocrit 30.7 % (39.6-49.0); Lymphocytes % 1.4 % (15.3-44.8); MPV 8.1 fL (7.6-11.3); RBC Red Blood Cell Count 3.23 M/uL (4.33-5.43)
[2020-06-09] MEDS ORDERED: NA CHLORIDE 0.9% 250 ML ONE (04:53)
[2020-06-09] MEDS ORDERED: NA CHLORIDE 0.9% 1,000 ML ONE (04:53)
[2020-06-09] MEDS ORDERED: CEFTRIAXONE/SWI 1gm 1 GM/10 ML SYR ONE (04:53)
[2020-06-09 04:57] LABS: Protime INR 1.16
[2020-06-09 05:07] LABS: ALT/SGPT 15 U/L (12-78); AST/SGOT 12 U/L (15-37); Albumin 3.2 g/dL (3.4-5.0); Alkaline Phosphatase 76 U/L (45-117); Amylase 21 U/L (25-115); BUN Blood Urea Nitrogen 10 mg/dL (7-18); Bicarbonate 26 mmol/L (21-32); Bilirubin Direct 0.3 mg/dL (0-0.2); Bilirubin Total 0.8 mg/dL (0.2-1.0); CKMB Creatine Kinase MB < 1.0 ng/mL (0.3-3.6); Creatine Phosphokinase 47 U/L (39-308); Glucose Level 147 mg/dL (74-106); Lipase 58 U/L (73-393); Potassium 3.7 mmol/L (3.5-5.1); Sodium Level 136 mmol/L (136-145); Troponin (Emerg Dept Use Only) < 0.02 ng/mL (0.0-0.045)
[2020-06-09 06:05] LABS: Anisocytosis 1+; Blood Morphology Comment NOTED (NOT SEEN); Platelet Estimate ADEQ
--- NOTE | 2020-06-09 06:32 | ER ---
Nurse's Notes [facility] Name: Sae Cardozo Age: 64 yrs Sex: Male : 1955 Arrival Date: 06/09/2020 Time: 03:19 Bed 15 Private MD: Diagnosis: Pneumonia due to other specified infectious organisms Presentation: 06/09 03:54 Chief complaint: Patient states: passed out PIN DRAFTER when getting up to use the restroom. Pt dm5 is receiving cancer treatments and is immunocompromised. Pt states it hurts when he takes a deep breath and has been running intermittent low grade fever each night x 3 nights. Coronavirus screen: Client denies travel out of the [place] in the last 14 days. fever, Client presents with at least one sign or symptom that may indicate coronavirus-19. Standard/surgical mask placed on the client. Ebola Screen: Patient negative for fever greater than or equal to 101.5 degrees Fahrenheit, and additional compatible Ebola Virus Disease symptoms Patient denies exposure to infectious person. Patient denies travel to an Ebola-affected area in the 21 days before illness onset. No symptoms or risks identified at this time. Initial Sepsis Screen: Does the patient meet any 2 criteria? RR > 20 per min. HR > 90 bpm. Yes Does the patient have a suspected source of infection? Yes: Productive cough/pneumonia. Risk Assessment: Do you want to hurt yourself or someone else? Patient reports no desire to harm self or others. Onset of symptoms was June 06, 2020. 03:54 Method Of Arrival: Ambulatory dm5 03:54 Acuity: JIMMIE 2 dm5 Historical: - Allergies: 04:02 No Known Allergies; dm5 - PMHx: 04:02 AAA; Cancer, Lung; COPD; dm5 - PSHx: 04:02 AAA Repair; dm5 - Immunization history:: Adult Immunizations up to date. - Social history:: Patient/guardian denies using alcohol, street drugs, The patient lives with spouse, Smoking status: unknown. - Family history:: not pertinent. Screenin:00 Abuse screen: Denies threats or abuse. Nutritional screening: No deficits noted. ll2 Tuberculosis screening: No symptoms or risk factors identified. Fall Risk None identified. Assessment: 03:55 General: Appears in no apparent distress. Behavior is calm, cooperative, appropriate ll2 for age. Pain: Denies pain. Neuro: Level of Consciousness is awake, alert, obeys commands, Oriented to person, place, time, situation. Cardiovascular: Patient's skin is warm and dry. Respiratory: Airway is patent Respiratory effort is even, unlabored, Respiratory pattern is regular, symmetrical. GI: No signs and/or symptoms were reported involving the gastrointestinal system. : No signs and/or symptoms were reported regarding the genitourinary system. EENT: No signs and/or symptoms were reported regarding the EENT system. Derm: Skin is intact, has skin tears on 1 inch circular tear noted to patients right forearm Skin is dry, Skin is pink, warm \T\ dry. Musculoskeletal: Circulation, motion, and sensation intact. Range of motion: intact in all extremities. 04:50 Reassessment: Patient and/or family updated on plan of care and expected duration. Pain ll2 level reassessed. Patient is alert, oriented x 3, equal unlabored respirations, skin warm/dry/pink. 06:31 Reassessment: ERD to bedside discussing plans for D/C. ll2 Vital Signs: 03:54 BP 103 / 76; Pulse 132; Resp 22; Temp 100.3; dm5 04:00 Pulse Ox 96% on R/A; dm5 04:00 BP 92 / 75; Pulse 124; Resp 19; Temp 100; Pulse Ox 97% on R/A; ll2 05:00 BP 89 / 67; Pulse 107; Resp 18; Pulse Ox 95% on R/A; ll2 06:00 BP 96 / 67; Pulse 100; Resp 18; Pulse Ox 95% on R/A; ll2 ED Course: 03:19 Patient arrived in ED. bp1 03:54 Christopher Busby MD is Attending Physician. ma2 03:58 Triage completed. dm5 04:16 Chest Single View XRAY In Process Unspecified. EDMS 04:24 Carolyn Steward, [place] is Primary Nurse. ll2 04:30 Inserted saline lock: 20 gauge in right forearm, using aseptic technique. Blood ea collected. 04:33 Initial lab(s) drawn, by me, sent to lab. First set of blood cultures drawn by me. ea 05:00 Arm band placed on right wrist. ll2 05:48 CT Chest For PE Angio In Process Unspecified. EDMS 06:00 Patient has correct armband on for positive identification. Placed in gown. Bed in low ll2 position. Call light in reach. Side rails up X 1. Pulse ox on. NIBP on. 06:52 No provider procedures requiring assistance completed. IV discontinued, intact, ll2 bleeding controlled, No redness/swelling at site. Pressure dressing applied. Administered Medications: 05:10 Drug: Rocephin 1 grams Route: IV; Rate: calculated rate; Site: left antecubital; ll2 05:10 Drug: AZITHromycin 500 mg Route: IVPB; Infused Over: 1 hrs; Site: left antecubital; ll2 06:15 Follow up: Response: No adverse reaction; IV Status: Completed infusion; IV Intake: ll2 250ml 05:13 Drug: Acetaminophen 1000 mg Route: PO; ll2 05:13 CANCELLED (Physician Discretion): NS 0.9% (30 ml/kg) 30 ml/kg IV at bolus once; Sepsis ll2 Protocol 05:13 Drug: NS 0.9% 1000 ml Route: IV; Rate: 1 bolus; Site: left antecubital; ll2 06:20 Follow up: Response: No adverse reaction; IV Status: Completed infusion; IV Intake: ll2 1000ml Intake: 06:15 IV: 250ml; Total: 250ml. ll2 06:20 IV: 1000ml; Total: 1250ml. ll2 Outcome: 06:32 Discharge ordered by . ma2 06:52 Discharged to home ambulatory. ll2 06:52 Condition: stable 06:52 Discharge instructions given to patient, Instructed on discharge instructions, follow up and referral plans. medication usage, Demonstrated understanding of instructions, follow-up care, medications, Prescriptions given X 1. 06:53 Patient left the ED. ll2 Signatures: Dispatcher [employer] EDMS Halle Parra RN RN dm5 Antunez, Elena RN Christopher Pickens ea, MD MD ma2 [place], Lacie, RN RN ll2 Hallie Castaneda
--- NOTE | 2020-06-09 06:32 | EDPHYS ---
Physician Documentation [facility] Name: Sae Cardozo Age: 64 yrs Sex: Male : 1955 Arrival Date: 06/09/2020 Time: 03:19 Bed 15 Private MD: ED Physician Christopher Busby HPI: 06/09 04:47 This 64 yrs old Male presents to ER via Ambulatory with complaints of Passed ma2 Out Prior To Arrival, General Weakness. 04:47 The patient has experienced near-syncope. Onset: The symptoms/episode began/occurred ma2 gradually, 1 day(s) ago. Duration: This was a single episode. Associated signs and symptoms: Pertinent negatives: ataxia, chest pain, confusion, dizziness, headache. Current symptoms: Currently, the patient is not experiencing any symptoms. The patient has not experienced similar symptoms in the past. Historical: - Allergies: 04:02 No Known Allergies; dm5 - PMHx: 04:02 AAA; Cancer, Lung; COPD; dm5 - PSHx: 04:02 AAA Repair; dm5 - Immunization history:: Adult Immunizations up to date. - Social history:: Patient/guardian denies using alcohol, street drugs, The patient lives with spouse, Smoking status: unknown. - Family history:: not pertinent. ROS: 04:47 Constitutional: Negative for fever, chills, and weight loss. ma2 04:47 All other systems are negative. Exam: 04:47 Abdomen/GI: Exam negative for ma2 04:47 Constitutional: This is a well developed, well nourished patient who is awake, alert, and in no acute distress. Head/Face: Normocephalic, atraumatic. Eyes: Pupils equal round and reactive to light, extra-ocular motions intact. Lids and lashes normal. Conjunctiva and sclera are non-icteric and not injected. Cornea within normal limits. Periorbital areas with no swelling, redness, or edema. ENT: Nares patent. No nasal discharge, no septal abnormalities noted. Tympanic membranes are normal and external auditory canals are clear. Oropharynx with no redness, swelling, or masses, exudates, or evidence of obstruction, uvula midline. Mucous membranes moist. Neck: Trachea midline, no thyromegaly or masses palpated, and no cervical lymphadenopathy. Supple, full range of motion without nuchal rigidity, or vertebral point tenderness. No Meningismus. Chest/axilla: Normal chest wall appearance and motion. Nontender with no deformity. No lesions are appreciated. Cardiovascular: Regular rate and rhythm with a normal S1 and S2. No gallops, murmurs, or rubs. Normal PMI, no JVD. No pulse deficits. Respiratory: Lungs have equal breath sounds bilaterally, clear to auscultation and percussion. No rales, rhonchi or wheezes noted. No increased work of breathing, no retractions or nasal flaring. Abdomen/GI: Soft, non-tender, with normal bowel sounds. No distension or tympany. No guarding or rebound. No evidence of tenderness throughout. MS/ Extremity: Pulses equal, no cyanosis. Neurovascular intact. Full, normal range of motion. Neuro: Awake and alert, GCS 15, oriented to person, place, time, and situation. Cranial nerves II-XII grossly intact. Motor strength 5/5 in all extremities. Sensory grossly intact. Cerebellar exam normal. Normal gait. Vital Signs: 03:54 BP 103 / 76; Pulse 132; Resp 22; Temp 100.3; dm5 04:00 Pulse Ox 96% on R/A; dm5 04:00 BP 92 / 75; Pulse 124; Resp 19; Temp 100; Pulse Ox 97% on R/A; ll2 05:00 BP 89 / 67; Pulse 107; Resp 18; Pulse Ox 95% on R/A; ll2 06:00 BP 96 / 67; Pulse 100; Resp 18; Pulse Ox 95% on R/A; ll2 MDM: 03:56 Patient medically screened. [facility] 06:27 Differential Diagnosis: cardiac arrhythmia, emotional response, transient ischemic ma2 attack, vasovagal episode. 06:30 Data reviewed: vital signs, nurses notes. Counseling: I had a detailed discussion with ma2 the patient and/or guardian regarding: the historical points, exam findings, and any diagnostic results supporting the discharge/admit diagnosis, the presence of at least one elevated blood pressure reading (>120/80) during this emergency department visit. Response to treatment: the patient's symptoms have markedly improved after treatment. ED course: has pneumonia.. vs is wnl now, he feels better and want to go home and pursue outpatient management,, he looks good.. he is immunocompetent . 12/22 03:55 Order name: Amylase, Serum; Complete Time: 05:41 vt06/09 03:55 Order name: Basic Metabolic Panel; Complete Time: 05:41 vt06/09 03:55 Order name: Blood Culture Adult (2) [facility] 06/09 03:55 Order name: CBC with Diff; Complete Time: 06:11 [facility] 06/09 03:55 Order name: Ckmb; Complete Time: 05:41 [facility] 06/09 03:55 Order name: CPK; Complete Time: 05:41 vt06/09 03:55 Order name: Lactate; Complete Time: 05:41 vt06/09 03:55 Order name: LFT's; Complete Time: 05:41 vt06/09 03:55 Order name: Lipase; Complete Time: 05:41 06/09 03:55 Order name: Procalcitonin; Complete Time: 05:41 [facility] 06/09 03:55 Order name: Protime (+inr); Complete Time: 05:41 [facility] 06/09 03:55 Order name: Ptt, Activated; Complete Time: 05:41 vt06/09 03:55 Order name: Troponin (emerg Dept Use Only); Complete Time: 05:41 [facility] 06/09 03:55 Order name: Chest Single View XRAY [facility] 06/09 03:55 Order name: Flu; Complete Time: 05:41 vt06/09 03:55 Order name: Strep; Complete Time: 05:41 [facility] 06/09 04:49 Order name: CT Chest For PE Angio [facility] 06/09 05:03 Order name: Manual Differential; Complete Time: 06:11 EDMD 06/09 05:32 Order name: Throat Culture [facility] 06/09 06:28 Order name: SARS-COV-2 RT PCR [facility] 06/09 03:55 Order name: Document PUI#; Complete Time: 04:27 [facility] 06/09 03:55 Order name: Droplet/Contact Precautions; Complete Time: 04:27 [facility] 06/09 03:55 Order name: Notify Health Dept [phone]/ ; Complete Time: 04:27 Administered Medications: 05:10 Drug: Rocephin 1 grams Route: IV; Rate: calculated rate; Site: left antecubital; ll2 05:10 Drug: AZITHromycin 500 mg Route: IVPB; Infused Over: 1 hrs; Site: left antecubital; ll2 06:15 Follow up: Response: No adverse reaction; IV Status: Completed infusion; IV Intake: ll2 250ml 05:13 Drug: Acetaminophen 1000 mg Route: PO; ll2 05:13 CANCELLED (Physician Discretion): NS 0.9% (30 ml/kg) 30 ml/kg IV at bolus once; Sepsis ll2 Protocol 05:13 Drug: NS 0.9% 1000 ml Route: IV; Rate: 1 bolus; Site: left antecubital; ll2 06:20 Follow up: Response: No adverse reaction; IV Status: Completed infusion; IV Intake: ll2 1000ml Disposition: 06/09/20 06:32 Discharged to Home. Impression: Pneumonia due to other specified infectious organisms. - Condition is Stable. - Discharge Instructions: Community-Acquired Pneumonia, Adult. - Prescriptions for Zithromax Z- Corey 250 mg Oral Tablet - take 1 tablet by ORAL route as directed for 5 days Day 1 - take two (2) tablets one time. Day 2, 3, 4 , 5 take one (1) tablet once daily.; 6 tablet. - Medication Reconciliation Form, Thank You Letter, Antibiotic Education, Prescription Opioid Use form. - Follow up: Private Physician; When: Tomorrow; Reason: Continuance of care. Signatures: Dispatcher [employer] Halle Bess RN RN dm5 Christopher Busby MD MD ma2 Carolyn Steward RN RN ll2 Corrections: (The following items were deleted from the chart) 05:13 03:55 NS 0.9% (30 ml/kg) 30 ml/kg IV at bolus once; Sepsis Protocol ordered. vt2 2 05:42 03:57 CORONAVIRUS+LAB.RICHARDZ ordered. [facility] 06:53 06:32 06/09/2020 06:32 Discharged to Home. Impression: Pneumonia due to other specified 2 infectious organisms. Condition is Stable. Forms are Medication Reconciliation Form, Thank You Letter, Antibiotic Education, Prescription Opioid Use. Follow up: Private Physician; When: Tomorrow; Reason: Continuance of care. vt2
--- NOTE | 2020-06-09 07:47 | RAD REPORT ---
EXAM DESCRIPTION: [facility] Single View06/09/2020 4:16 am CLINICAL HISTORY: Chest pain COMPARISON: January 2020 FINDINGS: right upper lobe opacity. The remainder lungs appear clear of acute infiltrate. The heart is mildly enlarged. The aorta is tort uous/ectatic IMPRESSION: Right upper lobe opacity may represent pneumonia or mass
--- NOTE | 2020-06-09 14:53 | RAD REPORT ---
EXAM DESCRIPTION: CT - Chest For Pe Angio - 06/09/2020 6:56 am CLINICAL HISTORY: Syncope, sob and tachycardia COMPARISON: 03/25/2020 TECHNIQUE: CTA of the chest obtained following the uncomplicated intravenous administration of iodin ated contrast.. 3-D/MIP reformatted images of the chest available for evaluation. The entire left emile g base is not identified on this study. FINDINGS: Chest: Pulmonary arteries: Contrast bolus is adequate.No filling defects identified in the pulmonary arterie s to suggest pulmonary embolus. Thyroid: No abnormalities of the visualized thyroid. Great Vessels: Great vessels have normal anatomic configuration. Thoracic Aorta: Aneurysmal dilation of the ascending thoracic aorta measuring 4.7 cm. Atherosclerotic calcification. Heart: Coronary artery atherosclerosis. Cardiomegaly. Lymph Nodes: No enlarged mediastinal lymph nodes identified. Esophagus: No abnormalities of the esophagus identified. Other: No additional findings. Lungs: Centrilobular emphysematous change. Interval development of posterior right upper lobe airspac e consolidation with somewhat rounded configuration. Left basilar compressive atelectasis. Pleura: No pleural effusion or pneumothorax. Trachea/Airways: No abnormalities of the visualized trachea or airways. Bones: Degenerative endplate spondylosis. Upper Abdomen: Limited images of the upper abdomen demonstrate no definite abnormalities of visualize d portions of the liver and spleen. IMPRESSION: 1. No pulmonary embolus. 2. Interval development right upper lobe airspace opacity with somewhat rounded configuration. Infect ious process is favored given rapid development from 03/25/2020 however, short interval follow-up CT i n 4-6 weeks after treatment of acute illness is recommended. 3. Centrilobular emphysematous change. 4. 4.7 cm ascending thoracic aortic aneurysm. Biannual follow-up recommended. 5. Cardiomegaly with coronary artery atherosclerosis. This exam was performed according to our departmental dose-optimization program, which includes autom ated exposure control, adjustment of the mA and/or kV according to patient size and/or use of iterati ve reconstruction technique. Electronically signed by: Des Flores 06/09/2020 6:14 AM [employer]ILDC[employer] WORKER Due to temporary technical issues with the PACS/Fluency reporting system, reports are being signed by the in house radiologists without review as a courtesy to insure prompt reporting. The interpreting radiologist is fully responsible for the content of the report.
[2020-06-10 06:22] VITALS: TEMP 100
[2020-06-10 06:23] VITALS: O2SAT 95
[2020-06-10 06:24] VITALS: BP 96/67
== END 2020-06-09 06:53 | disposition home or self-care (01) ==
LOC: ER 03:14
DX: J16.8 Pneumonia due to other specified infectious organisms (principal); Z20.828 Contact with and (suspected) exposure to other viral communicable diseases; Z85.118 Personal history of other malignant neoplasm of bronchus and lung
CPT/HCPCS: 96365; 87040 ×2; 87070; 85025; 80048; 36415; 82150; 82550; 85610; 80076; 87081; 83605; 85730; 84484; 82553; 83690; 84145; 87804 ×2; 71275; 71045; 96375; 99284; U0003; Q9967; J0456; J0696; J7050; J7030

== ENCOUNTER 2020-07-15 16:13 | Emergency (ER) | payer OTHER ==
--- OUTSIDE RECORDS SUMMARY | 2020-07-15 16:42 | XMS REPORT | Continuity of Care Document ---
:1955 Author Organization [facility] t Address [address] [place] [address] Care Team Providers Name Role Phone Vijay Teo Primary Care Physician RABIA HERRERA Attending Clinician Unavailable RABIA HERRERA Admitting Clinician Unavailable Problems Condition Condition Condition Status Onset Resolution Last Treating Co mments Source Name Details Category Date Date Treatment Clinician Date Acute Acute Disease Active 2016-06 [facility] pulmonary pulmonary 07-09 Luke s - insufficie insufficie 00:00: Me dical ncy ncy 00 Center following following non-thorac non-thorac ic surgery ic surgery Hyperglyce Hyperglyce Disease Active 2016-[address] [facility]09 [facility] Medical 00 [place] AAA AAA Disease Active 2016-[address] [facility] [address] (abdominal (abdominal 07-08 Courtney kes - aortic aortic 00:00: Medical aneurysm) aneurysm) 00 Cent er Smoker Smoker Disease Active 2016-[address] 07[facility]03 [facility] - [facility] Medical 00 [place] Aneurysm Aneurysm Disease Active [facility] Postoperat Postoperat Disease Active [facility] St [...] Date Stop Date Source Natural mother COPD [facility] - [facility] [place] Social History Social Habit Start Date Stop Date Quantity Comments Source Sex Assigned At [facility] Cigarettes smoked 2017-05-10 2017-05-[address] [facility] [address] [facility] - current (pack per 00:00:00 00:00:00 [facility] day) - Reported Cigarette 2017-05-10 2017-05-10 NASRIN Sams - pack-years 00:00:00 00:00:00 [facility] Tobacco use and 2017-05-10 2017-05-10 Never used [facility] Courtney hogan - exposure 00:00:00 00:00:00 [facility] Alcohol intake 2017-05-10 2017-05-10 Current drinker NASRIN Vaughan - 00:00:00 00:00:00 of alcohol [facility] (finding) Smoking Status Start Date Stop Date Source Current every day smoker 2017-05-10 00:00:00 [facility] Medications This patient has no known medications. Procedures This patient has no known procedures. Plan of Care Planned Activity Planned Date Details Comments Source Future Scheduled 2020-02-18 INFLUENZA VACCINE (#1) [facility] - Test 00:00:00 [code = INFLUENZA Medical nter VACCINE (#1)] Future Scheduled 2019 PNEUMOCOCCAL 65+ YRS [facility] - Test 00:00:00 (1 of 1 - [facility] [id number] PCV13) [code = PNEUMOCOCCAL 65+ YRS (1 of 1 - [id number] PCV13)] Future Scheduled 1989 Lipid panel [facility] St Courtneyke s - Test 00:00:00 (procedure) [code = [facility] [id number]] Future Scheduled 1955 Screening for [facility] St [place] es - Test 00:00:00 malignant neoplasm of Medica l Center colon (procedure) [code = 195273459] Results Test Description Test Time Test Comments Results Result Sour e Comments CT, CTA ABDOMEN, 2017-09-25 Addendum BeginsREPORT AAA PROTOCOL 14:34:00 STATUS:A Addendum: I agree with the previously described non vascular findings by Dr. Castro. Signed: Nathan Johnston MDReport Verified Date/Time: 09/25/2017 14:34:58 Reading Location: [facility] P048 Angio Body Reading RoomAddendum EndsFINAL [...] and during intravenous contrast administration using a [employer] CT scanner. Images were obtained before and during the dynamic passage of intravenous contrast material. Multi-planar 3-D volume-rendering reconstruction was performed using an independent workstation interactively by the interpreting physician as well as the 3-D specialist for optimal visualisation of the abdominal aorta, pelvic arteries, and its proximal branches. Please refer to the contrast sheet scanned in the [employer] system for the amount and route of [...] dictated regarding the non-vascular findings by the Radiator Tester Radiologist. Signed: Joaquín Castroort Verified Date/Time: 09/25/2017 10:55:28 Reading Location: [place] [address] Cardiology MRI -CREATININE 2017-09-25 09:56:00 Test Item Value Reference Range Interpretation Comme [facility] POC-CREATININE (BEAKER) (test 0.7 mg/dL 0.6-1.3 TESTED AT [place] [address] code = 1859) [facility] [address] POC-EGFR (BEAKER) (test code = 114 mL/min/1.73M2 1860) CT, CTA, [id number] 09:31:00Addendum BeginsREPORT STATUS:A Addendum: I agree with the previously described non vascular findings. Signed: Maryellen Stiles MDRjose luisort Verified Date/Time: 09/05/2017 09:31:21 Reading Location: [place] [address] Angio Body Reading RoomAddendum EndsFINAL REPORT CT [...] the dynamic passage of intravenous contrast material. [id number] volume- rendering reconstruction was performed using an [...] dictated regarding the non-vascular findings by the Radiator Tester Radiologist. Signed: Joaquín Castro Verified Date/Time: 09/04/2017 17:13:07 Reading Location: [place] [address] Cardiology MRI -[id number] 14:44:00 Test Item Value Reference Range Interpretation Comments POC-CREATININE 0.8 mg/dL 0.6-1.3 TESTED AT [facility] 67[address] ([facility]) (test [place] code = 1859) [address] POC-EGFR ([facility]) 98 mL/min/1.73M2 (test code = 1860) BASIC METABOLIC [id number] 07:48:00 Test Item Value Reference Range Interpretation Comments SODIUM ([facility]) 139 meq/L 136-145 (test code = 381) [...] PATIEN TS. CBC W/PLT COUNT & AUTO [id number] 07:14:00 Test Item Value Reference Range Interpretation [...] = 2801) CBC W/PLT COUNT & AUTO [id number] 07:30:00 Test Item Value Reference Range Interpretation [...] (BEAKER) (test code = 2801) BASIC METABOLIC [id number] 07:26:00 Test Item Value Reference Range Interpretation [...] NOT APPLICABLE FOR DIALYSIS PATIEN TS. POCT-GLUCOSE [id number] 08:28:00 Test Item Value Reference Range Interpretation Comments POC-GLUCOSE METER 90 mg/dL 70-110 TESTED AT [facility] 67[address] (BEAKER) (test code = [place] [address] 1538) CBC W/PLT COUNT & AUTO [id number] 06:41:00 Test Item Value Reference Range Interpretation [...] (BEAKER) (test code = 2801) BASIC METABOLIC [id number] 06:11:00 Test Item Value Reference Range Interpretation [...] NOT APPLICABLE FOR DIALYSIS PATIEN TS. POCT-GLUCOSE [id number] 03:06:00 Test Item Value Reference Range Interpretation Comments POC-GLUCOSE METER 86 mg/dL 70-110 TESTED AT [facility] [address] [facility] (test code = [facility] [address] 1538) POCT-GLUCOSE [id number] 17:51:00 Test Item Value Reference Range Interpretation Comments POC-GLUCOSE METER 98 mg/dL 70-110 TESTED AT [facility] 67[address] ([facility]) (test code = [facility] [address] 1538) URINALYSIS W/ REFLEX URINE [id number] 12:37:00 Test Item Value Reference Range Interpretation [...] 516) SOURCE(BEAKER) (test code = 2795) POCT-GLUCOSE [id number] 12:09:00 Test Item Value Reference Range Interpretation Comments POC-GLUCOSE METER 119 mg/dL 70-110 H TESTED AT [facility] 6720 (BEAKER) (test code = [place] 1538) [address] BASIC METABOLIC [id number] 09:23:00 Test Item Value Reference Range Interpretation [...] NOT APPLICABLE FOR DIALYSIS PATIEN TS. POCT-GLUCOSE [id number] 08:41:00 Test Item Value Reference Range Interpretation Comments POC-GLUCOSE METER 114 mg/dL 70-110 H TESTED AT [facility] 6720 (AKER) (test code = [place] 1538) [address] RAD, CHEST, 1 VIEW, NON [id number] 07:48:00Reason for exam:->Post-OpShould this be performed at the bedside?->YesFINAL REPORT Chest one view AP 05/10/2017 7:47 AM CLINICAL INDICATION: Post-Op COMPARISON: 05/09/2017 IMPRESSION: There is bibasilar atelectasis. There is a trace left pleural effusion. Cardiomediastinal contours are within normal limits. The central pulmonary vasculature is notengorged. An enteric tube is present. Signed: Wang Jungeport Verified Date/Time: 05/10/2017 07:48:05 Reading Location: [facility] Radiology Reading Room CBC W/PLT COUNT & AUTO [id number] 07:36:00 Test Item Value Reference Range Interpretation [...] PERCENT (BEAKER) (test code = 2809) POCT-GLUCOSE [id number] 22:44:00 Test Item Value Reference Range Interpretation Comments POC-GLUCOSE METER 128 mg/dL 70-110 H TESTED AT [place] [address] ([facility]) (test code = [place] 1538) [address] POCT-GLUCOSE [id number] 17:22:00 Test Item Value Reference Range Interpretation Comments POC-GLUCOSE METER 106 mg/dL 70-110 TESTED AT [place] [address] (BEAKER) (test code = J[place] [facility] 1538) [address] RAD, ABDOMEN/KUB, 1 VIEW [id number] 12:38:00Reason for exam:->ileusFINAL REPORT Abdomen two views supine 05/09/2017 12:38 PM CLINICAL INDICATION: ileus COMPARISON: None available IMPRESSION: There is no radiographic evidence for bowel obstruction. There is mild ileus. No abnormal calcifications are seen in the region of the gallbladder or kidneys. There are no acute-appearing skeletal abnormalities. Signed: Wang Jungeport Verified Date/Time: 05/09/2017 12:38:47 Reading Location: [facility] C013W Consult Reading Room POCT-GLUCOSE [id number] 12:19:00 Test Item Value Reference Range Interpretation Comments POC-GLUCOSE METER 102 mg/dL 70-110 TESTED AT [place] [address] ([facility]) (test code = [place]AY [place] [facility] 1538) [address] POCT-GLUCOSE [id number] 06:45:00 Test Item Value Reference Range Interpretation Comments POC-GLUCOSE METER 104 mg/dL 70-110 TESTED AT [place] [address] ([facility]) (test code = [place] [facility] 1538) [address] RAD, CHEST, 1 VIEW, NON [id number] 05:01:00Reason for exam:->Post-OpShould this be performed at [...] of a significant pneumothorax. Signed: Solomon Peres MDReport Verified Date/Time: 05/09/2017 05:01:39 Reading Location: [facility] C013T Tra nsitional Reading Room [id number] 03:47:00 Test Item Value Reference Range Interpretation Comments PHOSPHORUS (BEAKER) (test code = 2.7 mg/dL 2.3-4.7 604) [id number] 03:47:00 Test Item Value Reference Range Interpretation Comments MAGNESIUM (BEAKER) (test code = 1.8 mg/dL 1.6-2.6 627) BASIC METABOLIC [id number] 03:47:00 Test Item Value Reference Range Interpretation [...] DIALYSIS PATIEN TS. LACTIC ACID, ARTERIAL, WHOLE [id number] 03:42:00 Test Item Value Reference Range Interpretation Comments LACTATE BLOOD ARTERIAL (2) 0.9 mmol/L 0.5-2.2 (BEAKER) (test code = 2874) Effective 10/21/2015: Units/Reference Range ChangeNew: 0.5-2.2 mmol/L Previous: 5-20 mg/dLCALCIUM, [id number] 03:39:00 Test Item Value Reference Range Interpretation Comments CALCIUM IONIZED (BEAKER) (test 1.15 mmol/L 1.12-1.27 code = 698) PH, BLOOD (BEAKER) (test code = 7.42 1810) CBC W/PLT COUNT & AUTO [id number] 03:36:00 Test Item Value Reference Range Interpretation [...] (BEAKER) (test code = 2801) OXYGEN SATURATION, [id number] 03:35:00 Test Item Value Reference Range Interpretation Comments O2 SATURATION (MEASURED) (BEAKER) 64.0 % (test code = 1455) POCT-GLUCOSE [id number] 01:07:00 Test Item Value Reference Range Interpretation Comments POC-GLUCOSE METER 96 mg/dL 70-110 TESTED AT [facility] 6720 (BEAKER) (test code = JAY Z[place] [facility] [address] 1538) BLOOD GAS, [id number] 12:28:00 Test Item Value Reference Range Interpretation [...] 60.0 % RAD, CHEST, 1 VIEW, NON [id number] 11:05:00Reason for exam:->Post-OpShould this be performed at the bedside?->YesFINAL REPORT Chest one view AP 05/08/2017 11:05 AM CLINICAL INDICATION: Post-Op COMPARISON: 05/02/2017 IMPRESSION: Support hardware is in satisfactory radiographic position. Cardiomediastinal contours are stable. The central pulmonary vasculature is not engorged. The lungs are clear, save for scattered foci of linear atelectasis. Signed: Wang Jung Verified Date/Time: 05/08/2017 11:05:58 Reading Location: [facility] Radiology Reading Room [id number] 11:03:00 Test Item Value Reference Range Interpretation Comments MAGNESIUM (BEAKER) (test code = 2.0 mg/dL 1.6-2.6 627) BASIC METABOLIC [id number] 11:03:00 Test Item Value Reference Range Interpretation [...] DIALYSIS PATIEN TS. LACTIC ACID, ARTERIAL, WHOLE [id number] 10:58:00 Test Item Value Reference Range Interpretation Comments LACTATE BLOOD ARTERIAL (2) 0.6 mmol/L 0.5-2.2 (BEAKER) (test code = 2874) Effective 10/21/2015: Units/Reference Range ChangeNew: 0.5-2.2 mmol/L Previous: 5-20 mg/dLPT/[id number] 10:57:00 Test Item Value Reference Range Interpretation [...] (BEAKER) (test code = 2801) OXYGEN SATURATION, [id number] 10:44:00 Test Item Value Reference Range Interpretation Comments O2 SATURATION (MEASURED) (BEAKER) 71.8 % (test code = 1455) BLOOD GAS, [id number] 10:42:00 Test Item Value Reference Range Interpretation [...] (test code = 1819) 60.0 % GLUCOSE-STAT [id number] 10:42:00 Test Item Value Reference Range Interpretation Comments GLUCOSE RANDOM (BEAKER) (test code 112 mg/dL 70-110 H = 652) SODIUM NA-STAT [id number] 10:41:00 Test Item Value Reference Range Interpretation Comments SODIUM (BEAKER) (test code = 381) 137 meq/L 135-148 POTASSIUM-STAT [id number] 10:41:00 Test Item Value Reference Range Interpretation Comments POTASSIUM (BEAKER) (test code = 4.2 meq/L 3.6-5.5 379) HGB/HCT (H&H) - STAT [id number] 10:41:00 Test Item Value Reference Range Interpretation Comments HEMOGLOBIN (BEAKER) (test code = 14.4 g/dL 13.0-16.8 410) HEMATOCRIT (BEAKER) (test code = 42.0 % 40.0-50.0 411) CALCIUM, [id number] 10:41:00 Test Item Value Reference Range Interpretation Comments CALCIUM IONIZED (BEAKER) (test 1.23 mmol/L 1.12-1.27 code = 698) PH, BLOOD (BEAKER) (test code = 7.37 1810) CALCIUM, [id number] 09:43:00 Test Item Value Reference Range Interpretation Comments CALCIUM IONIZED (BEAKER) (test 1.25 mmol/L 1.12-1.27 code = 698) PH, BLOOD (BEAKER) (test code = 7.32 1810) SODIUM NA-STAT [id number] 09:42:00 Test Item Value Reference Range Interpretation Comments SODIUM (BEAKER) (test code = 381) 138 meq/L 135-148 POTASSIUM-STAT [id number] 09:42:00 Test Item Value Reference Range Interpretation Comments POTASSIUM (BEAKER) (test code = 3.8 meq/L 3.6-5.5 379) BLOOD GAS, [id number] 09:42:00 Test Item Value Reference Range Interpretation [...] (test code = 1819) 61.0 % GLUCOSE-STAT [id number] 09:42:00 Test Item Value Reference Range Interpretation Comments GLUCOSE RANDOM (BEAKER) (test code 112 mg/dL 70-110 H = 652) HGB/HCT (H&H) - STAT [id number] 09:42:00 Test Item Value Reference Range Interpretation Comments HEMOGLOBIN (BEAKER) (test code = 13.1 g/dL 13.0-16.8 410) HEMATOCRIT (BEAKER) (test code = 39.0 % 40.0-50.0 L 411) SODIUM NA-STAT [id number] 08:37:00 Test Item Value Reference Range Interpretation Comments SODIUM (BEAKER) (test code = 381) 137 meq/L 135-148 POTASSIUM-STAT [id number] 08:37:00 Test Item Value Reference Range Interpretation Comments POTASSIUM (BEAKER) (test code = 3.9 meq/L 3.6-5.5 379) HGB/HCT (H&H) - STAT [id number] 08:37:00 Test Item Value Reference Range Interpretation Comments HEMOGLOBIN (BEAKER) (test code = 15.2 g/dL 13.0-16.8 410) HEMATOCRIT (BEAKER) (test code = 45.0 % 40.0-50.0 411) CALCIUM, [id number] 08:37:00 Test Item Value Reference Range Interpretation Comments CALCIUM IONIZED (BEAKER) (test 1.15 mmol/L 1.12-1.27 code = 698) PH, BLOOD (BEAKER) (test code = 7.37 1810) BLOOD GAS, [id number] 08:37:00 Test Item Value Reference Range Interpretation [...] (test code = 1819) 64.0 % GLUCOSE-STAT [id number] 08:37:00 Test Item Value Reference Range Interpretation Comments GLUCOSE RANDOM (BEAKER) (test code 111 mg/dL 70-110 H = 652) HEMOGLOBIN [id number] 12:07:00 Test Item Value Reference Range Interpretation Comments HEMOGLOBIN A1C (BEAKER) (test code = 5.6 % 4.3-6.1 368) RAD, CHEST, 2 [id number] 11:17:00Reason for Exam:->Pre-OpFINAL REPORT Chest x-ray, PA [...] Astudillo Verified Date/Time: 05/02/2017 11:17:15 Reading Location: [facility] Radiology Reading Room Electronically signed by: ITZEL ASTUDILLO M.D. on05/02/2017 11:17 AMBASIC METABOLIC [id number] 11:09:00 Test Item Value Reference Range Interpretation [...] NOT APPLICABLE FOR DIALYSIS PATIEN TS. PROTHROMBIN [id number] 11:05:00 Test Item Value Reference Range Interpretation [...]
--- OUTSIDE RECORDS SUMMARY | 2020-07-15 16:42 | XMS REPORT | Clinical Summary ---
:1955 Author Organization [facility] Address [address] [place] [address] Care Team Providers Name Role Phone Teo [...] PNEUMOCOCCAL 65+ YRS (1 of 1 - [id number] PCV13) 2019 INFLUENZA VACCINE (#1) 2020 Implants Implanted Type Area Raw Scales Operator Device Shelf Model / Identifier Expiration Serial / Date Lot Grft Vasc Knit Gld [id number] - Sna Graft/Pa N/A: GETING E 07/19/2019 [id number] / Implanted: Qty: 1 on 05/08/2017 by Sae Fulton MD at [facility] Aorta IND:MAQUET:CV NA / [id number] Description:ABDOMINAL AORTIC ARTERY Results Not on fileafter 07/15/2019 Insurance Payer Benefit Plan / Subscriber ID Effective Dates Phone Addre ss Type Group [employer] - MGD CARE CIGNA PPO [id number] 2016-Present PPO Advance Directives For more information, please contact: [phone] Code Status Date Activated Date Inactivated Comments Full Code 05/08/2017 5:38 AM 05/14/2017 2:07 PM This code status was determined by: Patient
--- NOTE | 2020-07-15 17:22 | ER ---
Nurse's Notes [facility] Name: Sae Cardozo Age: 65 yrs Sex: Male : 1955 Arrival Date: 07/15/2020 Time: 16:18 Bed Waiting Private MD: Diagnosis: Presentation: 07/15 16:23 Chief complaint: Patient states: "I just recently completed radiation and chemotherapy aa5 for lung cancer and I had my follow-up with the cancer doctor and he said to come here because I've been having chest pain". Pt c/o intermittent chest pain that began 2 days ago. 16:23 Coronavirus screen: Client denies travel out of the [place] in the last 14 days. At this aa5 time, the client does not indicate any symptoms associated with coronavirus-19. Ebola Screen: Patient negative for fever greater than or equal to 101.5 degrees Fahrenheit, and additional compatible Ebola Virus Disease symptoms. Initial Sepsis Screen: Does the patient meet any 2 criteria? HR > 90 bpm. Does the patient have a suspected source of infection? No. Patient's initial sepsis screen is negative. Risk Assessment: Do you want to hurt yourself or someone else? Patient reports no desire to harm self or others. Onset of symptoms was June 2020. 16:23 Acuity: JIMMIE 3 aa5 16:23 Method Of Arrival: Ambulatory aa5 Historical: - Allergies: 16:26 No Known Allergies; aa5 - PMHx: 16:26 AAA; Cancer, Lung; COPD; aa5 - PSHx: 16:26 AAA Repair; aa5 - Immunization history:: Adult Immunizations unknown. - Social history:: Smoking status: Patient denies any tobacco usage or history of. Assessment: 17:20 Reassessment: Pt came in to triage stating he is leaving because he feels "fine" and aa5 states "I really don't think there is anything wrong but my doctor wanted me checked".Explained to patient about need to be evaluated further and how and EKG does not completely rule out heart problems, pt verbalizes understanding. Pt states "I will be back tomorrow" . Vital Signs: 16:24 BP 154 / 85; Pulse 102; Resp 20 S; Temp 98.3(TE); Pulse Ox 96% on R/A; Weight 87.54 kg aa5 (R); Height 5 ft. 10 in. (177.80 cm) (R); Pain 0/10; 16:24 Body Mass Index 27.69 (87.54 kg, 177.80 cm) aa5 ED Course: 16:18 Patient arrived in ED. as 16:23 Arm band placed on. EKG completed in triage. Results shown to MD. aa5 16:28 Triage completed. aa5 17:22 Christopher Busby MD is Attending Physician. aa5 Administered Medications: No medications were administered Outcome: 17:22 Patient left the ED. aa5 Signatures: Elida Amos Audri, RN RN aa5 Corrections: (The following items were deleted from the chart) 16:28 16:23 Initial Sepsis Screen: Does the patient meet any 2 criteria? No. Patient's aa5 initial sepsis screen is negative. Does the patient have a suspected source of infection? No. Patient's initial sepsis screen is negative. aa5
[2020-07-15 17:35] VITALS: BP 154/85; TEMP 98.3; O2SAT 96
--- NOTE | 2020-07-17 11:07 | EKG ---
Test Date: 2020-07-15 Test Time: 16:21:09 Sap Functional Analyst: HAIDER MEASUREMENT RESULTS: Intervals: Rate: 98 PA: 162 QRSD: 72 QT: 318 QTc: 405 [place]: P: 33 PA: 162 QRS: -13 T: 9 INTERPRETIVE STATEMENTS: Sinus rhythm with occasional premature ventricular complexes Left ventricular hypertrophy with repolarization abnormality Inferior infarct, age undetermined Abnormal ECG Compared to ECG 08/01/2018 18:35:07 Left ventricular hypertrophy now present Early repolarization now present Myocardial infarct finding now present Sinus tachycardia no longer present Electronically Signed On 07-17-20 11:05:12 CASING WORKER by Marlon Rader
== END 2020-07-15 17:22 | disposition left against medical advice (07) ==
LOC: ER 16:13
DX: R07.9 Chest pain, unspecified (principal); C34.90 Malignant neoplasm of unspecified part of unspecified bronchus or lung; Z53.21 Procedure and treatment not carried out due to patient leaving prior to being seen by health care provider
CPT/HCPCS: 93005; 99281

== ENCOUNTER 2021-11-06 12:09 | Inpatient (IN) | payer OTHER ==
--- OUTSIDE RECORDS SUMMARY | 2021-11-06 12:11 | XMS REPORT | Clinical Summary ---
:1955 Author Organization [facility] MD [facility] Address [address] [place] [address] Care Team Providers Name Role Phone Duy Valdes MD Unavailable MD Eli Primary Care Provider Allergies No known active allergies Medications Medication Sig Dispensed Refills Start Date End Date Status Anoro Ellipta 62.5-25 Inhale 1 puff by 0 11/26/2020 Active mcg/actuation dsdv mouth daily. alip Take 2 tablets 0 Activ e acid/biotin/mins16/he by mouth daily. rb91 (BLOOD SUGAR BALANCE ORAL) multivitamin capsule Take 1 capsule 0 Active by mouth daily. zinc gluconate 50 mg Take 50 mg by 0 Active tablet mouth daily. aspirin 81 mg EC Take 81 mg by 0 Active tablet mouth daily. albuterol (VENTOLIN Inhale 2 puffs 0 12/16/2020 Active HFA,PROAIR HFA) 90 by mouth as mcg/puff inhaler needed. atorvastatin Take 40 mg by 0 03/03/2021 06/01/2021 E xpired (LIPITOR) 40 mg mouth daily. 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 Cancer Staging: Clinical stage from 11/30: Stage IIB (cT3, cN0, cM0) - Signed by HEIDI Patel on 11/30/2020 Encounters Date Type Specialty Care Team Description 03/15/2021 Ancillary Procedure Radiology Cancer 03/15/2021 Office Visit Thoracic Medicine Amanda Kearney PA Small c ell carcinoma of lower lobe of left lung (Primary Dx); Secondary malig nant neoplasm of brain 03/15/2021 Travel 03/10/2021 Orders Only Thoracic Medicine Amanda Kearney PA Small c ell carcinoma of lo wer lobe of left nelly ng (Primary Dx) 12/04/2020 Ancillary Procedure Radiology Ashley Benitez MD Cance r 12/04/2020 Ancillary Procedure Radiology Ashley Benitez MD Cance r 12/04/2020 Ancillary Procedure Radiology Ashley Benitez MD Cance r 12/04/2020 Ancillary Procedure Radiology Ashley Benitez MD Cance r 12/04/2020 Ancillary Procedure Radiology Ashley Benitez MD Cance r 12/04/2020 Ancillary Procedure Radiology Ashley Benitez MD Cance r 12/04/2020 Ancillary Procedure Radiology Ashley Benitez MD Cance r 12/04/2020 Ancillary Procedure Radiology Ashley Benitez MD Cance r 12/04/2020 Ancillary Procedure Radiology Ashley Benitez MD Cance r 12/04/2020 Ancillary Procedure Radiology Ashley Benitez MD Cance r 12/04/2020 Ancillary Procedure Radiology Ashley Benitez MD Cance r 12/04/2020 Ancillary Procedure Radiology Ashley Benitez MD Cance r 12/04/2020 Ancillary Procedure Radiology Ashley Benitez MD Cance r 12/04/2020 Ancillary Procedure Radiology Ashley Benitez MD Cance r 12/04/2020 Ancillary Procedure Radiology Ashley Benitez MD Cance r 12/01/2020 Orders Only Cain Silverio, SARS-CoV-2 MD multani 11/30/2020 Ancillary Procedure Radiology Ashley Benitez MD Cance r 11/30/2020 Ancillary Procedure Radiology Eli, MD Vik Ramirez r 11/30/2020 Office Visit Thoracic Medicine Ashley Benitez MD Small c ell carcinoma of lo wer lobe of left nelly ng (Primary Dx) 11/30/2020 NPR Patient Access Services 11/30/2020 Travel 11/27/2020 Clinical Support Ashley Avila MD Suspected COVID-19 Marlene Martin (Primary Dx) R, RN 11/27/2020 Travel 11/26/2020 Lab Requisition Tez Forman MD Witson, Anne S., MD 11/24/2020 Travel after 11/06/2020 Surgical History Surgery Date Site/Laterality Comments COLONOSCOPY BRONCHOSCOPY 10/18/2019 - 11/17/2019 THORACIC AORTIC ANEURYSM REPAIR Medical History Medical History Date Comments Hyperlipidemia 10/2020 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 Pneumonia 2014 Fatty liver 10/2019 Diabetes mellitus 6.2 Anxiety 2014 Chronic obstructive pulmonary disease 12/18/2019 Social History Tobacco Use Types Packs/Day Years Used Date Former Smoker Cigarettes 1.5 49 Quit: 06/27/19 Smokeless Tobacco: Never Used Alcohol Use Standard Drinks/Week Comments Yes 32 (1 standard drink = 0.6 oz pure alcoh ol) Sex Assigned at Date Recorded Male 11/26/2020 7:01 PM CDT Job Start Date Occupation Industry Not on file Not on file Not on file Obstetrics History Last Filed Vital Signs Vital Sign Reading Time Taken Comments Blood Pressure 104/68 03/15/2021 8:05 AM CDT Pulse 124 03/15/2021 8:05 AM CDT Temperature 36.9 C (98.4 F) 03/15/2021 8:05 AM CDT Respiratory Rate 18 03/15/2021 8:05 AM CDT Oxygen Saturation 93% 03/15/2021 8:05 AM CDT Inhaled Oxygen Concentration - - Weight 84.4 kg (186 lb 1.1 oz) 03/15/2021 8:01 AM CDT Height 176.5 cm (5' 9.49") 11/30/2020 10:04 AM CDT Body Mass Index 27.09 11/30/2020 10:04 AM CDT Plan of Treatment Health Maintenance Due Date Last Done Comments COVID-19 Vaccination (1) 1967 Procedures Procedure Name Priority Date/Time Associated Diagnosis Comme nts OSI MRI HEAD Routine 01/05/2021 10:03 AM Cancer Results for this CDT procedure are i n the results section. HC 2019-NCOV Routine 11/27/2020 9:27 AM Suspected COVID-19 Re sults for this COVID-19 CDT procedure are i n the results section. OSI CT CHEST Routine 11/10/2020 5:09 AM Cancer Results for this CDT procedure are i n the results section. OSI CT CHEST Routine 11/10/2020 5:09 AM Cancer Results for this CDT procedure are i n the results section. after 11/06/2020 Results OSI MRI Head (01/05/2021 10:03 AM CDT) Specimen (Source) Anatomical Location Collection Method / Collectio n Time Received Time / Laterality Volume Narrative Systemgenerated, Documentation - 021 10:03 AM CDT Study acquired at another institution. For comparison only. No MD [facility]amar[facility] originated interpretation requested or a vailable. Xiunviktoriya Benitez MD IMG OUTSIDE IMAGE ORDERABLES MD COVID-19 (LENKA-CoV-2) PCR Asymptomatic (11/27/2020 9:27 AM CDT) Component Value Ref Range Test Analysis Performed Pathologis t Method Time At Signature COVID19 SARS New Patient [place] MD Indication [facility] COVID19 SARS Not Detected Not [place] Result Detected [facility] COVID19 SARS SARS-CoV-2 NOT Detected. [place] [facility] Reference Range: Not Detected [facility] Methodology: [facility] High-throughput SARS-CoV-2 RT-PCR Assay is a qualitative RT-PCR test intended for the detection of SARS CoV-2 RNA in nasal, nasopharyngeal and oropharyngeal swabs from indiv iduals who are suspected of COVID-19 by their health care provider. The test [facility] primers and probes for viral N1 and N2 sequences, and controls as characterized in the Centers for Disease Control and Prevention (CDC) 2019-Novel Coronavirus (2019-nCoV) Real-Time Reverse Transcriptase (RT)-PCR Diagnostic Panel. Results must be interpreted within the context of all relevant clinical and laboratory findings, and epidemiological risk factors. Positive results are indicative of the presence of SARS-CoV-2 RNA. Clinical correlation with patient history and other diagnostic information is ne cessary to determine patient infection status. Positive results do not rule out bacterial infection or co-infection with other viruses. Negative results do not preclude SARS- CoV-2 infection and should not be used as the sole basis for patient management decisions. This test was developed and its performance characteristics were validated by the CLIA-certified, high-complexity Molecular Diagnostics Laboratory (MDL) at [facility] for clinical use under the Food and Drug Administration (FDA) s Emergency Use Authorization. Factsheet for patients: https://www.mdanderson.org/MCJCI81YJ RPatients Factsheet for healthcare providers: https://www.mdande rson.org/QOGSE54GYVJLH Test performed by: [facility] Lab [address] [place] [address] Specimen (Source) Anatomical Collection Method Collection Time Re ceived Time Location / / Volume Laterality Nasopharyngeal Swab 11/27/2020 9:27 11/17 AM CDT 1:22 PM CDT Ashley Benitez MD MICROBIOLOGY - GENERAL ORDER ERMA Performing Organization Address City/State/ZIP Code Phon e Number [facility] Unless otherwise noted, [place] [address] CENTER all lab tests performed by: Division of Pathology and Laboratory Medicine [address] [place] [address] Chest (11/10/2020 5:09 AM CDT)Only the most recent of2 resultswithin the time period is included. Specimen (Source) Anatomical Location Collection Method / Collectio n Time Received Time / Laterality Volume Narrative Systemgenerated, Documentation - 021 5:09 AM CDT Study acquired at another institution. For comparison only. No MD Zamarripa originated interpretation requested or a vailable. Ashley Benitez MD IMG OUTSIDE IMAGE ORDERABLES after 11/06/2020 Insurance Payer Benefit Plan / Subscriber ID Effective Dates Phone Addre ss Type Group MEDICARE MEDICARE PART [id number] 2019-[place] [phone] MARILYN Medicare A AND B t [address] [place] [phone] Care Teams Hasher Operator Relationship Specialty Start Date End Date Joon Valdes, PCP - External Follow Up Radiation Oncology MD Samreen [address] [place], [place] [id number] Ashley Benitez MD PCP - General Thoracic Medicine 11/24/[address] [place] [id number]
--- OUTSIDE RECORDS SUMMARY | 2021-11-06 12:12 | XMS REPORT | Continuity of Care Document ---
:1955 Author Organization [facility] t Address [address] [place] [address] Care Team Providers Name Role Phone Dora LANDAVERDE Primary Care Physician Unavailable Dora Landaverde Attending Clinician Unavailable SYSTEM, NOT IN Attending Clinician Unavailable Haily BOOTH Attending Clinician Unavailable SATYA Attending Clinician Unavailable SATYA Attending Clinician Unavailable EDGARDO Attending Clinician Unavailable Edgardo FOY Attending Clinician Caio GORDON Attending Clinician CAIO Attending Clinician Unavailable Manohar FOY Attending Clinician MANOHAR Attending Clinician Unavailable Ge FOY Attending Clinician Mario RN, R Attending Clinician Dickson FOY G Attending Clinician Bob FOY, S. 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 No known No known Disease Unive rs active active ity of problems problems [facility] Allergies, Adverse Reactions, Alerts Allergy Allergy Status Severity Reaction(s) Onset Inactive Treating Comm ents Source Name Type Date Date Clinician NO KNOWN Drug Active Univers ALLERGIE Class ity of S [facility] Social History Social Habit Start Date Stop Date Quantity Comments Source Exposure to 2021-09-28 2021-10-08 Not sure [facility] SARS-CoV-2 (event) 00:00:00 08:20:00 [facility] Alcohol intake 2021-03-15 2021-03-15 Current drinker MD Ade seay 00:00:00 00:00:00 of alcohol (finding) Cigarettes smoked 2020-11-30 2020-11-30 MD Sunny mathewon current (pack per 00:00:00 00:00:00 day) - Reported Cigarette 2020-11-30 2020-11-30 MD Zamarripa pack-years 00:00:00 00:00:00 Tobacco use and 2020-11-30 2020-11-30 Smokeless MD Unger on exposure 00:00:00 00:00:00 tobacco non-user Tobacco Comment 2020-11-18 2020-11-18 Quit 2018 Universit y of 00:00:00 00:00:00 [facility] History of tobacco 2018-06-27 Current smoker MD Zamarripa use 00:00:00 Sex [birth year] Universit y of 00:00:00 00:00:00 [facility] Smoking Status Start Date Stop Date Source Ex-smoker 2020-11-30 00:00:00 2020-11-30 00:00:00 MD Rodriguez son Medications Ordered Filled Start Stop Current Ordering Indication Dosage Frequency Signature Comments Components Source Medication Medication Date Date Medication? Clinician (SIG) Name Name No known No Univers medications 1-19 ity of 10:17: [address] umeclidiniu Yes [id number] 1{puff} Inhale 1 Univers m-vilantero 1-19 Puff ity of L (ANORO 00:00: daily. [place] ELLIP) 00 Medical 62.5-25 Branch mcg/actuati on inhalation disk apixaban 2020-06 Yes 5mg Take 5 mg Univ ers (ELIQUIS) 5 2-10 by mouth 2 it y of mg tablet 09:35: (two) [place] 00 times Medical daily. x30 Branch days aspirin 81 2020-06 Yes 81mg Take 81 mg U nivers mg EC 2-10 by mouth ity of tablet 09:26: daily. [place] 19 Medical Branch alip Yes 2{tbl} Take 2 MD acid/biotin 9-27 tablets by An hallie /mins16/her 08:15: mouth n b91 (BLOOD 55 daily. SUGAR BALANCE ORAL) multivitami Yes 1{capsu Take 1 M D n capsule 03-15 le} capsule by Sunny rso 08:15: mouth n 55 daily. zinc Yes 50mg Take 50 mg MD gluconate - by mouth Cornel o 50 mg 08:15: daily. n tablet 55 aspirin 81 Yes 81mg Take 81 mg M D mg EC 9 by mouth Anderso tablet 08:15: daily. n 55 atorvastati 2020- No 40mg Take 40 mg MD n (LIPITOR) 15 12-15 by mouth And erso 40 mg 00:00: 05:59 daily. n tablet 00 :00 albuterol Yes 2{puff} Inhale 2 M D (VENTOLIN 6-30 puffs by Cornel o HFA,PROAIR 00:00: mouth as n HFA) 90 00 needed. mcg/puff inhaler Anoro Yes 1{puff} Inhale 1 MD Ellipta 6-10 puff by Anderso 62.5-25 00:00: mouth n mcg/actuati 00 daily. on dsdv Vital Signs Vital Name Observation Time Observation Value Comments Source HEIGHT 2020-11-30 10:04:00 176.5 cm WEIGHT 2020-11-30 10:04:00 91.7 kg HEIGHT 2020-11-30 10:04:00 176.5 cm WEIGHT 2020-11-30 10:04:00 91.7 kg Systolic blood pressure 2021-03-15 13:05:52 104 mm[Hg] MD Zamarripa Diastolic blood pressure 2021-03-15 13:05:52 68 mm[Hg] MD Zamarripa Heart rate 2021-03-15 13:05:52 124 /min MD Michael chavez Body temperature 2021-03-15 13:05:52 36.89 Milvia MD Samreen brown Respiratory rate 2021-03-15 13:05:52 18 /min MD Samreen brown Oxygen saturation in 2021-03-15 13:05:52 93 /min MD Zamarripa Arterial blood by Pulse oximetry Body weight 2021-03-15 13:01:00 84.4 kg MD Michael chavez BMI 2021-03-15 13:01:00 27.09 kg/m2 MD Michael chavez Body height 2020-11-30 15:04:00 176.5 cm MD Michael chavez Procedures Procedure Date / Time Performing Clinician Source Performed OSI MRI HEAD 2021-01-05 15:03:00 Ashley Benitez MD 2019-NCOV COVID-19 2020-11-27 14:27:00 Ashley Benitez AUTHORIZATION FOR 2020-11-20 05:01:00 Doctor Unassigned, No Univ [facility] RELEASE OF PHI Name [facility] OSI CT CHEST 2020-11-10 10:09:00 Ashley Benitez MD Plan of Care Planned Activity Planned Date Details Comments Source Future Scheduled Test 1966 00:00:00 COVID-19 Vaccination MD Zamarripa (1) [code = COVID-19 Vaccination (1)] Encounters Start End Encounter Admission Attending Care Care Encounter Source Date/Time Date/Time Type Type Clinicians Facility Department ID 2021-07-26 Outpatient Landaverde, [facility] [id number] Common 13:55:03 [facility] 2020-11-24 Outpatient SYSTEM, BEBETO TATE [id number] 14:21:13 PROVIDER Cornel o n 2022-11-04 2022-11-04 Outpatient Margareth BOOTH [facility] [id number] Univers 10:00:00 10:00:00 SENDIL [id number] [facility] 2022-11-04 2022-11-04 Outpatient Margareth BOOTH [facility] [id number] Univers 10:00:00 10:00:00 SENDIL [facility] 2022-10-31 2022-10-31 Outpatient R BOOTH, [facility] [id number] Univers 09:00:00 09:00:00 SENDIL [id number] [facility] 2022-10-31 2022-10-31 Outpatient R LEOBARDO [facility] [id number] Univers 09:00:00 [facility]00[facility] 2021-[facility]19 2021-11-19 Outpatient R MAZIN HERNADEZ [facility] [id number] Univers 09:30:00 09:30:00 MAZIN HERNADEZ [id number] i ty [facility] 2021-11-03 2021-11-03 Outpatient R LEOBARDO [facility] [id number] Univers 10:30:00 11:03:24 [facility] 2021-10-25 2021-10-25 [facility] [id number] Univers 12:41:15 23:59:00 MARLENE chaudhry o f [facility] 2021-10-19 2021-10-19 Telephone [facility] [id number] Univers 00:00:00 00:00:00 Marlene SHETTY [id number] [facility] [id number] Jennifer JONES [id number] [address] 2021-10-19 2021-10-19 ambulatory [facility] [id number] Common 00:00:00 00:00:00 [facility] 2021-08-20 2021-08-20 ambulatory STLMLC [facility] [id number] Common 00:00:00 00:00:00 [facility] 2021-08-20 2021-08-20 ambulatory STLMLC ST[facility] [id number] Common 00:00:00 00:00:00 [facility] 2021-07-26 2021-07-26 ambulatory STLMLC STLMLC [id number] Common 00:00:00 00:00:00 [facility] 2021-03-152021-03-15 Outpatient EL ZELDA RAMIREZ MDA MDA [id number] MD 08:00:18 08:41:34 Cornel o n 2021-03-15 2021-03-15 Outpatient EL MDA MDA [id number] MD 08:37:45 08:37:45 Cornel o n 2020-12-04 2020-12-04 Outpatient EL LE, XIUNING MDA MDA [id number] MD 04:28:43 04:28:43 Cornel o n 2020-12-04 2020-12-04 Outpatient EL LE, XIUNING MDA MDA [id number] MD 04:28:42 04:28:42 Cornel o n 2020-12-04 2020-12-04 Outpatient EL LE, XIUNING MDA MDA [id number] MD 04:28:41 04:28:41 Cornel o n 2020-12-04 2020-12-04 Outpatient EL LE, XIUNING MDA MDA [id number] MD 04:28:40 04:28:40 Cornel o n 2020-12-04 2020-12-04 Outpatient EL LE, XIUNING MDA MDA [id number] MD 04:28:39 04:28:39 Cornel o n 2020-12-04 2020-12-04 Outpatient EL LE, XIUNING MDA MDA [id number] MD 04:28:38 04:28:38 Cornel o n 2020-12-04 2020-12-04 Outpatient EL LE, XIUNING MDA MDA [id number] MD 04:28:37 04:28:37 Cornel o n 2020-12-04 2020-12-04 Outpatient EL LE, XIUNING MDA MDA [id number] MD 04:28:36 04:28:36 Cornel o n 2020-12-04 2020-12-04 Outpatient EL LE, XIUNING MDA MDA [id number] MD 04:28:35 04:28:35 Cornel o n 2020-12-04 2020-12-04 Outpatient EL LE, XIUNING MDA MDA [id number] MD 04:28:34 04:28:34 Cornel o n 2020-12-04 2020-12-04 Outpatient EL LE, XIUNING MDA MDA [id number] 04:28:33 04:28:33 Cornel o n 2020-12-04 2020-12-04 Outpatient EL LE, XIUNING MDA MDA [id number] 04:28:32 04:28:32 Cornel o n 2020-12-04 2020-12-04 Outpatient EL LE, XIUNING MDA MDA [id number] 04:28:31 04:28:31 Cornel o n 2020-12-04 2020-12-04 Outpatient EL LE, XIUNING MDA MDA [id number] MD 04:28:30 04:28:30 Cornel o n 2020-12-04 2020-12-04 Outpatient EL LE, XIUNING MDA MDA [id number] MD 04:28:29 04:28:29 Cornel o n 2020-11-30 2020-11-30 Outpatient EL LE, XIUNBRISEIDA MDA MDA [id number] 09:57:55 11:58:29 Cornel o n 2020-11-30 2020-11-30 Outpatient EL LE, XIUNING MDA MDA [id number] 09:50:16 09:50:16 Cornel o n 2020-11-30 2020-11-30 Outpatient EL LE, XIUNBRISEIDA MDA MDA [id number] 09:50:09 09:50:09 Cornel o n 2020-11-30 2020-11-30 Outpatient EL MDA MDA [id number] 09:29:25 09:38:07 Cornel o n 2020-11-27 2020-11-27 Outpatient EL LE, XIUNBRISEIDA MDA MDA [id number] 09:07:26 09:28:50 Cornel o n 2020-11-20 2020-11-20 Orders Doctor LESTER [id number] Univers 00:00:00 00:00:00 Only Unassigned, SUSAN [id number] ity of [place] [facility] [id number] Thom as [id number] [facility] nitin 009 Branch Results Test Description Test Time Test Comments Results Result Comments Source COVID-19 (LENKA-CoV-2) PCR Asymptomatic 2020-11-28 02:55:57 Test Item Value Reference Range Interpretation Comme nts COVID19 SARS Indication (test code New Patient = 24151) COVID19 SARS Result (test code = Not Detected Not Detected 75177-7) COVID19 SARS Interpretation (test SARS-CoV-2 NOT Detected. Referenc e code = 73875) Range: Not Detected Methodology: The [facility] High-throughput SARS-CoV-2 RT-PCR Assay is a qualitative RT-PCR test intended for the detection of SARS CoV-2 RNA in nasal, nasopharyngeal and oropharyngeal swabs from individuals who are suspected of COVID-19 by their health care provider. The test utilizes primers and probes for viral N1 and [...] patient history and other diagnostic information is necessary to determine patient infection status. Positive results do not rule out bacterial infection or co-infection with other viruses. Negative results do not preclude SARS-CoV-2 infection and should not be used as the sole basis for patient management decisions. This test was developed and its performance characteristics were validated by the CLIA-certified, high-complexity Molecular Diagnostics Laboratory (MDL) at [facility] for clinical use under the Food and Drug Administration (FDA) s Emergency Use Authorization. Factsheet for patients: https://[email or web address]/COVID19 PCRPatientsFactsheet for healthcare providers: [email or web address]/COVID19 PCRHCP Test performed by:[facility] Molecular Diagnostic [address] [place] [address] [facility], CTA ABDOMEN, AAA [id number] 14:34:00Addendum BeginsREPORT STATUS:A Addendum: I agree with the previously described non vascular findings by Dr. Castro. Signed: Nathan Johnston MDReport Verified Date/Time: 09/25/201714:34:58 Reading Location: [place] [address] Angio Body Reading RoomAddendum EndsFINAL REPORT CT [...] and during intravenous contrast administration using a CloudMine CT scanner. Images were obtained before and during the dynamic passage of intravenous contrast material. Multi- planar 3-D volume-rendering reconstruction was performed using an independent workstation interactively by the interpreting physician as well as the 3-D specialist for optimal visualisation of the abdominal aorta, pelvic arteries, and its proximal branches. Please refer to the contrast sheet scanned in the COINTERRA system for the amount and route of contrast given. The office was called, and the pelvis is not needed. This exam was performed according to our departmental dose-optimisation programme, which includes automatedexposure control, adjustment of the mA and/or kV according to patient size and/or use of iterative reconstruction technique. Dose modulation, iterative reconstruction, and/or weight based adjustment ofthe mA/kV was utilized to reduce the radiation dose to as low as reasonably achievable. FINDINGS: VASCULAR: The proximal abdominal aorta is unremarkable. In the infrarenal abdominal aorta, a vascular g raft is identified that is widely patent with [...] and right renal arteries that are widely p atent. The SARAH is seen to enhance by [...] and no hydronephrosis or perirenal fluid collections identified.Nonobstructive renal stones identified in the pelvis of the right kidney, at image 29 measures approx imately 1-2 mm in diameter. Bowel is not [...] dictated regarding the non-vascular findings by the Integration Analyst Radiologist. Signed: Joaquín Castroort Verified Date/Time: 09/25/2017 10:55:28 Reading Location: [place] [address] Cardiology MRI -[id number] 09:56:00 Test Item Value Reference Range Interpretation Comments POC-CREATININE 0.7 mg/dL 0.6-1.[address] [facility] ([facility]) (test [address] [facility] code = 1859) [facility] 7703 0 POC-EGFR 114 mL[facility].73M2 [facility] (test code = 1860) CT, CTA, [id number] 09:31:00Addendum BeginsREPORT STATUS:A Addendum: I agree with the previously described non vascular findings. Signed: Maryellen Stiles MDReport Verified Date/Time: 09/05/2017 09:31:21 Reading Location: [place] [address] Angio Body Reading RoomAddendum EndsFINAL REPORT CT [...] the dynamic passage of intravenous contrast material. [id number]-S volume- rendering reconstruction was performed using an [...] dictated regarding the non-vascular findings by the Integration Analyst Radiologist. Signed: Joaquín Castromt. [facility] Verified Date/Time: 09/04/2017 17:13:07 Reading Location: [place] [address] Cardiology MRI -[id number] 14:44:00 Test Item Value Reference Range Interpretation Comments POC-CREATININE 0.8 mg/dL 0.6-1.3 TESTED AT [facility] 6720 ([facility]) (test [place] code = 1859) [address] POC-EGFR ([facility]) 98 mL/min/1.73M2 (test code = 1860) BASIC METABOLIC [id number] 07:48:00 Test Item Value Reference Range Interpretation [...] PATIEN TS. CBC W/PLT COUNT & AUTO [id number] 07:14:00 Test Item Value Reference Range Interpretation [...] = 2801) CBC W/PLT COUNT & AUTO [id number] 07:30:00 Test Item Value Reference Range Interpretation [...] (BEAKER) (test code = 2801) BASIC METABOLIC [id number] 07:26:00 Test Item Value Reference Range Interpretation [...] NOT APPLICABLE FOR DIALYSIS PATIEN TS. POCT-GLUCOSE [id number] 08:28:00 Test Item Value Reference Range Interpretation Comments POC-GLUCOSE METER 90 mg/dL 70-110 TESTED AT [facility] 6720 (BEAKER) (test code = [place] [address] 1538) CBC W/PLT COUNT & AUTO [id number] 06:41:00 Test Item Value Reference Range Interpretation [...] (BEAKER) (test code = 2801) BASIC METABOLIC [id number] 06:11:00 Test Item Value Reference Range Interpretation [...] NOT APPLICABLE FOR DIALYSIS PATIEN TS. POCT-GLUCOSE [id number] 03:06:00 Test Item Value Reference Range Interpretation Comments POC-GLUCOSE METER 86 mg/dL 70-110 TESTED AT [facility] 6720 [facility] (test code = [facility] [address] 1538) POCT-GLUCOSE [id number] 17:51:00 Test Item Value Reference Range Interpretation Comments POC-GLUCOSE METER 98 mg/dL 70-110 TESTED AT [facility] 6720 ([facility]) (test code = [facility] [address] 1538) URINALYSIS W/ REFLEX URINE [id number] 12:37:00 Test Item Value Reference Range Interpretation [...] 516) SOURCE(BEAKER) (test code = 2795) POCT-GLUCOSE [id number] 12:09:00 Test Item Value Reference Range Interpretation Comments POC-GLUCOSE METER 119 mg/dL 70-110 H TESTED AT [facility] 6720 (BEAKER) (test code = JAY Zulu[place] [facility] 1538) [address] BASIC METABOLIC [id number] 09:23:00 Test Item Value Reference Range Interpretation [...] NOT APPLICABLE FOR DIALYSIS PATIEN TS. POCT-GLUCOSE [id number] 08:41:00 Test Item Value Reference Range Interpretation Comments POC-GLUCOSE METER 114 mg/dL 70-110 H TESTED AT [facility] 6720 ([facility]) (test code = [place] 1538) [address] RAD, CHEST, 1 VIEW, NON [id number] 07:48:00Reason for exam:->Post-OpShould this be performed at the bedside?->YesFINAL REPORT Chest one view AP 05/10/2017 7:47 AM CLINICAL INDICATION: Post-Op COMPARISON: 05/09/2017 IMPRESSION: There is bibasilar atelectasis. There is a trace left pleural effusion. Cardiomediastinal contours are within normal limits. The central pulmonary vasculature is notengorged. An enteric tube is present. Signed: Wang Jungort Verified Date/Time: 05/10/2017 07:48:05 Reading Location: [facility] Radiology Reading Room CBC W/PLT COUNT & AUTO [id number] 07:36:00 Test Item Value Reference Range Interpretation [...] % 0-1 PERCENT (BEAKER) (test code = 2805) POCT-GLUCOSE [id number] 22:44:00 Test Item Value Reference Range Interpretation Comments POC-GLUCOSE METER 128 mg/dL 70-110 H TESTED AT [facility] 6720 (BEAKER) (test code = [place] 1538) [address] POCT-GLUCOSE [id number] 17:22:00 Test Item Value Reference Range Interpretation Comments POC-GLUCOSE METER 106 mg/dL 70-110 TESTED AT [place] [address] ([facility]) (test code = JAY Zuluaga [facility] 1538) [address] RAD, ABDOMEN/KUB, 1 VIEW [id number] 12:38:00Reason for exam:->ileusFINAL REPORT Abdomen two views supine 05/09/2017 12:38 PM CLINICAL INDICATION: ileus COMPARISON: None available IMPRESSION: There is no radiographic evidence for bowel obstruction. There is mild ileus. No abnormal calcifications are seen in the region of the gallbladder or kidneys. There are no acute-appearing skeletal abnormalities. Signed: Wang Jungort Verified Date/Time: 05/09/2017 12:38:47 Reading Location: [address] Consult Reading Room POCT-GLUCOSE [id number] 12:19:00 Test Item Value Reference Range Interpretation Comments POC-GLUCOSE METER 102 mg/dL 70-110 TESTED AT [place] [address] ([facility]) (test code = JAY Zuluaga [facility] 1538) [address] POCT-GLUCOSE [id number] 06:45:00 Test Item Value Reference Range Interpretation Comments POC-GLUCOSE METER 104 mg/dL 70-110 TESTED AT [place] [address] ([facility]) (test code = JAY Zuluaga [facility] 1538) [address] RAD, CHEST, 1 VIEW, NON [id number] 05:01:00Reason for exam:->Post-OpShould this be performed at [...] [place] Verified Date/Time: 05/09/2017 05:01:39 Reading Location: [facility] C013T [facility] Reading Room [id number] 03:47:00 Test Item Value Reference Range Interpretation Comments PHOSPHORUS (BEAKER) (test code = 2.7 mg/dL 2.3-4.7 604) [id number] 03:47:00 Test Item Value Reference Range Interpretation Comments MAGNESIUM (BEAKER) (test code = 1.8 mg/dL 1.6-2.6 627) BASIC METABOLIC [id number] 03:47:00 Test Item Value Reference Range Interpretation [...] DIALYSIS PATIEN TS. LACTIC ACID, ARTERIAL, WHOLE [id number] 03:42:00 Test Item Value Reference Range Interpretation Comments LACTATE BLOOD ARTERIAL (2) 0.9 mmol/L 0.5-2.2 (BEAKER) (test code = 2874) Effective 10/21/2015: Units/Reference Range ChangeNew: 0.5-2.2 mmol/L Previous: 5-20 mg/dLCALCIUM, [id number] 03:39:00 Test Item Value Reference Range Interpretation Comments CALCIUM IONIZED (BEAKER) (test 1.15 mmol/L 1.12-1.27 code = 698) PH, BLOOD (BEAKER) (test code = 7.42 1810) CBC W/PLT COUNT & AUTO [id number] 03:36:00 Test Item Value Reference Range Interpretation [...] (BEAKER) (test code = 2801) OXYGEN SATURATION, [id number] 03:35:00 Test Item Value Reference Range Interpretation Comments O2 SATURATION (MEASURED) (BEAKER) 64.0 % (test code = 1455) POCT-GLUCOSE [id number] 01:07:00 Test Item Value Reference Range Interpretation Comments POC-GLUCOSE METER 96 mg/dL 70-110 TESTED AT [facility] 6720 (BEAKER) (test code = [place] [address] 1538) BLOOD GAS, [id number] 12:28:00 Test Item Value Reference Range Interpretation [...] 60.0 % RAD, CHEST, 1 VIEW, NON [id number] 11:05:00Reason for exam:->Post-OpShould this be performed at the bedside?->YesFINAL REPORT Chest one view AP 05/08/2017 11:05 AM CLINICAL INDICATION: Post-Op COMPARISON: 05/02/2017 IMPRESSION: Support hardware is in satisfactory radiographic position. Cardiomediastinal contours are stable. The central pulmonary vasculature is not engorged. The lungs are clear, save for scattered foci of linear atelectasis. Signed: Wang Jung Verified Date/Time: 05/08/2017 11:05:58 Reading Location: [facility] Reading Room [id number] 11:03:00 Test Item Value Reference Range Interpretation Comments MAGNESIUM (BEAKER) (test code = 2.0 mg/dL 1.6-2.6 627) BASIC METABOLIC [id number] 11:03:00 Test Item Value Reference Range Interpretation [...] DIALYSIS PATIEN TS. LACTIC ACID, ARTERIAL, WHOLE [id number] 10:58:00 Test Item Value Reference Range Interpretation Comments LACTATE BLOOD ARTERIAL (2) 0.6 mmol/L 0.5-2.2 (BEAKER) (test code = 2874) Effective 10/21/2015: Units/Reference Range ChangeNew: 0.5-2.2 mmol/L Previous: 5-20 mg/dLPT/[id number] 10:57:00 Test Item Value Reference Range Interpretation [...] (BEAKER) (test code = 2801) OXYGEN SATURATION, [id number] 10:44:00 Test Item Value Reference Range Interpretation Comments O2 SATURATION (MEASURED) (BEAKER) 71.8 % (test code = 1455) BLOOD GAS, [id number] 10:42:00 Test Item Value Reference Range Interpretation [...] (test code = 1819) 60.0 % GLUCOSE-STAT [id number] 10:42:00 Test Item Value Reference Range Interpretation Comments GLUCOSE RANDOM (BEAKER) (test code 112 mg/dL 70-110 H = 652) SODIUM NA-STAT [id number] 10:41:00 Test Item Value Reference Range Interpretation Comments SODIUM (BEAKER) (test code = 381) 137 meq/L 135-148 POTASSIUM-STAT [id number] 10:41:00 Test Item Value Reference Range Interpretation Comments POTASSIUM (BEAKER) (test code = 4.2 meq/L 3.6-5.5 379) HGB/HCT (H&H) - STAT [id number] 10:41:00 Test Item Value Reference Range Interpretation Comments HEMOGLOBIN (BEAKER) (test code = 14.4 g/dL 13.0-16.8 410) HEMATOCRIT (BEAKER) (test code = 42.0 % 40.0-50.0 411) CALCIUM, [id number] 10:41:00 Test Item Value Reference Range Interpretation Comments CALCIUM IONIZED (BEAKER) (test 1.23 mmol/L 1.12-1.27 code = 698) PH, BLOOD (BEAKER) (test code = 7.37 1810) CALCIUM, [id number] 09:43:00 Test Item Value Reference Range Interpretation Comments CALCIUM IONIZED (BEAKER) (test 1.25 mmol/L 1.12-1.27 code = 698) PH, BLOOD (BEAKER) (test code = 7.32 1810) SODIUM NA-STAT [id number] 09:42:00 Test Item Value Reference Range Interpretation Comments SODIUM (BEAKER) (test code = 381) 138 meq/L 135-148 POTASSIUM-STAT [id number] 09:42:00 Test Item Value Reference Range Interpretation Comments POTASSIUM (BEAKER) (test code = 3.8 meq/L 3.6-5.5 379) BLOOD GAS, [id number] 09:42:00 Test Item Value Reference Range Interpretation [...] (test code = 1819) 61.0 % GLUCOSE-STAT [id number] 09:42:00 Test Item Value Reference Range Interpretation Comments GLUCOSE RANDOM (BEAKER) (test code 112 mg/dL 70-110 H = 652) HGB/HCT (H&H) - STAT [id number] 09:42:00 Test Item Value Reference Range Interpretation Comments HEMOGLOBIN (BEAKER) (test code = 13.1 g/dL 13.0-16.8 410) HEMATOCRIT (BEAKER) (test code = 39.0 % 40.0-50.0 L 411) SODIUM NA-STAT [id number] 08:37:00 Test Item Value Reference Range Interpretation Comments SODIUM (BEAKER) (test code = 381) 137 meq/L 135-148 POTASSIUM-STAT [id number] 08:37:00 Test Item Value Reference Range Interpretation Comments POTASSIUM (BEAKER) (test code = 3.9 meq/L 3.6-5.5 379) HGB/HCT (H&H) - STAT [id number] 08:37:00 Test Item Value Reference Range Interpretation Comments HEMOGLOBIN (BEAKER) (test code = 15.2 g/dL 13.0-16.8 410) HEMATOCRIT (BEAKER) (test code = 45.0 % 40.0-50.0 411) CALCIUM, [id number] 08:37:00 Test Item Value Reference Range Interpretation Comments CALCIUM IONIZED (BEAKER) (test 1.15 mmol/L 1.12-1.27 code = 698) PH, BLOOD (BEAKER) (test code = 7.37 1810) BLOOD GAS, [id number] 08:37:00 Test Item Value Reference Range Interpretation [...] (test code = 1819) 64.0 % GLUCOSE-STAT [id number] 08:37:00 Test Item Value Reference Range Interpretation Comments GLUCOSE RANDOM (BEAKER) (test code 111 mg/dL 70-110 H = 652) HEMOGLOBIN [id number] 12:07:00 Test Item Value Reference Range Interpretation Comments HEMOGLOBIN A1C (BEAKER) (test code = 5.6 % 4.3-6.1 368) RAD, CHEST, 2 [id number] 11:17:00Reason for Exam:->Pre-OpFINAL REPORT Chest x-ray, PA [...] [place] Verified Date/Time: 05/02/2017 11:17:15 Reading Location: [facility] Radiology Reading Room Electronically signed by: ITZEL ASTUDILLO M.D. on05/02/2017 11:17 AMBASIC METABOLIC [id number] 11:09:00 Test Item Value Reference Range Interpretation [...] NOT APPLICABLE FOR DIALYSIS PATIEN TS. PROTHROMBIN TIME/[id number] 11:05:00 Test Item Value Reference Range Interpretation [...]
[2021-11-06 13:39] LABS: Absolute Lymphocytes (CBC) 0.6 K/uL (0.7-4.9); Hematocrit 58.1 % (39.6-49.0); Lymphocytes % 4.4 % (15.3-44.8); MPV 7.8 fL (7.6-11.3); RBC Red Blood Cell Count 6.16 M/uL (4.33-5.43)
[2021-11-06] MEDS ORDERED: NA CHLORIDE 0.9% 1,000 ML ONE ×2 (13:49→15:33)
[2021-11-06] MEDS ORDERED: MORPHINE 4 MG/ML SYR ONE (13:49)
[2021-11-06] MEDS ORDERED: ONDANSETRON 4 MG/2 ML VIAL ONE (13:49)
[2021-11-06 13:56] LABS: Albumin 4.6 g/dL (3.4-5.0); Bilirubin Total 1.1 mg/dL (0.2-1.0); Potassium 4.2 mmol/L (3.5-5.1); Protein, Total 8.4 g/dL (6.4-8.2)
[2021-11-06 14:06] LABS: Blood Morphology Comment NOT SEEN (NOT SEEN); Platelet Estimate ADEQ; White Blood Cell Scan OK (OK)
--- NOTE | 2021-11-06 14:26 | RAD REPORT ---
EXAM DESCRIPTION: CTAbdomen Pelvis W Contrast - 11/06/2021 2:15 pm CLINICAL HISTORY: Abdominal pain. Abdominal pain, acute, nonlocalized COMPARISON: Abdomen Pelvis W Contrast dated 04/28/2017; Thorax W/ Con dated 09/27/2021 TECHNIQUE: Biphasic CT imaging of the abdomen and pelvis was performed with 100 ml non-ionic IV cont rast. All CT scans are performed using dose optimization technique as appropriate and may include automated exposure control or mA/KV adjustment according to patient size. FINDINGS: Irregular pulmonary parenchymal scarring with elevation of the left hemidiaphragm noted. Mild fatty liver is noted. The spleen, pancreas, right adrenal gland are normal. Mild nodular thicken ing of the left adrenal gland seen. No solid renal mass or hydronephrosis. Significantly dilated small bowel loops are seen in the mid and lower abdomen measuring up to 4 centi meters in dilatation. Various interloop fluid and mild free fluid is seen surrounding these loops sma ll intestine. This is compatible moderate mechanical small-bowel obstruction. There is a twisting kenny earance present in the lower aspect of the dilated loops with very abrupt transition point noted (roger ge 63/108) likely indicating the presence of internal hernia or volvulus. The appendix is normal. No free air seen. No abscess. No evidence of significant lymphadenopathy. Moderate lumbar degenerative changes. IMPRESSION: Significant small bowel obstruction is seen in the lower abdomen. The very abrupt transi tion point twisted like appearance to the bowel suggests possible internal hernia or volvulus.
[2021-11-06 15:26] LABS: Protime INR 1.09
[2021-11-06] MEDS ORDERED: NA CHLORIDE 0.9% 100 ML IV ONE (15:33)
[2021-11-06] MEDS ORDERED: PIPERACIL/TAZO 3.375 GM VIAL IV ONE (15:33)
--- NOTE | 2021-11-06 15:38 | EDPHYS ---
Physician Documentation [facility] Name: Sae Cardozo Age: 66 yrs Sex: Male : 1955 Arrival Date: 11/06/2021 Time: 12:11 Bed 18 Private MD: ED Physician Christopher Busby HPI: 11/06 13:10 This 66 yrs old Male presents to ER via Ambulatory with complaints of Abdominal Pain, cp Constipation. 13:10 The patient presents with abdominal pain that is diffuse, abdominal distention that is cp diffuse. Onset: The symptoms/episode began/occurred this morning. The symptoms do not radiate. 13:10 Associated signs and symptoms: Pertinent positives: constipation, nausea, Pertinent cp negatives: chest pain, diarrhea, dysuria, fever, testicular pain, vomiting. The symptoms are described as constant. Historical: - Allergies: 12:19 No Known Allergies; iw - Home Meds: 12:19 Eliquis oral [Active]; iw - PMHx: 12:19 AAA; Cancer, Lung; COPD; brain cancer; iw - PSHx: 12:19 AAA repair; iw - Immunization history:: Adult Immunizations up to date. - Social history:: Smoking status: Patient denies any tobacco usage or history of. ROS: 13:15 Constitutional: Negative for body aches, chills, fever, poor PO intake. cp 13:15 Eyes: Negative for injury, pain, redness, and discharge. cp 13:15 ENT: Negative for drainage from ear(s), ear pain, sore throat, difficulty swallowing, difficulty handling secretions. 13:15 Cardiovascular: Negative for chest pain, edema, palpitations. 13:15 Respiratory: Negative for cough, shortness of breath, wheezing. 13:15 Abdomen/GI: Positive for abdominal pain, nausea, constipation, abdominal distension, Negative for vomiting, diarrhea, black/tarry stool, rectal bleeding. 13:15 Back: Negative for pain at rest, pain with movement. 13:15 Neuro: Negative for altered mental status, dizziness, headache, weakness. 13:15 All other systems are negative. Exam: 13:20 Constitutional: The patient appears in no acute distress, alert, awake, cp non-diaphoretic, non-toxic, well developed, well nourished, uncomfortable. 13:20 Head/Face: Normocephalic, atraumatic. cp 13:20 Eyes: Periorbital structures: appear normal, Conjunctiva: normal, no exudate, no injection, Sclera: no appreciated abnormality, Lids and lashes: appear normal, bilaterally. 13:20 ENT: External ear(s): are unremarkable, Nose: is normal, Mouth: Lips: moist, Oral mucosa: pink and intact, moist, Posterior pharynx: Airway: no evidence of obstruction, patent. 13:20 Neck: ROM/movement: is normal, is supple, without pain, no range of motions limitations. 13:20 Chest/axilla: Inspection: normal, Palpation: is normal, no crepitus, no tenderness. 13:20 Cardiovascular: Rate: tachycardic, Rhythm: regular, Edema: is not appreciated, JVD: is not appreciated. 13:20 Respiratory: the patient does not display signs of respiratory distress, Respirations: normal, no use of accessory muscles, no retractions, labored breathing, is not present, Breath sounds: are clear throughout, no decreased breath sounds. 13:20 Abdomen/GI: Inspection: distension, that is moderate, Bowel sounds: active, all quadrants, Palpation: soft, in all quadrants, severe abdominal tenderness, in all quadrants, rebound tenderness, is not appreciated, voluntary guarding, is elicited in all quadrants, involuntary guarding, is not appreciated. 13:20 Back: pain, is absent, ROM is normal. 13:20 Skin: cellulitis, is not appreciated, no rash present. 13:20 Neuro: Orientation: to person, place \\T\\ time. Mentation: is normal, Motor: moves all fours, strength is normal, Sensation: is normal. 17:42 ECG was reviewed by the Attending Physician. cp Vital Signs: 12:18 BP 121 / 87; Pulse 115; Resp 18; Temp 98.2; Pulse Ox 98% on R/A; iw 18:52 BP 94 / 70; Pulse 108; Resp 17; ll1 MDM: 13:18 Patient medically screened. cp 14:45 Data reviewed: vital signs, nurses notes, lab test result(s), EKG, radiologic studies, cp CT scan, plain films. 14:45 Test interpretation: by ED physician or midlevel provider: ECG, plain radiologic cp studies. 15:20 Physician consultation: Yusuf Castillo was contacted at 15:20, regarding admission, to the medical/surgical unit. patient's condition, DR Longoria will consult and see patient today. 11/06 12:58 Order name: CBC with Diff; Complete Time: 14:39 cp 11/06 14:02 Interpretation: Normal except: WBC 13.4; RBC 6.16; HGB 19.1; HCT 58.1; MCV 94.2; TOAN% cp 91.0; LYM% 4.4; NEUT A 12.2; LYMA 0.6. 11/06 12:58 Order name: CMP; Complete Time: 14:02 cp 11/06 14:02 Interpretation: Normal except: GLUC 142; GFR 79; BILIT 1.1; CA 10.7; TP 8.4; GLOB 3.8. 11/06 12:58 Order name: Lipase; Complete Time: 14:02 11/06 12:58 Order name: Urine Microscopic Only 11/06 13:43 Order name: CBC Smear Scan; Complete Time: 14:39 EDMS 11/06 14:41 Order name: Lactate; Complete Time: 17:50 cp 11/06 12:58 Order name: CT Abd/Pelvis - IV Contrast Only; Complete Time: 14:39 cp 11/06 14:40 Interpretation: Report reviewed. 11/06 14:41 Order name: Procalcitonin; Complete Time: 17:50 cp 11/06 14:41 Order name: Blood Culture Adult (2) 11/06 15:00 Order name: PT-INR; Complete Time: 17:50 cp 11/06 15:00 Order name: Ptt, Activated; Complete Time: 17:50 cp 11/06 15:00 Order name: XRAY Chest (1 view); Complete Time: 17:50 cp 11/06 15:11 Order name: COVID-19 SARS RT PCR (Document "Date of Onset" if Symptomatic); Complete ss Time: 17:50 11/06 15:57 Order name: Abdomen 1 View XRAY; Complete Time: 17:50 ll1 11/06 17:51 Interpretation: Report reviewed. 11/06 12:58 Order name: IV Saline Lock; Complete Time: 13:33 cp 11/06 12:58 Order name: Labs collected and sent; Complete Time: 13:33 cp 11/06 15:00 Order name: EKG; Complete Time: 15:01 cp 11/06 15:00 Order name: EKG - Nurse/Tech cp 11/06 15:03 Order name: NG Tube; Complete Time: 15:55 cp 11/06 15:03 Order name: NPO; Complete Time: 15:05 cp EC:42 Rate is 100 beats/min. Rhythm is regular. [place] interval is normal. QRS interval is cp normal. QT interval is normal. T waves are Inverted in lead aVR. Interpreted by me. Reviewed by me. Administered Medications: 13:49 Drug: Zofran (Ondansetron) 4 mg Route: IVP; Site: right antecubital; ll1 15:04 Follow up: Response: No adverse reaction ll1 13:49 Drug: morphine 4 mg Route: IVP; Site: right antecubital; ss 14:55 Follow up: Response: No adverse reaction; Pain is decreased ss 13:49 Drug: NS 0.9% 500 ml Volume: 500 ml; Route: IV; Rate: 1 bolus; Site: right antecubital; ss 16:07 Follow up: Response: No adverse reaction; IV Status: Completed infusion; IV Intake: ll1 500ml 14:41 Not Given (Physician Discretion): NS 0.9% 500 ml IV at 125 ml/hr continuous cp 14:55 Drug: NS 0.9% 500 ml Route: IV; Rate: bolus; Site: right antecubital; ss 15:40 Follow up: Response: No adverse reaction; IV Status: Completed infusion; IV Intake: ll1 1000ml 15:50 Drug: Zosyn (piperacillin-tazobactam) 3.375 grams Route: IVPB; Infused Over: 60 mins; ll1 Site: right antecubital; Disposition Summary: 11/06/21 15:37 Hospitalization Ordered Hospitalization Status: Inpatient Admission cp Provider: Yusuf Castillo cp Location: Telemetry/MedSurg (Inpatient) cp Condition: Stable cp Problem: new cp Symptoms: have improved cp Bed/Room Type: Standard cp Room Assignment: 229(11/06/21 19:07) em1 Diagnosis - Small Bowel Obstruction cp Forms: - Medication Reconciliation Form cp - SBAR form cp Signatures: Dispatcher [employer] EDAnat Chong RN RN iw Martinez, Eric em1 Taylor Cortez RN RN ss Duane Burrows PA PA cp Lewis, Lynsay, RN RN ll1 Corrections: (The following items were deleted from the chart) 14:02 14:02 Normal except: GLUC 142; GFR 79. cp cp 19:07 15:37 cp em1
--- NOTE | 2021-11-06 15:38 | ER ---
Nurse's Notes [facility] Name: Sae Cardozo Age: 66 yrs Sex: Male : 1955 Arrival Date: 11/06/2021 Time: 12:11 Bed 18 Private MD: Diagnosis: Small Bowel Obstruction Presentation: 11/06 12:18 Chief complaint: Patient states: abdominal pain since 6 am, hurts all over, denies v/d. iw +nausea, hot flashes, last BM has been a while, might be constipated , took a laxative at 0840. Coronavirus screen: At this time, the client does not indicate any symptoms associated with coronavirus-19. Ebola Screen: Patient negative for fever greater than or equal to 101.5 degrees Fahrenheit, and additional compatible Ebola Virus Disease symptoms Patient denies exposure to infectious person. Patient denies travel to an Ebola-affected area in the 21 days before illness onset. No symptoms or risks identified at this time. Initial Sepsis Screen: Does the patient meet any 2 criteria? No. Patient's initial sepsis screen is negative. Does the patient have a suspected source of infection? No. Patient's initial sepsis screen is negative. Risk Assessment: Do you want to hurt yourself or someone else? Patient reports no desire to harm self or others. Onset of symptoms was November 06, 2021. 12:18 Method Of Arrival: Ambulatory iw 12:18 Acuity: JIMMIE 3 iw Historical: - Allergies: 12:19 No Known Allergies; iw - Home Meds: 12:19 Eliquis oral [Active]; iw - PMHx: 12:19 AAA; Cancer, Lung; COPD; brain cancer; iw - PSHx: 12:19 AAA repair; iw - Immunization history:: Adult Immunizations up to date. - Social history:: Smoking status: Patient denies any tobacco usage or history of. Screenin:58 Abuse screen: Denies threats or abuse. Nutritional screening: No deficits noted. ll1 Tuberculosis screening: No symptoms or risk factors identified. Fall Risk IV access (20 points). Total [place]ales Fall Scale indicates No Risk (0-24 pts). Assessment: 13:13 General: Appears distressed, uncomfortable, Behavior is calm, cooperative. Pain: ss Complains of pain in abdomen Pain currently is 8 out of 10 on a pain scale. Quality of pain is described as crampy, Is intermittent. Cardiovascular: Capillary refill < 3 seconds is brisk in bilateral fingers. Respiratory: Airway is patent Respiratory effort is even, unlabored, Respiratory pattern is regular, symmetrical. GI: Abdomen is round distended, Bowel sounds present X 4 quads. Abdomen is tender to palpation X 4 quads. Patient currently denies diarrhea, nausea, vomiting. : No signs and/or symptoms were reported regarding the genitourinary system. EENT: Nares are clear Oral mucosa is moist. Derm: Skin is intact, is healthy with good turgor, Skin is dry, Skin is pink, warm \T\ dry. normal. 14:55 Reassessment: Patient appears in no apparent distress at this time. Patient and/or ss family updated on plan of care and expected duration. Pain level reassessed. Patient is alert, oriented x 3, equal unlabored respirations, skin warm/dry/pink. Patient denies pain at this time. Patient states feeling better. Patient states symptoms have improved. Reassessment: Pt moved to ER 18. Denies pain at this time. Is speaking on phone with family member. Neuro: [place] Agitation-Sedation Scale (RASS): 0 - Alert and Calm. 15:55 Reassessment: Patient and/or family updated on plan of care and expected duration. Pain ll1 level reassessed. Patient is alert, oriented x 3, equal unlabored respirations, skin warm/dry/pink. 16:45 Reassessment: Patient and/or family updated on plan of care and expected duration. Pain ll1 level reassessed. Patient is alert, oriented x 3, equal unlabored respirations, skin warm/dry/pink. Patient states feeling better. 17:45 Reassessment: No changes from previously documented assessment. Patient and/or family ll1 updated on plan of care and expected duration. Pain level reassessed. Patient is alert, oriented x 3, equal unlabored respirations, skin warm/dry/pink. 18:45 Reassessment: No changes from previously documented assessment. Patient and/or family ll1 updated on plan of care and expected duration. Pain level reassessed. Patient is alert, oriented x 3, equal unlabored respirations, skin warm/dry/pink. Vital Signs: 12:18 BP 121 / 87; Pulse 115; Resp 18; Temp 98.2; Pulse Ox 98% on R/A; iw 18:52 BP 94 / 70; Pulse 108; Resp 17; ll1 ED Course: 12:11 Patient arrived in ED. ds1 12:19 Triage completed. iw 12:20 Arm band placed on. iw 12:25 Duane Burrows PA is PHCP. cp 12:25 Christopher Busby MD is Attending Physician. cp 13:32 Inserted saline lock: 20 gauge in right antecubital area, using aseptic technique. jw7 Blood collected. 13:33 Initial lab(s) drawn, by me, sent to lab. jw7 13:33 CBC with Diff Sent. jw7 13:33 CMP Sent. jw7 13:34 Lipase Sent. jw7 13:41 Taylor Cortez, [facility] is Primary Nurse. ss 14:16 CT Abd/Pelvis - IV Contrast Only In Process Unspecified. EDMS 15:35 Yusuf Castillo is Hospitalizing Provider. cp 15:57 NGT: inserted 18 Fr. via left nare. verified placement of air over stomach, verified ll1 return of gastric contents, to intermittent suction. Returned gastric contents. Patient tolerated well. 16:14 XRAY Chest (1 view) In Process Unspecified. EDMS 17:21 Abdomen 1 View XRAY In Process Unspecified. EDMS Administered Medications: 13:49 Drug: Zofran (Ondansetron) 4 mg Route: IVP; Site: right antecubital; ll1 15:04 Follow up: Response: No adverse reaction ll1 13:49 Drug: morphine 4 mg Route: IVP; Site: right antecubital; ss 14:55 Follow up: Response: No adverse reaction; Pain is decreased ss 13:49 Drug: NS 0.9% 500 ml Volume: 500 ml; Route: IV; Rate: 1 bolus; Site: right antecubital; ss 16:07 Follow up: Response: No adverse reaction; IV Status: Completed infusion; IV Intake: ll1 500ml 14:41 Not Given (Physician Discretion): NS 0.9% 500 ml IV at 125 ml/hr continuous cp 14:55 Drug: NS 0.9% 500 ml Route: IV; Rate: bolus; Site: right antecubital; ss 15:40 Follow up: Response: No adverse reaction; IV Status: Completed infusion; IV Intake: ll1 1000ml 15:50 Drug: Zosyn (piperacillin-tazobactam) 3.375 grams Route: IVPB; Infused Over: 60 mins; ll1 Site: right antecubital; Medication: 15:58 VIS not applicable for this client. ll1 Intake: 15:40 IV: 1000ml; Total: 1000ml. ll1 16:07 IV: 500ml; Total: 1500ml. ll1 Outcome: 15:37 Decision to Hospitalize by Provider. cp 20:12 Patient left the ED. tw5 Signatures: Dispatcher [employer] EDOK FontaineJuliana mayberry dsAnat Cha, RN [facility] Taylor Cortez RN RN ss Duane Burrows PA PA cp Lewis, Lynsay, RN RN ll1 Mireya Harris tw5 Suzanne Covington jw7
--- NOTE | 2021-11-06 16:36 | P.HP ---
Certification for Inpatient Patient admitted to: Inpatient With expected LOS: >2 Midnights Practitioner: I am a practitioner with admitting privileges, knowledge of patient current condition, hospital course, and medical plan of care. 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 Patient describes diffuse colicky abdominal pain, up to 8/10 in intensity, nonradiating, intermittent, associated with nausea but no vomiting. He stated his last bowel movement was 2 days ago. He denied any fever. CT abdomen and pelvis done in the emergency department demonstrate small bowel obstruction with transition point and concern for volvulus versus internal hernia. General surgery Dr. Longoria informed recommended admission to the hospitalist service for him to consult. NG tube inserted drain 400 mL of bile colored fluid. His abdominal pain improved after the NG tube insertion. Patient is hospitalized for further management. Allergies No Known Allergies Allergy (Verified 01/17/20 11:55) Home Medications: Fluticasone/Umeclidin/Vilanter [Trelegy Ellipta 100-62.5-25] 1 each IH DAILY 01/17/20 - Past Medical/Surgical History Diabetic: No -: Metastatic lung cancer -: Abdominal aortic aneurysm -: AAA repair -: neck surgery - Family History Mother -: Lung disease - Social History Smoking Status: Former smoker Alcohol use: Yes CD- Drugs: No Caffeine use: Yes Place of Residence: Home Review of Systems Other: Patient denied any fever or chills. He denied any shortness of breath. Except as documented, all other systems reviewed and negative. Physical Examination - Physical Exam General: Alert, In no apparent distress, Oriented x3 HEENT: PERRLA, Mucous membr. moist/pink, Sclerae nonicteric Neck: Supple, JVD not distended Respiratory: Clear to auscultation bilaterally, Normal air movement Cardiovascular: No edema, Normal pulses, Normal S1 S2, Other (Tachycardia) Capillary refill: <2 Seconds Gastrointestinal: Normal bowel sounds, Soft and benign, Non-distended, Other, Distended Musculoskeletal: No swelling, No tenderness Integumentary: No rashes, No cyanosis Neurological: Normal speech, Normal strength at 5/5 x4 extr, Cranial nerves 3-12 intact Lymphatics: No axilla or inguinal lymphadenopathy - Studies Laboratory Data (last 24 hrs) 11/06/21 15:00: PT 12.0, INR 1.09, APTT 30.4 11/06/21 13:31: Sodium 137, Potassium 4.2, BUN 8, Creatinine 1.04, Glucose 142 H, Total Bilirubin 1.1 H, AST 15, ALT 25, Alkaline Phosphatase 86, Lipase 90 11/06/21 13:31: WBC 13.4 H, Hgb 19.1 H, Hct 58.1 H, Plt Count 236 Assessment and Plan - Problems (Diagnosis) (1) Small bowel obstruction Current Visit: Yes Status: Acute (2) Dehydration Current Visit: Yes Status: Acute (3) History of lung cancer Current Visit: Yes Status: Acute - Plan Admit patient to the medical floor. N.p.o. NG tube to suction Supportive measures with IV fluid, IV pain medications. Aggressively hydrate with IV fluid for dehydration. Consult to general surgery Empiric IV antibiotics-Zosyn - Advance Directives Does patient have a Living Will: Yes Does patient have a Durable POA for Healthcare: Yes
--- NOTE | 2021-11-06 16:56 | RAD REPORT ---
EXAM DESCRIPTION: RAD - Chest Single View - 11/06/2021 4:12 pm CLINICAL HISTORY: ABDOMINAL DISTENTION COMPARISON: CT study 11/06/2021, two view chest 02/24/2021 TECHNIQUE: AP portable chest image was obtained 11/06/2021 4:12 pm . FINDINGS: Pronounced left hemidiaphragm elevation again noted. Stranding at the left base is believe d be chronic atelectasis. Patient has a baseline chronic interstitial pattern not clearly different f rom since no new mass or consolidation. Mediastinum is similar to comparison. Cardiomegaly not suspec karri. Trachea is midline. No measurable pleural effusion and no pneumothorax. No acute bony abnormalit y seen. No acute aortic findings suspected. IMPRESSION: No acute cardiopulmonary process. Chronic lung changes are present as detailed. No significant change from comparison studies.
--- NOTE | 2021-11-06 17:37 | RAD REPORT ---
EXAM DESCRIPTION: RAD - Abdomen Single View - 11/06/2021 5:19 pm CLINICAL HISTORY: POST NG PLACEMENT COMPARISON: Abdomen Pelvis W Contrast dated 11/06/2021 FINDINGS: NG tube is in place. Tip and side port of the tubing are in the proximal stomach. The stom ach overlies the lower left chest due to chronic left hemidiaphragm elevation. IMPRESSION: NG tube placement in good position.
--- NOTE | 2021-11-06 18:59 | P.CNS ---
Date of Consult: 11/06/21 PC: This 66-year-old male presented to the emergency room with severe abdominal pain for diagnosis and treatment. HPC: Patient admitted feeling relatively well over the last few weeks. However the other day he noticed he was having severe abdominal pain. It intensified and seems to be in the lower portion of his abdomen and pelvis. Describes the pain as coming in waves, and being unrelenting. States he had a bowel movement yesterday. PSHx: Exploratory laparotomy and repair of AAA, PMHx: Chemotherapy and radiation for lung cancer with brain mets Social Hx: No known allergies Sys R: No cough, wheeze, shortness of breath. Since has been having some headaches and episodes of dizziness. Finds it sometimes hard to maintain his balance. Has been working with his neurologist to try to explain the etiology and treatment of this. Otherwise states that he is in relatively good health. Did not have anything to eat that was unusual. No heavy fiber intake, or heavy meat consumption. O/E: Awake alert vital signs are stable. Patient in good mood no discomfort at the moment HEENT: Patient has nasogastric tube in place, has drained about 400 cc over the last 2 hours since it was placed. Chest: Air entry equal bilaterally Abd: Abdomen is soft at the moment no evidence of guarding or rebound. Mildly tympanic. [place]: Intact Data: CT scan showed a significant area of narrowing on his films on presentation. Concern for volvulus, or internal hernia. Impression: At the current time the patient denies any pain whatsoever. Feels much better since nasogastric tube has been placed. Does not have any clinical findings of acute abdomen at the moment. He is also on Eliquis, and his hydration may be suboptimal. Plan: I am going to watch the patient overnight. We will reassess tomorrow. In the meantime we will leave nasogastric tube in place. He will have access to pain medicine. We will also write for some oral Valium as a muscle relaxant. I shall also give him a dose of mineral oil. I explained to him that I had intended on doing surgery when I saw his initial films, but on clinical examination the patient does not look ill at the moment, has no discomfort, and is very anxious not to have any type of surgery. I have explained to him our treatment plan, the fact that it may change rapidly, he understands and wants to proceed.
[2021-11-06] MEDS ORDERED: DIAZEPAM 5 MG TABLET PO PRN (19:03)
[2021-11-06] MEDS ORDERED: MINERAL OIL 30 ML UCUP PO ONE (21:01)
[2021-11-06] MEDS: D5 0.9 NS 1,000 ML IV SCH (21:13)
[2021-11-07 00:18] LABS: Urine Appearance Clear (Clear); Urine Bilirubin Negative (Negative); Urine Blood Trace-lysed (Negative); Urine Color Yellow (Yellow); Urine Glucose Negative (Negative); Urine Protein Negative (Negative); Urine Urobilinogen 0.2 mg/dL (0.2-1.0)
[2021-11-07 00:25] LABS: Urine Microscopic Reflex ORDER UMIC
[2021-11-07 01:04] LABS: Urine Bacteria <20 /HPF (NONE SEEN); Urine RBC <5 /HPF (NONE SEEN)
[2021-11-07] MEDS: HEPARIN 5000 UNIT/ML 1 ML VIAL SQ SCH ×2 (01:25→08:41)
[2021-11-07 06:11] LABS: Absolute Lymphocytes (CBC) 0.7 K/uL (0.7-4.9); Hematocrit 48.4 % (39.6-49.0); Lymphocytes % 7.2 % (15.3-44.8); MPV 7.5 fL (7.6-11.3); RBC Red Blood Cell Count 5.11 M/uL (4.33-5.43)
[2021-11-07 06:13] LABS: Protime INR 1.13
[2021-11-07 06:30] LABS: Bilirubin Total 0.9 mg/dL (0.2-1.0); Phosphorus 2.9 mg/dL (2.5-4.9); Protein, Total 5.9 g/dL (6.4-8.2)
[2021-11-07] MEDS: D5 0.9 NS 1,000 ML IV SCH ×2 (06:35→16:16)
--- NOTE | 2021-11-07 10:22 | P.PN ---
Subjective Date of Service: 11/07/21 Chief Complaint: Abdominal pain Patient denies any complaint. 400 ml NG tube output overnight. No BM or flatus since admission. He reports abdominal pain only with movement. Physical Examination - Vital Signs Temperature: 97.5 F Blood Pressure: 107/56 Pulse: 75 Respirations: 19 Pulse Ox (%): 93 - Physical Exam General: Alert, In no apparent distress, Oriented x3 HEENT: Mucous membr. moist/pink, Sclerae nonicteric Neck: JVD not distended Respiratory: Clear to auscultation bilaterally, Normal air movement Cardiovascular: No edema, Regular rate/rhythm, Normal S1 S2 Gastrointestinal: Normal bowel sounds, Soft and benign, Non-distended (Abdominal distention resolved.), No tenderness Musculoskeletal: No swelling, No tenderness Integumentary: No rashes, No cyanosis Neurological: Normal strength at 5/5 x4 extr - Studies Laboratory Data (last 24 hrs) 11/06/21 15:00: PT 12.0, INR 1.09, APTT 30.4 11/06/21 13:31: Sodium 137, Potassium 4.2, BUN 8, Creatinine 1.04, Glucose 142 H, Total Bilirubin 1.1 H, AST 15, ALT 25, Alkaline Phosphatase 86, Lipase 90 11/06/21 13:31: WBC 13.4 H, Hgb 19.1 H, Hct 58.1 H, Plt Count 236 Assessment And Plan - Current Problems (Diagnosis) (1) Small bowel obstruction Current Visit: Yes Status: Acute (2) Dehydration Current Visit: Yes Status: Acute (3) History of lung cancer Current Visit: Yes Status: Acute - Plan N.p.o. Continue NG tube to suction. General surgery-Dr. Longoria input appreciated. Trial of conservative measures IV fluid, IV pain medications. Empiric IV antibiotics-Zosyn. Serial abdominal examination.
[2021-11-07] MEDS ORDERED: MINERAL OIL 30 ML UCUP PO ONE ×2 (17:23→23:00)
--- NOTE | 2021-11-07 17:34 | P.PN ---
Date of Service: 11/07/21 S: Patient states he feels better today, abdomen is less distended, does not really hear any bowel sounds or feel them. Has not passed any gas per rectum. Tolerating nasogastric tube well. Has been up sitting at the side of the bed, going to the restroom, cannot walk down the sharif due to his underlying problems with equilibrium. O: Vital signs are stable, adequate urine output. Minimal coming out through the nasogastric tube at this point. Abdomen is soft, not distended or tympanic leg yesterday. No guarding rebound or tenderness. Lab work is adequate. A: Appears to be responding to nasogastric tube and IV fluids P: We will change around his IV fluids. I will repeat the mineral oil again tonight. He will also receive a Valium to help with muscle relaxant. My concern is that we are emptying out the area proximal to his obstruction, but we do not have any signs yet that the restriction has been relieved. May possibly benefit from a repeat CT scan with oral contrast to see if the obstruction has cleared. Continue current therapy for now.
[2021-11-07] MEDS ORDERED: ENOXAPARIN 80 MG/0.8 ML SQ SCH (21:00)
[2021-11-07] MEDS: PIPER TAZO 3.375 GM in NA CHLORIDE 0.9% 100 ML IV SCH (21:13)
[2021-11-07] MEDS: D5.45NS W/KCL 20MEQ 20 MEQ/1,000 ML BAG IV SCH (21:16)
[2021-11-07] MEDS ORDERED: MINERAL OIL 30 ML UCUP ONE (22:42)
[2021-11-08 04:16] LABS: Absolute Lymphocytes (CBC) 0.7 K/uL (0.7-4.9); Hematocrit 45.4 % (39.6-49.0); Lymphocytes % 8.2 % (15.3-44.8); MPV 7.9 fL (7.6-11.3); RBC Red Blood Cell Count 4.78 M/uL (4.33-5.43)
[2021-11-08 04:24] LABS: Potassium 3.6 mmol/L (3.5-5.1)
[2021-11-08] MEDS: PIPER TAZO 3.375 GM in NA CHLORIDE 0.9% 100 ML IV SCH ×3 (04:46→20:09)
[2021-11-08] MEDS: D5.45NS W/KCL 20MEQ 20 MEQ/1,000 ML BAG IV SCH ×3 (04:46→20:09)
[2021-11-08] MEDS ORDERED: KCL 20 MEQ/100 mL IVPB 20 MEQ/100 ML BAG IV SCH (05:00)
--- NOTE | 2021-11-08 11:28 | EKG ---
Test Date: 2021-11-06 Test Time: 17:35:52 [employer] Sales Associate: TRINA MEASUREMENT RESULTS: Intervals: Rate: 100 DE: 168 QRSD: 84 QT: 334 QTc: 430 [place]: P: 47 DE: 168 QRS: -51 T: 65 INTERPRETIVE STATEMENTS: Normal sinus rhythm Left anterior fascicular block Inferior infarct, age undetermined Anterior infarct, age undetermined Abnormal ECG Compared to ECG 07/15/2020 16:21:09 Left anterior fascicular block now present Ventricular premature complex(es) no longer present Left ventricular hypertrophy no longer present Early repolarization no longer present Myocardial infarct finding still present Electronically Signed On 11-08-21 11:23:47 CDT by Marlon Rader
--- NOTE | 2021-11-08 11:41 | P.PN ---
Subjective Date of Service: 11/08/21 Chief Complaint: Abdominal pain Patient reports intermittent abdominal pain 450 ml NG tube output overnight. No BM or flatus. Physical Examination - Vital Signs Temperature: 97.4 F Blood Pressure: 134/67 Pulse: 80 Respirations: 18 Pulse Ox (%): 93 - Physical Exam General: Alert, In no apparent distress, Oriented x3 HEENT: Mucous membr. moist/pink Neck: JVD not distended Respiratory: Clear to auscultation bilaterally, Normal air movement Cardiovascular: No edema, Regular rate/rhythm, Normal S1 S2 Gastrointestinal: Normal bowel sounds, Soft and benign, Non-distended Musculoskeletal: No swelling Integumentary: No rashes Neurological: Normal strength at 5/5 x4 extr Assessment And Plan - Current Problems (Diagnosis) (1) Small bowel obstruction Current Visit: Yes Status: Acute (2) Dehydration Current Visit: Yes Status: Acute (3) History of lung cancer Current Visit: Yes Status: Acute - Plan Patient's abdomen is benign but he still has significant NG tube output. Patient given mineral oil via NG tube over the weekend. No BM or flatus yet Continue NG tube to suction. General surgery-Dr. Longoria to follow. Repeat KUB today Continue IV fluid, IV pain medications. Empiric IV antibiotics-Zosyn. Serial abdominal examination.
--- NOTE | 2021-11-08 12:34 | RAD REPORT ---
EXAM DESCRIPTION: RAD - Abdomen 1 View (KUB) - 11/08/2021 12:26 pm CLINICAL HISTORY: Follow up SBO Pain COMPARISON: ABDOMEN 1 VIEW KUB dated 10/15/2014; Abdomen Single View dated 11/06/2021 FINDINGS: Moderate to significantly dilated left-sided small bowel loops are seen compatible with me chanical small bowel obstruction. Degree of distention appears quite similar to prior studies. No deb e air identified.
--- NOTE | 2021-11-08 13:47 | P.PN ---
Date of Service: 11/08/21 S: Patient still is mildly uncomfortable. States his abdomen is gone down in size. Still no bowel movements or gas per rectum. O: Abdomen has been decompressed, but still remains tympanic in the lower portion of the abdomen. No guarding or rebound. Still relatively high output from nasogastric tube despite 2 rounds of mineral oil. A: This patient still has a small bowel obstruction. 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 I have told him that we need to go to the operating room, a laparotomy is the operation at this time that he requires. P: This patient is to go to the operating room for an exploratory laparotomy. I have explained to him that there is a certain time period with which we need to operate. Even though clinically he may feel mildly better he has essentially made very little progress as this is a distal obstruction. On the radiology films 1 can see that is a very tight obstruction. We have managed to decompress him considerably so that should help with the operative procedure itself. However he still needs to go to the OR for exploratory laparotomy, possible small bowel resection, and other indicated procedures. He understands and wants to proceed. The risks of the procedure were described. The possibility of bleeding, infection, leakage from anastomotic sites, ostomies, and other potential and unforeseen events were explained. He understands and wants us to proceed.
[2021-11-08] MEDS ORDERED: Ringers Lactate 1,000 ML IV ONE ×2 (15:55→19:13)
[2021-11-08] MEDS ORDERED: SUCCINYLCHOLINE 20 MG/ML (10 ML) IV ONE (16:22)
[2021-11-08] MEDS ORDERED: FENTANYL CITR 250 MCG/5 ML ONE (16:27)
[2021-11-08] MEDS ORDERED: ROCURONIUM 50 MG/5 ML VIAL IV ONE (16:27)
[2021-11-08] MEDS ORDERED: propofoL 200 MG/20 ML VIAL IV ONE (16:27)
[2021-11-08] MEDS ORDERED: dexAMETHasone 10 MG/ML VIAL ONE (18:10)
[2021-11-08] MEDS ORDERED: KETOROLAC 30 MG/ML INJ ONE (18:11)
[2021-11-08] MEDS ORDERED: ONDANSETRON 4 MG/2 ML VIAL ONE (18:42)
[2021-11-08] MEDS ORDERED: NEOSTIGMINE 1 MG/ML -10 ML VIAL ONE (18:43)
[2021-11-08] MEDS ORDERED: GLYCOPYRROLATE 0.2 MG/ML SYR ONE (18:43)
--- NOTE | 2021-11-08 18:54 | P.OP ---
Preoperative diagnosis: Small bowel obstruction Postoperative diagnosis: The same with internal hernia Primary procedure: Exploratory laparotomy, Secondary procedure: Reduction of incarcerated internal hernia Other procedure(s): Closure of mesenteric defect, lysis of adhesions Anesthesia: General Estimated blood loss: Less than 10 cc Specimen: None sent Findings: Internal hernia Operative Technique: The patient brought the operating room and placed supine on the table. After the induction of adequate general endotracheal anesthesia, a Singh catheter was inserted. The abdomen was then prepped with a Betadine solution, and he was draped in usual aseptic manner. Attention was turned towards the abdomen itself. The patient had a off-center exploratory laparotomy incision line from his prior surgeries. We stayed away from the old scar tissue, and position one down the actual true midline itself. This was brought down through the skin and subcutaneous tissue. We encountered the peritoneum just above the umbilicus. This was lifted up between 2 hemostats, sharply incised with a 10 blade, allowing access to the peritoneal cavity. A finger was now placed into the abdominal cavity and by sweeping away the tissue in the midline, we were able to open the abdominal wall for the full length of our incision. At this point a Ta retractor was placed into the abdomen. Applying traction we were able to identify an area of marked congestion just beneath the area of the umbilicus consistent with the area demonstrated on CT scan. In this area he actually had a length of bowel measuring approximately 15 inches that was doubled back on itself. There was an opening in the mesentery through which another loop of bowel had gone through, and essentially obstructed the area. This was easily reduced back out of this defect. The bowel itself was red and irritated which did not show any signs of nonvascularity. Attention was turned towards this mesenteric defect. We were able to approximate it using a running stitch of chromic. Having effectively close down this area, attention was turned back towards the peritoneal cavity. And was placed into the abdomen to confirm the position of the nasogastric tube. Another hand was placed down into the true pelvis to ensure the Singh catheter was inserted. The bowel was now run from the ligament of Treitz, all the way down to the ileocecal valve. Any further obstructions were seen. The bowel was dilated and its liquid contents could easily be passed through this area that we had just addressed. With no signs of any obstruction, or impedance. The right colon was palpated no defects were noted. In the upper abdomen the patient does have a marked amount of adhesions in that area to the anterior abdominal wall. I could not palpate the transverse colon or the left colon. The sigmoid however was felt all the way down to the pelvic floor. No pathology was grossly identified. At this point the abdomen was inspected to ensure adequate hemostasis. A running suture of nylon was now started at the bottom of the incision and continued upwards where at the upper region of our incision was tied on itself. The knot was then buried. The subcutaneous tissue was inspected to ensure adequate hemostasis. [place] were then applied to the skin. At the end of procedure he was in a stable condition was sent to the recovery room. Needle sponge and instrument count were correct. No drains were placed. Complications: None Transferred to: Recovery Room Condition: Good
[2021-11-08] MEDS ORDERED: MORPHINE 4 MG/ML SYR IV PRN (19:32)
--- NOTE | 2021-11-08 19:55 | RAD REPORT ---
EXAM DESCRIPTION: RAD - Abdomen 1 View (KUB) - 11/08/2021 7:48 pm CLINICAL HISTORY: s/p NGT placement COMPARISON: Abdomen 1 View (KUB) dated 11/08/2021; ABDOMEN 1 VIEW KUB dated 10/15/2014; Abdomen Pelv is W Contrast dated 11/06/2021 FINDINGS: NG tube has been placed. Tip is in the proximal stomach with the side port of the tubing a t the GE junction. Stomach does appear to be decompressed. Multiple dilated small bowel loops are present. Skin chad seen along the midline. The prominent sm all bowel pattern may represent a postoperative ileus. No suspicious free air or pneumatosis pattern. No significant bony findings IMPRESSION: NG tube has been placed with the tip in the proximal stomach and the side port of the tu sameera near the GE junction.
[2021-11-08] MEDS: MORPHINE 2 MG/ML SYR IV PRN (20:09)
[2021-11-09] MEDS: D5.45NS W/KCL 20MEQ 20 MEQ/1,000 ML BAG IV SCH ×3 (03:51→21:17)
[2021-11-09 05:02] LABS: Absolute Lymphocytes (CBC) 0.4 K/uL (0.7-4.9); Hematocrit 44.9 % (39.6-49.0); Lymphocytes % 4.8 % (15.3-44.8); MPV 7.9 fL (7.6-11.3); RBC Red Blood Cell Count 4.71 M/uL (4.33-5.43)
[2021-11-09 05:14] LABS: Potassium 4.8 mmol/L (3.5-5.1)
[2021-11-09] MEDS: PIPER TAZO 3.375 GM in NA CHLORIDE 0.9% 100 ML IV SCH ×3 (06:36→21:16)
--- NOTE | 2021-11-09 07:05 | P.PN ---
Date of Service: 11/09/21 Subjective: Improving, NGT in plac[place] pain tolerable no acute events overnight ROS: 10 point ROS as noted above, otherwise negative Physical exam GEN: Alert, oriented, NAD HEENT: Normal conjunctiva, sclera anicteric CV: Regular rate and rhythm, no edema Pulm: Nonlabored respirations on room air ABD: Soft, mild tenderness Neuro: Normal speech, normal affect Problem List SBO secondary to incarcerated hernia dehydration h/o lung cancer s/p hernia repair, lysis of adheions by Dr. Longoria NGT in place NG / feeds per Dr. Longoria improving continue antibiotics, IV fluids serial abdominal exams ok to transfer out of ICU Code: full Dispo: home, ~2 days Time Spent Managing Pts Care (In Minutes): 35
[2021-11-09 08:00] VITALS: BMI 26.9
[2021-11-09] MEDS ORDERED: MINERAL OIL 30 ML UCUP PO ONE (21:55)
[2021-11-10] MEDS ORDERED: MINERAL OIL 30 ML UCUP PO ONE
[2021-11-10 04:15] LABS: Potassium 4.4 mmol/L (3.5-5.1)
[2021-11-10] MEDS: PIPER TAZO 3.375 GM in NA CHLORIDE 0.9% 100 ML IV SCH (04:31)
[2021-11-10] MEDS: D5.45NS W/KCL 20MEQ 20 MEQ/1,000 ML BAG IV SCH ×3 (04:32→19:57)
--- NOTE | 2021-11-10 06:50 | P.PN ---
Date of Service: 11/10/21 Subjective: more tired today, otherwise no acute events no flatus, no BM no nausea ROS: 10 point ROS as noted above, otherwise negative Physical exam GEN: Alert, oriented, NAD HEENT: Normal conjunctiva, sclera anicteric; NGT in place CV: Regular rate and rhythm, no edema Pulm: Non-labored respirations on room air ABD: Soft, mild tenderness Neuro: Normal speech, normal affect Problem List SBO, inguinal hernia dehydration h/o lung cancer s/p hernia repair, lysis of adhesions by Dr. Longoria NGT in place plan for NG clamping trials today dc erwin awaiting return of bowel function dc antibiotics - discussed with Dr. Longoria continue IVF Code: full Dispo: home, ~1-2 days Time Spent Managing Pts Care (In Minutes): 35
[2021-11-10] MEDS ORDERED: BISACODYL 10 MG RECTAL SUPP PR ONE (09:14)
[2021-11-10] MEDS ORDERED: ENSURE CLEAR 200 ML CAN PO ONE (10:00)
[2021-11-10] MEDS: ONDANSETRON 4 MG/2 ML VIAL IV PRN ×2 (11:32→16:45)
[2021-11-10] MEDS ORDERED: LORazepam 2 MG/ML VIAL IV ONE (21:55)
[2021-11-11] MEDS: D5.45NS W/KCL 20MEQ 20 MEQ/1,000 ML BAG IV SCH ×3 (04:26→22:25)
[2021-11-11 06:14] LABS: Hematocrit 45.2 % (39.6-49.0); MPV 7.9 fL (7.6-11.3)
[2021-11-11] MEDS: ONDANSETRON 4 MG/2 ML VIAL IV PRN ×3 (06:19→17:57)
[2021-11-11 06:34] LABS: Bilirubin Total 0.7 mg/dL (0.2-1.0); Potassium 3.6 mmol/L (3.5-5.1); Protein, Total 6.4 g/dL (6.4-8.2)
--- NOTE | 2021-11-11 06:35 | P.PN ---
Date of Service: 11/11/21 Subjective: minimal flatus, became nauseous after NGT clamp overnight, relieved after placed to suction tired today ROS: 10 point ROS as noted above, otherwise negative Physical exam GEN: Alert, oriented, NAD HEENT: Normal conjunctiva, sclera anicteric; NGT in place CV: Regular rate and rhythm, no edema Pulm: Non-labored respirations on room air ABD: Soft, mild tenderness Neuro: Normal speech, normal affect Problem List SBO, inguinal hernia dehydration h/o lung cancer s/p hernia repair, lysis of adhesions by Dr. Longoria NGT in place with NG clamping trials awaiting return of bowel function dc antibiotics 11/10- discussed with Dr. Longoria continue IVF minimal flatus, no BM Code: full Dispo: home, ~1-2 days Time Spent Managing Pts Care (In Minutes): 35
--- NOTE | 2021-11-11 12:26 | P.PN ---
Date of Service: 11/11/21 S: Patient has no specific complaints, just getting frustrated if things are not progressing faster. Nasogastric gastric tube accidentally got pulled out. Abdomen is mildly distended, says he feels nausea but has not had any nausea or vomiting. Asking if he can have some food. Says he also did not sleep very well last night. O: Abdomen mildly distended, tympanic, nontender however incision looks good. Has occasional bowel sounds. A: Postoperative ileus appears to be resolving slowly. Nasogastric tube has come out, patient is asking to try to drink some Ensure. Lab work looks good, serum albumin at 3.0. P: Encourage patient to sit out in a chair, ambulate more. We will give him 1 can of Ensure today. Physical therapy has been ordered for him. I will try and cut back on the pain medicine, encouraging oral pills. I explained the situation to the patient, the possible need soon for hyperalimentation should he not progress. He understands but would prefer to wait at least another day.
[2021-11-11] MEDS ORDERED: HYDROCODONE/APAP 7.5/325 MG TAB PO PRN (12:32)
[2021-11-11] MEDS ORDERED: BISACODYL 10 MG RECTAL SUPP PR ONE (12:36)
[2021-11-11] MEDS ORDERED: ENSURE ENLIVE 237 ML CAN PO ONE (13:20)
[2021-11-11] MEDS: MORPHINE 2 MG/ML SYR IV PRN (17:57)
[2021-11-11] MEDS ORDERED: DIAZEPAM 5 MG TABLET PO ONE ×2 (21:00→22:12)
[2021-11-12 05:06] LABS: Albumin 2.9 g/dL (3.4-5.0); Bilirubin Total 0.8 mg/dL (0.2-1.0); Magnesium 1.8 mg/dL (1.8-2.4); Potassium 3.8 mmol/L (3.5-5.1); Protein, Total 6.1 g/dL (6.4-8.2)
[2021-11-12] MEDS ORDERED: MAGNESIUM SULFATE 1 gm IVPB 1 GM/100 ML BAG IV ONE (05:48)
[2021-11-12] MEDS: D5.45NS W/KCL 20MEQ 20 MEQ/1,000 ML BAG IV SCH ×2 (07:35→15:27)
[2021-11-12] MEDS ORDERED: KCL 20 MEQ/100 mL IVPB 20 MEQ/100 ML BAG IV SCH (09:00)
[2021-11-12] MEDS ORDERED: MINERAL OIL 30 ML UCUP PO ONE (16:00)
--- NOTE | 2021-11-12 18:11 | P.PN ---
Date of Service: 11/12/21 Subjective: pulled NGT today, had bowel movement feels about the same ROS: 10 point ROS as noted above, otherwise negative Physical exam GEN: Alert, oriented, NAD HEENT: Normal conjunctiva, sclera anicteric CV: Regular rate and rhythm, no edema Pulm: Non-labored respirations on room air ABD: Soft, mild tenderness Neuro: Normal speech, normal affect Problem List SBO, inguinal hernia dehydration h/o lung cancer s/p hernia repair, lysis of adhesions by Dr. Longoria NGT pulled by patient 11/12 +BM on 11/12 advance diet slowly mineral oil x1 dc'd antibiotics 11/10- discussed with Dr. Longoria continue IVF Code: full Dispo: home, ~1-2 days Time Spent Managing Pts Care (In Minutes): 35
[2021-11-13] MEDS: D5.45NS W/KCL 20MEQ 20 MEQ/1,000 ML BAG IV SCH ×3 (00:51→11:27)
[2021-11-13 04:41] LABS: Hematocrit 44.3 % (39.6-49.0); MPV 8.2 fL (7.6-11.3); RBC Red Blood Cell Count 4.74 M/uL (4.33-5.43)
[2021-11-13 04:57] LABS: Magnesium 2.2 mg/dL (1.8-2.4); Potassium 4.3 mmol/L (3.5-5.1)
[2021-11-13] MEDS: ONDANSETRON 4 MG/2 ML VIAL IV PRN ×2 (08:05→17:02)
--- NOTE | 2021-11-13 18:22 | P.PN ---
Date of Service: 11/13/21 Subjective: slightly better still nauseated this morning, no emesis +BM ROS: 10 point ROS as noted above, otherwise negative Physical exam GEN: Alert, oriented, NAD HEENT: Normal conjunctiva, sclera anicteric CV: Regular rate and rhythm, no edema Pulm: Non-labored respirations on room air ABD: Soft, mild tenderness Neuro: Normal speech, normal affect Problem List SBO, inguinal hernia dehydration h/o lung cancer s/p hernia repair, lysis of adhesions by Dr. Longoria NGT pulled by patient 11/12 +BM on 11/12, and 11/13 advance diet slowly mineral oil x1 dc'd antibiotics 11/10- discussed with Dr. Longoria Code: full Dispo: home, ~1 day Time Spent Managing Pts Care (In Minutes): 35
[2021-11-14 09:47] VITALS: O2SAT 98
[2021-11-14 13:35] VITALS: BP 107/73; TEMP 98
--- NOTE | 2021-11-14 20:14 | P.DS ---
Admission Date: 11/06/21 Discharge Date: 11/14/21 Disposition: ROUTINE DISCHARGE Discharge Condition: GOOD Reason for Admission: Abdominal pain Consultations: General Surgery - Dr. 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 Found to have small bowel obstruction with transition point and concern for volvulus vs internal hernia. Hospital Course: Problem List SBO, incarcerated internal hernia dehydration h/o lung cancer Diagnosed with small bowel obstruction. He required surgery for correction, lysis of adhesions, and hernia repair. He did not require any resection of his bowel. Postoperative course was prolonged secondary to slow return of bowel function. Patient required multiple days of NG tube decompression. He slowly regained bowel function and improved. His diet was advanced to soft diet, which he tolerated well. On day of discharge, he reported no nausea, tolerating diet, slight rumblings in his stomach, and some loose stool. He felt well and improved each day, ready to be discharged home. He is to continue with soft diet. Follow up with Dr. Longoria in ~1 week. No changes in medications, no new medications on discharge. No heavy lifting. Vital Signs/Physical Exam: Temp Pulse Resp BP Pulse Ox 98 F 98 H 18 107/73 96 11/14/21 12:00 11/14/21 12:00 11/14/21 12:00 11/14/21 12:00 11/14/21 12:00 Physical exam GEN: Alert, oriented, NAD HEENT: Normal conjunctiva, sclera anicteric CV: Regular rate and rhythm, no edema Pulm: Non-labored respirations on room air ABD: Soft, no tenderness Neuro: Normal speech, normal affect Laboratory Data at Discharge: WBC 7.9 K/uL (4.3-10.9) D 11/13/21 03:53 Hgb 15.1 g/dL (13.6-17.9) 11/13/21 03:53 Hct 44.3 % (39.6-49.0) 11/13/21 03:53 Plt Count 202 K/uL (152-406) 11/13/21 03:53 PT 12.5 SECONDS (9.5-12.5) 11/07/21 05:52 INR 1.13 11/07/21 05:52 APTT 30.4 SECONDS (24.3-36.9) 11/06/21 15:00 Sodium 139 mmol/L (136-145) 11/13/21 03:53 Potassium 4.3 mmol/L (3.5-5.1) 11/13/21 03:53 BUN 5 mg/dL (7-18) L 11/13/21 03:53 Creatinine 0.71 mg/dL (0.55-1.3) 11/13/21 03:53 Glucose 99 mg/dL (74-106) 11/13/21 03:53 Phosphorus 2.9 mg/dL (2.5-4.9) 11/07/21 05:52 Magnesium 2.2 mg/dL (1.8-2.4) 11/13/21 03:53 Total Bilirubin 0.8 mg/dL (0.2-1.0) 11/12/21 04:02 AST 22 U/L (15-37) 11/12/21 04:02 ALT 24 U/L (12-78) 11/12/21 04:02 Alkaline Phosphatase 63 U/L (45-117) 11/12/21 04:02 Lipase 90 U/L (73-393) 11/06/21 13:31 Home Medications: Apixaban [Eliquis] 5 mg PO BID 11/06/21 Umeclidinium Brm/Vilanterol Tr [Anoro Ellipta 62.5-25 Mcg INH] 1 each IH DAILY 11/06/21 Followup: Viet Longoria MD [ACTIVE - CAN ADMIT] - 1 Week (call to schedule an appointment ) Patrick Landaverde, DO [Primary Care Provider] - 1-2 Weeks (PCP- call to schedule an appointment ) Time spent managing pt's care (in minutes): 45
== END 2021-11-14 13:10 | disposition home or self-care (01) | DRG 354 ==
LOC: ER 12:09 → ERHOLD 18:39 → 2ND 20:10 → 3RD-ICU 11-08 18:16 → 2ND 11-09 12:50
PROVIDERS: ADMIT Internal Medicine; ATTEND Internal Medicine
PROC: 0DQV0ZZ Repair Mesentery, Open Approach (ICD-10-PCS; 2021-11-08)
PROC: 0WQF0ZZ Repair Abdominal Wall, Open Approach (ICD-10-PCS; principal; 2021-11-08 16:00)
DX: K46.0 Unspecified abdominal hernia with obstruction, without gangrene (principal); K91.89 Other postprocedural complications and disorders of digestive system; K56.7 Ileus, unspecified; E86.0 Dehydration; Z85.118 Personal history of other malignant neoplasm of bronchus and lung; Z85.841 Personal history of malignant neoplasm of brain; Z87.891 Personal history of nicotine dependence; Z92.21 Personal history of antineoplastic chemotherapy; Z86.79 Personal history of other diseases of the circulatory system; Z20.822 Contact with and (suspected) exposure to COVID-19
CPT/HCPCS: 36415; 71045; 74018; 74177; 80048; 80053; 81003; 81015; 83605; 83690; 83735; 84100; 84145; 85025; 85027; 85610; 85730; 87040; 93005; 94760; 96361; 96374; 96375; 97110; 97116; 97161; 97530; 99284; J0330; J1100; J1644; J2270; J2405; J2543; J2704; J2710; J3010; J3475; J3480; J7030; J7042; J7120; Q9967; U0003

== ENCOUNTER 2022-06-02 16:40 | Emergency (ER) | payer OTHER, BC ==
--- OUTSIDE RECORDS SUMMARY | 2022-06-02 16:43 | XMS REPORT | Clinical Summary ---
:1955 Author Organization [facility] MD Rodriguez [facility] Address [address] [place] [address] Care Team Providers Name Role Phone Joon Valdes MD Unavailable Ashley Benitez MD Primary Care Provider Allergies No known active allergies Medications Medication Sig Dispensed Refills Start Date End Date Status Anoro Ellipta 62.5-25 Inhale 1 puff by 0 11/26/2020 Active mcg/actuation dsdv mouth daily. alip Take 2 tablets by 0 Ac tive acid/biotin/mins16/her mouth daily. b91 (BLOOD SUGAR BALANCE ORAL) multivitamin capsule Take 1 capsule by 0 Active mouth daily. zinc gluconate 50 mg Take 50 mg by 0 Active tablet mouth daily. aspirin 81 mg EC Take 81 mg by 0 Active tablet mouth daily. albuterol (VENTOLIN Inhale 2 puffs by 0 12/16/2020 Active HFA,PROAIR HFA) 90 mouth as needed. 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 Pneumonia 2014 Fatty liver 10/2019 Diabetes mellitus 6.2 Anxiety 2014 Chronic obstructive pulmonary disease 12/18/2019 Social History Tobacco Use Types Packs/Day Years Used Date Smoking Tobacco: Former Cigarettes 1.5 49 Quit : 06/27/2018 Smokeless Tobacco: Never Alcohol Use Standard Drinks/Week Comments Yes 32 (1 standard drink = 0.6 oz pure alcoh ol) Sex Assigned at Date Recorded Male 11/26/2020 7:01 PM CDT Job Start Date Occupation Industry Not on file Not on file Not on file Obstetrics History Last Filed Vital Signs Not on file Plan of Treatment Health Maintenance Due Date Last Done Comments COVID-19 Vaccination (#1) 1955 Results Not on fileafter 06/02/2021 Insurance Payer Benefit Plan / Subscriber ID Effective Dates Phone Addre ss Type Group MEDICARE MEDICARE PART [id number] 2019-Arsenio [phone] [facility]3] Medicare A AND B t 2 SOLUTIONS [address] [place] [address] 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
--- OUTSIDE RECORDS SUMMARY | 2022-06-02 16:44 | XMS REPORT | Continuity of Care Document ---
:[address] [facility] [place], [place] t Address [address] [place] [address] Care Team Providers Name Role Phone [phone] Primary Care Physician Unavailable Patrick Landaverde Attending Clinician Unavailable SYSTEM, PROVIDER NOT IN Attending Clinician Unavailable MAZIN HERNADEZ Attending Clinician Unavailable MAZIN HERNADEZ Attending Clinician Unavailable PATT BOOTH K.H. Attending Clinician Unavailable Mazin Hernadez DO Attending Clinician STACI ZUNIGA Attending Clinician Unavailable Una Armenta Attending Clinician Doctor Unassigned, [place] Attending Clinician Unavailable Leobardo FOY Sendkaleb K.H. Attending Clinician MARLENE REYNOSO Attending Clinician Unavailable Marlene Reynoso MD Attending Clinician Therapist, Adc Respiratory Attending Clinician Unavailable Gianni Waller MD Attending Clinician GIANNI WALLER Attending Clinician Unavailable Only, Adc Test Attending Clinician Unavailable Fan Rivera MD Attending Clinician FAN RIVERA Attending Clinician Unavailable ZELDA RAMIREZ Attending Clinician Unavailable LEAH VILLELA Attending Clinician Unavailable Jomar Batres MD, Abelardo Attending Clinician 2, Adc Lab Attending Clinician Unavailable Tate Diamond DO Attending Clinician Pc, Adc Echo Room 1 - Attending Clinician Unavailable HELDER HERRERA Attending Clinician Unavailable MARLENE REYNOSO Admitting Clinician Unavailable HELDER HERRERA Admitting Clinician Unavailable Payers Payer Name Policy Type Policy Number Effective Date Expiration Date S malena MEDICARE PART A \T\ [id number] 2019 B 00:00:00 [employer] [id number] 2020 00:00:00 [facility] [id number] 2019 PPO 00:00:00 [employer] [id number] 2015 00:00:00 Problems Condition Condition Condition Status Onset Resolution Last Treating Co mments Source Name Details Category Date Date Treatment Clinician Date 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 00:00: [place] lobe of lobe of 00 left lung left lung [facility] Acute Acute Disease Active 2016-[address] [facility] pulmonary pulmonary 07-09 Luke s insufficie insufficie 00:00: Me dical ncy ncy 00 Center following following non-thorac non-thorac ic surgery ic surgery Hyperglyce Hyperglyce Disease Active 2016-[address] [facility] Center AAA AAA Disease Active 2016-[address] (abdominal (abdominal 1-20 Courtney kes aortic aortic 00:00: Medical aneurysm) aneurysm) 00 Cent er Smoker Smoker Disease Active 2016-[address] 1-15 [facility] 00[facility] 00 Center Secondary Secondary Problem 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 [facility] [id number] Balance Problem Commo n problem Spirit - CH[facility] [id number] BRIGHT Problem Common (generaliz Spirit ed anxiety - CHI disorder) [facility] [id number] +5th digit Problem Com mon eff Spirit 03/19/22*AA - CHI A St (abdominal [facility] aortic Medical aneurysm) Center without rupture [id number] Chronic Problem Common obstructiv Spirit e - [facility] pulmonary [facility] disease, [facility] unspecifie Medica l d COPD Center type Malignant Malignant Problem Com mon neoplasm neoplasm Spirit of lower of lower - CHI lobe, lobe, left St bronchus bronchus [facility] or lung or lung Medical [facility] [id number] Mixed Problem Common hyperlipid Spirit emia - CH[facility] Anorexia Anorexia Problem Commo n Spirit - [facility] Malignant Malignant Problem Com mon neoplasm neoplasm Spirit of lower of lower - CHI lobe of lobe of St left lung left lung [facility] No known No known Disease Unive rs active active ity of problems problems [facility] Aneurysm Aneurysm Disease Active CHI S t [facility] Postoperat Postoperat Disease Active C HI St compa anemia compa anemia Courtney kes due to due to Medical acute acute Center blood loss blood loss Allergies, Adverse Reactions, Alerts Allergy Allergy Status Severity Reaction(s) Onset Inactive Treating Comm ents Source Name Type Date Date Clinician Other Propensi Active Itching 2016-06 All anti CHI S t ty to 07-02 inflammat [facility] adverse 00:00: ory drugs Medica l reaction 00 [place] s NO KNOWN Drug Active Univers ALLERGIE Class ity of S [facility] Family History Family Member Diagnosis Comments Start Date Stop Date Source Natural mother COPD [facility] Social History Social Habit Start Date Stop Date Quantity Comments Source History of Tobacco Common Spirit - CHI Use [facility] Exposure to 2021-11-09 2021-11-19 Not sure [facility] SARS-CoV-2 (event) 00:00:00 09:16:00 Medica l [place] Alcohol intake 2021-03-15 2021-03-15 4.57 /d [facility] 00:00:00 00:00:00 MD Zamarripa [facility] Cigarettes smoked 2020-11-30 2020-11-30 [facility] current (pack per 00:00:00 00:00:00 MD Sunny porter Cancer day) - Reported [place] Cigarette 2020-11-30 2020-11-30 [facility] pack-years 00:00:00 00:00:00 MD Dallin Kerr [facility] Tobacco Comment 2020-11-18 2020-11-18 Quit 2019 [facility] 00:00:00 00:00:00 Medical [place] Tobacco use and 2017-05-02 2017-05-[address] Courtney kes exposure 00:00:00 00:00:00 [facility] Sex Assigned At [address] [facility]ney kes 00:00:00 00:00:00 Medical Center Smoking Status Start Date Stop Date Source Former Smoker 2022-02-23 00:00:00 2022-02-23 00:00:00 Common S pirit - [facility] Ce nter Current every day 2017-05-02 00:00:00 [facility] smoker Center Medications Ordered Filled Start Stop Current Ordering Indication Dosage Frequency Signature Comments Components Source Medication Medication Date Date Medication? Clinician (SIG) Name Name Fluticasone Fluticasone No 1{puff} BID Fluticason -Salmeterol -Salmeterol 02-23 e-Salmeter 232-14 232-14 00:00: ol 232-14 MCG/ACT MCG/ACT 00 MCG/ACT Fluticasone Fluticasone No 1{puff} BID Fluticason -Salmeterol -Salmeterol 02-23 e-Salmeter 232-14 232-14 00:00: ol 232-14 MCG/ACT MCG/ACT 00 MCG/ACT ANORO Yes [id number] TAKE 1 Univer s ELLIPTA 7-11 PUFF BY ity of 62.5-25 00:00: MOUTH [place] mcg/actuati 00 DAILY Medical on Branch inhalation disk aspirin 81 0 Yes 81mg Take 81 mg U nivers mg EC 6-03 by mouth ity of tablet 09:57: daily. [place] [address] Medical Branch apixaban Yes 5mg Take 5 mg Univ ers (ELIQUIS) 5 6-03 by mouth 2 it y of mg tablet 09:57: (two) [place] 04 times Medical daily. x30 Branch days aspirin 81 2021-0 Yes 81mg Take 81 mg U nivers mg EC 6-03 by mouth ity of tablet 09:57: daily. [address] Branch apixaban 2021-0 Yes 5mg Take 5 mg Univ ers (ELIQUIS) 5 6-03 by mouth 2 it y of mg tablet 09:57: (two) [place] 04 times Medical daily. x30 Branch days aspirin 81 2021-0 Yes 81mg Take 81 mg U nivers mg EC 6-03 by mouth ity of tablet 09:57: daily. [address] Branch apixaban 2021-0 Yes 5mg Take 5 mg Univ ers (ELIQUIS) 5 6-03 by mouth 2 it y of mg tablet 09:57: (two) [place] 04 times Medical daily. x30 Branch days diazePAM Yes Claustropho Take one Univers (Valium) 5 5-25 clay tablet ity of mg tablet 00:00: orally [place] 00 when instructed Jaxon by MRI n staff [facility] umeclidiniu Yes [id number] 1{puff} Inhale 1 Univers m-vilantero 1-19 Puff ity of L (ANORO 00:00: daily. [place] ELLIPTA) 00 Medical 62.5-25 Branch mcg/actuati on inhalation disk umeclidiniu Yes [id number] 1{puff} Inhale 1 Univers m-vilantero 1-19 Puff ity of L (ANORO 00:00: daily. [place] ELLIPTA) 00 Medical 62.5-25 Branch mcg/actuati on inhalation disk umeclidiniu 2021- No [id number] 1{puff} Inhale 1 Univers m-vilantero 1-19 07-11 Puff ity of L (ANORO 00:00: 00:00 daily. [place] ELLIPTA) 00 :00 Medical 62.5-25 Branch mcg/actuati on inhalation disk alip Yes 2{tbl} Take 2 Univers acid/biotin 9-27 tablets by it y of /mins16/her 08:15: mouth [place] b91 (BLOOD 55 daily. SUGAR Jaxon BALANCE n ORAL) Cancer Center multivitami Yes 1{capsu Take 1 U nivers n capsule 9- le} capsule by ity of 08:15: mouth [place] 55 daily. MD [facility] zinc Yes 50mg Take 50 mg Univers gluconate 9-27 by mouth ity of 50 mg 08:15: daily. [place] tablet 55 MD [facility] aspirin 81 Yes 81mg Take 81 mg U nivers mg EC 9-27 by mouth ity of tablet 08:15: daily. [place] 55 MD [facility] albuterol Yes 2{puff} Inhale 2 U nivers (VENTOLIN 6-30 puffs by ity of HFA,PROAIR 00:00: mouth as Thom as HFA) 90 00 needed. mcg/puff Trevinerso inhaler n [facility] Anoro Yes 1{puff} Inhale 1 Unive rs Ellipta 6-10 puff by ity of 62.5-25 00:00: mouth [place] mcg/actuati 00 daily. on dsdv Anderso n [facility] Eliquis 5 Eliquis 5 No BID Eliquis 5 MG MG MG Zinc Zinc No Zinc Picolinate Picolinate Picolinate Mirtazapine Mirtazapine No 1{table QD Mirtazapin 15 MG 15 MG t_at_be e 15 MG dtime} Multivitami Multivitami No Multivitam n & Mineral n & Mineral in & Mineral Eliquis 5 Eliquis 5 No BID Eliquis 5 MG MG MG Zinc Zinc No Zinc Picolinate Picolinate Picolinate Mirtazapine Mirtazapine No 1{table QD Mirtazapin 15 MG 15 MG t_at_be e 15 MG dtime} Multivitami Multivitami No Multivitam n & Mineral n & Mineral in & Mineral Multivitami Multivitami No Multivitam n & Mineral n & Mineral in & Mineral Mirtazapine Mirtazapine No 1{table QD Mirtazapin 15 MG 15 MG t_at_be e 15 MG dtime} Zinc Zinc No Zinc Picolinate Picolinate Picolinate Anoro Anoro No Anoro Ellipta Ellipta Ellipta Eliquis 5 Eliquis 5 No BID Eliquis 5 MG MG MG Zinc Zinc No Zinc Picolinate Picolinate Picolinate Anoro Anoro No Anoro Ellipta Ellipta Ellipta Multivitami Multivitami No Multivitam n & Mineral n & Mineral in & Mineral Mirtazapine Mirtazapine No 1{table QD Mirtazapin 15 MG 15 MG t_at_be e 15 MG dtime} Eliquis 5 Eliquis 5 No QD Eliquis 5 MG MG MG Zinc Zinc No Zinc Picolinate Picolinate Picolinate Anoro Anoro No Anoro Ellipta Ellipta Ellipta Multivitami Multivitami No Multivitam n & Mineral n & Mineral in & Mineral Mirtazapine Mirtazapine No 1{table QD Mirtazapin 15 MG 15 MG t_at_be e 15 MG dtime} Eliquis 5 Eliquis 5 No QD Eliquis 5 MG MG MG Mirtazapine Mirtazapine No 1{table QD Mirtazapin 15 MG 15 MG t_at_be e 15 MG dtime} Multivitami Multivitami No Multivitam n & Mineral n & Mineral in & Mineral Eliquis 5 Eliquis 5 No BID Eliquis 5 MG MG MG Zinc Zinc No Zinc Picolinate Picolinate Picolinate Eliquis 5 Eliquis 5 No BID Eliquis 5 MG MG MG Zinc Zinc No Zinc Picolinate Picolinate Picolinate Mirtazapine Mirtazapine No 1{table QD Mirtazapin 15 MG 15 MG t_at_be e 15 MG dtime} Multivitami Multivitami No Multivitam n & Mineral n & Mineral in & Mineral Eliquis 5 Eliquis 5 No BID Eliquis 5 MG MG MG Zinc Zinc No Zinc Picolinate Picolinate Picolinate Mirtazapine Mirtazapine No 1{table QD Mirtazapin 15 MG 15 MG t_at_be e 15 MG dtime} Multivitami Multivitami No Multivitam n & Mineral n & Mineral in & Mineral Vital Signs Vital Name Observation Time Observation Value Comments Source height 2022-02-23 09:00:00 70 [in_i] [facility] weight 2022-02-23 09:00:00 177.0 [lb_av] [facility] temperature 2022-02-23 09:00:00 97.9 [degF] [facility] bmi 2022-02-23 09:00:00 25.39 kg/m2 [facility] oximetry 2022-02-23 09:00:00 96 % [facility] respiratory rate 2022-02-23 09:00:00 17 /min Comm on [facility] blood pressure 2022-02-23 09:00:00 121 mm[Hg] [facility] systolic [facility] blood pressure 2022-02-23 09:00:00 70 mm[Hg] [facility] diastolic [facility] height 2021-11-23 09:50:00 70 [in_i] Common [facility] weight 2021-11-23 09:50:00 174.7 [lb_av] [facility] temperature 2021-11-23 09:50:00 98.0 [degF] [facility] bmi 2021-11-23 09:50:00 25.06 kg/m2 [facility] oximetry 2021-11-23 09:50:00 95 % [facility] respiratory rate 2021-11-23 09:50:00 16 /min Comm on [facility] blood pressure 2021-11-23 09:50:00 106 mm[Hg] [facility] - systolic [facility] blood pressure 2021-11-23 09:50:00 65 mm[Hg] [facility] diastolic [facility] Systolic blood 2021-11-19 15:02:00 102 mm[Hg] Univer [facility]ity of [facility] Diastolic blood 2021-11-19 15:02:00 67 mm[Hg] Unive rsity of [facility] Heart rate 2021-11-19 15:02:00 87 /min [facility] Respiratory rate 2021-11-19 15:02:00 19 /min [facility] height 2021-11-19 15:02:00 177.8 cm [facility] Body weight 2021-11-19 15:02:00 78.79 kg [facility] BMI 2021-11-19 15:02:00 24.92 kg/m2 [facility] Oxygen saturation in 2021-11-19 15:02:00 95 /min [facility] Arterial blood [facility] Pulse oximetry Branch [facility] 2021-08-20 08:20:00 70 [in_i] [facility] weight 2021-08-20 08:20:00 177.7 [lb_av] [facility] temperature 2021-08-20 08:20:00 97.3 [degF] Common [facility] bmi 2021-08-20 08:20:00 25.49 kg/m2 Common [facility] oximetry 2021-08-20 08:20:00 97 % Common [facility] respiratory rate 2021-08-20 08:20:00 17 /min Comm on [facility] blood pressure 2021-08-20 08:20:00 122 mm[Hg] [facility] - systolic [facility] blood pressure 2021-08-20 08:20:00 72 mm[Hg] [facility] - diastolic [facility] height 2021-08-20 08:20:00 70 [in_i] Common [facility] weight 2021-08-20 08:20:00 177.7 [lb_av] [facility] temperature 2021-08-20 08:20:00 97.3 [degF] [facility] 2021-08-20 08:20:00 25.49 kg/m2 [facility] oximetry 2021-08-20 08:20:00 97 % Common [facility] respiratory rate 2021-08-20 08:20:00 17 /min Comm on [facility] blood pressure 2021-08-20 08:20:00 122 mm[Hg] [facility] - systolic [facility] blood pressure 2021-08-20 08:20:00 72 mm[Hg] [facility] - diastolic [facility] height 2021-07-26 13:30:00 70 [in_i] Common [facility] weight 2021-07-26 13:30:00 177.2 [lb_av] [facility] temperature 2021-07-26 13:30:00 98.4 [degF] [facility] bmi 2021-07-26 13:30:00 25.42 kg/m2 Common [facility] oximetry 2021-07-26 13:30:00 95 % Common S pirit - [facility] respiratory rate 2021-07-26 13:30:00 16 /min Comm on [facility] blood pressure 2021-07-26 13:30:00 117 mm[Hg] [facility] - systolic [facility] blood pressure 2021-07-26 13:30:00 66 mm[Hg] [facility] - diastolic [facility] HEIGHT 2020-11-30 10:04:00 176.5 cm WEIGHT 2020-11-30 10:04:00 91.7 kg Procedures This patient has no known procedures. Plan of Care Planned Activity Planned Date Details Comments Source Future Scheduled 2021-12-22 COVID-19 [facility] 07:01:56 (#1) [code = COVID-19 And erson Cancer Vaccination (#1)] Center Encounters Start End Encounter Admission Attending Care Care Encounter Source Date/Time Date/Time Type Type Clinicians Facility Department ID 2022-03-21 Outpatient Landaverde, STLMLC STLMLC [id number] Common 08:48:02 Patrick [facility] 2022-02-24 Outpatient Landaverde, STLMLC STLMLC [id number] Common 10:44:02 Patrick [address] [facility] 2022-02-23 Outpatient Landaverde, STLMLC STLMLC [id number] Common 08:56:02 Patrick [facility] 2022-01-03 Outpatient Landaverde, STLMLC STLMLC [id number] Common 10:09:02 Patrick [facility] 2021-07-26 Outpatient Landaverde, STLMLC STLMLC [id number] Common 13:55:03 Patrick [facility] 2020-11-24 Outpatient SYSTEM, BEBETO TATE [id number] 14:21:13 PROVIDER Cornelclark lewis 2022-11-22 2022-11-22 Outpatient R MAZIN HERNADEZ [facility] [id number] Univers 09:30:00 09:30:00 MAZIN HERNADEZ [facility] 2022-11-04 2022-11-04 Outpatient R LEOBARDO [facility] [id number] Univers 10:00:00 10:00:00 SENDIL ity [facility] 2022-10-31 2022-10-31 Outpatient R LEOBARDO [facility] [id number] Univers 09:00:00 09:00:00 SENDIL ity [facility] 2022-04-25 2022-04-25 (TEL) STLMLC STLMLC [id number] Co mmon 00:00:00 00:00:00 Spirit - [facility] 2022-02-23 2022-02-23 OFFICE STLMLC STLMLC [id number] Co mmon 00:00:00 00:00:00 VISIT [facility] 4 [facility] 2021-12-24 2021-12-24 [facility]ill [facility] 1.2.840.114 [id number] Univers 00:00:00 00:00:00 Mazin SHETTY [id number] i ty of [id number] [id number] Id dical NAL [address] [place] [address] 2021-11-23 2021-11-23 (HOSP F/U) STLMLC STLMLC [id number] Common 00:00:00 00:00:00 [facility] Up - [facility] 2021-11-19 2021-11-19 Outpatient R MAZIN HERNADEZ [facility] [id number] Univers 09:30:00 10:08:31 MAZIN HERNADEZ i ty of [facility] 2021-11-19 2021-11-19 Office [facility] 1.2.840.114 [id number] Univers 09:30:00 10:08:31 Visit Mazin SHETTY [id number] i ty [id number] [id number] Id dical NAL [address] [place] [address] 2021-11-15 2021-11-15 (TEL) STLMLC STLMLC [id number] Co mmon 00:00:00 00:00:00 [facility] 2021-11-12 2021-11-12 [id number] Univers 12:00:00 12:00:00 STACI ity [facility] 2021-11-12 2021-11-12 [facility] [id number] Univers 12:00:00 12:00:00 STACI ity [facility] 2021-11-10 2021-11-10 Orders Oleg 1.2.840.1 [id number] Univers 00:00:00 00:00:00 Only Una 36193.1.1 it [facility] [id number] [id number] MD Romano8 [facility] 2021-11-08 2021-11-08 Orders Doctor BATISTA 1.2.840.114 [id number] Univers 00:00:00 00:00:00 Only Unassigned, SUSAN [id number] [facility] [id number] [place] as [id number] [address] 2021-11-03 2021-11-03 [facility] [id number] Univers 10:30:00 11:03:24 SENDIL [facility] 2021-11-03 2021-11-03 Office [facility] 1.2.840.114 [id number] Univers 10:30:00 11:03:24 Visit Patt SHETTY [id number] ity [facility] [id number] [id number] Id dical [facility] 2021-11-03 2021-11-03 [facility] [id number] Univers 10:30:00 11:03:24 [facility] 2021-10-25 2021-10-25 Out[facility] [id number] Univers 12:41:15 23:59:00 MARLENE chaudhry o f [facility] 2021-10-25 2021-10-25 [facility] [id number] Univers 13:00:00 13:00:00 MARLENE mosesradha o f [facility] 2021-10-19 2021-10-19 Telephone [facility] 1.2.840.114 [id number] Univers 00:00:00 00:00:00 Marlene DIOGENES [id number] ity [facility] [id number] [id number] Id dical NAL 205 [facility] 2021-10-19 2021-10-19 (TEL) STLMLC STLMLC [id number] Co mmon 00:00:00 00:00:00 Spirit - [facility] 2021-10-11 2021-10-11 Telephone Leobardo [facility] [id number] Univers 00:00:00 00:00:00 Sendil Haily SHETTY [id number] ity [facility] [id number] [id number] Id dical NAL 059 [facility] 2021-10-08 2021-10-08 Outpatient R LEOBARDO [facility] [id number] Univers 08:22:16 08:22:16 SENDIL [facility] 2021-08-20 2021-08-20 OFFICE STLMLC STLMLC [id number] Co mmon 00:00:00 00:00:00 VISIT Spirit ESTAB PT - CHI LEVEL 4 [facility] 2021-08-20 2021-08-20 SUB ANNUAL STLMLC STLC [id number] Common 00:00:00 00:00:00 MCR Spirit WELLNESS - CHI VISIT [facility] 2021-07-26 2021-07-26 OFFICE STLMLC STLMLC [id number] Co mmon 00:00:00 00:00:00 VISIT NEW Spir it PT LEVEL 3 - [facility] 2021-07-07 2021-07-07 Outpatient R LEOBARDO [facility] [id number] Univers 10:00:00 10:26:15 SENDIL [facility] 2021-07-07 2021-07-07 Office Leobardo [facility] 1.2.840.114 [id number] Univers 10:00:00 10:26:15 Visit Sendil Haily SHETTY [id number] ity of [id number] [id number] Id dical NAL 059 [facility] 2021-07-07 2021-07-07 Outpatient R LEOBARDO [facility] [id number] Univers 10:00:00 10:26:15 SENDIL ity [facility] 2021-05-28 2021-05-28 Outpatient R MAZIN HERNADEZ [facility] [id number] Univers 09:30:00 09:59:09 MAZIN HERNADEZ i ty of [facility] 2021-05-28 2021-05-28 Outpatient R MAZIN HERNADEZ [facility] 10 [id number] Univers 09:30:00 09:59:09 MAZIN HERNADEZ i ty of [facility] 2021-05-28 2021-05-28 Office [facility] 1.2.840.114 [id number] Univers 09:09:28 09:59:09 Visit Mazin SHETTY [id number] i ty of [place] [id number] [id number] Id dical NAL 085 [facility] 2021-04-21 2021-04-21 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 10 ity of [id number] [id number] [facility] 083 [place] 2021-04-21 2021-04-21 Outpatient R CHRISTIN [facility] [id number] Univers 14:00:00 14:00:00 GIANNI chaudhry [facility] 2021-04-19 2021-04-19 Laboratory Only, Adc Test [facility] 1.2.840. 114 [id number] Univers 09:05:05 09:20:05 Only Mazin Hernadez [id number] ity of [place] [id number] [facility] [id number] [facility] 353 [place] 2021-04-19 2021-04-19 Outpatient R MIGUEL [facility] [id number] Univers 09:15:00 09:15:00 FAN itradha [facility] 2021-04-19 2021-04-19 Orders Doctor LESTER 1.2.840.114 [id number] Univers 00:00:00 00:00:00 Only Unassigned, SUSAN [id number] ity of [facility] [id number] [place] as [id number] [facility] 009 [place] 2021-03-15 2021-03-15 Outpatient EL ZELDA RAMIREZ MDA MDA [id number] 08:00:18 08:41:34 Cornel lewis 2021-03-15 2021-03-15 Outpatient ZACH TATE MDA [id number] 08:37:45 08:37:45 Cornel lewis 2021-03-03 2021-03-03 Office Leobardo [facility] 1.2.840.114 [id number] Univers 13:46:36 14:21:59 Visit Patt Shetty 350.1.13.10 [id number] [id number] Id dical nal 059 [facility] 2021-03-03 2021-03-03 Outpatient Margareth BOOTH [facility] [id number] Univers 14:00:00 14:00:00 SENDIL itradha [facility] 2021-03-02 2021-03-02 Outpatient R LEOBARDO [facility] [id number] Univers 10:30:00 10:30:00 [facility] 2021-02-26 2021-02-26 Office Narinder CARYAN 1.2.840.114 [id number] Univers 10:13:15 10:43:15 Visit Mazin Shetty 350.1.13.10 i ty lonnie Humph[place] [phone] Id dical nal 085 [facility] 2021-02-26 2021-02-26 Office [facility] 1.2.840.114 [id number] Univers 10:13:15 10:43:15 Visit Mazin Shetty 350.1.13.10 i [facility] 4.2.7.2.686 Jennifer saravia Cristobal [phone] [address] 2021-02-26 2021-02-26 Outpatient R MAZIN HERNADEZ [facility] 10 [id number] Univers 10:20:00 10:20:00 MAZIN HERNADEZ i ty [facility] 2021-02-18 2021-02-18 Outpatient R MAZIN HERNADEZ [facility] 10 [id number] Univers 11:00:00 11:00:00 MAZIN HERNADEZ i ty [facility] 2020-12-04 2020-12-04 Outpatient EL LE, XIUNING MDA MDA [id number] 04:28:43 04:28:43 Cornel o n 2020-12-04 2020-12-04 Outpatient EL LE, XIUNING MDA MDA [id number] 04:28:42 04:28:42 Cornel o n 2020-12-04 2020-12-04 Outpatient EL LE, XIUNING MDA MDA [id number] 04:28:41 04:28:41 Cornel o n 2020-12-04 2020-12-04 Outpatient EL LE, XIUNING MDA MDA [id number] MD 04:28:40 04:28:40 Cornel o n 2020-12-04 2020-12-04 Outpatient EL LE, XIUNING MDA MDA [id number] MD 04:28:39 04:28:39 Cornel o n 2020-12-04 2020-12-04 Outpatient EL LE, XIUNING MDA MDA [id number] 04:28:38 04:28:38 Cornel o n 2020-12-04 2020-12-04 Outpatient EL LE, XIUNING MDA MDA [id number] MD 04:28:37 04:28:37 Cornel o n 2020-12-04 2020-12-04 Outpatient EL LE, XIUNING MDA MDA [id number] 04:28:36 04:28:36 Cornel o n 2020-12-04 2020-12-04 Outpatient EL LE, XIUNING MDA MDA [id number] MD 04:28:35 04:28:35 Cornel o n 2020-12-04 2020-12-04 Outpatient EL LE, XIUNING MDA MDA [id number] MD 04:28:34 04:28:34 Cornel o n 2020-12-04 2020-12-04 Outpatient EL LE, XIUNING MDA MDA [id number] MD 04:28:33 04:28:33 Cornel o n 2020-12-04 2020-12-04 Outpatient EL LE, XIUNING MDA MDA [id number] MD 04:28:32 04:28:32 Cornel o n 2020-12-04 2020-12-04 Outpatient EL LE, XIUNING MDA MDA [id number] MD 04:28:31 04:28:31 Cornel o joshua 2020-12-04 2020-12-04 Outpatient EL LE, XIUNING MDA MDA [id number] MD 04:28:30 04:28:30 Cornel o joshua 2020-12-04 2020-12-04 Outpatient EL LE, XIUNING MDA MDA [id number] MD 04:28:29 04:28:29 Cornel o joshua 2020-11-30 2020-11-30 Outpatient EL LE, XIUNING MDA MDA [id number] MD 09:57:55 11:58:29 Cornel o joshua 2020-11-30 2020-11-30 Outpatient EL LE, XIUNING MDA MDA [id number] MD 09:50:16 09:50:16 Cornel o joshua 2020-11-30 2020-11-30 Outpatient EL LE, XIUNING MDA MDA [id number] MD 09:50:09 09:50:09 Cornel o n 2020-11-30 2020-11-30 Outpatient EL MDA MDA [id number] MD 09:29:25 09:38:07 Corenl o joshua 2020-11-27 2020-11-27 Outpatient EL LE, XIUNING MDA MDA [id number] MD 09:07:26 09:28:50 Cornel o joshua 2020-11-26 2020-11-26 Office Narinder [facility] 1.2.840.114 [id number] Univers 12:45:29 13:57:59 Visit Wildaishmael Shetty 350.1.13.10 i ty [place] [phone] Id dical nal 085 [address] [facility] 2020-11-26 2020-11-26 Outpatient R MAZIN HERNADEZ [facility] [id number] Univers 13:00:00 13:00:00 MAZIN HERNADEZ i ty of [facility] 2020-11-26 2020-11-26 Orders Doctor LESTER 1.2.840.114 [id number] Univers 00:00:00 00:00:00 Only Unassigned, SUSAN 350.1.13.10 ity of [place] [facility] 4.2.7.2.686 Thom as [phone] [address] 2020-11-20 2020-11-20 Orders Doctor LESTER 1.2.840.114 [id number] Univers 00:00:00 00:00:00 Only Unassigned, SUSAN 350.1.13.10 ity of [place] [facility] 4.2.7.2.686 [place] as [phone] [address] 2020-11-18 2020-11-18 Office [facility] 1.2.840.114 [id number] Univers 11:25:26 12:00:32 Visit [facility] 350.1.13.10 i [place] [phone] [facility] [address] 2020-11-18 2020-11-18 Outpatient R [facility] [id number] Univers 11:45:00 11:45:00 ity of [facility] 2020-10-16 2020-10-16 Office [facility] 1.2.840.114 [id number] Univers 08:07:38 09:04:55 Visit Marlene Diogenes 350.1.13.10 ity [place] [phone] Id dicbrianda nal 205 [facility] 2020-10-16 2020-10-16 Outpatient R EDGARDO [facility] [id number] Univers 08:15:00 08:15:00 MARLENE richa pate jonathon [facility] 2020-09-09 2020-09-09 Computer Peripheral Equipment Operator 2, Adc Lab [facility] 1.2.840.114 [id number] Univers 08:35:46 08:50:46 Visit Patt Booth 350.1.13. 10 it[place] [phone] Id dical nal 353 [facility] 2020-09-09 2020-09-09 [facility] [id number] Univers 08:00:00 08:00:00 SENDIL itradha [facility] 2020-09-02 2020-09-02 [facility] [id number] Univers 13:00:00 13:00:00 [facility] 2020-08-28 2020-08-28 Computer Peripheral Equipment Operator 2, Adc Lab [facility] 1.2.840.114 [id number] Univers 09:55:49 10:10:49 Visit Patt Booth 350.1.13. 10 [place] [phone] [facility] 353 [facility] 2020-08-28 2020-08-28 Office [facility] 1.2.840.114 [id number] Univers 08:42:04 09:23:32 Visit Patt Shetty 350.1.13.10 it[place] [phone] Id dical nal 059 [facility] 2020-08-28 2020-08-28 [facility] [id number] Univers 09:00:00 09:00:00 [facility] 2020-08-24 2020-08-24 Patient [facility] 1.2.840.114 [id number] Univers 00:00:00 00:00:00 Outreach Tate [facility] 350.1.13.[address] [facility] 4.2.7.2.[place] [phone] Id dical [address] 2020-08-11 2020-08-11 [facility] 1.2.840.114 [id number] Univers 07:56:22 23:59:00 Encounter Sendkaleb Shetty 350.1.13.10 [place] [phone] [facility] [address] 2020-08-11 2020-08-11 [facility] 1.2.840.114 [id number] Univers 07:56:09 23:59:00 Encounter Patt Shetty 350.1.13.10 it[place] [phone] [facility] [address] 2020-08-11 2020-08-11 [facility] 1.2.840.114 [id number] Univers 07:55:53 07:55:53 Encounter Sendklaeb Shetty 350.1.13.10 it[place] [phone] [facility] [address] 2020-08-11 2020-08-11 [facility] 1.2.840.114 [id number] Univers 07:55:15 07:55:15 Encounter Patt Shetty 350.1.13.10 [place] [phone] [facility] [address] 2020-08-11 2020-08-11 [facility] [id number] Univers 07:55:15 07:55:15 SENDIL ity of [facility] 2020-07-23 2020-07-23 Laboratory Pc, Adc Echo Room 1 - [facility] 1 .2.840.114 [id number] Univers 08:39:59 09:50:03 Only Patt Booth 350.1.13. 10 [place] [phone] Id dical nal [address] 2020-07-23 2020-07-23 Outpatient R LEOBARDO [facility] [id number] Univers 09:00:00 09:00:00 SENDIL ity [facility] 2020-07-17 2020-07-17 Outpatient R LEOBARDO [facility] [id number] Univers 13:00:00 13:00:00 SENDIL ity [facility] 2020-07-17 2020-07-17 Orders Doctor LESTER 1.2.840.114 [id number] Univers 00:00:00 00:00:00 Only Unassigned, SUSAN 350.1.13.10 ity of [place] [facility] 4.2.7.2.686 Thom as [phone] [place] [address] Branch Results Test Description Test Time Test Comments Results Result Sourc e Comments CT, CTA ABDOMEN, 2017-09-25 Addendum BeginsREPORT AAA PROTOCOL 14:34:00 STATUS:A Addendum: I agree with the previously described non vascular findings by Dr. Castro. Signed: Nathan Johnston MDReport Verified Date/Time: 09/25/2017 14:34:58 Reading Location: [place] [address] Angio Body Reading RoomAddendum EndsFINAL REPORT CT [...] and during intravenous contrast administration using a LensX Lasers CT scanner. Images were obtained before and [...] dictated regarding the non-vascular findings by the Sign Out Clerk Radiologist. Signed: Joaquín Castroeport Verified Date/Time: 09/25/2017 10:55:28 Reading Location: [place] [address] Cardiology MRI -CREATININE 2017-09-25 09:56:00 Test Item Value Reference Range Interpretation Comme nts POC-CREATININE (IRMA) (test 0.7 mg/dL 0.6-1.3 TESTED AT [facility] 2457 code = 1859) [facility] [address] POC-EGFR (IRMA) (test code = 114 mL/min/1.73M2 1860) CT, CTA, [id number] 09:31:00Addendum BeginsREPORT STATUS:A Addendum: I agree with the previously described non vascular findings. Signed: Maryellen Stiles MDReport Verified Date/Time: 09/05/2017 09:31:21 Reading Lo cation: [facility] P048 Angio Body Reading RoomAddendum EndsFINAL REPORT CT angiography of the thoracic aorta, 04 September 2017 INDICATION: This is a 62 year old male with a diagnosis of aortic aneurysm presents for assessment. This study is performed in an attempt to avoid an invasiveprocedure. A CT angiography of the thoracic aorta is requested. TECHNIQUE: Spiral acquisition beforeand during intravenous contrast administration using a Ashia multidetector CT scanner. Images wereobtained before and during the dynamic passage of intravenous contrast material. Multi-planar 3-D volume-rendering reconstruction was performed using an independent workstation interactively by the interpreting physician as well as the 3-D specialist for optimal visualisation of the thoracic aorta andits proximal branches. Please refer to the contrast sheet scanned in the RIS system for the amount and route of contrast given. This exam was performed according to our departmental dose- optimisation programme, which includes automated exposure control, adjustment of the mA and/or kV according to patient size and/or use of iterative reconstruction technique. Dose modulation, iterative reconstruction,and/or weight based adjustment of the mA/kV was [...] the aortic valve appears to be tricuspid. Ectasiais seen in the aortic root, as well as in the ascending thoracic aorta though no aneurysmal dilationis seen by measurement criteria. The transverse arch and descending thoracic aorta is normal in course, contour, and calibre. There is no evidence of acute aortic pathology, specifically, there is no dissection, intramural hematoma, or contained rupture. The arch vessel branching pattern is normal andthe visualised portion of the arch vessels are [...] adenopathy is identified in the mediastinum, except forsome small lymph nodes, considered nonspecific in nature. [...] dictated regarding the non-vascular findings by the Sign Out Clerk Radiologist. Signed: Joaquín Castro MDReport Verified Date/Time: 09/04/2017 17:13:07 Reading Location: [place] [address] Cardiology MRI [id number] 14:44:00 Test Item Value Reference Range Interpretation Comments POC-CREATININE 0.8 mg/dL 0.6-1.3 TESTED AT [facility] 6720 (BEAKER) (test [facility] [place] code = 1859) [address] POC-EGFR (BEAKER) 98 mL/min/1.73M2 (test code = 1860) BASIC METABOLIC [id number] 07:48:00 Test Item Value Reference Range Interpretation [...] PATIEN TS. CBC W/PLT COUNT & AUTO [id number] 07:14:00 Test Item Value Reference Range Interpretation [...] = 2801) CBC W/PLT COUNT & AUTO [id number] 07:30:00 Test Item Value Reference Range Interpretation [...] (BEAKER) (test code = 2801) BASIC METABOLIC [id number] 07:26:00 Test Item Value Reference Range Interpretation [...] NOT APPLICABLE FOR DIALYSIS PATIEN TS. POCT-GLUCOSE [id number] 08:28:00 Test Item Value Reference Range Interpretation Comments POC-GLUCOSE METER 90 mg/dL 70-[address] [facility] 6720 (BEAKER) (test code = [place] [address] 1538) CBC W/PLT COUNT & AUTO [id number] 06:41:00 Test Item Value Reference Range Interpretation [...] (BEAKER) (test code = 2801) BASIC METABOLIC [id number] 06:11:00 Test Item Value Reference Range Interpretation [...] NOT APPLICABLE FOR DIALYSIS PATIEN TS. POCT-GLUCOSE [id number] 03:06:00 Test Item Value Reference Range Interpretation Comments POC-GLUCOSE METER 86 mg/dL 70-[address] [facility] 67 (BEAKER) (test code = [facility] [address] 1538) POCT-GLUCOSE [id number] 17:51:00 Test Item Value Reference Range Interpretation Comments POC-GLUCOSE METER 98 mg/dL 70-110 TESTED AT [place] [address] [facility] (test code = [facility] [address] 1538) URINALYSIS W/ REFLEX URINE [id number] 12:37:00 Test Item Value Reference Range Interpretation [...] 516) SOURCE(BEAKER) (test code = 2795) POCT-GLUCOSE [id number] 12:09:00 Test Item Value Reference Range Interpretation Comments POC-GLUCOSE METER 119 mg/dL 70-[address] [facility] 67 (BEAKER) (test code = [place] 1538) [address] BASIC METABOLIC [id number] 09:23:00 Test Item Value Reference Range Interpretation [...] NOT APPLICABLE FOR DIALYSIS PATIEN TS. POCT-GLUCOSE [id number] 08:41:00 Test Item Value Reference Range Interpretation Comments POC-GLUCOSE METER 114 mg/dL 70-[address] [facility] 6720 (BEAKER) (test code = [facility] [place] 1538) [address] RAD, CHEST, 1 VIEW, NON [id number] 07:48:00Reason for exam:->Post-OpShould this be performed at the bedside?->YesFINAL REPORT Chest one view AP 05/10/2017 7:47 AM CLINICAL INDICATION: Post-Op COMPARISON: 05/09/2017 IMPRESSION: There is bibasilar atelectasis. There is a trace left pleural effusion. Cardiomediastinal contours are within normal limits. The central pulmonary vasculature is not engorged. An enteric tube is present. Signed: Noe Jung Verified Date/Time: 05/10/2017 0 7:48:05 Reading Location: [facility] Radiology Reading Room CBC W/PLT COUNT & AUTO [id number] 07:36:00 Test Item Value Reference Range Interpretation [...] PERCENT (BEAKER) (test code = 2801) POCT-GLUCOSE [id number] 22:44:00 Test Item Value Reference Range Interpretation Comments POC-GLUCOSE METER 128 mg/dL 70-110 H TESTED AT [place] [address] ([facility]) (test code = [place] [facility] 1538) [address] POCT-GLUCOSE [id number] 17:22:00 Test Item Value Reference Range Interpretation Comments POC-GLUCOSE METER 106 mg/dL 70-110 TESTED AT [place] [address] ([facility]) (test code = J[place] [facility] 1538) [address] RAD, ABDOMEN/KUB, 1 VIEW [id number] 12:38:00Reason for exam:->ileusFINAL REPORT Abdomen two views supine 05/09/2017 12:38 PM CLINICAL INDICATION: ileus COMPARISON: None available IMPRESSION: There is no radiographic evidence for bowel obstruction.There is mild ileus. No abnormal calcifications are seen in the region of the gallbladder or kidneys. There are no acute-appearing skeletal abnormalities. Signed: Noe Jung Verified Date/Time: 05/09/2017 12:38:47 Reading Location: [address] Consult Reading Room POCT-GLUCOSE [id number] 12:19:00 Test Item Value Reference Range Interpretation Comments POC-GLUCOSE METER 102 mg/dL 70-[address] [facility] 6720 ([facility]) (test code = [place] 1538) [address] POCT-GLUCOSE [id number] 06:45:00 Test Item Value Reference Range Interpretation Comments POC-GLUCOSE METER 104 mg/dL 70-[address] [facility] 6720 ([facility]) (test code = [place] 1538) [address] RAD, CHEST, 1 VIEW, NON [id number] 05:01:00Reason for exam:->Post-OpShould this be performed at [...] unchanged. No evidence of a significant pneumothorax. Signed:Adriano Peres MDRepcrittenton behavioral health Verified Date/Time: 05/09/2017 05:01:39 Reading Location: [address] Reading Room [id number] 03:47:00 Test Item Value Reference Range Interpretation Comments PHOSPHORUS (BEAKER) (test code = 2.7 mg/dL 2.3-4.7 604) [id number] 03:47:00 Test Item Value Reference Range Interpretation Comments MAGNESIUM (BEAKER) (test code = 1.8 mg/dL 1.6-2.6 627) BASIC METABOLIC [id number] 03:47:00 Test Item Value Reference Range Interpretation [...] DIALYSIS PATIEN TS. LACTIC ACID, ARTERIAL, WHOLE [id number] 03:42:00 Test Item Value Reference Range Interpretation Comments LACTATE BLOOD ARTERIAL (2) 0.9 mmol/L 0.5-2.2 (BEAKER) (test code = 2874) Effective 10/21/2015: Units/Reference Range ChangeNew: 0.5-2.2 mmol/L Previous: 5- 20 mg/dLCALCIUM, [id number] 03:39:00 Test Item Value Reference Range Interpretation Comments CALCIUM IONIZED (BEAKER) (test 1.15 mmol/L 1.12-1.27 code = 698) PH, BLOOD (BEAKER) (test code = 7.42 1810) CBC W/PLT COUNT & AUTO [id number] 03:36:00 Test Item Value Reference Range Interpretation [...] (BEAKER) (test code = 2801) OXYGEN SATURATION, [id number] 03:35:00 Test Item Value Reference Range Interpretation Comments O2 SATURATION (MEASURED) (BEAKER) 64.0 % (test code = 1455) POCT-GLUCOSE [id number] 01:07:00 Test Item Value Reference Range Interpretation Comments POC-GLUCOSE METER 96 mg/dL 70-[address] [facility] 6720 (BEAKER) (test code = [place] [address] 1538) BLOOD GAS, [id number] 12:28:00 Test Item Value Reference Range Interpretation [...] 60.0 % RAD, CHEST, 1 VIEW, NON [id number] 11:05:00Reason for exam:->Post-OpShould this be performed at the bedside?->YesFINAL REPORT Chest one view AP 05/08/2017 11:05 AM CLINICAL INDICATION: Post-OpCOMPARISON: 05/02/2017 IMPRESSION: Support hardware is in satisfactory radiographic position. Cardiomediastinal contours are stable. The central pulmonary vasculature is not engorged. The lungs are clear, save for scattered foci of linear atelectasis. Signed: Noe Jung Verified Date/Time: 05/08/2017 11:05:58 Reading Location: [facility] Radiology Reading Room MAGNESIUM 2017-05-08 11:03:00 Test Item Value Reference Range Interpretation Comments MAGNESIUM (BEAKER) (test code = 2.0 mg/dL 1.6-2.6 627) BASIC METABOLIC [id number] 11:03:00 Test Item Value Reference Range Interpretation [...] DIALYSIS PATIEN TS. LACTIC ACID, ARTERIAL, WHOLE [id number] 10:58:00 Test Item Value Reference Range Interpretation Comments LACTATE BLOOD ARTERIAL (2) 0.6 mmol/L 0.5-2.2 (BEAKER) (test code = 2874) Effective 10/21/2015: Units/Reference Range ChangeNew: 0.5-2.2 mmol/L Previous: 5- 20 mg/dLPT/[id number] 10:57:00 Test Item Value Reference Range Interpretation Comments PROTIME (BEAKER) (test code = 14.8 seconds 11.7-14.7 H 759) INR (BEAKER) (test code = 370) 1.2 <=5.9 PARTIAL THROMBOPLASTIN TIME 29.1 seconds 22.5-36.0 (BEAKER) (test code = 760) RECOMMENDED COUMADIN/WARFARIN INR THERAPY RANGESSTANDARD DOSE: 2.0 - 3.0 Includes: PROPHYLAXIS for venous thrombosis, systemic embolization; TREATMENT for venous thrombosis and/or pulmonary embolus.HIGH RISK: Target INR is 2.5-3.5 for patients with mechanical heart valves.CBC W/PLT COUNT & AUTO [id number] 10:53:00 Test Item Value Reference Range Interpretation [...] 0-1 H PERCENT (BEAKER) (test code = 2808) OXYGEN SATURATION, [id number] 10:44:00 Test Item Value Reference Range Interpretation Comments O2 SATURATION (MEASURED) (BEAKER) 71.8 % (test code = 1455) BLOOD GAS, [id number] 10:42:00 Test Item Value Reference Range Interpretation [...] (test code = 1819) 60.0 % GLUCOSE-STAT [id number] 10:42:00 Test Item Value Reference Range Interpretation Comments GLUCOSE RANDOM (BEAKER) (test code 112 mg/dL 70-110 H = 652) SODIUM NA-STAT [id number] 10:41:00 Test Item Value Reference Range Interpretation Comments SODIUM (BEAKER) (test code = 381) 137 meq/L 135-148 POTASSIUM-STAT [id number] 10:41:00 Test Item Value Reference Range Interpretation Comments POTASSIUM (BEAKER) (test code = 4.2 meq/L 3.6-5.5 379) HGB/HCT (H&H) - STAT [id number] 10:41:00 Test Item Value Reference Range Interpretation Comments HEMOGLOBIN (BEAKER) (test code = 14.4 g/dL 13.0-16.8 410) HEMATOCRIT (BEAKER) (test code = 42.0 % 40.0-50.0 411) CALCIUM, [id number] 10:41:00 Test Item Value Reference Range Interpretation Comments CALCIUM IONIZED (BEAKER) (test 1.23 mmol/L 1.12-1.27 code = 698) PH, BLOOD (BEAKER) (test code = 7.37 1810) CALCIUM, [id number] 09:43:00 Test Item Value Reference Range Interpretation Comments CALCIUM IONIZED (BEAKER) (test 1.25 mmol/L 1.12-1.27 code = 698) PH, BLOOD (BEAKER) (test code = 7.32 1810) SODIUM NA-STAT [id number] 09:42:00 Test Item Value Reference Range Interpretation Comments SODIUM (BEAKER) (test code = 381) 138 meq/L 135-148 POTASSIUM-STAT [id number] 09:42:00 Test Item Value Reference Range Interpretation Comments POTASSIUM (BEAKER) (test code = 3.8 meq/L 3.6-5.5 379) BLOOD GAS, [id number] 09:42:00 Test Item Value Reference Range Interpretation [...] (test code = 1819) 61.0 % GLUCOSE-STAT [id number] 09:42:00 Test Item Value Reference Range Interpretation Comments GLUCOSE RANDOM (BEAKER) (test code 112 mg/dL 70-110 H = 652) HGB/HCT (H&H) - STAT [id number] 09:42:00 Test Item Value Reference Range Interpretation Comments HEMOGLOBIN (BEAKER) (test code = 13.1 g/dL 13.0-16.8 410) HEMATOCRIT (BEAKER) (test code = 39.0 % 40.0-50.0 L 411) SODIUM NA-STAT [id number] 08:37:00 Test Item Value Reference Range Interpretation Comments SODIUM (BEAKER) (test code = 381) 137 meq/L 135-148 POTASSIUM-STAT [id number] 08:37:00 Test Item Value Reference Range Interpretation Comments POTASSIUM (BEAKER) (test code = 3.9 meq/L 3.6-5.5 379) HGB/HCT (H&H) - STAT [id number] 08:37:00 Test Item Value Reference Range Interpretation Comments HEMOGLOBIN (BEAKER) (test code = 15.2 g/dL 13.0-16.8 410) HEMATOCRIT (BEAKER) (test code = 45.0 % 40.0-50.0 411) CALCIUM, [id number] 08:37:00 Test Item Value Reference Range Interpretation Comments CALCIUM IONIZED (BEAKER) (test 1.15 mmol/L 1.12-1.27 code = 698) PH, BLOOD (BEAKER) (test code = 7.37 1810) BLOOD GAS, [id number] 08:37:00 Test Item Value Reference Range Interpretation [...] (test code = 1819) 64.0 % GLUCOSE-STAT [id number] 08:37:00 Test Item Value Reference Range Interpretation Comments GLUCOSE RANDOM (BEAKER) (test code 111 mg/dL 70-110 H = 652) HEMOGLOBIN [id number] 12:07:00 Test Item Value Reference Range Interpretation Comments HEMOGLOBIN A1C (BEAKER) (test code = 5.6 % 4.3-6.1 368) RAD, CHEST, 2 [id number] 11:17:00Reason for Exam:->Pre-OpFINAL REPORT Chest x-ray, PA and lateral views Clinical History: Pre-Op Comparison: None Findings: The cardiac silhouette is normal. Aorta is mildly tortuous/ectatic. There is no pneumothorax, jeff pulmonary edema, consolidation or pleural effusion. Lungs appear mildly hyperinflated with flattening of the diaphragm. The bony structures demonstrate degenerative changes. Impression: Mild hyperinflation. Signed: Itzel Astudillo Verified Date/Time: 05/02/2017 11:17:15 [facility] BASIC METABOLIC [id number] 11:09:00 Test Item Value Reference Range Interpretation [...] NOT APPLICABLE FOR DIALYSIS PATIEN TS. PROTHROMBIN [id number] 11:05:00 Test Item Value Reference Range Interpretation Comments PROTIME (BEAKER) (test code = 12.9 seconds 11.7-14.7 759) INR (BEAKER) (test code = 370) 1.0 <=5.9 RECOMMENDED COUMADIN/WARFARIN INR THERAPY RANGESSTANDARD DOSE: 2.0 - 3.0 Includes: PROPHYLAXIS for venous thrombosis, systemic embolization; TREATMENT for venous thrombosis and/or pulmonary embolus.HIGH RISK: Target INR is 2.5-3.5 for patients with mechanical heart valves.CBC W/PLT COUNT & AUTO [id number] 10:46:00 Test Item Value Reference Range Interpretation [...]
[2022-06-02] MEDS ORDERED: NA CHLORIDE 0.9% 500 ML ONE (17:11)
[2022-06-02 17:39] LABS: Absolute Lymphocytes (CBC) 0.9 K/uL (0.7-4.9); Hematocrit 45.2 % (39.6-49.0); Lymphocytes % 12.6 % (15.3-44.8); MCV 93.9 fL (80-100); RBC Red Blood Cell Count 4.82 M/uL (4.33-5.43)
[2022-06-02 17:45] LABS: Protime INR 1.02
[2022-06-02 17:56] LABS: Albumin 3.5 g/dL (3.4-5.0); Bilirubin Total 0.5 mg/dL (0.2-1.0); Potassium 4.3 mmol/L (3.5-5.1); Protein, Total 6.9 g/dL (6.4-8.2)
--- NOTE | 2022-06-02 18:31 | RAD REPORT ---
EXAM DESCRIPTION: CTStone Protocol - 06/02/2022 6:19 pm CLINICAL HISTORY: hematuria COMPARISON: Abdomen Pelvis W Contrast dated 11/06/2021; Abdomen Pelvis W Contrast dated 7 TECHNIQUE: CT of the abdomen and pelvis was performed. All CT scans are performed using dose optimization technique as appropriate and may include automated exposure control or mA/KV adjustment according to patient size. FINDINGS: Lower chest: Ascending thoracic aortic aneurysm measuring approximately 4.5 cm. Consolidat compa airspace disease is present in the left lower lobe. Elevated left hemidiaphragm. Coronary artery calcifications. Liver: No acute abnormality or suspicious lesions. Biliary: No biliary ductal dilatation. Stomach: No significant focal abnormality. Duodenum: No significant focal abnormality. Pancreas: No significant abnormality. Spleen: No significant abnormality. Adrenal: No suspicious lesions. Kidney/ureter: No hydronephrosis. Punctate renal calculi. No ureteral calculi identified. Retroperitoneum: No retroperitoneal adenopathy. Vascular: Atherosclerosis. Abdominal aortic ectasia. Bowel: No significant focal abnormality. Peritoneum: No ascites or free air. Bladder: Possibly summed dense debris within the bladder. Reproductive: Mild prostatomegaly. Bones: No acute fracture. Slight superior endplate deformity of L4 is presumably chronic. Other: n/a IMPRESSION: Punctate renal calculi bilaterally. No ureteral calculi or hydronephrosis. Some layering contents within the bladder may represent clot. Cystoscopy could further evaluate.
[2022-06-02 19:06] LABS: Urine Bacteria None Seen /HPF (<20); Urine RBC >50 /HPF (None Seen)
--- NOTE | 2022-06-02 19:45 | ER ---
Nurse's Notes [facility] Name: Sae Cardozo Age: 66 yrs Sex: Male : 1955 Arrival Date: 06/02/2022 Time: 16:42 Bed 19 Private MD: Diagnosis: Hematuria, unspecified;Calculus of kidney Presentation: 06/02 16:47 Chief complaint: Patient states: he noticed he started having blood in his urine ap3 yesterday. patient denies pain, as well as denies NV. Coronavirus screen: At this time, the client does not indicate any symptoms associated with coronavirus-19. Ebola Screen: No symptoms or risks identified at this time. Initial Sepsis Screen: Does the patient meet any 2 criteria? No. Patient's initial sepsis screen is negative. Does the patient have a suspected source of infection? Yes: Dysuria/Frequency/Urgency/UTI. Risk Assessment: Do you want to hurt yourself or someone else? Patient reports no desire to harm self or others. Onset of symptoms was June 01, 2022. 16:47 Method Of Arrival: Ambulatory ap3 16:47 Acuity: JIMMIE 3 ap3 Triage Assessment: 16:50 General: Appears in no apparent distress. Behavior is calm, cooperative. Pain: Denies ap3 pain. Neuro: Level of Consciousness is awake, alert, obeys commands, Oriented to person, place, time, situation, Appropriate for age Speech is normal. Cardiovascular: Patient's skin is warm and dry. Respiratory: Airway is patent Respiratory effort is even, unlabored, Respiratory pattern is regular, symmetrical. : Reports blood in urine. Historical: - Allergies: 16:49 No Known Allergies; ap3 - Home Meds: 20:16 Eliquis Oral [Active]; kl - PMHx: 16:49 AAA; brain cancer; Cancer, Lung; COPD; ap3 - PSHx: 16:49 AAA repair; ap3 - Immunization history:: Client reports having NOT received the Covid vaccine. - Social history:: Smoking status: Patient denies any tobacco usage or history of. Patient uses alcohol, admits to "couple of beers" a day. Screenin:51 Abuse screen: Denies threats or abuse. Nutritional screening: No deficits noted. ap3 Tuberculosis screening: No symptoms or risk factors identified. 17:30 [facility] ED Fall Risk Assessment (Adult) History of falling in the last 3 months, vg1 including since admission No falls in past 3 months (0 pts) Confusion or Disorientation No (0 pts) Intoxicated or Sedated No (0 pts) Impaired Gait No (0 pts) Mobility Assist Device Used No (0 pt) Altered Elimination No (0 pt) Score/Fall Risk Level 0 - 2 = Low Risk Oriented to surroundings, Maintained a safe environment, Educated pt \\T\\ family on fall prevention, incl call for assistance when getting out of bed, Assessed \\T\\ reinforced patient's understanding of fall precautions. 20:16 Fall Risk No fall in past 12 months (0 pts). No secondary diagnosis (0 pts). No IV (0 kl pts). Ambulatory Aid- None/Bed Rest/Nurse Assist (0 pts). Gait- Normal/Bed Rest/Wheelchair (0 pts) Mental Status- Oriented to own ability (0 pts). Total Vidales Fall Scale indicates No Risk (0-24 pts). Assessment: 17:00 General: Appears in no apparent distress. comfortable, Behavior is calm, cooperative. vg1 Pain: Denies pain. Neuro: Level of Consciousness is awake, alert, obeys commands, Oriented to person, place, time, situation. Cardiovascular: Patient's skin is warm and dry. Respiratory: Airway is patent Respiratory effort is even, unlabored. GI: Abdomen is round non-distended, Patient currently denies abdominal pain. : : Reports blood in urine that began last night with clots Denies burning with urination, pain with urination. EENT: No signs and/or symptoms were reported regarding the EENT system. Derm: Skin is pink, warm \\T\\ dry. Musculoskeletal: Circulation, motion, and sensation intact. 18:33 Reassessment: Patient appears in no apparent distress at this time. No changes from vg1 previously documented assessment. Patient and/or family updated on plan of care and expected duration. Pain level reassessed. Patient is alert, oriented x 3, equal unlabored respirations, skin warm/dry/pink. 19:22 Reassessment: Patient appears in no apparent distress at this time. Patient and/or kl family updated on plan of care and expected duration. Pain level reassessed. Patient is alert, oriented x 3, equal unlabored respirations, skin warm/dry/pink. Patient states symptoms have improved. Vital Signs: 16:47 BP 124 / 69; Pulse 88; Resp 17; Temp 98.1; Pulse Ox 98% ; Weight 82.55 kg; Height 5 ft. ap3 10 in. (177.80 cm); 17:30 BP 130 / 78; Pulse 80; Resp 16; Pulse Ox 99% on R/A; vg1 18:30 BP 130 / 69; Pulse 69; Resp 17; Pulse Ox 99% on R/A; vg1 20:15 BP 128 / 77; Pulse 85; Resp 20; Pulse Ox 99% on R/A; kl 16:47 Body Mass Index 26.11 (82.55 kg, 177.80 cm) ap3 ED Course: 16:42 Patient arrived in ED. as 16:48 Duane Burrows PA is PHCP. cp 16:48 Tabby Landaverde MD is Attending Physician. cp 16:49 Triage completed. ap3 16:51 Arm band placed on right wrist. ap3 16:52 Jyoti Sauceda, RN is Primary Nurse. vg1 17:25 Inserted saline lock: 20 gauge in right antecubital area, using aseptic technique. vg1 Blood collected. 17:30 Patient has correct armband on for positive identification. Placed in gown. Bed in low vg1 position. Call light in reach. Side rails up X 1. 18:20 Stone Protocol In Process Unspecified. EDMS 18:49 Urine Microscopic Only Sent. ld1 19:43 Aurelio Cronin MD is Referral Physician. cp 20:15 No provider procedures requiring assistance completed. IV discontinued, intact, kl bleeding controlled, No redness/swelling at site. Pressure dressing applied. Administered Medications: 17:26 Drug: NS 0.9% 500 ml Route: IV; Rate: bolus; Site: right antecubital; vg1 18:34 Follow up: IV Status: Completed infusion; IV Intake: 500ml vg1 20:15 Not Given (Patient Refused): Rocephin (cefTRIAXone) 1 grams IV at calculated rate once; kl Given slow IV push per pharmacy instructions Medication: 17:30 VIS not applicable for this client. vg1 Intake: 18:34 IV: 500ml; Total: 500ml. vg1 Outcome: 19:44 Discharge ordered by . cp 20:16 Discharged to home ambulatory. kl 20:16 Condition: improved 20:16 Discharge instructions given to patient, Instructed on discharge instructions, follow up and referral plans. Demonstrated understanding of instructions, follow-up care. 20:17 Patient left the ED. jarrod Signatures: Dispatcher [employer] EDJackie Barba RN RN kl Martinez, Amelia as Page, Corey, PA PA cp Prokisch, Amanda, RN RN ap3 Jyoti Sauceda RN RN vg1 Vera Bloom RN RN ld1 Corrections: (The following items were deleted from the chart) 16:50 16:50 Home Meds: Eliquis Oral; ap3 ap3
--- NOTE | 2022-06-02 19:45 | EDPHYS ---
Physician Documentation [facility] Name: Sae Cardozo Age: 66 yrs Sex: Male : 1955 Arrival Date: 06/02/2022 Time: 16:42 Bed 19 Private MD: ED Physician Tabby Landaverde HPI: 06/02 17:10 This 66 yrs old Male presents to ER via Ambulatory with complaints of Urinary Problem. cp 17:10 The patient presents with urinary symptoms, hematuria. cp 17:10 Onset: The symptoms/episode began/occurred yesterday. cp 17:10 Associated signs and symptoms: Pertinent negatives: abdominal pain, constipation, cp dysuria, fever, vomiting. Severity of symptoms: in the emergency department the symptoms are unchanged, despite home interventions. Historical: - Allergies: 16:49 No Known Allergies; ap3 - Home Meds: 20:16 Eliquis Oral [Active]; kl - PMHx: 16:49 AAA; brain cancer; Cancer, Lung; COPD; ap3 - PSHx: 16:49 AAA repair; ap3 - Immunization history:: Client reports having NOT received the Covid vaccine. - Social history:: Smoking status: Patient denies any tobacco usage or history of. Patient uses alcohol, admits to "couple of beers" a day. ROS: 17:15 Constitutional: Negative for body aches, chills, fever, poor PO intake. cp 17:15 Cardiovascular: Negative for chest pain, palpitations. cp 17:15 Respiratory: Negative for cough, shortness of breath, wheezing. 17:15 Abdomen/GI: Negative for abdominal pain, nausea, vomiting, and diarrhea. 17:15 Eyes: Negative for injury, pain, redness, and discharge. cp 17:15 ENT: Negative for drainage from ear(s), ear pain, sore throat, difficulty swallowing, cp difficulty handling secretions. 17:15 Back: Negative for pain at rest, pain with movement. 17:15 : Positive for hematuria, Negative for flank pain, burning with urination, testicular pain 17:15 Skin: Negative for rash. 17:15 Neuro: Negative for altered mental status, dizziness, headache, weakness. 17:15 All other systems are negative. Exam: 17:20 Constitutional: The patient appears in no acute distress, alert, awake, comfortable, cp non-toxic, well developed, well nourished. 17:20 Head/Face: Normocephalic, atraumatic. cp 17:20 Eyes: Periorbital structures: appear normal, Conjunctiva: normal, no exudate, no injection, Sclera: no appreciated abnormality, Lids and lashes: appear normal, bilaterally. 17:20 ENT: External ear(s): are unremarkable, Nose: is normal, Mouth: Lips: moist, Oral mucosa: moist, Posterior pharynx: Airway: no evidence of obstruction, patent. 17:20 Chest/axilla: Inspection: normal. 17:20 Cardiovascular: Rate: normal, Rhythm: regular. 17:20 Respiratory: the patient does not display signs of respiratory distress, Respirations: normal, no use of accessory muscles, no retractions, labored breathing, is not present, Breath sounds: are clear throughout, no decreased breath sounds, no stridor, no wheezing. 17:20 Abdomen/GI: Inspection: abdomen appears normal, Bowel sounds: active, all quadrants, Palpation: abdomen is soft and non-tender, in all quadrants. 17:20 Back: CVA tenderness, is absent. 17:20 Neuro: Orientation: to person, place \\T\\ time. Mentation: is normal, Motor: moves all fours, strength is normal. Vital Signs: 16:47 BP 124 / 69; Pulse 88; Resp 17; Temp 98.1; Pulse Ox 98% ; Weight 82.55 kg; Height 5 ft. ap3 10 in. (177.80 cm); 17:30 BP 130 / 78; Pulse 80; Resp 16; Pulse Ox 99% on R/A; vg1 18:30 BP 130 / 69; Pulse 69; Resp 17; Pulse Ox 99% on R/A; vg1 20:15 BP 128 / 77; Pulse 85; Resp 20; Pulse Ox 99% on R/A; kl 16:47 Body Mass Index 26.11 (82.55 kg, 177.80 cm) ap3 MDM: 16:55 Patient medically screened. cp 17:30 Differential diagnosis: UTI, prostatitis, urethritis. cp 19:44 Data reviewed: vital signs, nurses notes, lab test result(s), radiologic studies, CT cp scan. 19:44 Counseling: I had a detailed discussion with the patient and/or guardian regarding: the cp historical points, exam findings, and any diagnostic results supporting the discharge/admit diagnosis, lab results, radiology results, the need for outpatient follow up, a urologist, to return to the emergency department if symptoms worsen or persist or if there are any questions or concerns that arise at home. ED course: VSS. Labs reviewed and H/H normal. Will discharge to home with oral antibiotic and recommend f/u with urology. 06/02 17:02 Order name: CBC with Diff; Complete Time: 17:52 06/02 17:53 Interpretation: Normal except: LYM% 12.6. cp 06/02 17:02 Order name: CMP; Complete Time: 19:27 cp 06/02 19:28 Interpretation: Normal except: A/G 1.0. 06/02 17:02 Order name: Lipase; Complete Time: 19:27 06/02 17:02 Order name: Urine Microscopic Only; Complete Time: 19:27 06/02 19:27 Interpretation: Normal except: URBC >50; MANUELITO Cx 1+. 06/02 17:02 Order name: PT-INR; Complete Time: 17:52 cp 06/02 17:02 Order name: Ptt, Activated; Complete Time: 17:52 06/02 17:02 Order name: IV Saline Lock; Complete Time: 17:27 06/02 17:02 Order name: Labs collected and sent; Complete Time: 17:27 06/02 17:02 Order name: Urine Dipstick-Ancillary (obtain specimen); Complete Time: 18:49 06/02 17:53 Order name: CT Stone Protocol 06/02 17:57 Order name: Stone Protocol; Complete Time: 19:27 EDMS Administered Medications: 17:26 Drug: NS 0.9% 500 ml Route: IV; Rate: bolus; Site: right antecubital; vg1 18:34 Follow up: IV Status: Completed infusion; IV Intake: 500ml vg1 20:15 Not Given (Patient Refused): Rocephin (cefTRIAXone) 1 grams IV at calculated rate once; kl Given slow IV push per pharmacy instructions Disposition Summary: 06/02/22 19:44 Discharge Ordered Location: Home cp Problem: new cp Symptoms: are unchanged cp Condition: Stable cp Diagnosis - Hematuria, unspecified cp - Calculus of kidney cp Followup: cp - With: Aurelio Cronin MD - When: 1 week - Reason: Recheck today's complaints Discharge Instructions: - Discharge Summary Sheet cp - Hematuria, Adult cp - Ureteroscopy cp - Kidney Stones cp Forms: - Medication Reconciliation Form cp - Thank You Letter cp - Antibiotic Education cp - Prescription Opioid Use cp Prescriptions: - cefpodoxime 100 mg Oral Tablet - take 1 tablet by ORAL route every 12 hours for 10 days take with food; 20 cp tablet; Refills: 0, Product Selection Permitted Signatures: Dispatcher [employer] Jackie Escamilla RN RN Duane Kuo PA PA cp Mireya Varghese RN RN ap3 Jyoti Sauceda RN RN vg1 Corrections: (The following items were deleted from the chart) 16:50 16:50 Home Meds: Eliquis Oral; ap3 ap3
[2022-06-02 20:22] VITALS: TEMP 98.1
[2022-06-02 20:24] VITALS: O2SAT 99
[2022-06-02 20:26] VITALS: BP 128/77
== END 2022-06-02 20:17 | disposition home or self-care (01) ==
LOC: ER 16:40
DX: N20.0 Calculus of kidney (principal); Z79.01 Long term (current) use of anticoagulants
CPT/HCPCS: 85025; 36415; 85610; 85730; 81015; 83690; 80053; 76377; 74176; 96360; 99284; J7040

== ENCOUNTER 2023-05-12 14:24 | Emergency (ER) | payer OTHER, BC ==
--- OUTSIDE RECORDS SUMMARY | 2023-05-12 14:27 | XMS REPORT | Clinical Summary ---
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 Pneumonia 2014 Fatty liver 10/2019 Diabetes mellitus 6.2 Anxiety 2015 Chronic obstructive pulmonary disease 12/18/2019 Social History Tobacco Use Types Packs/Day Years Used Date Smoking Tobacco: Former Cigarettes 1.5 49 Quit : 06/27/2018 Smokeless Tobacco: Never Alcohol Use Standard Drinks/Week Comments Yes 32 (1 standard drink = 0.6 oz pure alcoh ol) Sex and Gender Information Value Date Recorded Sex Assigned at Male 11/26/2020 7:01 PM CDT Gender Identity Male 11/26/2020 7:01 PM C DT Sexual Orientation Straight 11/26/2020 7:01 PM C DT Job Start Date Occupation Industry Not on file Not on file Not on file Obstetrics History Last Filed Vital Signs Not on file Plan of Treatment Health Maintenance Due Date Last Done Comments COVID-19 Vaccination (#1) 1955 Results Not on fileafter 05/12/2022 Insurance Payer Benefit Plan / Subscriber ID Effective Dates Phone Addre ss Type Group MEDICARE MEDICARE PART [id number] 2019-Arsenio [phone] [facility] A AND B t 2 SOLUTIONS [address] [place] [address] Care Teams Candy [employer]arch [employer]inter Relationship Specialty Start Date End Date Joon Valdes, LEONOR - External Follow Up Radiation Oncology MD [place] [address] [place] [address] Ashley Benitez MD PCP - General Thoracic Medicine 11/24/[address] [place] [id number]
--- OUTSIDE RECORDS SUMMARY | 2023-05-12 14:30 | XMS REPORT | Continuity of Care Document ---
:1955 Author Organization [facility] t Address [address] [place] [address] [address] [place] [address] Care Team Providers Name Role Phone Leah Villela MD Primary Care Physician Patrick Landaverde Attending Clinician Unavailable SYSTEM, PROVIDER NOT IN Attending Clinician Unavailable MAZIN HERNADEZ Attending Clinician Unavailable MAZIN HERNADEZ Attending Clinician Unavailable PATT BOOTH K.HRosalina Attending Clinician Unavailable Patt Booth MD K.H. Attending Clinician Mazin Hernadez DO Attending Clinician Doctor Unassigned, Mcalester Attending Clinician Unavailable STACI ZUNIGA Attending Clinician Unavailable Una Armenta Attending Clinician MARLENE REYNOSO Attending Clinician Unavailable [...] Clinician 2, Adc Lab Attending Clinician Unavailable aTte Diamond DO Attending Clinician Pc, Adc Echo Room 1 - Attending Clinician Unavailable HELDER HERRERA Attending Clinician Unavailable MARLENE REYNOSO Admitting Clinician Unavailable HELDER HERRERA Admitting Clinician Unavailable Payers Payer Name Policy Type Policy Number Effective Date Expiration Date S malena Blue [employer] Blue 6 [id number] [facility] SAVERS [id number] 2020 00:00:00 ALBA [id number] 2019 HEALTHCARE PPO 00:00:00 [place] [employer] [id number] 2015 00:00:00 Problems Condition Condition Condition Status Onset Resolution Last Treating Co mments Source Name Details Category Date Date Treatment Clinician Date 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 00:00: [place] lobe of lobe of 00 left lung left lung [facility] Acute Acute Disease Recurre 2016-[address] pulmonary pulmonary nce 07-09 [facility] insufficie insufficie 00:00: Me dical ncy ncy 00 Center following following non-thorac non-thorac ic surgery ic surgery Hyperglyce Hyperglyce Disease Active 2016-[address] [facility]orenc[facility] fl[facility]ncio [facility]09 [facility] AAA AAA Disease Recurre 2016-[address] (abdominal (abdominal nce 07-08 Courtney kes aortic aortic 00:00: Medical aneurysm) aneurysm) 00 Cent er Smoker Smoker Disease Active 2016-[address] [facility] [facility] Center Secondary Secondary Problem 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 on [facility] [id number] Peripheral Problem Com mon polyneurop Spirit athy - [facility] [id number] BRIGHT Problem Common (generaliz Spirit ed anxiety - CHI disorder) [facility] [id number] +5th digit Problem Com mon eff Spirit 03/19/22*AA - [facility] A St (abdominal [facility] aortic Medical aneurysm) Center without rupture [id number] Chronic Problem Common obstructiv Spirit e - [facility] pulmonary St disease, [facility] unspecifie Medica l d COPD Center type Malignant Malignant Problem Com mon neoplasm neoplasm Spirit of lower of lower - CHI lobe, lobe, left St bronchus bronchus [facility] or lung or lung [facility] [id number] Mixed Problem Common hyperlipid Spirit emia - [facility] Anorexia Anorexia Problem Commo n [facility] Malignant Malignant Problem Com mon neoplasm neoplasm Spirit of lower of lower - CHI lobe of lobe of St left lung left lung [facility] No known No known Disease Unive rs active active ity of problems problems [facility] Aneurysm Aneurysm Disease Recurre [facility] Postoperat Postoperat Disease Active C HI [facility] compa anemia compa anemia Courtney ke due to due to Medical acute acute Center blood loss blood loss Allergies, Adverse Reactions, Alerts Allergy Allergy Status Severity Reaction(s) Onset Inactive Treating Comm ents Source Name Type Date Date Clinician Other Propensi Active Itching 2016-06 All anti [facility] adverse 00:00: ory drugs Medica l reaction 00 Center s NO KNOWN Drug Active Univers ALLERGIE Class ity of S [facility] Family History Family Member Diagnosis Comments Start Date Stop Date Source Natural mother COPD [facility] Social History Social Habit Start Date Stop Date Quantity Comments Source History of tobacco Current smoker Un iversity of use [facility] Gender identity Universit y of [facility] Sexual orientation [facility] Tobacco Comment 2022-11-22 2022-11-22 Quit 2019 Universit y of 00:00:00 00:00:00 [facility] Exposure to 2022-10-24 2022-11-03 Not sure University of SARS-CoV-2 (event) 00:00:00 13:05:00 [facility] History of Social 2021-03-15 2021-03-15 Univers ity of function 00:00:00 00:00:00 [place] MD Rodriguez [facility] Tobacco use and 2020-11-30 2020-11-30 Smokeless Universit y of exposure 00:00:00 00:00:00 tobacco non-user [facility] Alcohol intake 2017-05-10 2017-05-10 3.43 /d [facility] 00:00:00 00:00:00 [facility] Cigarettes smoked 2017-05-02 2017-05-[address] [facility] current (pack per 00:00:00 00:00:00 [facility] Center day) - Reported Cigarette 2017-05-02 2017-05-[address] [facility] pack-years 00:00:00 00:00:00 [facility] Sex Ass[birth year] At [birth year] NASRIN Monges 00:00:00 00:00:00 [facility] Smoking Status Start Date Stop Date Source Ex-smoker 2020-11-30 00:00:00 2020-11-30 00:00:00 Universi ty of [facility] Smokes tobacco daily 2020-07-17 00:00:00 [facility] ity [facility] Medications Ordered Filled Start Stop Current Ordering Indication Dosage Frequency Signature Comments Components Source Medication Medication Date Date Medication? Clinician (SIG) Name Name raciel 2022-06- No [id number] 5mL 5 mL, Unive rs hexafluorid -10 11-10 Intravenou i ty of e microsphr 15:30: 15:30 s, ONCE, 1 [place] (LUMASON) 00 :00 dose, On Medica l injection 5 Fri Branch mL 04/28/23 at 0930, Routine
education faculty member approving Restricted medication : PATT BOOTH apixaban 2022-06- No 5mg Take 1 Univ ers mg tablet 1-10 11-10 tablet by ity of 10:52: 00:00 mouth in [place] 16 :00 the Medical morning Branch and 1 tablet in the evening. x30 days apixaban 2022-06- No 5mg Take 1 Univ ers mg tablet 1-10 11-10 tablet by ity of 10:52: 00:00 mouth in [place] 16 :00 the Medical morning Branch and 1 tablet in the evening. x30 days apixaban 5 2022-06- No 5mg Take 1 Univ ers mg tablet 1-10 11-10 tablet by ity of 10:52: 00:00 mouth in [place] 16 :00 the Medical morning Branch and 1 tablet in the evening. x30 days apixaban 5 2022-2022- No 5mg Take 1 Univ ers mg tablet 1-10 11-10 tablet by ity of 10:52: 00:00 mouth in [place] 16 :00 the Medical morning Branch and 1 tablet in the evening. x30 days aspirin 81 2022- Yes 81mg Take 1 Unive rs mg EC 1-10 tablet by ity of tablet 10:52: mouth in [place] 04 the Medical morning. Branch aspirin 81 2022-06 Yes 81mg Take 1 Unive rs mg EC 1-10 tablet by ity of tablet 10:52: mouth in [place] 04 the Medical morning. Branch aspirin 81 2022-06 Yes 81mg Take 1 Unive rs mg EC 1-10 tablet by ity of tablet 10:52: mouth in [place] 04 the Medical morning. Branch aspirin 81 2022-06 Yes 81mg Take 1 Unive rs mg EC 1-10 tablet by ity of tablet 10:52: mouth in [place] 04 the Medical morning. Branch umeclidiniu Yes [id number] 1{puff} Inhale 1 Univers m-vilantero 6-06 Puff in ity o f L (ANORO 00:00: the [place] ELLIPTA) 00 morning. Medical 62.5-25 Branch mcg/actuati on inhalation disk albuterol Yes [id number] 2{puff} Inhale 2 Univers 90 6-06 Puffs ity of mcg/actuati 00:00: every 6 [place] as on inhaler 00 (six) Medical hours as Branch needed for Wheezing or Shortness of Breath. umeclidiniu Yes [id number] 1{puff} Inhale 1 Univers m-vilantero 6-06 Puff in ity o f L (ANORO 00:00: the [place] ELLIPTA) 00 morning. Medical 62.5-25 Branch mcg/actuati on inhalation disk albuterol Yes [id number] 2{puff} Inhale 2 Univers 90 6-06 Puffs ity of mcg/actuati 00:00: every 6 Thom as on inhaler 00 (six) Medical hours as Branch needed for Wheezing or Shortness of Breath. umeclidiniu 0 Yes [id number] 1{puff} Inhale 1 Univers m-vilantero 6-06 Puff in ity o f L (ANORO 00:00: the [place] ELLIPTA) 00 morning. Medical 62.5-25 Branch mcg/actuati on inhalation disk albuterol 0 Yes [id number] 2{puff} Inhale 2 Univers 90 6-06 Puffs ity of mcg/actuati 00:00: every 6 [place] as on inhaler 00 (six) Medical hours as Branch needed for Wheezing or Shortness of Breath. umeclidiniu 2022-0 Yes [id number] 1{puff} Inhale 1 Univers m-vilantero 6-06 Puff in ity o f L (ANORO 00:00: the [place] ELLIPTA) 00 morning. Medical 62.5-25 Branch mcg/actuati on inhalation disk albuterol 0 Yes [id number] 2{puff} Inhale 2 Univers 90 6-06 Puffs ity of mcg/actuati 00:00: every 6 Thom as on inhaler 00 (six) Medical hours as Branch needed for Wheezing or Shortness of Breath. umeclidiniu 0 Yes [id number] 1{puff} Inhale 1 Univers m-vilantero 6-06 Puff in ity o f L (ANORO 00:00: the [place] ELLIPTA) 00 morning. Medical 62.5-25 Branch mcg/actuati on inhalation disk albuterol 0 Yes [id number] 2{puff} Inhale 2 Univers 90 6-06 Puffs ity of mcg/actuati 00:00: every 6 [place] as on inhaler 00 (six) Medical hours as Branch needed for Wheezing or Shortness of Breath. umeclidiniu 0 Yes [id number] 1{puff} Inhale 1 Univers m-vilantero 6-06 Puff in ity o f L (ANORO 00:00: the [place] ELLIPTA) 00 morning. Medical 62.5-25 Branch mcg/actuati on inhalation disk albuterol 2022-0 Yes [id number] 2{puff} Inhale 2 Univers 90 6-06 Puffs ity of mcg/actuati 00:00: every 6 [place] as on inhaler 00 (six) Medical hours as Branch needed for Wheezing or Shortness of Breath. aspirin 81 2023-0 Yes 81mg Take 1 Unive rs mg EC 4-10 tablet by ity of tablet 15:14: mouth in [place] [address] the Medical morning. Branch apixaban 5 2023-0 Yes 5mg Take 1 Unive rs mg tablet 4-10 tablet by ity o f 15:14: mouth in [place] [address] the Medical morning Branch and 1 tablet in the evening. x30 days aspirin 81 2023-0 Yes 81mg Take 1 Unive rs mg EC 4-10 tablet by ity of tablet 15:14: mouth in [place] [address] the Medical morning. Branch apixaban 5 2023-0 Yes 5mg Take 1 Unive rs mg tablet 4-10 tablet by ity o f 15:14: mouth in [place] [address] the Medical morning Branch and 1 tablet in the evening. x30 days aspirin 81 2023-0 Yes 81mg Take 1 Unive rs mg EC 4-10 tablet by ity of tablet 15:14: mouth in [place] [address] the Medical morning. Branch apixaban 5 2023-0 Yes 5mg Take 1 Unive rs mg tablet 4-10 tablet by ity o f 15:14: mouth in [place] [address] the Medical morning Branch and 1 tablet in the evening. x30 days aspirin 81 2023-0 Yes 81mg Take 1 Unive rs mg EC 4-10 tablet by ity of tablet 15:14: mouth in [place] [address] the Medical morning. Branch apixaban 5 2023-0 Yes 5mg Take 1 Unive rs mg tablet 4-10 tablet by ity o f 15:14: mouth in [place] [address] the Medical morning Branch and 1 tablet in the evening. x30 days aspirin 81 2023-0 Yes 81mg Take 1 Unive rs mg EC 4-10 tablet by ity of tablet 15:14: mouth in [place] [address] the Medical morning. Branch apixaban 5 2023-0 Yes 5mg Take 1 Unive rs mg tablet 4-10 tablet by ity o f 15:14: mouth in [place] [address] the Medical morning Branch and 1 tablet in the evening. x30 days aspirin 81 2023-0 Yes 81mg Take 1 Unive rs mg EC 4-10 tablet by ity of tablet 15:14: mouth in [place] [address] the Medical morning. Branch apixaban 5 2023-0 Yes 5mg Take 1 Unive rs mg tablet 4-10 tablet by ity o f 15:14: mouth in [place] [address] the Medical morning Branch and 1 tablet in the evening. x30 days aspirin 81 2023-0 Yes 81mg Take 1 Unive rs mg EC 4-10 tablet by ity of tablet 15:14: mouth in [place] [address] the Medical morning. Branch apixaban 5 2023-0 Yes 5mg Take 1 Unive rs mg tablet 4-10 tablet by ity o f 15:14: mouth in [place] [address] the Medical morning Branch and 1 tablet in the evening. x30 days aspirin 81 2023-0 Yes 81mg Take 1 Unive rs mg EC 4-10 tablet by ity of tablet 15:14: mouth in [place] [address] the Medical morning. Branch apixaban 5 2023-0 Yes 5mg Take 1 Unive rs mg tablet 4-10 tablet by ity o f 15:14: mouth in [place] [address] the Medical morning Branch and 1 tablet in the evening. x30 days aspirin 81 2023-0 Yes 81mg Take 1 Unive rs mg EC 4-10 tablet by ity of tablet 15:14: mouth in [place] [address] the Medical morning. Branch apixaban 5 2023-0 Yes 5mg Take 1 Unive rs mg tablet 4-10 tablet by ity o f 15:14: mouth in [place] [address] the Medical morning Branch and 1 tablet in the evening. x30 days aspirin 81 2023-0 Yes 81mg Take 1 Unive rs mg EC 4-10 tablet by ity of tablet 15:14: mouth in [place] [address] the Medical morning. Branch apixaban 5 2023-0 Yes 5mg Take 1 Unive rs mg tablet 4-10 tablet by ity o f 15:14: mouth in [place] [address] the Medical morning Branch and 1 tablet in the evening. x30 days aspirin 81 2023-0 Yes 81mg Take 1 Unive rs mg EC 4-10 tablet by ity of tablet 15:14: mouth in [place] [address] the Medical morning. Branch apixaban 5 2023-0 Yes 5mg Take 1 Unive rs mg tablet 4-10 tablet by ity o f 15:14: mouth in [place] 53 the Medical morning Branch and 1 tablet in the evening. x30 days aspirin 81 3-0 Yes 81mg Take 1 Unive rs mg EC 4-10 tablet by ity of tablet 15:14: mouth in [place] [address] the Medical morning. Branch apixaban 5 3-0 Yes 5mg Take 1 Unive rs mg tablet 4-10 tablet by ity o f 15:14: mouth in [place] [address] the Medical morning Branch and 1 tablet in the evening. x30 days aspirin 81 2023-0 Yes 81mg Take 1 Unive rs mg EC 4-10 tablet by ity of tablet 15:14: mouth in [place] [address] the Medical morning. Branch apixaban 5 3-0 Yes 5mg Take 1 Unive rs mg tablet 4-10 tablet by ity o f 15:14: mouth in [place] [address] the Medical morning Branch and 1 tablet in the evening. x30 days Fluticasone Fluticasone 2021-0 No 1{puff} BID Fluticason -Salmeterol -Salmeterol 02-23 e-Salmeter 232-14 232-14 00:00: ol 232-14 MCG/ACT MCG/ACT 00 MCG/ACT Fluticasone Fluticasone 2021-0 No 1{puff} BID Fluticason -Salmeterol -Salmeterol 02-23 e-Salmeter 232-14 232-14 00:00: ol 232-14 MCG/ACT MCG/ACT 00 MCG/ACT ANORO 2021-0 Yes [id number] TAKE 1 Univer s ELLIPTA 7-11 PUFF BY ity of 62.5-25 00:00: MOUTH [place] mcg/actuati 00 DAILY Medical on Branch inhalation disk ANORO 2021-0 Yes [id number] TAKE 1 Univer s ELLIPTA 7-11 PUFF BY ity of 62.5-25 00:00: MOUTH [place] mcg/actuati 00 DAILY Medical on Branch inhalation disk ANORO 2021-0 Yes [id number] TAKE 1 Univer s ELLIPTA 7-11 PUFF BY ity of 62.5-25 00:00: MOUTH [place] mcg/actuati 00 DAILY Medical on Branch inhalation disk ANORO 2021-0 Yes [id number] TAKE 1 Univer s ELLIPTA 7-11 PUFF BY ity of 62.5-25 00:00: MOUTH [place] mcg/actuati 00 DAILY Medical on Branch inhalation disk ANORO 2021-0 Yes [id number] TAKE 1 Univer s ELLIPTA 7-11 PUFF BY ity of 62.5-25 00:00: MOUTH [place] mcg/actuati 00 DAILY Medical on Branch inhalation disk ANORO 0 Yes [id number] TAKE 1 Univer s ELLIPTA 7-11 PUFF BY ity of 62.5-25 00:00: MOUTH [place] mcg/actuati 00 DAILY Medical on Branch inhalation disk ANORO 0 Yes [id number] TAKE 1 Univer s ELLIPTA 7-11 PUFF BY ity of 62.5-25 00:00: MOUTH [place] mcg/actuati 00 DAILY Medical on Branch inhalation disk ANORO 0 Yes [id number] TAKE 1 Univer s ELLIPTA 7-11 PUFF BY ity of 62.5-25 00:00: MOUTH [place] mcg/actuati 00 DAILY Medical on Branch inhalation disk ANORO 0 Yes [id number] TAKE 1 Univer s ELLIPTA 7-11 PUFF BY ity of 62.5-25 00:00: MOUTH [place] mcg/actuati 00 DAILY Medical on Branch inhalation disk ANORO 0 Yes [id number] TAKE 1 Univer s ELLIPTA 7-11 PUFF BY ity of 62.5-25 00:00: MOUTH [place] mcg/actuati 00 DAILY Medical on Branch inhalation disk ANORO 0 Yes [id number] TAKE 1 Univer s ELLIPTA 7-11 PUFF BY ity of 62.5-25 00:00: MOUTH [place] mcg/actuati 00 DAILY Medical on Branch inhalation disk ANORO 2021-0 2022- No [id number] TAKE 1 Unive rs ELLIPTA 7-11 06-06 PUFF BY ity of 62.5-25 00:00: 00:00 MOUTH [place] mcg/actuati 00 :00 DAILY Medical on Branch inhalation disk ANORO 2021-0 2022- No [id number] TAKE 1 Unive rs ELLIPTA 7-11 06-06 PUFF BY ity of 62.5-25 00:00: 00:00 MOUTH [place] mcg/actuati 00 :00 DAILY Medical on Branch inhalation disk aspirin 81 2021-0 Yes 81mg Take 81 mg U nivers mg EC 6-03 by mouth ity of tablet 09:57: daily. [place] 04 Medical Branch apixaban Yes 5mg Take 5 mg Univ ers (ELIQUIS) 5 6-03 by mouth 2 it y of mg tablet 09:57: (two) [place] 04 times Medical daily. x30 Branch days aspirin 81 2021-0 Yes 81mg Take 81 mg U nivers mg EC 6-03 by mouth ity of tablet 09:57: daily. [place] [address] Medical Branch apixaban 0 Yes 5mg Take 5 mg Univ ers (ELIQUIS) 5 6-03 by mouth 2 it y of mg tablet 09:57: (two) [place] 04 times Medical daily. x30 Branch days aspirin 81 0 Yes 81mg Take 81 mg U nivers mg EC 6-03 by mouth ity of tablet 09:57: daily. [address] Branch apixaban 0 Yes 5mg Take 5 mg Univ ers (ELIQUIS) 5 6-03 by mouth 2 it y of mg tablet 09:57: (two) [place] 04 times Medical daily. x30 Branch days aspirin 81 2021-0 Yes 81mg Take 81 mg U nivers mg EC 6-03 by mouth ity of tablet 09:57: daily. [address] apixaban 0 Yes 5mg Take 5 mg Univ ers (ELIQUIS) 5 6-03 by mouth 2 it y of mg tablet 09:57: (two) [place] 04 times Medical daily. x30 Branch days diazePAM Yes Claustropho Take one Univers (Valium) 5 5-25 clay tablet ity of mg tablet 00:00: orally [place] 00 when instructed Anderso by [facility] diazePAM Yes Claustropho Take one Univers (Valium) 5 5-25 clay tablet ity of mg tablet 00:00: orally [place] 00 when instructed Anderso by [facility] umeclidiniu Yes [id number] 1{puff} Inhale 1 Univers m-vilantero 1-19 Puff ity of L (ANORO 00:00: daily. [place] ELLIPTA) 00 Medical 62.5-25 Branch mcg/actuati on inhalation disk umeclidiniu Yes [id number] 1{puff} Inhale 1 Univers m-vilantero 1-19 Puff ity of L (ANORO 00:00: daily. [place] ELLIPTA) 00 Medical 62.5-25 Branch mcg/actuati on inhalation disk umeclidiniu 202- No [id number] 1{puff} Inhale 1 Univers m-vilantero 1-19 07-11 Puff ity of L (ANORO 00:00: 00:00 daily. [place] ELLIPTA) 00 :00 Medical 62.5-25 Branch mcg/actuati on inhalation disk alip Yes 2{tbl} Take 2 Univers acid/biotin 9-27 tablets by it y of /mins16/her 08:15: mouth [place] b91 (BLOOD 55 daily. MD HARLAN Coates BALANCE n ORAL) [facility] multivitami Yes 1{capsu Take 1 U nivers n capsule 9-27 le} capsule by ity of 08:15: mouth [place] 55 daily. MD Jaxon lewis [facility] zinc Yes 50mg Take 50 mg Univers gluconate 9-27 by mouth ity of 50 mg 08:15: daily. [place] tablet 55 MD Jaxon lewis [facility] aspirin 81 Yes 81mg Take 81 mg U nivers mg EC 9-27 by mouth ity of tablet 08:15: daily. [place] 55 MD Jaxon lewis [facility] alip Yes 2{tbl} Take 2 Univers acid/biotin 9-27 tablets by it y of /mins16/her 08:15: mouth [place] b91 (BLOOD 55 daily. MD HARLAN Coates BALANCE n ORAL) Cancer Center multivitami Yes 1{capsu Take 1 U nivers n capsule 9-27 le} capsule by ity of 08:15: mouth [place] 55 daily. MD Jaxon lewis [facility] zinc Yes 50mg Take 50 mg Univers gluconate 9-27 by mouth ity of 50 mg 08:15: daily. [place] tablet 55 MD Jaxon lewis [facility] aspirin 81 Yes 81mg Take 81 mg U nivers mg EC 9-27 by mouth ity of tablet 08:15: daily. [place] 55 MD Jaxon lewis [facility] albuterol Yes 2{puff} Inhale 2 U nivers (VENTOLIN 6-30 puffs by ity of HFA,PROAIR 00:00: mouth as [place] as HFA) 90 00 needed. mcg/puff Anderso inhaler n [facility] albuterol Yes 2{puff} Inhale 2 U nivers (VENTOLIN 6-30 puffs by ity of HFA,PROAIR 00:00: mouth as [place] as HFA) 90 00 needed. mcg/puff Anderso inhaler n [facility] Anoro Yes 1{puff} Inhale 1 Unive rs Ellipta 6-10 puff by ity of 62.5-25 00:00: mouth [place] mcg/actuati 00 daily. on dsdv Anderso n [facility] Anoro Yes 1{puff} Inhale 1 Unive rs Ellipta 6-10 puff by ity of 62.5-25 00:00: mouth [place] mcg/actuati 00 daily. on dsdv [facility] atorvastati 2020- No 40mg Take 1 Uni vers n 40 mg 3-26 09-15 tablet by ity of tablet 00:00: 00:00 mouth at [place] 00 :00 bedtime. Medical Branch TRELEGY 2020- No INHALE 1 Unive rs ELLIPTA 1-02 06-10 PUFF BY ity of 100-62.5-25 00:00: 00:00 [place]TH [place] mcg DsDv 00 :00 EVERY DAY Medica l Branch Eliquis 5 Eliquis 5 No BID Eliquis [...] No QD Eliquis 5 MG MG MG Fluticasone Fluticasone No Fluticason -Salmeterol -Salmeterol e-Salmeter 232-14 232-14 ol 232-14 MCG/ACT MCG/ACT MCG/ACT Anoro Anoro No Anoro Ellipta Ellipta Ellipta Eliquis 5 Eliquis 5 No QD Eliquis 5 MG MG MG Zinc Zinc No Zinc Picolinate Picolinate Picolinate Mirtazapine Mirtazapine No 1{table QD Mirtazapin 15 MG 15 MG t_at_be e 15 MG dtime} Multivitami Multivitami No Multivitam n & Mineral n & Mineral in & Mineral Fluticasone Fluticasone No Fluticason -Salmeterol -Salmeterol e-Salmeter 232-14 232-14 ol 232-14 MCG/ACT MCG/ACT MCG/ACT Mirtazapine Mirtazapine No 1{table QD Mirtazapin 15 MG 15 MG t_at_be e 15 MG dtime} Zinc Zinc No Zinc Picolinate Picolinate Picolinate Eliquis 5 Eliquis 5 No QD Eliquis 5 MG MG MG Multivitami Multivitami No Multivitam n & Mineral n & Mineral in & Mineral Anoro Anoro No Anoro Ellipta Ellipta Ellipta Multivitami Multivitami No Multivitam n & Mineral n & Mineral in & Mineral Anoro Anoro No Anoro Ellipta Ellipta Ellipta Fluticasone Fluticasone No Fluticason -Salmeterol -Salmeterol e-Salmeter 232-14 232-14 ol 232-14 MCG/ACT MCG/ACT MCG/ACT Zinc Zinc No Zinc Picolinate Picolinate Picolinate Eliquis 5 Eliquis 5 No QD Eliquis 5 MG MG MG Mirtazapine Mirtazapine No 1{table QD Mirtazapin 15 MG 15 MG t_at_be e 15 MG dtime} Anoro Anoro No Anoro Ellipta Ellipta Ellipta Multivitami Multivitami No Multivitam n & Mineral n & Mineral in & Mineral Zinc Zinc No Zinc Picolinate Picolinate Picolinate Gabapentin Gabapentin No 1{capsu BID Gabapentin 300 MG 300 MG le} 300 MG Fluticasone Fluticasone No 1{puff} BID Fluticason -Salmeterol -Salmeterol e-Salmeter 232-14 232-14 ol 232-14 MCG/ACT MCG/ACT MCG/ACT Mirtazapine Mirtazapine No 1{table QD Mirtazapin 15 MG 15 MG t_at_be e 15 MG dtime} Aspirin Aspirin No Aspirin Adult Low Adult Low Adult Low Dose Dose Dose Anoro Anoro No Anoro Ellipta Ellipta Ellipta Multivitami Multivitami No Multivitam n & Mineral n & Mineral in & Mineral Zinc Zinc No Zinc Picolinate Picolinate Picolinate Gabapentin Gabapentin No 1{capsu BID Gabapentin 300 MG 300 MG le} 300 MG Fluticasone Fluticasone No 1{puff} BID Fluticason -Salmeterol -Salmeterol e-Salmeter 232-14 232-14 ol 232-14 MCG/ACT MCG/ACT MCG/ACT Mirtazapine Mirtazapine No 1{table QD Mirtazapin 15 MG 15 MG t_at_be e 15 MG dtime} Aspirin Aspirin No Aspirin Adult Low Adult Low Adult Low Dose Dose Dose Anoro Anoro No Anoro Ellipta Ellipta Ellipta Multivitami Multivitami No Multivitam n & Mineral n & Mineral in & Mineral Zinc Zinc No Zinc Picolinate Picolinate Picolinate Gabapentin Gabapentin No 1{capsu BID Gabapentin 300 MG 300 MG le} 300 MG Fluticasone Fluticasone No 1{puff} BID Fluticason -Salmeterol -Salmeterol e-Salmeter 232-14 232-14 ol 232-14 MCG/ACT MCG/ACT MCG/ACT Mirtazapine Mirtazapine No 1{table QD Mirtazapin 15 MG 15 MG t_at_be e 15 MG dtime} Aspirin Aspirin No Aspirin Adult Low Adult Low Adult Low Dose Dose Dose Fluticasone Fluticasone No 1{puff} BID Fluticason -Salmeterol -Salmeterol e-Salmeter 232-14 232-14 ol 232-14 MCG/ACT MCG/ACT MCG/ACT Fluticasone Fluticasone No 1{puff} BID Fluticason -Salmeterol -Salmeterol e-Salmeter 232-14 232-14 ol 232-14 MCG/ACT MCG/ACT MCG/ACT Mirtazapine Mirtazapine No 1{table QD Mirtazapin 15 [...] Name Observation Time Observation Value Comments Source Systolic blood 2023-04-28 16:10:00 112 mm[Hg] Univer sity of pressure [place] [facility] Diastolic blood 2023-04-28 16:10:00 64 mm[Hg] [facility] Heart rate 2023-04-28 16:10:00 71 /min [facility] [place] [facility] Body temperature 2023-04-28 16:10:00 36.56 Milvia [facility] [place] [facility] Respiratory rate 2023-04-28 16:10:00 18 /min [facility] Body weight 2023-04-28 16:10:00 85.684 kg [facility] BMI 2023-04-28 16:10:00 27.10 kg/m2 [facility] Oxygen saturation in 2023-04-28 16:10:00 94 /min University of Arterial blood by [place] [employer] nitin Pulse oximetry Branch Systolic blood 2022-11-22 14:46:00 113 mm[Hg] Univer [facility]ity of [facility] Diastolic blood 2022-11-22 14:46:00 70 mm[Hg] Unive [facility] Heart rate 2022-11-22 14:46:00 75 /min [facility] Respiratory rate 2022-11-22 14:46:00 17 /min [facility] Body height 2022-11-22 14:46:00 177.8 cm [facility] Body weight 2022-11-22 14:46:00 85.322 kg [facility] [place] [facility] BMI 2022-11-22 14:46:00 26.99 kg/m2 [facility] [place] [facility] Oxygen saturation in 2022-11-22 14:46:00 96 /min [facility] of Arterial blood by [employer] nitin Pulse oximetry Branch Systolic blood 2022-11-03 18:15:00 102 mm[Hg] Univer [facility]ity of [facility] Diastolic blood 2022-11-03 18:15:00 70 mm[Hg] Unive [facility] Heart rate 2022-11-03 18:15:00 100 /min [facility] [place] [facility] Respiratory rate 2022-11-03 18:15:00 18 /min Univ ersity of [facility] Body weight 2022-11-03 18:15:00 86.183 kg Universi [facility] of [facility] BMI 2022-11-03 18:15:00 27.26 kg/m2 [facility] Oxygen saturation in 2022-11-03 18:15:00 94 /min [facility] Arterial blood by [facility] Pulse oximetry Branch Systolic blood 2022-09-26 20:21:00 118 mm[Hg] Univer sity of pressure [facility] Diastolic blood 2022-09-26 20:21:00 75 mm[Hg] Unive rsity of pressure [facility] Heart rate 2022-09-26 20:21:00 107 /min [facility] Body height 2022-09-26 20:21:00 177.8 cm [facility] Body weight 2022-09-26 20:21:00 85.231 kg [facility] BMI 2022-09-26 20:21:00 26.96 kg/m2 [facility] Oxygen saturation in 2022-09-26 20:21:00 93 /min [facility] Arterial blood by [facility] Pulse oximetry Branch height 2022-09-16 11:00:00 70 [in_i] [facility] weight 2022-09-16 11:00:00 186.8 [lb_av] [facility] bmi 2022-09-16 11:00:00 26.8 kg/m2 [facility] oximetry 2022-09-16 11:00:00 95 % [facility] respiratory rate 2022-09-16 11:00:00 16 /min Comm on [facility] blood pressure 2022-09-16 11:00:00 111 mm[Hg] Common [facility] - systolic [facility] blood pressure 2022-09-16 11:00:00 70 mm[Hg] Common [facility] - diastolic [facility] height 2022-08-17 09:30:00 70 [in_i] [facility] weight 2022-08-17 09:30:00 185.9 [lb_av] Common [facility] temperature 2022-08-17 09:30:00 97.3 [degF] Common [facility] bmi 2022-08-17 09:30:00 26.67 kg/m2 Common [facility] oximetry 2022-08-17 09:30:00 96 % Common [facility] respiratory rate 2022-08-17 09:30:00 17 /min Comm on [facility] blood pressure 2022-08-17 09:30:00 124 mm[Hg] Common [facility] - systolic [facility] blood pressure 2022-08-17 09:30:00 71 mm[Hg] Common [facility] - diastolic [facility] height 2022-08-17 09:40:00 70 [in_i] Common [facility] weight 2022-08-17 09:40:00 185.9 [lb_av] [facility] temperature 2022-08-17 09:40:00 97.3 [degF] Common [facility] bmi 2022-08-17 09:40:00 26.67 kg/m2 Common [facility] oximetry 2022-08-17 09:40:00 96 % Common [facility] respiratory rate 2022-08-17 09:40:00 17 /min Comm on [facility] blood pressure 2022-08-17 09:40:00 124 mm[Hg] Common [facility] - systolic [facility] blood pressure 2022-08-17 09:40:00 71 mm[Hg] Common [facility] - diastolic [facility] height 2022-07-27 14:15:00 70 [in_i] Common [facility] weight 2022-07-27 14:15:00 188.6 [lb_av] [facility] temperature 2022-07-27 14:15:00 97.6 [degF] Common [facility] bmi 2022-07-27 14:15:00 27.06 kg/m2 [facility] oximetry 2022-07-27 14:15:00 96 % [facility] respiratory rate 2022-07-27 14:15:00 18 /min Comm on [facility] blood pressure 2022-07-27 14:15:00 133 mm[Hg] Common [facility] - systolic [facility] blood pressure 2022-07-27 14:15:00 70 mm[Hg] Common [facility] - diastolic [facility] height 2022-06-23 11:15:00 70 [in_i] Common [facility] weight 2022-06-23 11:15:00 186.8 [lb_av] [facility] temperature 2022-06-23 11:15:00 98.1 [degF] [facility] bmi 2022-06-23 11:15:00 26.8 kg/m2 [facility] oximetry 2022-06-23 11:15:00 99 % [facility] respiratory rate 2022-06-23 11:15:00 16 /min Comm on [facility] blood pressure 2022-06-23 11:15:00 117 mm[Hg] Common [facility] systolic [facility] blood pressure 2022-06-23 11:15:00 62 mm[Hg] Common [facility] - diastolic [facility] height 2022-02-23 09:00:00 70 [in_i] Common [facility] weight 2022-02-23 09:00:00 177.0 [lb_av] [facility] temperature 2022-02-23 09:00:00 97.9 [degF] [facility] bmi 2022-02-23 09:00:00 25.39 kg/m2 [facility] oximetry 2022-02-23 09:00:00 96 % [facility] respiratory rate 2022-02-23 09:00:00 17 /min Comm on [facility] blood pressure 2022-02-23 09:00:00 121 mm[Hg] Common [facility] - systolic [facility] blood pressure 2022-02-23 09:00:00 70 mm[Hg] Common [facility] - diastolic [facility] height 2021-11-23 09:50:00 70 [in_i] [facility] weight 2021-11-23 09:50:00 174.7 [lb_av] [facility] temperature 2021-11-23 09:50:00 98.0 [degF] [facility] bmi 2021-11-23 09:50:00 25.06 kg/m2 [facility] oximetry 2021-11-23 09:50:00 95 % [facility] respiratory rate 2021-11-23 09:50:00 16 /min Comm on [facility] blood pressure 2021-11-23 09:50:00 106 mm[Hg] Common [facility] - systolic [facility] blood pressure 2021-11-23 09:50:00 65 mm[Hg] [facility] diastolic [facility] Systolic blood 2021-11-19 15:02:00 102 mm[Hg] Univer sity of [facility] Diastolic blood 2021-11-19 15:02:00 67 mm[Hg] Unive rsity of [facility] Heart rate 2021-11-19 15:02:00 87 /min [facility] Respiratory rate 2021-11-19 15:02:00 19 /min [facility] height 2021-11-19 15:02:[address] [facility] Body weight 2021-11-19 15:02:[address] [facility] BMI 2021-11-19 15:02:00 24.92 kg/m2 [facility] Oxygen saturation in 2021-11-19 15:02:00 95 /min [facility] Arterial blood by [facility] Pulse oximetry Branch height 2021-08-20 08:20:00 70 [in_i] Common [facility] weight 2021-08-20 08:20:00 177.7 [lb_av] [facility] temperature 2021-08-20 08:20:00 97.3 [degF] Common [facility] bmi 2021-08-20 08:20:00 25.49 kg/m2 [facility] oximetry 2021-08-20 08:20:00 97 % Common [facility] respiratory rate 2021-08-20 08:20:00 17 /min Comm on [facility] blood pressure 2021-08-20 08:20:00 122 mm[Hg] Common [facility] - systolic [facility] blood pressure 2021-08-20 08:20:00 72 mm[Hg] Common [facility] - diastolic [facility] height 2021-08-20 08:20:00 70 [in_i] Common [facility] weight 2021-08-20 08:20:00 177.7 [lb_av] [facility] temperature 2021-08-20 08:20:00 97.3 [degF] Common [facility] bmi 2021-08-20 08:20:00 25.49 kg/m2 Common [facility] oximetry 2021-08-20 08:20:00 97 % Common [facility] respiratory rate 2021-08-20 08:20:00 17 /min Comm on [facility] blood pressure 2021-08-20 08:20:00 122 mm[Hg] Common [facility] - systolic [facility] blood pressure 2021-08-20 08:20:00 72 mm[Hg] Common [facility] - diastolic [facility] height 2021-07-26 13:30:00 70 [in_i] [facility] weight 2021-07-26 13:30:00 177.2 [lb_av] [facility] temperature 2021-07-26 13:30:00 98.4 [degF] [facility] bmi 2021-07-26 13:30:00 25.42 kg/m2 [facility] oximetry 2021-07-26 13:30:00 95 % [facility] respiratory rate 2021-07-26 13:30:00 16 /min Comm on [facility] blood pressure 2021-07-26 13:30:00 117 mm[Hg] [facility] systolic [facility] blood pressure 2021-07-26 13:30:00 66 mm[Hg] [facility] diastolic [facility] HEIGHT 2020-11-30 10:04:00 176.5 cm WEIGHT 2020-11-30 10:04:00 91.7 kg Procedures Procedure Date / Time Performing Clinician Source Performed TRANSTHORACIC ECHO (TTE) 2023-04-28 16:00:00 Patt Booth [facility] COMPLETE W/ CONTRAST Medical [facility] AORTOILIAC DUPLEX - BY 2023-04-28 15:35:35 Patt Booth [facility] VASCULAR LAB [facility] Branch AUTHORIZATION TO RELEASE 2022-11-03 05:01:00 Doctor Unassigned, No [facility] PHI TO [facility] Name Medical Branch MEDICAL 2022-10-18 05:01:00 Doctor Unassigned, No [facility] RELEASE/CLEARANCE FORMS Name [facility] HB ECG ROUTINE & RHYTHM 2022-09-26 20:18:36 Patt Booth [facility] PATIENT FINANCIAL 2022-09-26 19:55:42 Doctor Unassigned, No [facility] POLICY Name [facility] Plan of Care Planned Activity Planned Date Details Comments Source Future Scheduled 2022-11-03 COVID-19 Vaccination Uni [facility] Test 13:05:54 (#1) [code = COVID-19 And grant Cancer Vaccination (#1)] Center Future Scheduled 2021-12-22 COVID-19 Vaccination [facility] [place] Test 07:01:56 (#1) [code = COVID-19 MD And [facility] Cancer Vaccination (#1)] Center Encounters Start End Encounter Admission Attending Care Care Encounter Source Date/Time Date/Time Type Type Clinicians Facility Department ID 2022-09-21 Out[facility] [id number] Common 15:26:01 Patrick [id number] [facility] 2022-08-15 Outpatient Landaverde, STLMLC STLC [id number] Common 07:51:01 Patrick [id number] [facility] 2022-07-25 Outpatient Landaverde, STLMLC STLC [id number] Common 11:50:01 Patrick [id number] [facility] 2022-03-21 Outpatient Landaverde, STLMLC STLC [id number] Common 08:48:02 Patrick [facility] 2022-02-24 Outpatient Landaverde, STLMLC STLC [id number] Common 10:44:02 Patrick [id number] [facility] 2022-02-23 Outpatient Landaverde, STLC STLC [id number] Common 08:56:02 Patrick [facility] 2022-01-03 Outpatient Landaverde, STLC STLC [id number] Common 10:09:02 Patrick [facility] 2021-07-26 Outpatient [facility]verde[facility] [id number] Common 13:55:03 Patrick [facility] 2020-11-24 Outpatient SYSTEM, MDA MDA [id number] 14:21:13 PROVIDER Cornel lewis 2023-04-28 2023-04-28 [facility] 1.2.840.114 [id number] [facility] 08:39:14 23:59:00 Encounter Patt SHETTY [id number] radha [facility] 4.2.7.2.686 Jennifer JONES [id number] [address] 2023-04-282023-04-28 Outpatient R LEOBARDO [facility] [id number] Univers 08:39:01 23:59:00 SENDIL ity [facility] 2023-04-28 2023-04-28 [facility] 1.2.840.114 [id number] Univers 08:39:01 23:59:00 Encounter Patt TomerRosalinaLuis ManuelRosalina SHETTY 350.1.13.10 ity [facility] [id number] [id number] Nh dical NAL 843 [facility] 2023-04-28 2023-04-28 Office [facility] 1.2.840.114 [id number] Univers 11:30:00 11:30:00 Visit Patt TomerRosalinaLuis ManuelRosalina SHETTY 350.1.13.10 ity of [place] [id number] Nh dical NAL 059 [facility] 2023-03-29 2023-03-29 [facility] [id number] Univers 10:00:00 10:00:00 [facility] 2022-11-22 2022-11-22 Outpatient R MAZIN HERNADEZ [facility] [id number] Univers 09:30:00 09:55:11 MAZIN HERNADEZ i ty [facility] 2022-11-22 2022-11-22 Office [facility] 1.2.840.114 [id number] Univers 09:30:00 09:55:11 Visit Mazin SHETTY 350.1.13.10 i ty [facility] 4[place] [id number] [facility] NAL 085 [facility] 2022-11-04 2022-11-04 [facility] [id number] Univers 10:00:00 10:00:00 SENDIL ity [facility] 2022-11-03 2022-11-03 [facility] [id number] Univers 13:30:00 13:32:29 SENDIL ity [facility] 2022-11-03 2022-11-03 Office Leobardo [facility] 1.2.840.114 [id number] Univers 13:30:00 13:32:29 Visit Sendkaleb SHETTY 350.1.13.10 ity of [place] [id number] Nh dical NAL [address] [place] [address] 2022-11-03 2022-11-03 Orders Doctor LESTER 1.2.840.114 [id number] Univers 00:00:00 00:00:00 Only Unassigned, SUSAN 350.1.13.10 ity of [place] [facility] 4.2.7.2.686 Thom as [phone] [address] 2022-10-31 2022-10-31 [facility] [id number] Univers 08:00:00 08:00:00 SENDIL ity [facility] 2022-10-18 2022-10-18 Telephone [facility] [id number] Univers 00:00:00 00:00:00 Sendil Haily SHETTY 350.1.13.10 ity of [facility] 4.[place] [id number] Nh dical [address] 2022-10-18 2022-10-18 Orders Doctor LESTER 1.2.840.114 [id number] Univers 00:00:00 00:00:00 Only Unassigned, SUSAN 350.1.13.10 ity of [place] [facility] 4.2.7.2.686 Thom as [id number] [address] 2022-09-26 2022-09-26 Outpatient R [facility]ARDO [facility] [id number] Univers 15:30:00 15:32:30 SENDIL ity [facility] 2022-09-26 2022-09-26 Office [facility] 1.2.840.114 [id number] Univers 15:30:00 15:32:30 Visit Patt SHETTY 350.1.13.10 ity of [place] [phone] Me dical NAL 059 Branch BUILDING 2022-09-26 2022-09-26 Orders Doctor LESTER 1.2.840.114 [id number] Univers 00:00:00 00:00:00 Only Unassigned, SUSAN 350.1.13.10 ity of [place] [facility] 4.2.7.2.686 Thom as [phone] [facility] 009 Branch 2022-09-19 2022-09-19 (TEL) STLMLC STLMLC [id number] Co mmon 00:00:00 00:00:00 Spirit - [facility] 2022-09-16 2022-09-16 OFFICE STLMLC STLMLC [id number] Co mmon 00:00:00 00:00:00 VISIT Spirit ESTAB PT - CHI LEVEL 4 [facility] 2022-09-14 2022-09-14 (TEL) STLMLC STLMLC [id number] Co mmon 00:00:00 00:00:00 [facility] - [facility] 2022-08-17 2022-08-17 OFFICE STLMLC STLMLC [id number] Co mmon 00:00:00 00:00:00 VISIT Spirit ESTAB PT - CHI LEVEL 4 [facility] 2022-08-17 2022-08-17 SUB ANNUAL STLMLC STLMLC [id number] Common 00:00:00 00:00:00 MCR Spirit WELLNESS - CHI VISIT [facility] 2022-07-27 2022-07-27 OFFICE STLMLC STLMLC [id number] Co mmon 00:00:00 00:00:00 VISIT Spirit ESTAB PT - CHI LEVEL 2 [facility] 2022-06-23 2022-06-23 OFFICE STLMLC STLMLC [id number] Co mmon 00:00:00 00:00:00 VISIT NEW Spir it PT LEVEL 3 - [facility] 2022-06-09 2022-06-09 (TEL) STLMLC STLMLC [id number] Co mmon 00:00:00 00:00:00 [facility] - [facility] 2022-04-25 2022-04-25 (TEL) STLMLC STLMLC [id number] Co mmon 00:00:00 00:00:00 [facility] - [facility] 2022-02-23 2022-02-23 [facility] [id number] Co mmon 00:00:00 00:00:00 VISIT Spirit ESTAB PT - CHI LEVEL 4 [facility] 2021-12-24 2021-12-24 Refill [facility] 1.2.840.114 [id number] Univers 00:00:00 00:00:00 Mazin SHETTY 350.1.13.10 i ty [place] [id number] Me dical NAL [address] [place] [address] 2021-11-23 2021-11-23 (HOSP F/U) [facility] STLC [id number] Common 00:00:00 00:00:00 [facility] 2021-11-19 2021-11-19 Outpatient R MAZIN HERNADEZ [facility] [id number] Univers 09:30:00 10:08:31 MAZIN HERNADEZ i ty of [facility] 2021-11-19 2021-11-19 Office [facility] 1.2.840.114 [id number] Univers 09:30:00 10:08:31 Visit Mazin SHETTY 350.1.13.10 i ty of [place] 4[place] [id number] Nh dical NAL [address] [place] [address] 2021-11-15 2021-11-15 (TEL) [facility] [id number] Co mmon 00:00:00 00:00:00 [facility] - [facility] 2021-11-12 2021-11-12 [id number] Univers 12:00:00 12:00:00 STACI [facility] 2021-11-12 2021-11-12 Outpatient R NADIA [facility] [id number] Univers 12:00:00 12:00:00 STACI [facility] 2021-11-10 2021-11-10 Shelley Dejesus 1.2.840.1 [id number] Univers 00:00:00 00:00:00 Only Una 13426.1.1 it y of [place] 3.412.2.7 [id number] MD Romano8 [facility] Cancer [place] 2021-11-08 2021-11-08 Orders Doctor LESTER 1.2.840.114 [id number] Univers 00:00:00 00:00:00 Only Unassigned, SUSAN 350.1.13.10 ity of [facility] 4.2.7.2.686 Thom as [id number] [address] 2021-11-03 2021-11-03 [facility] [id number] Univers 10:30:00 11:03:24 SENDIL ity [facility] 2021-11-03 2021-11-03 Office [facility] 1.2.840.114 [id number] Univers 10:30:00 11:03:24 Visit Sendkaleb SHETTY 350.1.13.10 ity [facility] 4.2.7.2.686 [facility] PROFESSIO [id number] Nh dical [facility] 2021-11-03 2021-11-03 [facility] [id number] Univers 10:30:00 11:03:24 SENDIL ity [facility] 2021-10-25 2021-10-25 [facility] [id number] Univers 12:41:15 23:59:00 MARLENE holt [facility] 2021-10-25 2021-10-25 [facility] [id number] Univers 13:00:00 13:00:00 MARLENE holt [facility] 2021-10-19 2021-10-19 (TEL) [facility] [id number] Co mmon 00:00:00 00:00:00 [facility] 2021-10-19 2021-10-19 Telephone [facility] 1.2.840.114 [id number] Univers 00:00:00 00:00:00 Marlene SHETTY 350.1.13.10 ity of [place] [id number] Nh dicnc NAL 205 [facility] 2021-10-11 2021-10-11 Telephone Leobardo VTRYAN 1.2.775.454 [id number] Univers 00:00:00 00:00:00 Sendil Haily SHETTY 350.1.13.10 ity of [place] [id number] [facility] NAL 059 [facility] 2021-10-08 2021-10-08 Outpatient R LEOBARDO [facility] [id number] Univers 08:22:16 08:22:16 [facility] 2021-08-20 2021-08-20 OFFICE STLMLC STLMLC [id number] Co mmon 00:00:00 00:00:00 VISIT Spirit ESTAB PT - CHI LEVEL 4 [facility] 2021-08-20 2021-08-20 SUB ANNUAL STLMLC STLMLC [id number] Common 00:00:00 00:00:00 MCR Spirit WELLNESS - CHI VISIT [facility] 2021-07-26 2021-07-26 OFFICE STLMLC STLMLC [id number] Co mmon 00:00:00 00:00:00 VISIT NEW Spir it PT LEVEL 3 - [facility] 2021-07-07 2021-07-07 Outpatient R LEOBARDO [facility] [id number] Univers 10:00:00 10:26:15 [facility] 2021-07-07 2021-07-07 Office Leobardo [facility] 1.2.840.114 [id number] Univers 10:00:00 10:26:15 Visit Patt SHETTY 350.1.13.10 it[place] [phone] [facility] NAL 059 [facility] 2021-07-07 2021-07-07 Outpatient R LEOBARDO [facility] [id number] Univers 10:00:00 10:26:15 [facility] 2021-05-28 2021-05-28 Outpatient R HERNADEZ MAZIN [facility] [id number] Univers 09:30:00 09:59:09 MAZIN HERNADEZ i ty of [facility] 2021-05-28 2021-05-28 Outpatient R HERNADEZ MAZIN [facility] [id number] Univers 09:30:00 09:59:09 MAZIN HERNADEZ i ty of [facility] 2021-05-28 2021-05-28 Office Narinder [facility] 1.2.840.114 [id number] Univers 09:09:28 09:59:09 Visit Mazin SHETTY 350.1.13.10 i ty [facility] 4.2.7.2.686 [facility] [phone] Nh dical [facility]5 [facility] 2021-04-21 2021-04-21 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 10 itradha YOJANA 4.2.7.2.686 [facility] [id number] [facility] [address] [place] 2021-04-21 2021-04-21 Outpatient R CHRISTIN [facility] [id number] Univers 14:00:00 14:00:00 GIANNI chaudhry [facility] 2021-04-19 2021-04-19 Laboratory Only, Adc Test [facility] 1.2.840. 114 [id number] Univers 09:05:05 09:20:05 Only Mazin Hernadez 350.1.13.10 ity [facility] [place] 4.2.7.2.686 [facility] [phone] [facility] [address] 2021-04-19 2021-04-19 Outpatient R MIGUEL [facility] [id number] Univers 09:15:00 09:15:00 FAN chaudhry of [facility] 2021-04-19 2021-04-19 Orders Doctor BATISTA 1.2.840.114 [id number] Univers 00:00:00 00:00:00 Only UnassSUSAN melendez 350.1.13.10 ity of [facility] 4.2.7.2.686 Thom as [id number] [address] 2021-03-15 2021-03-15 Outpatient ZACH RAMIREZ ZELDA MDA MDA [id number] 08:00:18 08:41:34 Cornelclark lewis 2021-03-15 2021-03-15 Outpatient ZACH TATE MDA [id number] 08:37:45 08:37:45 Cornel lewis 2021-03-03 2021-03-03 Office Leobardo [facility] 1.2.840.114 [id number] Univers 13:46:36 14:21:59 Visit Sendil Haily Shetty 350.1.13.10 ity [facility] [place] [phone] [facility] 059 [facility] 2021-03-03 2021-03-03 Outpatient R LEOBARDO [facility] [id number] Univers 14:00:00 14:00:00 SENDIL [facility] 2021-03-02 2021-03-02 Outpatient R LEOBARDO [facility] [id number] Univers 10:30:00 10:30:00 SENDIL [facility] 2021-02-26 2021-02-26 Office Narinder [facility] 1.2.840.114 [id number] Univers 10:13:15 10:43:15 Visit Mazin Shetty 350.1.13.10 i [place] [facility] [place] [phone] [facility] [address] [place] [address] 2021-02-26 2021-02-26 Office Narinder [facility] 1.2.840.114 [id number] Univers 10:13:15 10:43:15 Visit Mazin Shetty 350.1.13.10 i [place] [facility] [place] [phone] Nh dical nal [address] [place] [address] 2021-02-26 2021-02-26 Outpatient R MAZIN HERNADEZ [facility] 10 [id number] Univers 10:20:00 10:20:00 MAZIN HERNADEZ i ty of [facility] 2021-02-18 2021-02-18 Outpatient R MAZIN HERNADEZ [facility] 10 [id number] Univers 11:00:00 11:00:00 MAZIN HERNADEZ i [facility] 2020-12-04 2020-12-04 Outpatient EL LE, XIUNING MDA MDA [id number] 04:28:43 04:28:43 Cornel o n 2020-12-04 2020-12-04 Outpatient EL LE, XIUNING MDA MDA [id number] MD 04:28:42 04:28:42 Cornel o n 2020-12-04 2020-12-04 Outpatient EL LE, XIUNING MDA MDA [id number] MD 04:28:41 04:28:41 Cornel o n 2020-12-04 2020-12-04 Outpatient EL LE, XIUNING MDA MDA [id number] MD 04:28:40 04:28:40 Cornel o n 2020-12-04 2020-12-04 Outpatient EL LE, XIUNING MDA MDA [id number] MD 04:28:39 04:28:39 Cornel o n 2020-12-04 2020-12-04 Outpatient EL LE, XIUNING MDA MDA [id number] MD 04:28:38 04:28:38 Cornel o n 2020-12-04 2020-12-04 Outpatient EL LE, XIUNING MDA MDA [id number] MD 04:28:37 04:28:37 Cornel o n 2020-12-04 2020-12-04 Outpatient EL LE, XIUNING MDA MDA [id number] MD 04:28:36 04:28:36 Cornel o n 2020-12-04 2020-12-04 Outpatient EL LE, XIUNING MDA MDA [id number] MD 04:28:35 04:28:35 Cornel o n 2020-12-04 2020-12-04 Outpatient EL LE, XIUNING MDA MDA [id number] MD 04:28:34 04:28:34 Cornel o n 2020-12-04 2020-12-04 Outpatient EL LE, XIUNING MDA MDA [id number] MD 04:28:33 04:28:33 Cornel o n 2020-12-04 2020-12-04 Outpatient EL LE, XIUNING MDA MDA [id number] 04:28:32 04:28:32 Cornel o joshua 2020-12-04 2020-12-04 Outpatient EL LE, XIUNING MDA MDA [id number] 04:28:31 04:28:31 Cornel o jsohua 2020-12-04 2020-12-04 Outpatient EL LE, XIUNING MDA MDA [id number] 04:28:30 04:28:30 Cornel o joshua 2020-12-04 2020-12-04 Outpatient EL LE, XIUNING MDA MDA [id number] 04:28:29 04:28:29 Cornel o joshua 2020-11-30 2020-11-30 Outpatient EL LE, XIUNING MDA MDA [id number] 09:57:55 11:58:29 Cornel o joshua 2020-11-30 2020-11-30 Outpatient EL LE, XIUNING MDA MDA [id number] 09:50:16 09:50:16 Cornel o joshua 2020-11-30 2020-11-30 Outpatient EL LE, XIUNING MDA MDA [id number] 09:50:09 09:50:09 Cornel o joshua 2020-11-30 2020-11-30 Outpatient EL MDA MDA [id number] 09:29:25 09:38:07 Cornel o joshua 2020-11-27 2020-11-27 Outpatient EL LE, XIUNING MDA MDA [id number] 09:07:26 09:28:50 Cornel o joshua 2020-11-26 2020-11-26 Office Narinder [facility] 1.2.840.114 [id number] Univers 12:45:29 13:57:59 Visit Mazin Shetty 350.1.13.10 i [facility] 4.2.7.2.686 Jennifer Jones [phone] Nh [address] 2020-11-26 2020-11-26 Outpatient R MAZIN HERNADEZ [facility] 10 [id number] Univers 13:00:00 13:00:00 MAZIN HERNADEZ i ty of [facility] 2020-11-26 2020-11-26 Orders Doctor LESTER 1.2.840.114 [id number] Univers 00:00:00 00:00:00 Only Unassigned, SUSAN 350.1.13.10 ity [facility] [place] [facility] 4.2.7.2.686 Thom as [phone] [facility] [address] 2020-11-20 2020-11-20 Orders Doctor LESTER 1.2.840.114 [id number] Univers 00:00:00 00:00:00 Only Unassigned, SUSAN 350.1.13.10 ity [facility] [place] [facility] 4.2.7.2.686 Thom as [phone] [facility] [address] 2020-11-18 2020-11-18 [facility] 1.2.840.114 [id number] Univers 11:25:26 12:00:32 Visit [facility] 350.1.13.10 [place] [phone] [facility] [address] 2020-11-18 2020-11-18 Outpatient R [facility] [id number] Univers 11:45:00 11:45:00 ity of [facility] 2020-11-10 2020-11-10 Patient Doctor LESTER 1.2.840.114 [id number] Univers 00:00:00 00:00:00 Secure Msg Unassigned, SUSAN 350.1.13.10 ity of [place] [facility] 4.2.7.2.686 Thom as [phone] [facility] [address] 2020-10-16 2020-10-16 Office [facility] 1.2.840.114 [id number] Univers 08:07:38 09:04:55 Visit Marlene Shetty 350.1.13.10 [facility] [phone] [facility] [address] 2020-10-16 2020-10-16 [facility] [id number] Univers 08:15:00 08:15:00 MARLENE holt [facility] 2020-10-10 2020-10-10 Patient Doctor LESTER Kaye.2.840.114 [id number] Univers 00:00:00 00:00:00 Secure Msg Unassigned, SUSAN 350.1.13.10 ity of [facility] 4.2.7.2.686 [place] as [phone] [address] 2020-09-09 2020-09-09 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 10 [facility] [place] [facility] [place] [phone] Nh dical nal 353 [facility] 2020-09-09 2020-09-09 Outpatient R LEOBARDO [facility] [id number] Univers 08:00:00 08:00:00 [facility] 2020-09-02 2020-09-02 Outpatient R LEOBARDO [facility] [id number] Univers 13:00:00 13:00:00 SENDIL ity [facility] 2020-08-28 2020-08-28 C[employer]on M[employer] Machine Operator 2, Adc Lab [facility] 1.2.840.114 [id number] Univers 09:55:49 10:10:49 Visit Patt Booth 350.1.13. 10 [facility] [place] [facility] [place] [phone] Nh edilberto nal 353 [facility] 2020-08-28 2020-08-28 Office Leobardo [facility] 1.2.840.114 [id number] Univers 08:42:04 09:23:32 Visit Patt Shetty 350.1.13.10 [facility] [place] [phone] Nh dical nal 059 [facility] 2020-08-28 2020-08-28 Outpatient R LEOBARDO [facility] [id number] Univers 09:00:00 09:00:00 SENDIL ity [facility] 2020-08-24 2020-08-24 Patient [facility] 1.2.840.114 [id number] Univers 00:00:00 00:00:00 Outreach Tate PRIMARY 350.1.13.10 i ty of [facility] [place]2.7.2.[place] [phone] Nh dical [address] 2020-08-11 2020-08-11 [facility] 1.2.840.114 [id number] Univers 07:56:22 23:59:00 Encounter Patt Shetty 350.1.13.10 [facility].2.[place] [phone] [facility] [address] 2020-08-11 2020-08-11 [facility] 1.2.840.114 [id number] Univers 07:56:09 23:59:00 Encounter Patt Shetty 350.1.13.10 [facility] [facility] [place].2.[place] [phone] [facility] [address] 2020-08-11 2020-08-11 [facility] 1.2.840.114 [id number] Univers 07:55:53 07:55:53 Encounter Patt Shetty 350.1.13.10 [facility] [place] 4[place]2.[place].2.[place] [phone] [facility] [address] 2020-08-11 2020-08-11 [facility] 1.2.840.114 [id number] Univers 07:55:15 07:55:15 Encounter Patt Shetty 350.1.13.10 [facility] [place] [facility] 4[place].2.[place] [phone] [facility] [address] 2020-08-11 2020-08-11 [facility] [id number] Univers 07:55:15 07:55:15 SENDIL ity of [facility] 2020-07-23 2020-07-23 Laboratory Pc, Adc Echo Room 1 - [facility] 1 .2.840.114 [id number] Univers 08:39:59 09:50:03 Only Leobardo Patt Haily Shetty 350.1.13. 10 [facility] [place] [phone] Nh dical nal [address] 2020-07-23 2020-07-23 [facility] [id number] Univers 09:00:00 09:00:00 SENDIL ity [facility] 2020-07-17 2020-07-17 Outpatient R LEOBARDO [facility] [id number] Univers 13:00:00 13:00:00 SENDIL ity [facility] 2020-07-17 2020-07-17 Orders Doctor LESTER 1.2.840.114 [id number] Univers 00:00:00 00:00:00 Only Unassigned, SUSAN 350.1.13.10 it[place] [facility] 4.2.7.2.686 Thom as [phone] [place] [address] [address] Results Test Description Test Time Test Comments Results Result Comments Source Transthoracic echo (TTE) 2023-04-29 04:05:20 Test Item Value Reference Range Interpretation Comme nts Height (test code = 5297612384) 70 in Weight (test code = 0253134897) 188 lbs Systolic BP (test code = 8892421327) 105 mmHg Diastolic BP (test code = 2278466498) 62 mmHg Heart Rate (test code = 1523790580) 74 bpm Ao root diam (test code = 6995447410) 4.00 cm Aortic root (test code = 5064673794) 4.0 cm Ao root annulus (test code = 4.0 cm 9003357682) BSA (test code = 3516312012) 2.03 m2 LVOT diameter (test code = 2.6 cm 3158697112) LVOT area (test code = 5492443469) 5.20 cm2 LA size (test code = 8158445693) 3.1 cm PV PEAK VELOCITY (test code = 58.7 cm/s 5769196116) PV peak gradient (test code = 1.38 mmHg 6624802931) LAV(MOD-sp4) (test code = 0975493842) 39.70 mL MV E-F slope (test code = 3063494300) 37.10 cm/s MV Peak E Salvatore (test code = 75.5 cm/s 1632729333) MV valve area p 1/2 method (test code 3.30 cm2 = 5671739401) MV dec slope (test code = 6345173515) 319.80 cm/s2 MV P1/2t max salvatore (test code = 73.90 cm/s 5682005099) MV Peak A Salvatore (test code = 104.3 cm/s 5683404372) E/A ratio (test code = 0975891980) 0.72 ratio MR max PG (test code = 2998220130) 22.50 mm[Hg] MR max salvatore (test code = 7038622648) 237.40 cm/s Mr max salvatore (test code = 3459569996) 237.4 m/s LVOT stroke volume (test code = 120.80 cm3 1295972738) LVOT peak salvatore (test code = 130.0 cm/s 3731784111) LVOT mn grad (test code = 0574270175) 3.0 mmHg AV LVOT peak gradient (test code = 6.8 mmHg 0570293125) LVOT peak VTI (test code = 23.2 cm 4142769694) LV V1 mean (test code = 9589086087) 80.50 cm/s Aortic valve mean velocity (test code 108.6 cm/s = 4813632564) Ao peak salvatore (test code = 5778088516) 190.9 cm/s Ao VTI (test code = 2982931615) 35.3 cm AV area by cont VTI (test code = 3.4 cm2 0894386709) AV area peak salvatore (test code = 3.6 cm2 6622521273) Ao max PG (test code = 3783542606) 14.60 mm[Hg] AV peak gradient (test code = 14.6 mmHg 2292226682) AV valve area (test code = 3.40 cm2 5670418035) AV mean gradient (test code = 5.8 mmHg 2958461757) AV regurgitation pressure 1/2 time 645.8 ms (test code = 2010417963) AI dec slope (test code = 8907360335) 146.20 cm/s2 AI max salvatore (test code = 2370102754) 322.40 cm/s AI max PG (test code = 6417524806) 41.60 mm[Hg] TR Peak Salvatore (test code = 3825435331) 235.0 cm/s Triscuspid Valve Regurgitation Peak 22.3 mmHg Gradient (test code = 4474364232) LA Volume Index (BP) (test code = 18.2 mL/m2 1972732921) LA volume (BP) (test code = 37.1 mL 8779790026) LAV(MOD-sp2) (test code = 4566223946) 32.50 mL LVIDD (test code = 9215207165) 4.90 cm Left Ventricular End Diastolic Volume 113.5 mL by Teichholz Method (test code = 5524211) IVS (test code = 2414401472) 0.86 cm Interventricular Septum Diastolic 0.86 cm Thickness by 2D (test code = 3891825) LVPWD (test code = 4828564685) 0.99 cm PW (test code = 8019183124) 0.99 cm 0.6-1.1 EF(Teich) (test code = 3286648409) 56.00 % LVIDS (test code = 2657316114) 3.50 cm Left Ventricular End Systolic Volume 49.9 mL by Teichholz Method (test code = 5308621) FS (test code = 3961229301) 29 % EF - 2D (test code = 02916097) 56.00 % Radiology Study observation (narrative) (test code = 09833-8) OMAR (test code = OMAR) ?Left?Ventricle: Left ventricle size is normal. Mild basal septal thickening. Normal wall motion. Normal wall motion. Normal systolic function with a visually estimated EF of 55 - 60%. Diastolic dysfunction. Normal left ventricular filling pressure. ?Right?Ventricle: Right ventricle is mildly dilated. Normal systolic function. ?Aortic?Valve: Moderately thickened cusps. Moderate annular dilation. Moderate transvalvular regurgitation. ?Aorta: Moderately enlarged ascending aorta (4.6cm). Mildly aortic arch (3.5 cm). ?Tricuspid?Valve: Trace transvalvular regurgitation. Insufficient tricuspid regurgitation jet to estimate RVSP . ?RA pressure is 5-10 mmHg. Left VentricleLeft ventricle size is normal. Mild basal septal thickening. Normal wall motion. Normal systolic function with a visually estimated EF of 55 - 60%. Diastolic dysfunction. Normal left ventricular filling pressure.Right VentricleRight ventricle is mildly dilated. Normal systolic function.Left AtriumLeft atrium size is normal.Right AtriumRight atrium size is normal.Mitral ValveMitral valve structure is normal. Trace transvalvular regurgitation.Tricuspid ValveTricuspid valve structure is normal. Trace transvalvular regurgitation. Insufficient tricuspid regurgitation jet to estimate RVSP . RA pressure is 5-10 mmHg.Aortic ValveModerately thickened cusps. Moderate annular dilation. Moderate transvalvular regurgitation.Pulmonic ValveNot well visualized. Trace transvalvular regurgitation.Ascending AortaModerately enlarged ascending aorta (4.6cm). Mildly aortic arch (3.5 cm).PericardiumNo pericardial effusion.Study DetailsStudy quality was adequate. A complete echocardiogram was performed using 2D, color flow Doppler and spectral Doppler. 5 mL of Lumason ultrasound enhancing agent used. [facility]BDOMEN, AAA [id number] 14:34:00Addendum BeginsREPORT STATUS:A Addendum: I agree with the previously described non vascular findings by Dr. Castro. Signed: Nathan Johnston MDReport Verified Date/Time: 09/25/2017 14:34:58 Reading Location: [place] [address] Angio Body Reading RoomAddendum EndsFINAL REPORT 5305 CT angiography of the abdominal aorta, 25 [...] and during intravenous contrast administration using a [employer] CT scanner. Images were obtained before and during the dynamic passage of intravenous contrast material. Multi-planar 3-D volume-renderingreconstruction was performed using an independent workstation interactively by the interpreting physician as well as the 3-D specialist for optimal visualisation of the abdominal aorta, pelvic arteries, and its proximal branches. Please refer to the contrast sheet scanned in the EPIC system for the amount and route of contrast given. The office was called, and the pelvis is not needed. This exam was p erformed according to our departmental dose-optimisation programme, which [...] aortic repair, considered postsurgical phenomenon. No inflammatory changeis identified in the surrounding soft tissue. The [...] lung bases are unremarkable. No pleural effusion isidentified. In the abdomen, the liver and spleen appears unremarkable. The liver edge is smooth. No abnormal enhancing structure is identified. The gallbladder, adrenal glands appears unremarkable, andthe left adrenal gland could be somewhat hyperplastic. [...] dictated regarding the non-vascular findings by the Grants Assistant Radiologist. Signed: Joaquín Castro MDReport Verified Date/Time: 09/25/2017 10:55:28 Reading Location: [place] [address] Cardiology MRI [id number] 09:56:00 Test Item Value Reference Range Interpretation Comments POC-CREATININE 0.7 mg/dL 0.6-1.3 TESTED AT BS [facility]-KG (IRMA) (test 2457 [facility] code = 1859) [place] [address] POC-EGFR 114 mL/min/1.73M2 (IRMA) (test code = 1860) CT, CTA, [id number] 09:31:00Addendum BeginsREPORT STATUS:A Addendum: I agree with the previously described non vascular findings. Signed: Maryellen Sitles MDReport Verified Date/Time: 09/05/2017 09:31:21 Reading Lo cation: [facility] B1 P048 Angio Body Reading RoomAddendum EndsFINAL REPORT [...] dictated regarding the non-vascular findings by the Grants Assistant Radiologist. Signed: Joaquín Castro MDReport Verified Date/Time: 09/04/2017 17:13:07 Reading Location: [place] [address] Cardiology MRI [id number] 14:44:00 Test Item Value Reference Range Interpretation Comments POC-CREATININE 0.8 mg/dL 0.6-1.3 TESTED AT [facility] 6720 (BEAKER) (test [facility] [place] code = 1859) [address] POC-EGFR (BEAKER) 98 mL/min/1.73M2 (test code = 1860) BASIC METABOLIC [id number] 07:48:00 Test Item Value Reference Range Interpretation [...] PATIEN TS. CBC W/PLT COUNT & AUTO [id number] 07:14:00 Test Item Value Reference Range Interpretation [...] = 2801) CBC W/PLT COUNT & AUTO [id number] 07:30:00 Test Item Value Reference Range Interpretation [...] (BEAKER) (test code = 2801) BASIC METABOLIC [id number] 07:26:00 Test Item Value Reference Range Interpretation [...] NOT APPLICABLE FOR DIALYSIS PATIEN TS. POCT-GLUCOSE [id number] 08:28:00 Test Item Value Reference Range Interpretation Comments POC-GLUCOSE METER 90 mg/dL 70-[address] [facility] 6720 (BEAKER) (test code = AMRITAALY Zuluaga [facility] [address] 1538) CBC W/PLT COUNT & AUTO [id number] 06:41:00 Test Item Value Reference Range Interpretation [...] (BEAKER) (test code = 2801) BASIC METABOLIC [id number] 06:11:00 Test Item Value Reference Range Interpretation [...] NOT APPLICABLE FOR DIALYSIS PATIEN TS. POCT-GLUCOSE [id number] 03:06:00 Test Item Value Reference Range Interpretation Comments POC-GLUCOSE METER 86 mg/dL 70-110 TESTED AT [place] [address] (BEAKER) (test code = [facility] [address] 1538) POCT-GLUCOSE [id number] 17:51:00 Test Item Value Reference Range Interpretation Comments POC-GLUCOSE METER 98 mg/dL 70-110 [facility] [place] [address] [facility] (test code = [facility] [address] 1538) URINALYSIS W/ REFLEX URINE [id number] 12:37:00 Test Item Value Reference Range Interpretation [...] 516) SOURCE(BEAKER) (test code = 2795) POCT-GLUCOSE [id number] 12:09:00 Test Item Value Reference Range Interpretation Comments POC-GLUCOSE METER 119 mg/dL 70-[address] [facility] 6720 (BEAKER) (test code = [facility] 1538) [address] BASIC METABOLIC [id number] 09:23:00 Test Item Value Reference Range Interpretation [...] NOT APPLICABLE FOR DIALYSIS PATIEN TS. POCT-GLUCOSE [id number] 08:41:00 Test Item Value Reference Range Interpretation Comments POC-GLUCOSE METER 114 mg/dL 70-[address] [facility] 6720 (BEAKER) (test code = [facility] [place] 1538) [address] RAD, CHEST, 1 VIEW, NON [id number] 07:48:00Reason for exam:->Post-OpShould this be performed at the bedside?->YesFINAL REPORT Chest one view AP 05/10/2017 7:47 AM CLINICAL INDICATION: Post-Op COMPARISON: 05/09/2017 IMPRESSION: There is bibasilar atelectasis. There is a trace left pleural effusion. Cardiomediastinal contours are within normal limits. The central pulmonary vasculature is not engorged. An enteric tube is present. Signed: Noe Jungeport Verified Date/Time: 05/10/2017 0 7:48:05 Reading Location: [facility] Radiology Reading Room CBC W/PLT COUNT & AUTO [id number] 07:36:00 Test Item Value Reference Range Interpretation [...] PERCENT (BEAKER) (test code = 2801) POCT-GLUCOSE [id number] 22:44:00 Test Item Value Reference Range Interpretation Comments POC-GLUCOSE METER 128 mg/dL 70-110 H TESTED AT [place] [address] ([facility]) (test code = [facility] 1538) [address] POCT-GLUCOSE [id number] 17:22:00 Test Item Value Reference Range Interpretation Comments POC-GLUCOSE METER 106 mg/dL 70-110 TESTED AT [place] [address] ([facility]) (test code = [facility] 1538) [address] RAD, ABDOMEN/KUB, 1 VIEW [id number] 12:38:00Reason for exam:->ileusFINAL REPORT Abdomen two views supine 05/09/2017 12:38 PM CLINICAL INDICATION: ileus COMPARISON: None available IMPRESSION: There is no radiographic evidence for bowel obstruction.There is mild ileus. No abnormal calcifications are seen in the region of the gallbladder or kidneys. There are no acute-appearing skeletal abnormalities. Signed: Noe Jung Verified Date/Time: 05/09/2017 12:38:47 Reading Location: [address] Consult Reading Room POCT-GLUCOSE [id number] 12:19:00 Test Item Value Reference Range Interpretation Comments POC-GLUCOSE METER 102 mg/dL 70-[address] [facility] 6720 (BEAKER) (test code = JAY [place]ulu[place] 1538) [address] POCT-GLUCOSE [id number] 06:45:00 Test Item Value Reference Range Interpretation Comments POC-GLUCOSE METER 104 mg/dL 70-[address] [facility] 6720 (BEAKER) (test code = JAY Zulu[place] 1538) [address] RAD, CHEST, 1 VIEW, NON [id number] 05:01:00Reason for exam:->Post-OpShould this be performed at [...] evidence of a significant pneumothorax. Signed:Adriano Peres MDReport Verified Date/Time: 05/09/2017 05:01:39 Reading Location: [address] Reading Room [id number] 03:47:00 Test Item Value Reference Range Interpretation Comments PHOSPHORUS (BEAKER) (test code = 2.7 mg/dL 2.3-4.7 604) [id number] 03:47:00 Test Item Value Reference Range Interpretation Comments MAGNESIUM (BEAKER) (test code = 1.8 mg/dL 1.6-2.6 627) BASIC METABOLIC [id number] 03:47:00 Test Item Value Reference Range Interpretation [...] DIALYSIS PATIEN TS. LACTIC ACID, ARTERIAL, WHOLE [id number] 03:42:00 Test Item Value Reference Range Interpretation Comments LACTATE BLOOD ARTERIAL (2) 0.9 mmol/L 0.5-2.2 (BEAKER) (test code = 2874) Effective 10/21/2015: Units/Reference Range ChangeNew: 0.5-2.2 mmol/L Previous: 5- 20 mg/dLCALCIUM, [id number] 03:39:00 Test Item Value Reference Range Interpretation Comments CALCIUM IONIZED (BEAKER) (test 1.15 mmol/L 1.12-1.27 code = 698) PH, BLOOD (BEAKER) (test code = 7.42 1810) CBC W/PLT COUNT & AUTO [id number] 03:36:00 Test Item Value Reference Range Interpretation [...] (BEAKER) (test code = 2801) OXYGEN SATURATION, [id number] 03:35:00 Test Item Value Reference Range Interpretation Comments O2 SATURATION (MEASURED) (BEAKER) 64.0 % (test code = 1455) POCT-GLUCOSE [id number] 01:07:00 Test Item Value Reference Range Interpretation Comments POC-GLUCOSE METER 96 mg/dL 70-[address] [facility] 6720 (BEAKER) (test code = [place] [address] 1538) BLOOD GAS, [id number] 12:28:00 Test Item Value Reference Range Interpretation [...] 60.0 % RAD, CHEST, 1 VIEW, NON [id number] 11:05:00Reason for exam:->Post-OpShould this be performed at the bedside?->YesFINAL REPORT Chest one view AP 05/08/2017 11:05 AM CLINICAL INDICATION: Post-OpCOMPARISON: 05/02/2017 IMPRESSION: Support hardware is in satisfactory radiographic position. Cardiomediastinal contours are stable. The central pulmonary vasculature is not engorged. The lungs are clear, save for scattered foci of linear atelectasis. Signed: Noe Jung Verified Date/Time: 05/08/2017 11:05:58 Reading Location: [facility] Radiology Reading Room MAGNESIUM 2017-05-08 11:03:00 Test Item Value Reference Range Interpretation Comments MAGNESIUM (BEAKER) (test code = 2.0 mg/dL 1.6-2.6 627) BASIC METABOLIC [id number] 11:03:00 Test Item Value Reference Range Interpretation [...] DIALYSIS PATIEN TS. LACTIC ACID, ARTERIAL, WHOLE [id number] 10:58:00 Test Item Value Reference Range Interpretation Comments LACTATE BLOOD ARTERIAL (2) 0.6 mmol/L 0.5-2.2 (BEAKER) (test code = 2874) Effective 10/21/2015: Units/Reference Range ChangeNew: 0.5-2.2 mmol/L Previous: 5- 20 mg/dLPT/[id number] 10:57:00 Test Item Value Reference Range Interpretation [...] mechanical heart valves.CBC W/PLT COUNT & AUTO [id number] 10:53:00 Test Item Value Reference Range Interpretation [...] 0-1 H PERCENT (BEAKER) (test code = 280) OXYGEN SATURATION, [id number] 10:44:00 Test Item Value Reference Range Interpretation Comments O2 SATURATION (MEASURED) (BEAKER) 71.8 % (test code = 1455) BLOOD GAS, [id number] 10:42:00 Test Item Value Reference Range Interpretation [...] (test code = 1819) 60.0 % GLUCOSE-STAT [id number] 10:42:00 Test Item Value Reference Range Interpretation Comments GLUCOSE RANDOM (BEAKER) (test code 112 mg/dL 70-110 H = 652) SODIUM NA-STAT [id number] 10:41:00 Test Item Value Reference Range Interpretation Comments SODIUM (BEAKER) (test code = 381) 137 meq/L 135-148 POTASSIUM-STAT [id number] 10:41:00 Test Item Value Reference Range Interpretation Comments POTASSIUM (BEAKER) (test code = 4.2 meq/L 3.6-5.5 379) HGB/HCT (H&H) - STAT [id number] 10:41:00 Test Item Value Reference Range Interpretation Comments HEMOGLOBIN (BEAKER) (test code = 14.4 g/dL 13.0-16.8 410) HEMATOCRIT (BEAKER) (test code = 42.0 % 40.0-50.0 411) CALCIUM, [id number] 10:41:00 Test Item Value Reference Range Interpretation Comments CALCIUM IONIZED (BEAKER) (test 1.23 mmol/L 1.12-1.27 code = 698) PH, BLOOD (BEAKER) (test code = 7.37 1810) CALCIUM, [id number] 09:43:00 Test Item Value Reference Range Interpretation Comments CALCIUM IONIZED (BEAKER) (test 1.25 mmol/L 1.12-1.27 code = 698) PH, BLOOD (BEAKER) (test code = 7.32 1810) SODIUM NA-STAT [id number] 09:42:00 Test Item Value Reference Range Interpretation Comments SODIUM (BEAKER) (test code = 381) 138 meq/L 135-148 POTASSIUM-STAT [id number] 09:42:00 Test Item Value Reference Range Interpretation Comments POTASSIUM (BEAKER) (test code = 3.8 meq/L 3.6-5.5 379) BLOOD GAS, [id number] 09:42:00 Test Item Value Reference Range Interpretation [...] (test code = 1819) 61.0 % GLUCOSE-STAT [id number] 09:42:00 Test Item Value Reference Range Interpretation Comments GLUCOSE RANDOM (BEAKER) (test code 112 mg/dL 70-110 H = 652) HGB/HCT (H&H) - STAT [id number] 09:42:00 Test Item Value Reference Range Interpretation Comments HEMOGLOBIN (BEAKER) (test code = 13.1 g/dL 13.0-16.8 410) HEMATOCRIT (BEAKER) (test code = 39.0 % 40.0-50.0 L 411) SODIUM NA-STAT [id number] 08:37:00 Test Item Value Reference Range Interpretation Comments SODIUM (BEAKER) (test code = 381) 137 meq/L 135-148 POTASSIUM-STAT [id number] 08:37:00 Test Item Value Reference Range Interpretation Comments POTASSIUM (BEAKER) (test code = 3.9 meq/L 3.6-5.5 379) HGB/HCT (H&H) - STAT [id number] 08:37:00 Test Item Value Reference Range Interpretation Comments HEMOGLOBIN (BEAKER) (test code = 15.2 g/dL 13.0-16.8 410) HEMATOCRIT (BEAKER) (test code = 45.0 % 40.0-50.0 411) CALCIUM, [id number] 08:37:00 Test Item Value Reference Range Interpretation Comments CALCIUM IONIZED (BEAKER) (test 1.15 mmol/L 1.12-1.27 code = 698) PH, BLOOD (BEAKER) (test code = 7.37 1810) BLOOD GAS, [id number] 08:37:00 Test Item Value Reference Range Interpretation [...] (test code = 1819) 64.0 % GLUCOSE-STAT [id number] 08:37:00 Test Item Value Reference Range Interpretation Comments GLUCOSE RANDOM (BEAKER) (test code 111 mg/dL 70-110 H = 652) HEMOGLOBIN [id number] 12:07:00 Test Item Value Reference Range Interpretation Comments HEMOGLOBIN A1C (BEAKER) (test code = 5.6 % 4.3-6.1 368) RAD, CHEST, 2 [id number] 11:17:00Reason for Exam:->Pre-OpFINAL REPORT Chest x-ray, PA and lateral views Clinical History: Pre-Op Comparison: None Findings: The cardiac silhouette is normal. Aorta is mildly tortuous/ectatic. There is no pneumothorax, jeff pulmonary edema, consolidation or pleural effusion. Lungs appear mildly hyperinflated with flattening of the diaphragm. The bony structures demonstrate degenerative changes. Impression: Mild hyperinflation. Signed: Itzel Astudillo Verified Date/Time: 05/02/2017 11:17:15 Reading Location: [facility] Radiology Reading Room BASIC METABOLIC [id number] 11:09:00 Test Item Value Reference Range Interpretation [...] NOT APPLICABLE FOR DIALYSIS PATIEN TS. PROTHROMBIN TIME/[id number] 11:05:00 Test Item Value Reference Range Interpretation Comments PROTIME (BEAKER) (test code = 12.9 seconds 11.7-14.7 759) INR (BEAKER) (test code = 370) 1.0 <=5.9 RECOMMENDED COUMADIN/WARFARIN INR THERAPY RANGESSTANDARD DOSE: 2.0 - 3.0 Includes: PROPHYLAXIS for venous thrombosis, systemic embolization; TREATMENT for venous thrombosis and/or pulmonary embolus.HIGH RISK: Target INR is 2.5-3.5 for patients with mechanical heart valves.CBC W/PLT COUNT & AUTO [id number] 10:46:00 Test Item Value Reference Range Interpretation [...]
[2023-05-12] MEDS ORDERED: SILVER NITRATE 1 APPL TOP ONE (16:53)
[2023-05-12] MEDS ORDERED: LIDOCAINE 2% W/EPI 1:200,000 MPF 20 ML VIAL IM ONE (17:08)
--- NOTE | 2023-05-12 17:19 | ER ---
Nurse's Notes [facility] Name: Sae Cardozo Age: 67 yrs Sex: Male : 1955 Arrival Date: 05/12/2023 Time: 14:24 Bed Treatment Private MD: Diagnosis: Disruption of wound, not elsewhere classified Presentation: 05/12 15:00 Chief complaint: Patient states: having biopsy done on left arm and he started bleeding cm10 today. Pt states that he had 2 biopsies done and the one bleeding "It's the one she bore a hole through, the other one was stitched.". Coronavirus screen: Vaccine status: Patient reports being unvaccinated. Client denies travel out of the [place] in the last 14 days. Ebola Screen: Patient denies travel to an Ebola-affected area in the 21 days before illness onset. No symptoms or risks identified at this time. Complicating Factors: There are no complicating factors for this patient. Initial Sepsis Screen: Does the patient meet any 2 criteria? No. Patient's initial sepsis screen is negative. Does the patient have a suspected source of infection? No. Patient's initial sepsis screen is negative. Risk Assessment: Do you want to hurt yourself or someone else? Patient reports no desire to harm self or others. Onset of symptoms was May 12, 2023. 15:00 Method Of Arrival: Ambulatory cm10 15:00 Acuity: JIMMIE 4 cm10 Historical: - Allergies: 15:02 No Known Allergies; cm10 - PMHx: 15:02 AAA; brain cancer; Cancer; COPD; cm10 - PSHx: 15:02 AAA repair; cm10 - Immunization history:: Adult Immunizations unknown. - Social history:: Smoking status: Patient denies any tobacco usage or history of. Screenin:30 [facility] ED Fall Risk Assessment (Adult) History of falling in the last 3 months, kb3 including since admission No falls in past 3 months (0 pts) Confusion or Disorientation No (0 pts) Intoxicated or Sedated No (0 pts) Impaired Gait Yes (1 pt) Mobility Assist Device Used Yes (1 pt) Altered Elimination No (0 pt) Score/Fall Risk Level 3 or more points = High Risk Oriented to surroundings, Maintained a safe environment, Educated pt \\T\\ family on fall prevention, incl call for assistance when getting out of bed, Assessed \\T\\ reinforced patient's understanding of fall precautions. Abuse screen: Denies threats or abuse. Denies injuries from another. Nutritional screening: No deficits noted. Tuberculosis screening: No symptoms or risk factors identified. Assessment: 16:30 General: Appears in no apparent distress. comfortable. kb3 16:30 Pain: Complains of pain in dorsal aspect of left forearm Pain does not radiate. Pain kb3 currently is 2 out of 10 on a pain scale. Injury Description: Laceration is clean, 2.6 to 7.5 cm long, bleeding moderately. Vital Signs: 15:00 BP 115 / 81; Pulse 108; Resp 18; Temp 97.8; Pulse Ox 96% ; Weight 85.28 kg; Height 5 cm10 ft. 10 in. ; Pain 0/10; 17:45 BP 121 / 80; Pulse 92; Resp 18; Pulse Ox 100% ; kb3 15:00 Body Mass Index 26.97 (85.28 kg, 177.8 cm) cm10 15:00 Pain Scale: Adult cm10 ED Course: 14:28 Patient arrived in ED. mg5 14:30 Duane Burrows PA is PHCP. cp 14:30 Tabby Landaverde MD is Attending Physician. cp 15:02 Triage completed. cm10 15:03 Arm band placed on Patient placed in waiting room. cm10 16:30 Patient has correct armband on for positive identification. Bed in low position. kb3 Provided Education on: plan of care. 16:30 No provider procedures requiring assistance completed. Patient did not have IV access kb3 during this emergency room visit. 17:47 Dressings: 4X4s X 1; dorsal aspect of left forearm Coban. Wound care: located on dorsal kb3 aspect of left forearm was cleaned with. Administered Medications: 16:44 Drug: Silver Nitrate Applicators Topical 1 application Topical once Route: Topical; kb3 Site: left forearm; 16:55 Drug: Lidocaine-Epinephrine Infiltration -1%: (1:100,000) 10 ml 20 ml Infiltration kb3 once; to bedside {Note: At the bedside for provider to administer during procedure.} Volume: 20 ml; Route: Infiltration; 17:43 Drug: Acetaminophen PO 1000 mg PO once Route: PO; kb3 17:43 Drug: Cephalexin PO 500 mg PO once Route: PO; kb3 Medication: 16:30 VIS not applicable for this client. kb3 Outcome: 17:19 Discharge ordered by . cp 17:45 Discharged to home ambulatory, kb3 17:45 Condition: stable kb3 17:45 Discharge instructions given to patient, Instructed on discharge instructions, follow up and referral plans. medication usage, Demonstrated understanding of instructions, follow-up care, medications, Prescriptions given X 1, 17:48 Patient left the ED. kb3 Signatures: Duane Burrows PA PA cp Bradberry, Kelly RN RN kb3 Sarah Amos RN RN cm10 Kaci Blount mg5 Corrections: (The following items were deleted from the chart) 15:03 15:02 PMHx: Cancer; cm10 cm10 15:03 15:02 PMHx: Cancer; cm10 cm10
--- NOTE | 2023-05-12 17:19 | EDPHYS ---
Physician Documentation [facility] Name: Sae Cardozo Age: 67 yrs Sex: Male : 1955 Arrival Date: 05/12/2023 Time: 14:24 Bed Treatment Private MD: ED Physician Tabby Landaverde HPI: 05/12 16:40 This 67 yrs old Male presents to ER via Ambulatory with complaints of Laceration To Arm.cp 16:40 Patient presents to ED with uncontrolled bleeding from left forearm. Patient reports cp having excision of skin lesion performed by real estate financial analyst this past Monday. Reports bleeding started today and has been unable to get bleeding to stop. Patient takes daily aspirin. No other complaints expressed. Historical: - Allergies: 15:02 No Known Allergies; cm10 - PMHx: 15:02 AAA; brain cancer; Cancer; COPD; cm10 - PSHx: 15:02 AAA repair; cm10 - Immunization history:: Adult Immunizations unknown. - Social history:: Smoking status: Patient denies any tobacco usage or history of. ROS: 16:45 Constitutional: Negative for body aches, chills, fever, poor PO intake, cp 16:45 Cardiovascular: Negative for chest pain, 16:45 Respiratory: Negative for cough, shortness of breath, wheezing, 16:45 Abdomen/GI: Negative for abdominal pain, nausea, vomiting, and diarrhea, 16:45 Neuro: Negative for dizziness, headache, syncope, weakness, 16:45 All other systems are negative, Exam: 16:50 Constitutional: The patient appears in no acute distress, alert, awake, cp non-diaphoretic, non-toxic, well developed, well nourished, 16:50 Head/Face: Normocephalic, atraumatic. cp 16:50 Cardiovascular: Rate: tachycardic, 16:50 Respiratory: the patient does not display signs of respiratory distress, Respirations: normal, no use of accessory muscles, no retractions, labored breathing, is not present, 16:50 Abdomen/GI: Inspection: abdomen appears normal, 16:50 Skin: small area of constant bleeding noted mid left forearm with no erythema noted, dermal layer removed. Vital Signs: 15:00 BP 115 / 81; Pulse 108; Resp 18; Temp 97.8; Pulse Ox 96% ; Weight 85.28 kg; Height 5 cm10 ft. 10 in. ; Pain 0/10; 17:45 BP 121 / 80; Pulse 92; Resp 18; Pulse Ox 100% ; kb3 15:00 Body Mass Index 26.97 (85.28 kg, 177.8 cm) cm10 15:00 Pain Scale: Adult cm10 MDM: 15:03 Patient medically screened. cp 17:18 Data reviewed: vital signs, nurses notes. cp 17:18 I considered the following discharge prescriptions or medication management in the cp emergency department Medications were administered in the Emergency Department. See MAR. Counseling: I had a detailed discussion with the patient and/or guardian regarding the historical points, exam findings, and any diagnostic results supporting the discharge/admit diagnosis, to return to the emergency department if symptoms worsen or persist or if there are any questions or concerns that arise at home. Response to treatment: the patient's symptoms have markedly improved after treatment, Surgiseal applied after cautery attempted with silver nitrite, pressure dressing applied. Bleeding controlled. Recommend reevaluation 48 hours to have dressing changed. Administered Medications: 16:44 Drug: Silver Nitrate Applicators Topical 1 application Topical once Route: Topical; kb3 Site: left forearm; 16:55 Drug: Lidocaine-Epinephrine Infiltration -1%: (1:100,000) 10 ml 20 ml Infiltration kb3 once; to bedside {Note: At the bedside for provider to administer during procedure.} Volume: 20 ml; Route: Infiltration; 17:43 Drug: Acetaminophen PO 1000 mg PO once Route: PO; kb3 17:43 Drug: Cephalexin PO 500 mg PO once Route: PO; kb3 Disposition Summary: 05/12/23 17:19 Discharge Ordered Notes: Location: Home cp Problem: new cp Symptoms: have improved cp Condition: Stable cp Diagnosis - Disruption of wound, not elsewhere classified cp Followup: cp - With: Emergency Department - When: 48 Hours - Reason: Wound Recheck Discharge Instructions: - Discharge Summary Sheet cp - Wound Care, Adult cp Forms: - Medication Reconciliation Form cp - Thank You Letter cp - Antibiotic Education cp - Prescription Opioid Use cp - Patient Portal Instructions cp - Leadership Thank You Letter cp Prescriptions: - Cephalexin 500 mg Oral capsule - take 1 capsule ORAL route every 6 hours for 7 days; 28 capsule; Refills: 0, cp Product Selection Permitted Signatures: Duane Burrows PA PA cp Bradberry, Kelly, RN RN kb3 Sarah Amos RN RN cm10 Corrections: (The following items were deleted from the chart) : 15:02 PMHx: Cancer; cm10 cm10 : 15:02 PMHx: Cancer; cm10 cm10
[2023-05-12] MEDS ORDERED: ACETAMINOPHEN 500 MG TAB ONE (17:51)
[2023-05-12] MEDS ORDERED: CEPHALEXIN 250 MG CAP ONE (17:51)
== END 2023-05-12 17:48 | disposition home or self-care (01) ==
LOC: ER 14:24
DX: T81.30XA Disruption of wound, unspecified, initial encounter (principal)
CPT/HCPCS: 99284

== ENCOUNTER 2023-05-14 09:03 | Emergency (ER) | payer OTHER, BC ==
--- OUTSIDE RECORDS SUMMARY | 2023-05-14 09:06 | XMS REPORT | Clinical Summary ---
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
--- OUTSIDE RECORDS SUMMARY | 2023-05-14 09:09 | XMS REPORT | Continuity of Care Document ---
:1955 Author Organization [facility] t Address [address] [place] [address] Care Team Providers Name Role Phone Leah Villela MD Primary Care Physician Patrick Landaverde Attending Clinician Unavailable SYSTEM, PROVIDER NOT IN Attending Clinician Unavailable MAZIN HERNADEZ Attending Clinician Unavailable MAZIN HERNADEZ Attending Clinician Unavailable PATT OBOTH K.HRosalina Attending Clinician Unavailable Patt Booth MD K.H. 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 [id number] Balance Problem Commo n problem [facility] [id number] Enlarged Problem Comm on prostate [facility] [id number] Nephrolith Problem Com mon iasis [facility] [id number] Gross Problem Common hematuria [facility] [id number] Constipati Problem Com mon on, Spirit unspecifie - CHI d St constipati [facility] on [facility] [id number] Peripheral Problem Com mon polyneurop Spirit athy - [facility] [id number] BRIGHT Problem Common (generaliz Spirit ed anxiety - CHI disorder) 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 Spirit of lower of lower - CHI lobe, lobe, left St bronchus bronchus [facility] or lung or lung [facility] [id number] Mixed Problem Common hyperlipid Spirit emia - [facility] Anorexia Anorexia Problem Commo n Spirit [facility] Malignant Malignant Problem Com mon neoplasm neoplasm Spirit of lower of lower - CHI lobe of lobe of St left lung left lung [facility] No known No known Disease Unive rs active active ity of problems problems [facility] Aneurysm Aneurysm Disease Recurre [facility] Postoperat Postoperat Disease Active C HI St compa anemia compa anemia Courtney ke due to due to Medical acute acute Center blood loss blood loss Allergies, Adverse Reactions, Alerts Allergy Allergy Status Severity Reaction(s) Onset Inactive Treating Comm ents Source Name Type Date Date Clinician Other Propensi Active Itching 2016-06 All anti [facility] adverse 00:00: ory drugs Medica l reaction 00 Center s NO KNOWN Drug Active Univers ALLERGIE Class ity of S [facility] Family History Family Member Diagnosis Comments Start Date Stop Date Source Natural mother COPD [facility] Social History Social Habit Start Date Stop Date Quantity Comments Source History of tobacco Current smoker Un iversity of use [facility] Gender identity Universit y of [facility] Sexual orientation [facility] Tobacco Comment 2022-11-22 2022-11-22 Quit 2019 Universit y of 00:00:00 00:00:00 [facility] Exposure to 2022-10-24 2022-11-03 Not sure University of SARS-CoV-2 (event) 00:00:00 13:05:00 [facility] History of Social 2021-03-15 2021-03-15 Univers ity of function 00:00:00 00:00:00 [place] MD Rodriguez [facility] Tobacco use and 2020-11-30 2020-11-30 Smokeless Universit y of exposure 00:00:00 00:00:00 tobacco non-user [facility] Alcohol intake 2017-05-10 2017-05-10 3.43 /d [facility] 00:00:00 00:00:00 [facility] Cigarettes smoked 2017-05-02 2017-05-[address] [facility] current (pack per 00:00:00 00:00:00 [facility] day) - Reported Cigarette 2017-05-02 2017-05-[address] [facility] pack-years 00:00:00 00:00:00 [facility] Sex Ass[birth year] NSARIN Monges 00:00:00 00:00:00 [facility] Smoking Status Start Date Stop Date Source Ex-smoker 2020-11-30 00:00:00 2020-11-30 00:00:00 Universi ty of [facility] Smokes tobacco daily 2020-07-17 00:00:00 [facility] ity [facility] Medications Ordered Filled Start Stop Current Ordering Indication Dosage Frequency Signature Comments Components Source Medication Medication Date Date Medication? Clinician (SIG) Name Name raciel 2022-06- No [id number] 5mL 5 mL, Unive rs hexafluorid -10 11-10 Intravenou i ty of e microsphr 15:30: 15:30 s, ONCE, 1 [place] (LUMASON) 00 :00 dose, On Medica l injection 5 Fri Branch mL 04/28/23 at 0930, Routine
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 x30 days apixaban 2022-06- No 5mg Take 1 Univ ers mg tablet 1-10 11-10 tablet by ity of 10:52: 00:00 mouth in [place] 16 :00 the Medical morning Branch and [...] by ity of tablet 10:52: mouth in [place] 04 the Medical morning. Branch aspirin 81 2022-06 Yes 81mg Take 1 Unive rs mg EC 1-10 tablet by ity of tablet 10:52: mouth in [place] 04 the Medical morning. Branch aspirin 81 2022-06 Yes 81mg Take 1 Unive rs mg EC 1-10 tablet by ity of tablet 10:52: mouth in [place] 04 the Medical morning. Branch aspirin 81 2022-06 Yes 81mg Take 1 Unive rs mg EC 1-10 tablet by ity of tablet 10:52: mouth in [place] 04 the Medical morning. Branch umeclidiniu Yes [id number] 1{puff} Inhale 1 Univers m-vilantero 6-06 Puff in ity o f L (ANORO 00:00: the [place] ELLIPTA) 00 morning. Medical 62.5-25 Branch mcg/actuati on inhalation disk albuterol Yes [id number] 2{puff} Inhale 2 Univers 90 6-06 Puffs ity of mcg/actuati 00:00: every 6 [place] as on inhaler 00 (six) Medical hours as Branch needed for Wheezing or Shortness of Breath. umeclidiniu Yes [id number] 1{puff} Inhale 1 Univers m-vilantero 6-06 Puff in ity o f L (ANORO 00:00: the [place] ELLIPTA) 00 morning. Medical 62.5-25 Branch mcg/actuati on inhalation disk albuterol Yes [id number] 2{puff} Inhale 2 Univers 90 6-06 Puffs ity of mcg/actuati 00:00: every 6 [place] as on inhaler 00 (six) Medical hours as Branch needed for Wheezing or Shortness of Breath. umeclidiniu 0 Yes [id number] 1{puff} Inhale 1 Univers m-vilantero 6-06 Puff in ity o f L (ANORO 00:00: the [place] ELLIPTA) 00 morning. Medical 62.5-25 Branch mcg/actuati on inhalation disk albuterol 0 Yes [id number] 2{puff} Inhale 2 Univers 90 6-06 Puffs ity of mcg/actuati 00:00: every 6 [place] as on inhaler 00 (six) Medical hours as Branch needed for Wheezing or Shortness of Breath. umeclidiniu 2022-0 Yes [id number] 1{puff} Inhale 1 Univers m-vilantero 6-06 Puff in ity o f L (ANORO 00:00: the [place] ELLIPTA) 00 morning. Medical 62.5-25 Branch mcg/actuati on inhalation disk albuterol 0 Yes [id number] 2{puff} Inhale 2 Univers 90 6-06 Puffs ity of mcg/actuati 00:00: every 6 [place] as on inhaler 00 (six) Medical hours as Branch needed for Wheezing or Shortness of Breath. umeclidiniu 0 Yes [id number] 1{puff} Inhale 1 Univers m-vilantero 6-06 Puff in ity o f L (ANORO 00:00: the [place] ELLIPTA) 00 morning. Medical 62.5-25 Branch mcg/actuati on inhalation disk albuterol 0 Yes [id number] 2{puff} Inhale 2 Univers 90 6-06 Puffs ity of mcg/actuati 00:00: every 6 [place] as on inhaler 00 (six) Medical hours as Branch needed for Wheezing or Shortness of Breath. umeclidiniu 0 Yes [id number] 1{puff} Inhale 1 Univers m-vilantero 6-06 Puff in ity o f L (ANORO 00:00: the [place] ELLIPTA) 00 morning. Medical 62.5-25 Branch mcg/actuati on inhalation disk albuterol 2022-0 Yes [id number] 2{puff} Inhale 2 Univers 90 6-06 Puffs ity of mcg/actuati 00:00: every 6 [place] as on inhaler 00 (six) Medical hours as Branch needed for Wheezing or Shortness of Breath. aspirin 81 2023-0 Yes 81mg Take 1 Unive rs mg EC 4-10 tablet by ity of tablet 15:14: mouth in [place] [address] the Medical morning. Branch apixaban 5 2023-0 Yes 5mg Take 1 Unive rs mg tablet 4-10 tablet by ity o f 15:14: mouth in [place] [address] the Medical morning Branch and 1 tablet in the evening. x30 days aspirin 81 2023-0 Yes 81mg Take 1 Unive rs mg EC 4-10 tablet by ity of tablet 15:14: mouth in [place] [address] the Medical morning. Branch apixaban 5 2023-0 Yes 5mg Take 1 Unive rs mg tablet 4-10 tablet by ity o f 15:14: mouth in [place] [address] the Medical morning Branch and 1 tablet in the evening. x30 days aspirin 81 2023-0 Yes 81mg Take 1 Unive rs mg EC 4-10 tablet by ity of tablet 15:14: mouth in [place] [address] the Medical morning. Branch apixaban 5 2023-0 Yes 5mg Take 1 Unive rs mg tablet 4-10 tablet by ity o f 15:14: mouth in [place] [address] the Medical morning Branch and 1 tablet in the evening. x30 days aspirin 81 2023-0 Yes 81mg Take 1 Unive rs mg EC 4-10 tablet by ity of tablet 15:14: mouth in [place] [address] the Medical morning. Branch apixaban 5 2023-0 Yes 5mg Take 1 Unive rs mg tablet 4-10 tablet by ity o f 15:14: mouth in [place] [address] the Medical morning Branch and 1 tablet in the evening. x30 days aspirin 81 2023-0 Yes 81mg Take 1 Unive rs mg EC 4-10 tablet by ity of tablet 15:14: mouth in [place] [address] the Medical morning. Branch apixaban 5 2023-0 Yes 5mg Take 1 Unive rs mg tablet 4-10 tablet by ity o f 15:14: mouth in [place] [address] the Medical morning Branch and 1 tablet in the evening. x30 days aspirin 81 2023-0 Yes 81mg Take 1 Unive rs mg EC 4-10 tablet by ity of tablet 15:14: mouth in [place] [address] the Medical morning. Branch apixaban 5 2023-0 Yes 5mg Take 1 Unive rs mg tablet 4-10 tablet by ity o f 15:14: mouth in [place] [address] the Medical morning Branch and 1 tablet in the evening. x30 days aspirin 81 2023-0 Yes 81mg Take 1 Unive rs mg EC 4-10 tablet by ity of tablet 15:14: mouth in [place] [address] the Medical morning. Branch apixaban 5 2023-0 Yes 5mg Take 1 Unive rs mg tablet 4-10 tablet by ity o f 15:14: mouth in [place] [address] the Medical morning Branch and 1 tablet in the evening. x30 days aspirin 81 2023-0 Yes 81mg Take 1 Unive rs mg EC 4-10 tablet by ity of tablet 15:14: mouth in [place] [address] the Medical morning. Branch apixaban 5 2023-0 Yes 5mg Take 1 Unive rs mg tablet 4-10 tablet by ity o f 15:14: mouth in [place] [address] the Medical morning Branch and 1 tablet in the evening. x30 days aspirin 81 2023-0 Yes 81mg Take 1 Unive rs mg EC 4-10 tablet by ity of tablet 15:14: mouth in [place] [address] the Medical morning. Branch apixaban 5 2023-0 Yes 5mg Take 1 Unive rs mg tablet 4-10 tablet by ity o f 15:14: mouth in [place] [address] the Medical morning Branch and 1 tablet in the evening. x30 days aspirin 81 2023-0 Yes 81mg Take 1 Unive rs mg EC 4-10 tablet by ity of tablet 15:14: mouth in [place] [address] the Medical morning. Branch apixaban 5 2023-0 Yes 5mg Take 1 Unive rs mg tablet 4-10 tablet by ity o f 15:14: mouth in [place] [address] the Medical morning Branch and 1 tablet in the evening. x30 days aspirin 81 2023-0 Yes 81mg Take 1 Unive rs mg EC 4-10 tablet by ity of tablet 15:14: mouth in [place] [address] the Medical morning. Branch apixaban 5 2023-0 Yes 5mg Take 1 Unive rs mg tablet 4-10 tablet by ity o f 15:14: mouth in [place] 53 the Medical morning Branch and 1 tablet in the evening. x30 days aspirin 81 3-0 Yes 81mg Take 1 Unive rs mg EC 4-10 tablet by ity of tablet 15:14: mouth in [place] [address] the Medical morning. Branch apixaban 5 3-0 Yes 5mg Take 1 Unive rs mg tablet 4-10 tablet by ity o f 15:14: mouth in [place] [address] the Medical morning Branch and 1 tablet in the evening. x30 days aspirin 81 2023-0 Yes 81mg Take 1 Unive rs mg EC 4-10 tablet by ity of tablet 15:14: mouth in [place] [address] the Medical morning. Branch apixaban 5 3-0 Yes 5mg Take 1 Unive rs mg tablet 4-10 tablet by ity o f 15:14: mouth in [place] [address] the Medical morning Branch and 1 tablet in the evening. x30 days Fluticasone Fluticasone 2021-0 No 1{puff} BID Fluticason -Salmeterol -Salmeterol 02-23 e-Salmeter 232-14 232-14 00:00: ol 232-14 MCG/ACT MCG/ACT 00 MCG/ACT Fluticasone Fluticasone 2021-0 No 1{puff} BID Fluticason -Salmeterol -Salmeterol 02-23 e-Salmeter 232-14 232-14 00:00: ol 232-14 MCG/ACT MCG/ACT 00 MCG/ACT ANORO 2021-0 Yes [id number] TAKE 1 Univer s ELLIPTA 7-11 PUFF BY ity of 62.5-25 00:00: MOUTH [place] mcg/actuati 00 DAILY Medical on Branch inhalation disk ANORO 2021-0 Yes [id number] TAKE 1 Univer s ELLIPTA 7-11 PUFF BY ity of 62.5-25 00:00: MOUTH [place] mcg/actuati 00 DAILY Medical on Branch inhalation disk ANORO 2021-0 Yes [id number] TAKE 1 Univer s ELLIPTA 7-11 PUFF BY ity of 62.5-25 00:00: MOUTH [place] mcg/actuati 00 DAILY Medical on Branch inhalation disk ANORO 2021-0 Yes [id number] TAKE 1 Univer s ELLIPTA 7-11 PUFF BY ity of 62.5-25 00:00: MOUTH [place] mcg/actuati 00 DAILY Medical on Branch inhalation disk ANORO 2021-0 Yes [id number] TAKE 1 Univer s ELLIPTA 7-11 PUFF BY ity of 62.5-25 00:00: MOUTH [place] mcg/actuati 00 DAILY Medical on Branch inhalation disk ANORO 0 Yes [id number] TAKE 1 Univer s ELLIPTA 7-11 PUFF BY ity of 62.5-25 00:00: MOUTH [place] mcg/actuati 00 DAILY Medical on Branch inhalation disk ANORO 0 Yes [id number] TAKE 1 Univer s ELLIPTA 7-11 PUFF BY ity of 62.5-25 00:00: MOUTH [place] mcg/actuati 00 DAILY Medical on Branch inhalation disk ANORO 0 Yes [id number] TAKE 1 Univer s ELLIPTA 7-11 PUFF BY ity of 62.5-25 00:00: MOUTH [place] mcg/actuati 00 DAILY Medical on Branch inhalation disk ANORO 0 Yes [id number] TAKE 1 Univer s ELLIPTA 7-11 PUFF BY ity of 62.5-25 00:00: MOUTH [place] mcg/actuati 00 DAILY Medical on Branch inhalation disk ANORO 0 Yes [id number] TAKE 1 Univer s ELLIPTA 7-11 PUFF BY ity of 62.5-25 00:00: MOUTH [place] mcg/actuati 00 DAILY Medical on Branch inhalation disk ANORO 0 Yes [id number] TAKE 1 Univer s ELLIPTA 7-11 PUFF BY ity of 62.5-25 00:00: MOUTH [place] mcg/actuati 00 DAILY Medical on Branch inhalation disk ANORO 2021-0 2022- No [id number] TAKE 1 Unive rs ELLIPTA 7-11 06-06 PUFF BY ity of 62.5-25 00:00: 00:00 MOUTH [place] mcg/actuati 00 :00 DAILY Medical on Branch inhalation disk ANORO 2021-0 2022- No [id number] TAKE 1 Unive rs ELLIPTA 7-11 06-06 PUFF BY ity of 62.5-25 00:00: 00:00 MOUTH [place] mcg/actuati 00 :00 DAILY Medical on Branch inhalation disk aspirin 81 2021-0 Yes 81mg Take 81 mg U nivers mg EC 6-03 by mouth ity of tablet 09:57: daily. [place] 04 Medical Branch apixaban Yes 5mg Take 5 mg Univ ers (ELIQUIS) 5 6-03 by mouth 2 it y of mg tablet 09:57: (two) [place] 04 times Medical daily. x30 Branch days aspirin 81 2021-0 Yes 81mg Take 81 mg U nivers mg EC 6-03 by mouth ity of tablet 09:57: daily. [address] apixaban 0 Yes 5mg Take 5 mg Univ ers (ELIQUIS) 5 6-03 by mouth 2 it y of mg tablet 09:57: (two) [place] 04 times Medical daily. x30 Branch days aspirin 81 0 Yes 81mg Take 81 mg U nivers mg EC 6-03 by mouth ity of tablet 09:57: daily. [address] apixaban 0 Yes 5mg Take 5 mg Univ ers (ELIQUIS) 5 6-03 by mouth 2 it y of mg tablet 09:57: (two) [place] 04 times Medical daily. x30 Branch days aspirin 81 0 Yes 81mg Take 81 mg U nivers mg EC 6-03 by mouth ity of tablet 09:57: daily. [address] apixaban 0 Yes 5mg Take 5 mg Univ ers (ELIQUIS) 5 6-03 by mouth 2 it y of mg tablet 09:57: (two) [place] 04 times Medical daily. x30 Branch days diazePAM Yes Claustropho Take one Univers (Valium) 5 5-25 clay tablet ity of mg tablet 00:00: orally [place] 00 when instructed [facility] by [facility] diazePAM Yes Claustropho Take one Univers (Valium) 5 5-25 clay tablet ity of mg tablet 00:00: orally [place] 00 when instructed [place] by [facility] diazePAM Yes Claustropho Take one Univers (Valium) 5 5-25 clay tablet ity of mg tablet 00:00: orally [place] 00 when instructed Anderso by [facility] umeclidiniu Yes [id number] 1{puff} Inhale 1 Univers m-vilantero 1-19 Puff ity of L (ANORO 00:00: daily. [place] ELLIPTA) 00 Medical 62.5-25 Branch mcg/actuati on inhalation disk umeclidiniu Yes [id number] 1{puff} Inhale 1 Univers m-vilantero 1-19 Puff ity of L (ANORO 00:00: daily. [place] ELLIPTA) 00 Medical 62.5-25 Branch mcg/actuati on inhalation disk umeclidiniu 2022- No [id number] 1{puff} Inhale 1 Univers m-vilantero 1-19 07-11 [...] mouth [place] 55 daily. MD Jaxon lewis [facility] zinc Yes 50mg Take 50 mg Univers gluconate 9-27 by mouth ity of 50 mg 08:15: daily. [place] tablet 55 MD Jaxon lewis [facility] aspirin 81 0 Yes 81mg Take 81 mg U nivers mg EC 9-27 by mouth ity of tablet 08:15: daily. [place] 55 MD Jaxon lewis [facility] Center alip Yes 2{tbl} Take 2 Univers acid/biotin 9-27 tablets by it y of /mins16/her 08:15: mouth [place] b91 (BLOOD 55 daily. MD HARLAN Coates BALANCE n ORAL) [facility] multivitami Yes 1{capsu Take 1 U nivers n capsule 9-27 le} capsule by ity of 08:15: mouth [place] 55 daily. MD Jaxon lewis [facility] zinc Yes 50mg Take 50 mg Univers gluconate 9-27 by mouth ity of 50 mg 08:15: daily. [place] tablet 55 MD Jaxon lewis [facility] aspirin 81 0 Yes 81mg Take 81 mg U nivers mg EC 9-27 by mouth ity of tablet 08:15: daily. [place] 55 MD Jaxon lewis [facility] alip Yes 2{tbl} Take 2 Univers acid/biotin 9-27 tablets by it y of /mins16/her 08:15: mouth [place] b91 (BLOOD 55 daily. SUGAR Jaxon BALANCE joshua ORAL) [facility] Center multivitami Yes 1{capsu Take 1 U nivers n capsule 9- le} capsule by ity of 08:15: mouth [place] 55 daily. MD Jaxon leiws [facility] zinc Yes 50mg Take 50 mg Univers gluconate 9-27 by mouth ity of 50 mg 08:15: daily. [place] tablet 55 MD Jaxon lewis [facility] Center aspirin 81 Yes 81mg Take 81 mg U nivers mg EC 9-27 by mouth ity of tablet 08:15: daily. [place] 55 MD Jaxon lewis [facility] albuterol Yes 2{puff} Inhale 2 U nivers (VENTOLIN 6-30 puffs by ity of HFA,PROAIR 00:00: mouth as [place] as HFA) 90 00 needed. mcg/puff Anderso inhaler n [facility] albuterol Yes 2{puff} Inhale 2 U nivers (VENTOLIN 6-30 puffs by ity of HFA,PROAIR 00:00: mouth as [place] as HFA) 90 00 needed. mcg/puff [place] inhaler n [facility] albuterol Yes 2{puff} Inhale 2 U nivers (VENTOLIN 6-30 puffs by ity of HFA,PROAIR 00:00: mouth as [place] as HFA) 90 00 needed. mcg/puff [place] inhaler n [facility] Anoro Yes 1{puff} Inhale 1 Unive rs Ellipta 6-10 puff by ity of 62.5-25 00:00: mouth [place] mcg/actuati 00 daily. on dsdv Anderso joshua [facility] Anoro Yes 1{puff} Inhale 1 Unive rs Ellipta 6-10 puff by ity of 62.5-25 00:00: mouth [place] mcg/actuati 00 daily. on dsdv Anderso n [facility] Anoro Yes 1{puff} Inhale 1 Unive rs Ellipta 6-10 puff by ity of 62.5-25 00:00: mouth [place] mcg/actuati 00 daily. on dsdv Anderso n [facility] atorvastati 2020- No 40mg Take 1 Uni vers n 40 mg 3- 09-15 tablet by ity of tablet 00:00: [...] blood 2023-04-28 16:10:00 112 mm[Hg] Univer sity pressure [facility] Diastolic blood 2023-04-28 16:10:00 64 mm[Hg] [facility] Heart rate 2023-04-28 16:10:00 71 /min [facility] Body temperature 2023-04-28 16:10:00 36.56 [place] Respiratory rate 2023-04-28 16:10:00 18 /min [facility] Body weight 2023-04-28 16:10:00 85.684 kg [facility]i ty [facility] [place] [facility] BMI 2023-04-28 16:10:00 27.10 kg/m2 [facility] [place] [facility] Oxygen saturation in 2023-04-28 16:10:00 94 /min University of Arterial blood by [place] Insticator nitin Pulse oximetry Branch Systolic blood 2022-11-22 14:46:00 113 mm[Hg] Univer sity of pressure [place] [facility] Diastolic blood 2022-11-22 14:46:00 70 mm[Hg] Unive rsity of pressure [place] [facility] Heart rate 2022-11-22 14:46:00 75 /min [facility]i [facility] [place] [facility] Respiratory rate 2022-11-22 14:46:00 17 /min Univ ersity of [place] [facility] Body height 2022-11-22 14:46:00 177.8 cm [facility]i [facility] [place] [facility] Body weight 2022-11-22 14:46:00 85.322 kg [facility] [place] [facility] BMI 2022-11-22 14:46:00 26.99 kg/m2 [facility]i ty [facility] [place] [facility] Oxygen saturation in 2022-11-22 14:46:00 96 /min University of Arterial blood by [place] Insticator nitin Pulse oximetry Branch Systolic blood 2022-11-03 18:15:00 102 mm[Hg] Univer sity of pressure [place] [facility] Diastolic blood 2022-11-03 18:15:00 70 mm[Hg] Unive rsity of pressure [place] [facility] Heart rate 2022-11-03 18:15:00 100 /min [facility]i ty [facility] [place] [facility] Respiratory rate 2022-11-03 18:15:00 18 /min Univ ersity of [place] [facility] Body weight 2022-11-03 18:15:00 86.183 kg [facility] [place] [facility] BMI 2022-11-03 18:15:00 27.26 kg/m2 [facility] [place] [facility] Oxygen saturation in 2022-11-03 18:15:00 94 /min University of Arterial blood by [place] Insticator nitin Pulse oximetry Branch Systolic blood 2022-09-26 20:21:00 118 mm[Hg] Univer sity of pressure [place] [facility] Diastolic blood 2022-09-26 20:21:00 75 mm[Hg] Unive rsity of pressure [facility] Heart rate 2022-09-26 20:21:00 107 /min Universi ty of [facility] Body height 2022-09-26 20:21:00 177.8 cm Universi ty [facility] Body weight 2022-09-26 20:21:00 85.231 kg Universi ty [facility] BMI 2022-09-26 20:21:00 26.96 kg/m2 Universi [facility] Oxygen saturation in 2022-09-26 20:21:00 93 /min [facility] Arterial blood by [facility] Pulse oximetry Branch height 2022-09-16 11:00:00 70 [in_i] [facility] weight 2022-09-16 11:00:00 186.8 [lb_av] [facility] bmi 2022-09-16 11:00:00 26.8 kg/m2 [facility] oximetry 2022-09-16 11:00:00 95 % [facility] respiratory rate 2022-09-16 11:00:00 16 /min Comm on [facility] blood pressure 2022-09-16 11:00:00 111 mm[Hg] [facility] systolic [facility] blood pressure 2022-09-16 11:00:00 70 mm[Hg] Common [facility] diastolic [facility] height 2022-08-17 09:30:00 70 [in_i] [facility] weight 2022-08-17 09:30:00 185.9 [lb_av] [facility] temperature 2022-08-17 09:30:00 97.3 [degF] [facility] bmi 2022-08-17 09:30:00 26.67 kg/m2 [facility] oximetry 2022-08-17 09:30:00 96 % [facility] respiratory rate 2022-08-17 09:30:00 17 /min Comm on [facility] blood pressure 2022-08-17 09:30:00 124 mm[Hg] Common [facility] - systolic [facility] blood pressure 2022-08-17 09:30:00 71 mm[Hg] [facility] diastolic [facility] height 2022-08-17 09:40:00 70 [in_i] Common [facility] weight 2022-08-17 09:40:00 185.9 [lb_av] Common [facility] temperature 2022-08-17 09:40:00 97.3 [degF] Common S pirit [facility] bmi 2022-08-17 09:40:00 26.67 kg/m2 [facility] 2022-08-17 09:40:00 96 % [facility] [facility] respiratory rate 2022-08-17 09:40:00 17 /min Comm on [facility] blood pressure 2022-08-17 09:40:00 124 mm[Hg] Common [facility] - systolic [facility] blood pressure 2022-08-17 09:40:00 71 mm[Hg] Common [facility] - diastolic [facility] height 2022-07-27 14:15:00 70 [in_i] [facility] 2022-07-27 14:15:00 188.6 [lb_av] [facility] temperature 2022-07-27 14:15:00 97.6 [degF] Common S pirit [facility] bmi 2022-07-27 14:15:00 27.06 kg/m2 [facility] oximetry 2022-07-27 14:15:00 96 % Common S [facility] respiratory rate 2022-07-27 14:15:00 18 /min Comm on [facility] blood pressure 2022-07-27 14:15:00 133 mm[Hg] Common [facility] - systolic [facility] blood pressure 2022-07-27 14:15:00 70 mm[Hg] Common [facility] - diastolic [facility] height 2022-06-23 11:15:00 70 [in_i] Common [facility] weight 2022-06-23 11:15:00 186.8 [lb_av] [facility] temperature 2022-06-23 11:15:00 98.1 [degF] Common [facility] bmi 2022-06-23 11:15:00 26.8 kg/m2 Common [facility] oximetry 2022-06-23 11:15:00 99 % Common S [facility] respiratory rate 2022-06-23 11:15:00 16 /min Comm on [facility] blood pressure 2022-06-23 11:15:00 117 mm[Hg] Common [facility] - systolic [facility] blood pressure 2022-06-23 11:15:00 62 mm[Hg] Common [facility] - diastolic [facility] height 2022-02-23 09:00:00 70 [in_i] Common S [facility] weight 2022-02-23 09:00:00 177.0 [lb_av] [facility] temperature 2022-02-23 09:00:00 97.9 [degF] Common [facility] bmi 2022-02-23 09:00:00 25.39 kg/m2 [facility] oximetry 2022-02-23 09:00:00 96 % Common S [facility] respiratory rate 2022-02-23 09:00:00 17 /min Comm on [facility] blood pressure 2022-02-23 09:00:00 121 mm[Hg] Common [facility] - systolic [facility] blood pressure 2022-02-23 09:00:00 70 mm[Hg] Common [facility] - diastolic [facility] height 2021-11-23 09:50:00 70 [in_i] Common [facility] weight 2021-11-23 09:50:00 174.7 [lb_av] [facility] temperature 2021-11-23 09:50:00 98.0 [degF] Common [facility] bmi 2021-11-23 09:50:00 25.06 kg/m2 [facility] oximetry 2021-11-23 09:50:00 95 % [facility] respiratory rate 2021-11-23 09:50:00 16 /min Comm on [facility] blood pressure 2021-11-23 09:50:00 106 mm[Hg] Common [facility] - systolic [facility] blood pressure 2021-11-23 09:50:00 65 mm[Hg] Common [facility] diastolic [facility] Systolic blood 2021-11-19 15:02:00 102 mm[Hg] [facility] Diastolic blood 2021-11-19 15:02:00 67 mm[Hg] [facility] Heart rate 2021-11-19 15:02:00 87 /min [facility] Respiratory rate 2021-11-19 15:02:00 19 /min [facility] 2021-11-19 15:02:00 177.8 cm [facility] Body weight 2021-11-19 15:02:00 78.79 kg [facility] BMI 2021-11-19 15:02:00 24.92 kg/m2 [facility] Oxygen saturation in 2021-11-19 15:02:00 95 /min [facility] Arterial blood by [facility] Pulse oximetry Branch height 2021-08-20 08:20:00 70 [in_i] [facility] weight 2021-08-20 08:20:00 177.7 [lb_av] [facility] temperature 2021-08-20 08:20:00 97.3 [degF] Common [facility] bmi 2021-08-20 08:20:00 25.49 kg/m2 [facility] oximetry 2021-08-20 08:20:00 97 % [facility] respiratory rate 2021-08-20 08:20:00 17 /min Comm on [facility] blood pressure 2021-08-20 08:20:00 122 mm[Hg] Common [facility] - systolic [facility] blood pressure 2021-08-20 08:20:00 72 mm[Hg] Common [facility] - diastolic [facility] height 2021-08-20 08:20:00 70 [in_i] Common [facility] weight 2021-08-20 08:20:00 177.7 [lb_av] [facility] temperature 2021-08-20 08:20:00 97.3 [degF] [facility] bmi 2021-08-20 08:20:00 25.49 kg/m2 [facility] oximetry 2021-08-20 08:20:00 97 % [facility] respiratory rate 2021-08-20 08:20:00 17 /min Comm on [facility] blood pressure 2021-08-20 08:20:00 122 mm[Hg] Common [facility] systolic [facility] blood pressure 2021-08-20 08:20:00 72 mm[Hg] [facility] diastolic [facility] height 2021-07-26 13:30:00 70 [in_i] Common [facility] weight 2021-07-26 13:30:00 177.2 [lb_av] [facility] temperature 2021-07-26 13:30:00 98.4 [degF] [facility] bmi 2021-07-26 13:30:00 25.42 kg/m2 [facility] oximetry 2021-07-26 13:30:00 95 % [facility] respiratory rate 2021-07-26 13:30:00 16 /min Comm on [facility] blood pressure 2021-07-26 13:30:00 117 mm[Hg] [facility] - systolic [facility] blood pressure 2021-07-26 13:30:00 66 mm[Hg] [facility] - diastolic [facility] HEIGHT 2020-11-30 10:04:00 176.5 cm WEIGHT 2020-11-30 10:04:00 91.7 kg Procedures Procedure Date / Time Performing Clinician Source Performed TRANSTHORACIC ECHO (TTE) 2023-04-28 16:00:00 Patt Booth [facility] COMPLETE W/ CONTRAST Medical Bra [facility] AORTOILIAC DUPLEX - BY 2023-04-28 15:35:35 [facility] AUTHORIZATION TO RELEASE 2022-11-03 05:01:00 Doctor Unassigned, No [facility] MEDICAL 2022-10-18 05:01:00 Doctor Unassigned, No [facility] RELEASE/CLEARANCE FORMS Name [facility] HB ECG ROUTINE & RHYTHM 2022-09-26 20:18:36 Patt Booth [facility] PATIENT FINANCIAL 2022-09-26 19:55:42 Doctor Unassigned, No [facility] POLICY Name [facility] Plan of Care Planned Activity Planned Date Details Comments Source Future Scheduled 2022-11-03 COVID-19 Vaccination [facility] [place] Test 13:05:54 (#1) [code = COVID-19 [facility] (#1[facility] Center Future Scheduled 2022-11-03 COVID-19 Vaccination [facility] 13:05:54 (#1) [code = COVID-19 [facility]ination (#1)] Center Future Scheduled 2021-12-22 COVID-19 Vaccination [facility] [place] Test 07:01:56 (#1) [code = COVID-19 [facility] Vaccination (#1)] Center Encounters Start End Encounter Admission Attending Care Care Encounter Source Date/Time Date/Time Type Type Clinicians Facility Department ID 2022-09-21 Outpatient Landaverde, STLMLC [facility] [id number] Common 15:26:01 [facility] [address] [facility] 2022-08-15 Outpatient Landaverde, STLMLC [facility] [id number] Common 07:51:01 [facility] 2022-07-25 Outpatient Landaverde, STLMLC STLC [id number] Common 11:50:01 [facility] 2022-03-21 Outpatient Landaverde, STLMLC STLC [id number] Common 08:48:02 [facility] 2022-02-24 Outpatient Landaverde, STLMLC STLC [id number] Common 10:44:02 [facility] 2022-02-23 Outpatient Landaverde, STLMLC STLC [id number] Common 08:56:02 [facility] 2022-01-03 Outpatient Landaverde, STLMLC [facility] [id number] Common 10:09:02 [facility] 2021-07-26 Outpatient Landaverde, STLMLC [facility] [id number] Common 13:55:03 [facility] 2020-11-24 Outpatient SYSTEM, [facility] [id number] 14:21:13 PROVIDER oCrnel lewis 2023-04-28 2023-04-28 [facility] 1.2.840.114 [id number] Univers 08:39:14 23:59:00 Encounter Patt SHETTY 350.1.13.10 itradha [facility] [id number] Jennifer JONES [phone] [address] 2023-04-28 2023-04-28 Outpatient R [facility] [id number] Univers 08:39:01 23:59:00 SENDIL richa [facility] 2023-04-28 2023-04-28 [facility] 1.2.840.114 [id number] Univers 08:39:01 23:59:00 En[facility] [id number] [phone] Ny dical NAL 843 [facility] 2023-04-28 2023-04-28 [facility] 1.2.840.114 [id number] Univers 11:30:00 11:30:00 Visit Sendkaleb SHETTY 350.1.13.10 ity [id number] [phone] Ny dical NAL 059 [facility] 2023-03-29 2023-03-29 [facility] [id number] Univers 10:00:00 10:00:00 SENDIL ity [facility] 2022-11-22 2022-11-22 Outpatient R MAZIN HERNADEZ [facility] [id number] Univers 09:30:00 09:55:11 MAZIN HERNADEZ i ty of [facility] 2022-11-22 2022-11-22 [facility] 1.2.840.114 [id number] Univers 09:30:00 09:55:11 Visit Mazin SHETTY 350.1.13.10 i ty [facility] [id number] [phone] Ny dicne NAL 085 [facility] 2022-11-04 2022-11-04 [facility] [id number] Univers 10:00:00 10:00:00 SENDIL ity [facility] 2022-11-03 2022-11-03 [facility] [id number] Univers 13:30:00 13:32:29 SENDIL ity [facility] 2022-11-03 2022-11-03 [facility] 1.2.840.114 [id number] Univers 13:30:00 13:32:29 Visit Patt SHETTY 350.1.13.10 ity [facility] [id number] [phone] Ny dical NAL 059 [facility] 2022-11-03 2022-11-03 Orders Doctor BATISTA 1.2.840.114 [id number] Univers 00:00:00 00:00:00 Only Unassigned, SUSAN [id number] ity of [facility] 4.2.7.2.686 Thom as [phone] [address] 2022-10-31 2022-10-31 [facility] [id number] Univers 08:00:00 08:00:00 SENDIL ity [facility] 2022-10-18 2022-10-18 Telephone [facility] [id number] Univers 00:00:00 00:00:00 Sendil Haily SHETTY 350.1.13.10 ity [id number] [phone] Ny dicne NAL [address] [place] [address] 2022-10-18 2022-10-18 Orders Doctor LESTER 1.2.840.114 [id number] Univers 00:00:00 00:00:00 Only Unassigned, SUSAN 350.1.13.10 ity of [facility] 4.2.7.2.686 Thom as [phone] [address] 2022-09-26 2022-09-26 [facility] [id number] Univers 15:30:00 15:32:30 SENDIL ity [facility] 2022-09-26 2022-09-26 Office [facility] 1.2.840.114 [id number] Univers 15:30:00 15:32:30 Visit Sendil Haily SHETTY 350.1.13.10 ity of [facility] [id number] [phone] Ny dical NAL [address] [place] [address] 2022-09-26 2022-09-26 Orders Doctor LESTER 1.2.840.114 [id number] Univers 00:00:00 00:00:00 Only Unassigned, SUSAN 350.1.13.10 ity of [facility] [id number] Thom as [phone] [address] 2022-09-19 2022-09-19 (TEL) STLMLC STLMLC [id number] Co mmon 00:00:00 00:00:00 Spirit - CHI [facility] 2022-09-16 2022-09-16 OFFICE STLMLC STLMLC [id number] Co mmon 00:00:00 00:00:00 VISIT Spirit ESTAB PT - CHI LEVEL 4 [facility] 2022-09-14 2022-09-14 (TEL) STLMLC STLMLC [id number] Co mmon 00:00:00 00:00:00 Spirit - [facility]I [facility] 2022-08-17 2022-08-17 OFFICE STLMLC STLMLC [id number] Co mmon 00:00:00 00:00:00 VISIT Spirit ESTAB PT - CHI LEVEL 4 [facility] 2022-08-17 2022-08-17 SUB ANNUAL STLMLC STLMLC [id number] Common 00:00:00 00:00:00 MCR Spirit WELLNESS - CHI VISIT [facility] 2022-07-27 2022-07-27 OFFICE STLMLC STLMLC [id number] Co mmon 00:00:00 00:00:00 VISIT Spirit ESTAB PT - CHI LEVEL 2 [facility] 2022-06-23 2022-06-23 OFFICE STLMLC STLMLC [id number] Co mmon 00:00:00 00:00:00 VISIT NEW Spir it PT LEVEL 3 - CHI [facility] 2022-06-09 2022-06-09 (TEL) STLMLC STLMLC [id number] Co mmon 00:00:00 00:00:00 Spirit - [facility]I [facility] 2022-04-25 2022-04-25 (TEL) STLMLC STLMLC [id number] Co mmon 00:00:00 00:00:00 Spirit - [facility] 2022-02-23 2022-02-23 OFFICE STLMLC STLMLC [id number] Co mmon 00:00:00 00:00:00 VISIT Spirit ESTAB PT - CHI LEVEL 4 [facility] 2021-12-24 2021-12-24 RIVAS Owens 1.2.840.114 [id number] Univers 00:00:00 00:00:00 Mazin SHETTY 350.1.13.10 i ty [id number] [phone] Ny dical NAL [address] [place] [address] 2021-11-23 2021-11-23 (HOSP F/U) [facility] [id number] Common 00:00:00 00:00:00 [facility] 2021-11-19 2021-11-19 Outpatient R MAZIN HERNADEZ [facility] [id number] Univers 09:30:00 10:08:31 MAZIN HERNADEZ i ty of [facility] 2021-11-19 2021-11-19 Office aNrinder [facility] 1.2.840.114 [id number] Univers 09:30:00 10:08:31 Visit Mazin SHETTY 350.1.13.10 i ty [id number] [phone] Ny dicne NAL [address] [place] [address] 2021-11-15 2021-11-15 (TEL) [facility] [id number] Co mmon 00:00:00 00:00:00 [facility] 2021-11-12 2021-11-12 [facility] [id number] Univers 12:00:00 12:00:00 STACI ity [facility] 2021-11-12 2021-11-12 [facility] [id number] Univers 12:00:00 12:00:00 STACI ity [facility] 2021-11-10 2021-11-10 Orders Oleg 1.2.840.1 [id number] Univers 00:00:00 00:00:00 Only Una 08661.1.1 it y of [place] 3.412.2.7 [place] .3.147106 MD Romano[address] [facility] 2021-11-08 2021-11-08 Orders Doctor BATISTA 1.2.840.114 [id number] Univers 00:00:00 00:00:00 Only Unassigned, SUSAN 350.1.13.10 ity of [facility] 4.2.7.2.686 Thom as [phone] [address] 2021-11-03 2021-11-03 [facility] [id number] Univers 10:30:00 11:03:24 SENDIL ity [facility] 2021-11-03 2021-11-03 [facility] 1.2.840.114 [id number] Univers 10:30:00 11:03:24 Visit Sendil Haily SHETTY 350.1.13.10 ity of [place] [phone] [facility] 059 [facility] 2021-11-03 2021-11-03 [facility] [id number] Univers 10:30:00 11:03:24 [facility] 2021-10-25 2021-10-25 [facility] [id number] Univers 12:41:15 23:59:00 MARLENE richa herlinda holt [facility] 2021-10-25 2021-10-25 [facility] [id number] Univers 13:00:00 13:00:00 MARLENE richa herlinda holt [facility] 2021-10-19 2021-10-19 (TEL) STLMLC STLMLC [id number] Co mmon 00:00:00 00:00:00 [facility] 2021-10-19 2021-10-19 Telephone [facility] ..840.114 [id number] Univers 00:00:00 00:00:00 Marlene SHETTY 350.1.13.10 ity of [place] [phone] Ny dical NAL 205 [facility] 2021-10-11 2021-10-11 Telephone [facility] [id number] Univers 00:00:00 00:00:00 Patt SHETTY 350.1.13.10 ity of [place] [phone] Ny dical NAL 059 [facility] 2021-10-08 2021-10-08 Outpatient R LEOBARDO [facility] [id number] Univers 08:22:16 08:22:16 SENDIL ity [facility] 2021-08-20 2021-08-20 OFFICE STLMLC STLMLC [id number] Co mmon 00:00:00 00:00:00 VISIT Spirit ESTAB PT - CHI LEVEL 4 [facility] 2021-08-20 2021-08-20 SUB ANNUAL STLMLC STLMLC [id number] Common 00:00:00 00:00:00 MCR Spirit WELLNESS - CHI VISIT [facility] 2021-07-26 2021-07-26 OFFICE STLMLC STLMLC [id number] Co mmon 00:00:00 00:00:00 VISIT NEW Spir it PT LEVEL 3 - CHI [facility] 2021-07-07 2021-07-07 Outpatient R LEOBARDO [facility] [id number] Univers 10:00:00 10:26:15 SENDIL ity [facility] 2021-07-07 2021-07-07 [facility] 1.2.840.114 [id number] Univers 10:00:00 10:26:15 Visit Patt SHETTY 350.1.13.10 [facility] [place] [phone] Ny dical NAL [address] [place] [address] 2021-07-07 2021-07-07 Outpatient R LEOBARDO [facility] [id number] Univers 10:00:00 10:26:15 SENDIL ity [facility] 2021-05-28 2021-05-28 Outpatient R MAZIN HERNADEZ [facility] 10 [id number] Univers 09:30:00 09:59:09 MAZIN HERNADEZ i ty [facility] 2021-05-28 2021-05-28 Outpatient R MAZIN HERNADEZ [facility] 10 [id number] Univers 09:30:00 09:59:09 MAZIN HERNADEZ i ty [facility] 2021-05-28 2021-05-28 Office Narinder [facility] 1.2.840.114 [id number] Univers 09:09:28 09:59:09 Visit Mazin SHETTY 350.1.13.10 i ty of [facility] 4.2.7.2.[place] [facility] [phone] Ny dical NAL 085 [facility] 2021-04-21 2021-04-21 Meat Boner And Slicer Therapist, Adc Respiratory [facility] 1.2.840.114 [id number] Univers 13:44:05 15:14:05 Visit Jaxon Gianni Reza SHETTY 350.1.13. 10 ity of [facility] 4.2.7.2.[place] [phone] [facility] 083 Branch 2021-04-21 2021-04-21 Outpatient Margareth WALLER [facility] [id number] Univers 14:00:00 14:00:00 GIANNI itradha [facility] 2021-04-19 2021-04-19 Laboratory Only, Adc Test [facility] 1.2.840. 114 [id number] Univers 09:05:05 09:20:05 Only Narinder Mazin SHETTY 350.1.13.10 ity of [place] 4.2.7.2.686 [facility] [phone] [facility] [address] 2021-04-19 2021-04-19 Outpatient Margareth RIVERA [facility] [id number] Univers 09:15:00 09:15:00 FAN itradha [facility] 2021-04-19 2021-04-19 Orders Doctor BATISTA 1.2.840.114 [id number] Univers 00:00:00 00:00:00 Only Unassigned, SUSAN 350.1.13.10 ity of [place] [facility] 4.2.7.2.686 Thom as [phone] [facility] 00[address] Branch 2021-03-15 2021-03-15 Outpatient ZELDA NIÑO MDA MDA [id number] 08:00:18 08:41:34 Cornel lewis 2021-03-15 2021-03-15 Outpatient ZACH TTAE MDA [id number] 08:37:45 08:37:45 Cornel lewis 2021-03-03 2021-03-03 [facility] 1.2.840.114 [id number] Univers 13:46:36 14:21:59 Visit Sendil TomerRosalinaLuis ManuelRosalina Shetty 350.1.13.10 ity of [place] [phone] Ny dical nal 059 [facility] 2021-03-03 2021-03-03 [facility] [id number] Univers 14:00:00 14:00:00 SENDIL ity [facility] 2021-03-02 2021-03-02 [facility] [id number] Univers 10:30:00 10:30:00 [facility] 2021-02-26 2021-02-26 [facility] 1.2.840.114 [id number] Univers 10:13:15 10:43:15 Visit Mazin Shetty 350.1.13.10 i ty of [place] [phone] Ny dical nal 085 [facility] 2021-02-26 2021-02-26 Office [facility] 1.2.840.114 [id number] Univers 10:13:15 10:43:15 Visit Mazin Shetty 350.1.13.10 i ty of [place] 4[place].2.[place] [phone] Ny dical nal 085 [facility] 2021-02-26 2021-02-26 Outpatient R MAZIN HERNADEZ [facility] [id number] Univers 10:20:00 10:20:00 MAZIN HERNADEZ i ty of [facility] 2021-02-18 2021-02-18 Outpatient R MAZIN HERNADEZ [facility] [id number] Univers 11:00:00 11:00:00 MAZIN HERNADEZ i ty of [facility] 2020-12-04 2020-12-04 Outpatient LEAH GUEVARA MDA, MDA [id number] 04:28:43 04:28:43 Cornelclark lewis 2020-12-04 2020-12-04 Outpatient EL LE, XIUNING MDA MDA [id number] MD 04:28:42 04:28:42 Cornel o n 2020-12-04 2020-12-04 Outpatient EL LE, XIUNING MDA MDA [id number] MD 04:28:41 04:28:41 Cornel o n 2020-12-04 2020-12-04 Outpatient EL LE, XIUNING MDA MDA [id number] MD 04:28:40 04:28:40 Cornel o n 2020-12-04 2020-12-04 Outpatient EL LE, XIUNING MDA MDA [id number] MD 04:28:39 04:28:39 Cornel o n 2020-12-04 2020-12-04 Outpatient EL LE, XIUNING MDA MDA [id number] MD 04:28:38 04:28:38 Cornel o n 2020-12-04 2020-12-04 Outpatient EL LE, XIUNING MDA MDA [id number] MD 04:28:37 04:28:37 Cornel o n 2020-12-04 2020-12-04 Outpatient EL LE, XIUNING MDA MDA [id number] MD 04:28:36 04:28:36 Cornel o n 2020-12-04 2020-12-04 Outpatient EL LE, XIUNING MDA MDA [id number] MD 04:28:35 04:28:35 Cornel o n 2020-12-04 2020-12-04 Outpatient EL LE, XIUNING MDA MDA [id number] MD 04:28:34 04:28:34 Cornel o n 2020-12-04 2020-12-04 Outpatient EL LE, XIUNING MDA MDA [id number] MD 04:28:33 04:28:33 Cornel o n 2020-12-04 2020-12-04 Outpatient EL LE, XIUNING MDA MDA [id number] MD 04:28:32 04:28:32 Cornel o n 2020-12-04 2020-12-04 Outpatient EL LE, XIUNING MDA MDA [id number] MD 04:28:31 04:28:31 Cornel o n 2020-12-04 2020-12-04 Outpatient EL LE, XIUNING MDA MDA [id number] MD 04:28:30 04:28:30 Cornel o n 2020-12-04 2020-12-04 Outpatient EL LEAH VILLELA MDA MDA [id number] 04:28:29 04:28:29 Cornel o n 2020-11-30 2020-11-30 Outpatient EL LEAH VILLELA MDA MDA [id number] 09:57:55 11:58:29 Cornel o n 2020-11-30 2020-11-30 Outpatient EL LE, LEAH MDA MDA [id number] 09:50:16 09:50:16 Cornel o n 2020-11-30 2020-11-30 Outpatient EL LE, LEAH MDA MDA [id number] 09:50:09 09:50:09 Cornel o joshua 2020-11-30 2020-11-30 Outpatient EL MDA MDA [id number] MD 09:29:25 09:38:07 Cornel o joshua 2020-11-27 2020-11-27 Outpatient EL MANOHAR, LEAH MDA MDA [id number] 09:07:26 09:28:50 Cornel o joshua 2020-11-26 2020-11-26 Office Narinder [facility] 1.2.840.114 [id number] Univers 12:45:29 13:57:59 Visit Mazin Shetty [id number] i ty [facility] [id number] [phone] [place] dical nal 085 [facility] 2020-11-26 2020-11-26 Outpatient R MAZIN HERNADEZ [facility] [id number] Univers 13:00:00 13:00:00 MAZIN HERNADEZ i ty of [facility] 2020-11-26 2020-11-26 Orders Doctor BATISTA 1.2.840.114 [id number] Univers 00:00:00 00:00:00 Only Unassigned, SUSAN [id number] ity of [place] [facility] 4.2.7.2.686 Thom as [phone] [address] 2020-11-20 2020-11-20 Orders Doctor BATISTA 1.2.840.114 [id number] Univers 00:00:00 00:00:00 Only Unassigned, SUSAN [id number] ity of [place] [facility] 4.2.7.2.686 Thom as [phone] [facility] [address] 2020-11-18 2020-11-18 [facility] 1.2.840.114 [id number] Univers 11:25:26 12:00:32 Visit [facility] [id number] i [place] [phone] [facility] and Clinics [address] 2020-11-18 2020-11-18 Outpatient R [facility] [id number] Univers 11:45:00 11:45:00 ity of [facility] 2020-11-10 2020-11-10 Patient Doctor LESTER 1.2.840.114 [id number] Univers 00:00:00 00:00:00 Secure Msg Unassigned, SUSAN 350.1.13.10 ity of [facility] 4.2.7.2.686 Thom as [phone] [address] 2020-10-16 2020-10-16 [facility] 1.2.840.114 [id number] Univers 08:07:38 09:04:[address] 350.1.13.10 ity of [place] [phone] Ny dical formerly [facility] [address] 2020-10-16 2020-10-16 [facility] [id number] Univers 08:15:00 08:15:00 MARLENE chaudhry o f [facility] 2020-10-10 2020-10-10 Patient Doctor LESTER 1.2.840.114 [id number] Univers 00:00:00 00:00:00 Secure Msg Unassigned, SUSAN 350.1.13.10 ity of [facility] 4.2.7.2.686 Thom as [phone] [address] 2020-09-09 2020-09-09 Meat Boner And Slicer 2, Adc Lab [facility] 1.2.840.114 [id number] Univers 08:35:46 08:50:46 Visit Patt Booth 350.1.13. 10 ity of [place] [phone] Ny dicne nal 353 [facility] 2020-09-09 2020-09-09 Outpatient R LEOBARDO [facility] [id number] Univers 08:00:00 08:00:00 SENDIL ity [facility] 2020-09-02 2020-09-02 Outpatient R LEOBARDO [facility] [id number] Univers 13:00:00 13:00:00 SENDIL ity [facility] 2020-08-28 2020-08-28 Meat Boner And Slicer 2, Adc Lab [facility] 1.2.840.114 [id number] Univers 09:55:49 10:10:49 Visit Patt Booth 350.1.13. 10 ity of [place] [phone] [facility] 353 [facility] 2020-08-28 2020-08-28 [facility] 1.2.840.114 [id number] Univers 08:42:04 09:23:32 Visit Patt Shetty 350.1.13.10 ity of [place] [phone] Ny dicne nal 059 [facility] 2020-08-28 2020-08-28 Outpatient R LEOBARDO [facility] [id number] Univers 09:00:00 09:00:00 SENDIL ity [facility] 2020-08-24 2020-08-24 Patient Lobo [facility] 1.2.840.114 [id number] Univers 00:00:00 00:00:00 Outreach Tate PRIMARY 350.1.13.10 i ty of [facility] [place]2.7.2.[place] [phone] [address] 2020-08-11 2020-08-11 Hospital Leobardo [facility] 1.2.840.114 [id number] Univers 07:56:22 23:59:00 Encounter Sendil Haily Shetty 350.1.13.10 ity of [place] 4.2.7.2.686 [facility] [place] [phone] [place] [address] 2020-08-11 2020-08-11 [facility] 1.2.840.114 [id number] Univers 07:56:09 23:59:00 Encounter Sendil Haily Shetty 350.1.13.10 ity of [place] [phone] [address] 2020-08-11 2020-08-11 [facility] 1.2.840.114 [id number] Univers 07:55:53 07:55:53 Encounter Sendkaleb Shetty 350.1.13.10 ity of [place] 4.2.7.2.686 [facility] [place] [phone] [address] 2020-08-11 2020-08-11 [facility] 1.2.840.114 [id number] Univers 07:55:15 07:55:15 Encounter Sendkaleb Shetty 350.1.13.10 ity of [place] 4.2.7.2.686 [facility] [place] [phone] [address] 2020-08-11 2020-08-11 [facility] [id number] Univers 07:55:15 07:55:15 SENDIL ity of [facility] 2020-07-23 2020-07-23 Laboratory Pc, Adc Echo Room 1 - [facility] 1 .2.840.114 [id number] Univers 08:39:59 09:50:03 Only Patt Booth 350.1.13. 10 ity of [place].2.[place] [phone] Ny dical nal [address] 2020-07-23 2020-07-23 [facility] [id number] Univers 09:00:00 09:00:00 SENDIL ity of [facility] 2020-07-17 2020-07-17 Outpatient R LEOBARDO, [facility] [id number] Univers 13:00:00 13:00:00 SENDIL ity of [facility] 2020-07-17 2020-07-17 Orders Doctor LESTER 1.2.840.114 [id number] 00:00:00 00:00:00 Only Unassigned, SUSAN 350.1.13.10 ity of [facility] 4.2.7.2.686 Thom as [phone] [address] Results Test Description Test Time Test Comments Results Result Comments Source Transthoracic echo (TTE) 2023-04-29 04:05:20 Test Item Value Reference Range Interpretation Comme nts Height (test code = 3263588920) 70 in Weight (test code = 0086202923) 188 lbs Systolic BP (test code = 4023529278) 105 mmHg Diastolic BP (test code = 0183486885) 62 mmHg Heart Rate (test code = 9814310998) 74 bpm Ao root diam (test code = 9008748113) 4.00 cm Aortic root (test code = 4564797441) 4.0 cm Ao root annulus (test code = 4.0 cm 2938333240) BSA (test code = 4305528648) 2.03 m2 LVOT diameter (test code = 2.6 cm 0959046850) LVOT area (test code = 6961518903) 5.20 cm2 LA size (test code = 5291909149) 3.1 cm PV PEAK VELOCITY (test code = 58.7 cm/s 5330810222) PV peak gradient (test code = 1.38 mmHg 4478887976) LAV(MOD-sp4) (test code = 0050689771) 39.70 mL MV E-F slope (test code = 5501411979) 37.10 cm/s MV Peak E Salvatore (test code = 75.5 cm/s 0111425201) MV valve area p 1/2 method (test code 3.30 cm2 = 4058089229) MV dec slope (test code = 2787973702) 319.80 cm/s2 MV P1/2t max salvatore (test code = 73.90 cm/s 7302415599) MV Peak A Salvatore (test code = 104.3 cm/s 8444697821) E/A ratio (test code = 1303138233) 0.72 ratio MR max PG (test code = 7182733882) 22.50 mm[Hg] MR max salvatore (test code = 9285712300) 237.40 cm/s Mr max salvatore (test code = 1501578301) 237.4 m/s LVOT stroke volume (test code = 120.80 cm3 5819064794) LVOT peak salvatore (test code = 130.0 cm/s 5331971228) LVOT mn grad (test code = 3607438522) 3.0 mmHg AV LVOT peak gradient (test code = 6.8 mmHg 7766015105) LVOT peak VTI (test code = 23.2 cm 2455981902) LV V1 mean (test code = 7320338283) 80.50 cm/s Aortic valve mean velocity (test code 108.6 cm/s = 1658390697) Ao peak salvatore (test code = 1092526855) 190.9 cm/s Ao VTI (test code = 6361240929) 35.3 cm AV area by cont VTI (test code = 3.4 cm2 1836245014) AV area peak salvatore (test code = 3.6 cm2 7220107498) Ao max PG (test code = 3755779902) 14.60 mm[Hg] AV peak gradient (test code = 14.6 mmHg 5066724189) AV valve area (test code = 3.40 cm2 7620930915) AV mean gradient (test code = 5.8 mmHg 6577193157) AV regurgitation pressure 1/2 time 645.8 ms (test code = 2559466915) AI dec slope (test code = 8655358785) 146.20 cm/s2 AI max salvatore (test code = 7257218222) 322.40 cm/s AI max PG (test code = 0582885482) 41.60 mm[Hg] TR Peak Salvatore (test code = 4928215400) 235.0 cm/s Triscuspid Valve Regurgitation Peak 22.3 mmHg Gradient (test code = 9809400797) LA Volume Index (BP) (test code = 18.2 mL/m2 0849885914) LA volume (BP) (test code = 37.1 mL 8958453203) LAV(MOD-sp2) (test code = 3516252047) 32.50 mL LVIDD (test code = 9021837356) 4.90 cm Left Ventricular End Diastolic Volume 113.5 mL by Teichholz Method (test code = 2250525) IVS (test code = 1394307118) 0.86 cm Interventricular Septum Diastolic 0.86 cm Thickness by 2D (test code = 9196341) LVPWD (test code = 6391848503) 0.99 cm PW (test code = 3879303954) 0.99 cm 0.6-1.1 EF(Teich) (test code = 7634845645) 56.00 % LVIDS (test code = 3992352140) 3.50 cm Left Ventricular End Systolic Volume 49.9 mL by Teichholz Method (test code = 6412823) FS (test code = 1175408081) 29 % EF - 2D (test code = 25346615) 56.00 % Radiology Study observation (narrative) (test code = 54149-1) OMAR (test code = OMAR) ?Left?Ventricle: Left [...] mL of Lumason ultrasound enhancing agent [facility]. [facility], AAA [id number] 14:34:00Addendum BeginsREPORT STATUS:A Addendum: I agree with the previously described non vascular findings by Dr. Castro. Signed: Nathan Johnston MDReport Verified Date/Time: 09/25/2017 14:34:58 Reading Location: [place] [address] Angio Body Reading RoomAddendum EndsFINAL REPORT [id number] [...] and during intravenous contrast administration using a [employer] CT scanner. Images were obtained before and [...] dictated regarding the non-vascular findings by the Chair Car Attendant Radiologist. Signed: Joaquín Castro MDReport Verified Date/Time: 09/25/2017 10:55:28 Reading Location: [place] [address] Cardiology MRI [id number] 09:56:00 Test Item Value Reference Range Interpretation Comments POC-CREATININE 0.7 mg/dL 0.6-1.3 TESTED AT [facility] ([facility]) (test [address] [facility] code = 1859) [facility] 7703 0 POC-EGFR 114 mL/min/1.73M2 ([employer]) (test code = 1860) CT, CTA, [id number] 09:31:00Addendum BeginsREPORT STATUS:A Addendum: I agree with the previously described non vascular findings. Signed: Maryellen Stiles MDReport Verified Date/Time: 09/05/2017 09:31:21 Reading Lo cation: [facility] [address] B1 P048 Angio Body Reading RoomAddendum EndsFINAL [...] dictated regarding the non-vascular findings by the Chair Car Attendant Radiologist. Signed: Joaquín Castro MDReport Verified Date/Time: 09/04/2017 17:13:07 Reading Location: [place] [address] Cardiology MRI [id number] 14:44:00 Test Item Value Reference Range Interpretation Comments POC-CREATININE 0.8 mg/dL 0.6-1.[address] [facility] 6720 (BEAKER) (test [place] code = 1859) [address] POC-EGFR (BEAKER) 98 mL/min/1.73M2 (test code = 1860) BASIC METABOLIC [id number] 07:48:00 Test Item Value Reference Range Interpretation [...] PATIEN TS. CBC W/PLT COUNT & AUTO [id number] 07:14:00 Test Item Value Reference Range Interpretation [...] = 2801) CBC W/PLT COUNT & AUTO [id number] 07:30:00 Test Item Value Reference Range Interpretation [...] (BEAKER) (test code = 2801) BASIC METABOLIC [id number] 07:26:00 Test Item Value Reference Range Interpretation [...] NOT APPLICABLE FOR DIALYSIS PATIEN TS. POCT-GLUCOSE [id number] 08:28:00 Test Item Value Reference Range Interpretation Comments POC-GLUCOSE METER 90 mg/dL 70-110 TESTED AT [facility] 6720 (BEAKER) (test code = JAY Zuluaga [facility] [address] 1538) CBC W/PLT COUNT & AUTO [id number] 06:41:00 Test Item Value Reference Range Interpretation [...] (BEAKER) (test code = 2801) BASIC METABOLIC [id number] 06:11:00 Test Item Value Reference Range Interpretation [...] NOT APPLICABLE FOR DIALYSIS PATIEN TS. POCT-GLUCOSE [id number] 03:06:00 Test Item Value Reference Range Interpretation Comments POC-GLUCOSE METER 86 mg/dL 70-110 TESTED AT [place] [address] (BEAKER) (test code = [facility] [address] 1538) POCT-GLUCOSE [id number] 17:51:00 Test Item Value Reference Range Interpretation Comments POC-GLUCOSE METER 98 mg/dL 70-110 TESTED AT [place] [address] [facility] (test code = [facility] [address] 1538) URINALYSIS W/ REFLEX URINE [id number] 12:37:00 Test Item Value Reference Range Interpretation [...] 516) SOURCE(BEAKER) (test code = 2795) POCT-GLUCOSE [id number] 12:09:00 Test Item Value Reference Range Interpretation Comments POC-GLUCOSE METER 119 mg/dL 70-110 H TESTED AT [facility] 6720 ([facility]) (test code = [place]AY [place] 1538) [address] BASIC METABOLIC [id number] 09:23:00 Test Item Value Reference Range Interpretation [...] 358) GLUCOSE RANDOM 113 mg/dL 70-105 H (AKER) (test code = 652) CALCIUM (BEAKER) 8.7 mg/dL 8.4-10.2 (test code = 697) EGFR (BEAKER) (test 107 mL/min/1.73 ESTIM ATED GFR IS code = 1092) sq m NOT ACCURATE CREATININE CLEARANCE IN PREDICTING GLOMERULAR FILTRATION RATE . ESTIMATED GFR I S NOT APPLICABLE FOR DIALYSIS PATIEN TS. POCT-GLUCOSE [id number] 08:41:00 Test Item Value Reference Range Interpretation Comments POC-GLUCOSE METER 114 mg/dL 70-110 H TESTED AT [place] [address] ([facility]) (test code = JAY Zuluaga [facility] 1538) [address] RAD, CHEST, 1 VIEW, NON [id number] 07:48:00Reason for exam:->Post-OpShould this be performed at the bedside?->YesFINAL REPORT Chest one view AP 05/10/2017 7:47 AM CLINICAL INDICATION: Post-Op COMPARISON: 05/09/2017 IMPRESSION: There is bibasilar atelectasis. There is a trace left pleural effusion. Cardiomediastinal contours are within normal limits. The central pulmonary vasculature is not engorged. An enteric tube is present. Signed: Noe Jungeport Verified Date/Time: 05/10/2017 0 7:48:05 Reading Location: [facility] Radiology Reading Room CBC W/PLT COUNT & AUTO [id number] 07:36:00 Test Item Value Reference Range Interpretation [...] EOSINOPHILS ABSOLUTE COUNT 0.07 K/ L 0.04-0.54 (AKER) (test code = 416) BASOPHILS ABSOLUTE COUNT (AKER) 0.04 K/ L 0.01-0.08 (test code = 417) IMMATURE GRANULOCYTES-RELATIVE 1 % 0-1 PERCENT ([facility]) (test code = 2801) POCT-GLUCOSE [id number] 22:44:00 Test Item Value Reference Range Interpretation Comments POC-GLUCOSE METER 128 mg/dL 70-110 H TESTED AT [place] [address] ([facility]) (test code = JAY Zuluaga [facility] 1538) [address] POCT-GLUCOSE [id number] 17:22:00 Test Item Value Reference Range Interpretation Comments POC-GLUCOSE METER 106 mg/dL 70-110 TESTED AT [place] [address] ([facility]) (test code = JAY Zuluaga [facility] 1538) [address] RAD, ABDOMEN/KUB, 1 VIEW [id number] 12:38:00Reason for exam:->ileusFINAL REPORT Abdomen two views supine 05/09/2017 12:38 PM CLINICAL INDICATION: ileus COMPARISON: None available IMPRESSION: There is no radiographic evidence for bowel obstruction.There is mild ileus. No abnormal calcifications are seen in the region of the gallbladder or kidneys. There are no acute-appearing skeletal abnormalities. Signed: Noe Jung Verified Date/Time: 05/09/2017 12:38:47 Reading Location: [address] Consult Reading Room POCT-GLUCOSE [id number] 12:19:00 Test Item Value Reference Range Interpretation Comments POC-GLUCOSE METER 102 mg/dL 70-110 TESTED AT [place] [address] ([facility]) (test code = JAY Zuluaga [facility] 1538) [address] POCT-GLUCOSE [id number] 06:45:00 Test Item Value Reference Range Interpretation Comments POC-GLUCOSE METER 104 mg/dL 70-110 TESTED AT [place] [address] ([facility]) (test code = [facility] Margareth [facility] 1538) [address] RAD, CHEST, 1 VIEW, NON [id number] 05:01:00Reason for exam:->Post-OpShould this be performed at [...] No evidence of a significant pneumothorax. Signed:Adriano Peressaint [facility] Verified Date/Time: 05/09/2017 05:01:39 Reading Location: [address] Reading Room [id number] 03:47:00 Test Item Value Reference Range Interpretation Comments PHOSPHORUS (BEAKER) (test code = 2.7 mg/dL 2.3-4.7 604) [id number] 03:47:00 Test Item Value Reference Range Interpretation Comments MAGNESIUM (BEAKER) (test code = 1.8 mg/dL 1.6-2.6 627) BASIC METABOLIC [id number] 03:47:00 Test Item Value Reference Range Interpretation [...] DIALYSIS PATIEN TS. LACTIC ACID, ARTERIAL, WHOLE [id number] 03:42:00 Test Item Value Reference Range Interpretation Comments LACTATE BLOOD ARTERIAL (2) 0.9 mmol/L 0.5-2.2 (BEAKER) (test code = 2874) Effective 10/21/2015: Units/Reference Range ChangeNew: 0.5-2.2 mmol/L Previous: 5- 20 mg/dLCALCIUM, [id number] 03:39:00 Test Item Value Reference Range Interpretation Comments CALCIUM IONIZED (BEAKER) (test 1.15 mmol/L 1.12-1.27 code = 698) PH, BLOOD (BEAKER) (test code = 7.42 1810) CBC W/PLT COUNT & AUTO [id number] 03:36:00 Test Item Value Reference Range Interpretation [...] (BEAKER) (test code = 2801) OXYGEN SATURATION, [id number] 03:35:00 Test Item Value Reference Range Interpretation Comments O2 SATURATION (MEASURED) (BEAKER) 64.0 % (test code = 1455) POCT-GLUCOSE [id number] 01:07:00 Test Item Value Reference Range Interpretation Comments POC-GLUCOSE METER 96 mg/dL 70-110 TESTED AT [facility] 6720 (BEAKER) (test code = JAY Zuluaga [facility] [address] 1538) BLOOD GAS, [id number] 12:28:00 Test Item Value Reference Range Interpretation [...] 60.0 % RAD, CHEST, 1 VIEW, NON [id number] 11:05:00Reason for exam:->Post-OpShould this be performed at the bedside?->YesFINAL REPORT Chest one view AP 05/08/2017 11:05 AM CLINICAL INDICATION: Post-OpCOMPARISON: 05/02/2017 IMPRESSION: Support hardware is in satisfactory radiographic position. Cardiomediastinal contours are stable. The central pulmonary vasculature is not engorged. The lungs are clear, save for scattered foci of linear atelectasis. Signed: Noe Jung Verified Date/Time: 05/08/2017 11:05:58 Reading Location: [facility] Radiology Reading Room MAGNESIUM 2017-05-08 11:03:00 Test Item Value Reference Range Interpretation Comments MAGNESIUM (BEAKER) (test code = 2.0 mg/dL 1.6-2.6 627) BASIC METABOLIC [id number] 11:03:00 Test Item Value Reference Range Interpretation [...] DIALYSIS PATIEN TS. LACTIC ACID, ARTERIAL, WHOLE [id number] 10:58:00 Test Item Value Reference Range Interpretation Comments LACTATE BLOOD ARTERIAL (2) 0.6 mmol/L 0.5-2.2 (BEAKER) (test code = 2874) Effective 10/21/2015: Units/Reference Range ChangeNew: 0.5-2.2 mmol/L Previous: 5- 20 mg/[id number] 10:57:00 Test Item Value Reference Range Interpretation [...] mechanical heart valves.CBC W/PLT COUNT & AUTO [id number] 10:53:00 Test Item Value Reference Range Interpretation [...] (BEAKER) (test code = 2801) OXYGEN SATURATION, [id number] 10:44:00 Test Item Value Reference Range Interpretation Comments O2 SATURATION (MEASURED) (BEAKER) 71.8 % (test code = 1455) BLOOD GAS, [id number] 10:42:00 Test Item Value Reference Range Interpretation [...] (test code = 1819) 60.0 % GLUCOSE-STAT [id number] 10:42:00 Test Item Value Reference Range Interpretation Comments GLUCOSE RANDOM (BEAKER) (test code 112 mg/dL 70-110 H = 652) SODIUM NA-STAT [id number] 10:41:00 Test Item Value Reference Range Interpretation Comments SODIUM (BEAKER) (test code = 381) 137 meq/L 135-148 POTASSIUM-STAT [id number] 10:41:00 Test Item Value Reference Range Interpretation Comments POTASSIUM (BEAKER) (test code = 4.2 meq/L 3.6-5.5 379) HGB/HCT (H&H) - STAT [id number] 10:41:00 Test Item Value Reference Range Interpretation Comments HEMOGLOBIN (BEAKER) (test code = 14.4 g/dL 13.0-16.8 410) HEMATOCRIT (BEAKER) (test code = 42.0 % 40.0-50.0 411) CALCIUM, [id number] 10:41:00 Test Item Value Reference Range Interpretation Comments CALCIUM IONIZED (BEAKER) (test 1.23 mmol/L 1.12-1.27 code = 698) PH, BLOOD (BEAKER) (test code = 7.37 1810) CALCIUM, [id number] 09:43:00 Test Item Value Reference Range Interpretation Comments CALCIUM IONIZED (BEAKER) (test 1.25 mmol/L 1.12-1.27 code = 698) PH, BLOOD (BEAKER) (test code = 7.32 1810) SODIUM NA-STAT [id number] 09:42:00 Test Item Value Reference Range Interpretation Comments SODIUM (BEAKER) (test code = 381) 138 meq/L 135-148 POTASSIUM-STAT [id number] 09:42:00 Test Item Value Reference Range Interpretation Comments POTASSIUM (BEAKER) (test code = 3.8 meq/L 3.6-5.5 379) BLOOD GAS, [id number] 09:42:00 Test Item Value Reference Range Interpretation [...] (test code = 1819) 61.0 % GLUCOSE-STAT [id number] 09:42:00 Test Item Value Reference Range Interpretation Comments GLUCOSE RANDOM (BEAKER) (test code 112 mg/dL 70-110 H = 652) HGB/HCT (H&H) - STAT [id number] 09:42:00 Test Item Value Reference Range Interpretation Comments HEMOGLOBIN (BEAKER) (test code = 13.1 g/dL 13.0-16.8 410) HEMATOCRIT (BEAKER) (test code = 39.0 % 40.0-50.0 L 411) SODIUM NA-STAT [id number] 08:37:00 Test Item Value Reference Range Interpretation Comments SODIUM (BEAKER) (test code = 381) 137 meq/L 135-148 POTASSIUM-STAT [id number] 08:37:00 Test Item Value Reference Range Interpretation Comments POTASSIUM (BEAKER) (test code = 3.9 meq/L 3.6-5.5 379) HGB/HCT (H&H) - STAT [id number] 08:37:00 Test Item Value Reference Range Interpretation Comments HEMOGLOBIN (BEAKER) (test code = 15.2 g/dL 13.0-16.8 410) HEMATOCRIT (BEAKER) (test code = 45.0 % 40.0-50.0 411) CALCIUM, [id number] 08:37:00 Test Item Value Reference Range Interpretation Comments CALCIUM IONIZED (BEAKER) (test 1.15 mmol/L 1.12-1.27 code = 698) PH, BLOOD (BEAKER) (test code = 7.37 1810) BLOOD GAS, [id number] 08:37:00 Test Item Value Reference Range Interpretation [...] (test code = 1819) 64.0 % GLUCOSE-STAT [id number] 08:37:00 Test Item Value Reference Range Interpretation Comments GLUCOSE RANDOM (BEAKER) (test code 111 mg/dL 70-110 H = 652) HEMOGLOBIN [id number] 12:07:00 Test Item Value Reference Range Interpretation Comments HEMOGLOBIN A1C (BEAKER) (test code = 5.6 % 4.3-6.1 368) RAD, CHEST, 2 [id number] 11:17:00Reason for Exam:->Pre-OpFINAL REPORT Chest x-ray, PA and lateral views Clinical History: Pre-Op Comparison: None Findings: The cardiac silhouette is normal. Aorta is mildly tortuous/ectatic. There is no pneumothorax, jeff pulmonary edema, consolidation or pleural effusion. Lungs appear mildly hyperinflated with flattening of the diaphragm. The bony structures demonstrate degenerative changes. Impression: Mild hyperinflation. Signed: Itzel [facility]ill[facility] Verified Date/Time: 05/02/2017 11:17:15 Reading Location: [facility] Radiology Reading Room BASIC METABOLIC [id number] 11:09:00 Test Item Value Reference Range Interpretation [...] NOT APPLICABLE FOR DIALYSIS PATIEN TS. PROTHROMBIN [id number] 11:05:00 Test Item Value Reference Range Interpretation Comments PROTIME (BEAKER) (test code = 12.9 seconds 11.7-14.7 759) INR (BEAKER) (test code = 370) 1.0 <=5.9 RECOMMENDED COUMADIN/WARFARIN INR THERAPY RANGESSTANDARD DOSE: 2.0 - 3.0 Includes: PROPHYLAXIS for venous thrombosis, systemic embolization; TREATMENT for venous thrombosis and/or pulmonary embolus.HIGH RISK: Target INR is 2.5-3.5 for patients with mechanical heart valves.CBC W/PLT COUNT & AUTO [id number] 10:46:00 Test Item Value Reference Range Interpretation [...] % 0-1 PERCENT (BEAKER) (test code = 3141)
--- NOTE | 2023-05-14 09:36 | EDPHYS ---
Physician Documentation [facility] Name: Sae Cardozo Age: 67 yrs Sex: Male : 1955 Arrival Date: 05/14/2023 Time: 09:03 Bed 19 Private MD: Patrick Landaverde ED Physician Duane Zamarripa HPI: 05/14 09:49 This 67 yrs old Male presents to ER via Ambulatory with complaints of Suture Recheck. snw 09:49 Patient presents to ED for recheck of: surgical incision s/p malignant mass resection . snw Historical: - Allergies: 09:06 No Known Allergies; ll1 - PMHx: 09:06 AAA; brain cancer; Cancer; COPD; ll1 - PSHx: 09:06 AAA repair; ll1 - Immunization history:: Adult Immunizations up to date. - Social history:: Smoking status: Patient denies any tobacco usage or history of. ROS: 09:49 Constitutional: Negative for fever, chills, and weight loss, snw 09:49 Skin: Positive for wound evaluation post being here last week with significant wound bleeding, Exam: 09:46 Constitutional: This is a well developed, well nourished patient who is awake, alert, snw and in no acute distress. Head/Face: Normocephalic, atraumatic. Eyes: Pupils equal round and reactive to light, extra-ocular motions intact. Lids and lashes normal. Conjunctiva and sclera are non-icteric and not injected. Cornea within normal limits. Periorbital areas with no swelling, redness, or edema. ENT: Nares patent. No nasal discharge, no septal abnormalities noted. Tympanic membranes are normal and external auditory canals are clear. Oropharynx with no redness, swelling, or masses, exudates, or evidence of obstruction, uvula midline. Mucous membranes moist. Neck: Trachea midline, no thyromegaly or masses palpated, and no cervical lymphadenopathy. Supple, full range of motion without nuchal rigidity, or vertebral point tenderness. No Meningismus. Chest/axilla: Normal chest wall appearance and motion. Nontender with no deformity. No lesions are appreciated. Cardiovascular: Regular rate and rhythm with a normal S1 and S2. No gallops, murmurs, or rubs. Normal PMI, no JVD. No pulse deficits. Respiratory: Lungs have equal breath sounds bilaterally, clear to auscultation and percussion. No rales, rhonchi or wheezes noted. No increased work of breathing, no retractions or nasal flaring. Abdomen/GI: Soft, non-tender, with normal bowel sounds. No distension or tympany. No guarding or rebound. No evidence of tenderness throughout. Back: No spinal tenderness. No costovertebral tenderness. Full range of motion. MS/ Extremity: Pulses equal, no cyanosis. Neurovascular intact. Full, normal range of motion. Neuro: Awake and alert, GCS 15, oriented to person, place, time, and situation. Cranial nerves II-XII grossly intact. Motor strength 5/5 in all extremities. Sensory grossly intact. Cerebellar exam normal. Normal gait. Psych: Awake, alert, with orientation to person, place and time. Behavior, mood, and affect are within normal limits. 09:46 Skin: Appearance: normal except for affected area, lesion(s), large surgical incision with Silk sutures, intact, to left forearm, under incision there is a surgical ellipsed wound that was previously dressed with surgicel and 2x2 with coban, dressing removed, edges of wound with minimal bleeding post removal, base of incision with granulation tissue, no active bleeding or infection , Vital Signs: 09:10 Weight 85.28 kg; Height 5 ft. 10 in. ; Pain 0/10; ll1 09:12 BP 118 / 77; Pulse 84; Resp 18; Temp 97.8(O); Pulse Ox 96% on R/A; Weight 85.28 kg; em1 Height 5 ft. 8 in. ; Pain 0/10; 09:35 BP 122 / 74; Pulse 80; Resp 16; Pulse Ox 97% ; ko1 09:12 Body Mass Index 28.59 (85.28 kg, 172.72 cm) em1 09:10 Pain Scale: Adult ll1 09:12 Pain Scale: Adult em1 Procedures: 09:45 Performed wound dressing change, surgicel removed, iodoform vas gauze placed with snw nonstick telfa and coban. MDM: 09:15 Patient medically screened. angela 09:50 Differential diagnosis: wound eval. Data reviewed: vital signs, nurses notes. snw Counseling: I had a detailed discussion with the patient and/or guardian regarding the historical points, exam findings, and any diagnostic results supporting the discharge/admit diagnosis, the need for outpatient follow up, for definitive care, to return to the emergency department if symptoms worsen or persist or if there are any questions or concerns that arise at home. Special discussion: I discussed in detail with the patient the higher chance of wound infection based on his presenting history. Based on the history and exam findings, there is no indication for further emergent testing or inpatient evaluation. I discussed with the patient/guardian the need to see the control panel builder for further evaluation of the symptoms. Administered Medications: No medications were administered Disposition Summary: 05/14/23 09:35 Discharge Ordered Notes: Location: Home snw Condition: Stable snw Diagnosis - Encounter for change or removal of surgical wound dressing snw Followup: snw - With: Emergency Department - When: As needed - Reason: Worsening of condition Followup: snw - With: Private Physician - When: 2 - 3 days - Reason: Recheck today's complaints, Continuance of care, Re-evaluation by your physician Discharge Instructions: - Discharge Summary Sheet snw - Laceration Care, Adult snw - Incision Care, Adult snw - How to Change Your Wound Dressing, [id number] snw Forms: - Medication Reconciliation Form snw - Thank You Letter snw - Antibiotic Education snw - Prescription Opioid Use snw - Patient Portal Instructions snw - Leadership Thank You Letter snw Signatures: Duane Zamarripa MD MD cha Waters, Shelly, APPAREL SALES LEADER-C APPAREL SALES LEADER-Ozzyw Lio Dobbs RN RN ll1 Corrections: (The following items were deleted from the chart) 09:06 09:06 PMHx: Cancer; ll1 ll1 09: 09:06 PMHx: Cancer; ll1 ll1 09:06 09:06 PMHx: Cancer; ll1 ll1
--- NOTE | 2023-05-14 09:36 | ER ---
Nurse's Notes [facility] Name: Sae Cardozo Age: 67 yrs Sex: Male : 1955 Arrival Date: 05/14/2023 Time: 09:03 Bed 19 Private MD: Patrick Landaverde Diagnosis: Encounter for change or removal of surgical wound dressing Presentation: 05/14 09:07 Chief complaint: Patient states: Here for suture recheck, placed 05/12. States it ll1 started bleeding, dressing in place. No fever or pain. Coronavirus screen: Client denies travel out of the [place] in the last 14 days. At this time, the client does not indicate any symptoms associated with coronavirus-19. Ebola Screen: Patient denies travel to an Ebola-affected area in the 21 days before illness onset. Initial Sepsis Screen: Does the patient meet any 2 criteria? No. Patient's initial sepsis screen is negative. Does the patient have a suspected source of infection? Yes: Skin breakdown/wound. Risk Assessment: Do you want to hurt yourself or someone else? Patient reports no desire to harm self or others. Onset of symptoms was May 12, 2023. 09:07 Method Of Arrival: Ambulatory ll1 09:07 Acuity: JIMMIE 4 ll1 Triage Assessment: 09:11 General: Appears in no apparent distress. Behavior is calm, cooperative, appropriate ll1 for age. Pain: Denies pain. Derm: Reports suture site to L arm started bleeding. Musculoskeletal: Circulation, motion, and sensation intact. Capillary refill < 3 seconds. Historical: - Allergies: 09:06 No Known Allergies; ll1 - PMHx: 09:06 AAA; brain cancer; Cancer; COPD; ll1 - PSHx: 09:06 AAA repair; ll1 - Immunization history:: Adult Immunizations up to date. - Social history:: Smoking status: Patient denies any tobacco usage or history of. Screenin:35 [facility] ED Fall Risk Assessment (Adult) History of falling in the last 3 months, ko1 including since admission Yes- single mechanical fall (1 pt) Confusion or Disorientation No (0 pts) Intoxicated or Sedated No (0 pts) Impaired Gait No (0 pts) Mobility Assist Device Used No (0 pt) Altered Elimination No (0 pt) Score/Fall Risk Level 0 - 2 = Low Risk Oriented to surroundings, Maintained a safe environment, Educated pt \T\ family on fall prevention, incl call for assistance when getting out of bed, Assessed \T\ reinforced patient's understanding of fall precautions, Provided non-skid footwear, Hourly rounding (assess needs \T\ fall precautionary measures) done, Used ambulatory aids as needed (educated on \T\ assisted with). Abuse screen: Denies threats or abuse. Denies injuries from another. Nutritional screening: No deficits noted. Tuberculosis screening: No symptoms or risk factors identified. Assessment: 09:15 Neuro: No deficits noted. Cardiovascular: No deficits noted. Respiratory: No deficits ko1 noted. GI: No deficits noted. : No deficits noted. EENT: No deficits noted. Derm: Wound noted palmar aspect of left forearm. Musculoskeletal: No deficits noted. Vital Signs: 09:10 Weight 85.28 kg; Height 5 ft. 10 in. ; Pain 0/10; ll1 09:12 BP 118 / 77; Pulse 84; Resp 18; Temp 97.8(O); Pulse Ox 96% on R/A; Weight 85.28 kg; em1 Height 5 ft. 8 in. ; Pain 0/10; 09:35 BP 122 / 74; Pulse 80; Resp 16; Pulse Ox 97% ; ko1 09:12 Body Mass Index 28.59 (85.28 kg, 172.72 cm) em1 09:10 Pain Scale: Adult ll1 09:12 Pain Scale: Adult em1 ED Course: 09:04 Patient arrived in ED. as 09:06 Patrick Landaverde DO is Private Physician. as 09:06 Arm band placed on Patient placed in an exam room, on a stretcher. ll1 09:07 Triage completed. ll1 09:11 Indu Alston FNP-C is PHCP. snw 09:11 Duane Zamarripa MD is Attending Physician. snw 09:35 Patient has correct armband on for positive identification. Bed in low position. Call ko1 light in reach. Provided Education on: wound care. 09:35 No provider procedures requiring assistance completed. Patient did not have IV access ko1 during this emergency room visit. 09:55 Adamaris Greenwood, PARADISE is Primary Nurse. ko1 Administered Medications: No medications were administered Medication: 09:35 VIS not applicable for this client. ko1 Outcome: 09:35 Discharge ordered by . zenobia 09:57 Discharged to home ambulatory, ko1 09:57 Condition: stable 09:57 Discharge instructions given to patient, Instructed on discharge instructions, follow up and referral plans. wound care, Demonstrated understanding of instructions, follow-up care, medications, wound care, 09:57 Patient left the ED. ko1 Signatures: Indu Alston, STRUCTURAL METAL FABRICATOR APPRENTICE-C STRUCTURAL METAL FABRICATOR APPRENTICE-Elida Soria Eric em1 Lio Dobbs, PARADISE RN ll1 Adamaris Greenwood RN RN ko1 Corrections: (The following items were deleted from the chart) 09:06 09:06 PMHx: Cancer; ll1 ll1 09:06 09:06 PMHx: Cancer; 1 [facility] 09:06 09:06 PMHx: Cancer; 1 1 09:11 09:07 Chief complaint: Patient states: Here for suture recheck, placed 05/12 [place] [id number]
[2023-05-14 10:04] VITALS: TEMP 97.8
[2023-05-14 10:06] VITALS: BP 122/74; O2SAT 97
== END 2023-05-14 09:57 | disposition home or self-care (01) ==
LOC: ER 09:03
DX: Z48.01 Encounter for change or removal of surgical wound dressing (principal)
CPT/HCPCS: 99282

== ENCOUNTER 2023-05-29 14:01 | Emergency (ER) | payer OTHER, BC ==
--- OUTSIDE RECORDS SUMMARY | 2023-05-29 14:33 | XMS REPORT | Clinical Summary ---
Author Name Unknown Organization [facility] Address [address] [place] [address] Care Team Providers Care Head Bellhop Captain Name Role Phone Joon Valdes MD Unavailable [phone] Ashley Benitez MD Primary Care Provider [phone] Allergies No known active allergies Medications Medication Sig Dispensed Refills Start Date End Date Status Anoro Ellipta 62.5-25 mcg/actuation dsdv Inhale 1 puff by mouth daily. 0 11/26/2020 Active alip acid/biotin/mins16/h erb91 (BLOOD SUGAR BALANCE ORAL) Take 2 tablets by mouth daily. 0 Active multivitamin capsule Take 1 capsule by mouth daily. 0 Active zinc gluconate 50 mg tablet Take 50 mg by mouth daily. 0 Active aspirin 81 mg EC tablet Take 81 mg by mouth daily. 0 Active albuterol (VENTOLIN HFA,PROAIR HFA) 90 mcg/puff inhaler Inhale 2 puffs by mouth as needed. 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 dent ures & implants Pneumonia 2014 Fatty liver 10/2019 Diabetes mellitus 6.2 Anxiety 2015 Chronic obstructive pulmonary disease 12/18/2019 Social History Tobacco Use Types Packs/Day Years Used Date Smoking Tobacco: Former Cigarettes 1.5 49 Q uit: 06/27/2018 Smokeless Tobacco: Never Alcohol Use Standard Drinks/Week Comments Yes 32 (1 standard drink = 0.6 oz pu re alcohol) Sex and Gender Information Value Date Recorded Sex Assigned at Male 11/26/2020 7:01 PM CDT Gender Identity Male 11/26/2020 7:01 PM CDT Sexual Orientation Straight 11/26/2020 7: 01 PM CDT Job Start Date Occupation Industry Not on file Not on file Not on file Obstetrics History Plan of Treatment Health Maintenance Due Date Last Done Comments COVID-19 Vaccination (#1) 1955 Care Teams Head Bellhop Captain Relationship Specialty Start Date End Date Joon Valdes MD [facility] [place] [address] [place] [address] PCP - External Follow Up A Radiation Oncology 11/20/20 [place] [address] [place] [id number] PCP - General Thoracic Medicine 11/24/20
[2023-05-29 14:38] LABS: Absolute Lymphocytes (CBC) 0.6 K/uL (0.7-4.9); Hematocrit 46.5 % (39.6-49.0); MCV 92.5 fL (80-100); Platelets 205 thou/uL (152-406); RBC Red Blood Cell Count 5.03 M/uL (4.33-5.43)
[2023-05-29 14:47] LABS: Protime INR 1.12
--- NOTE | 2023-05-29 15:06 | RAD REPORT ---
EXAM DESCRIPTION: Zoran Coronel And Lat (2 Views)05/29/2023 2:32 pm CLINICAL HISTORY: Cough COMPARISON: May 25, 2020. FINDINGS: Chronic elevation left hemidiaphragm with chronic left basilar lung opacities Right lung appears clear of acute infiltrate. Heart is mildly enlarged
[2023-05-29 15:10] LABS: Albumin 3.7 g/dL (3.4-5.0); Bilirubin Total 0.7 mg/dL (0.2-1.0); Potassium 3.9 mEq/L (3.5-5.1); Protein, Total 7.9 g/dL (6.4-8.2)
[2023-05-29 16:51] LABS: SARS-CoV-2 Antigen Rapid Res Negative (Negative)
--- NOTE | 2023-05-29 17:31 | EDPHYS ---
Physician Documentation [facility] Name: Sae Cardozo Age: 67 yrs Sex: Male : 1955 Arrival Date: 05/29/2023 Time: 14:01 Bed 12 Private MD: Akhil [facility] ED Physician Stu Cabezas HPI: 05/29 14:28 This 67 yrs old Male presents to ER via Ambulatory with complaints of Pneumonia. ms3 14:28 67-year-old male with past medical history of AAA, brain cancer, COPD presents to the [facility] emergency department for cough, body aches, weakness, headache that began on Monday. Patient states his discomfort is a 6/10. Patient states the pain is worse with walking. Patient denies any alleviating or inciting factors. Historical: - Allergies: 14:08 No Known Allergies; cm10 - PMHx: 14:08 AAA; brain cancer; Cancer; COPD; cm10 - PSHx: 14:08 AAA repair; cm10 - Immunization history:: Adult Immunizations unknown. - Social history:: Smoking status: Patient/guardian denies using tobacco, the patient reports quitting approximately 5 years ago. ROS: 14:28 Constitutional: Negative for fever, and chills. Cardiovascular: Negative for chest ms3 pain, and palpitations. Abdomen/GI: Negative for abdominal pain, nausea, vomiting, diarrhea, and constipation, MS/Extremity: Negative for injury and deformity, 14:28 Respiratory: Positive for cough, 14:28 All other systems are negative, Exam: 14:28 Constitutional: This is a well developed, well nourished patient who is awake, alert, ms3 and in no acute distress. Neck: Trachea midline, no cervical lymphadenopathy. Supple, full range of motion without nuchal rigidity, or vertebral point tenderness. No Meningismus. Chest/axilla: Normal chest wall appearance and motion. Nontender with no deformity. 14:28 Cardiovascular: Rate: tachycardic, Rhythm: regular, Pulses: no pulse deficits are appreciated, Heart sounds: normal, normal S1and S2, 14:28 Respiratory: the patient does not display signs of respiratory distress, Respirations: normal, Breath sounds: rales, that are moderate, are heard in the right posterior lower lobe, 17:01 ECG was reviewed by the Attending Physician. ms3 Vital Signs: 14:09 BP 124 / 83; Pulse 118; Resp 22; Temp 98.4; Pulse Ox 96% on R/A; Weight 86.18 kg; cm10 Height 5 ft. 10 in. ; 14:46 BP 112 / 74; Pulse 85; Resp 18; Pulse Ox 93% on R/A; me1 15:30 BP 111 / 72; Pulse 82; Resp 21; Pulse Ox 94% on R/A; me1 16:46 BP 109 / 74; Pulse 87; Resp 15; Pulse Ox 92% on R/A; me1 14:09 Body Mass Index 27.26 (86.18 kg, 177.8 cm) cm10 MDM: 14:28 Patient medically screened. ms3 14:28 Differential Diagnosis: Bronchitis Influenza Upper Respiratory Infection Viral Syndrome ms3 Pneumonia. 17:20 Refusal of service: The patient/guardian displays adequate decision making capability ms3 and despite a detailed discussion of alternatives, benefits, risks, and consequences refuses: Admission to the hospital for further work-up and treatment. ED course: Discussed admission with patient and patient declines. Will give nebulizer and IV abx prior to discharge. Patient agrees. Discussed risks of discharge with patient to include and disability and patient understands risks.. 17:33 Data reviewed: vital signs, nurses notes, lab test result(s), EKG, radiologic studies, ms3 and as a result, I will discharge patient. Consideration of Admission/Observation Escalation of care including admission/observation considered. Patient states he does not want to be admitted. "I just want some antibiotics to get me over this.". I considered the following discharge prescriptions or medication management in the emergency department Medications were administered in the Emergency Department. See MAR. Independent interpretation of the following test(s) in the Emergency Department EKG: See my EKG interpretation above. Care significantly affected by the following chronic conditions: Chronic Obstructive Pulmonary Disease, Cancer. Counseling: I had a detailed discussion with the patient and/or guardian regarding the historical points, exam findings, and any diagnostic results supporting the discharge/admit diagnosis, lab results, radiology results, the need for outpatient follow up, to return to the emergency department if symptoms worsen or persist or if there are any questions or concerns that arise at home. 05/29 14:17 Order name: Blood Culture Adult (2) ms3 05/29 14:17 Order name: CBC with Diff; Complete Time: 15:10 ms3 05/29 14:17 Order name: CMP; Complete Time: 16:24 ms3 05/29 14:17 Order name: Lactate w/ 2H reflex if indic.; Complete Time: 15:10 ms3 05/29 14:17 Order name: Protime (+inr); Complete Time: 15:10 ms3 05/29 14:17 Order name: Ptt, Activated; Complete Time: 15:10 ms3 05/29 15:11 Order name: Flu; Complete Time: 17:15 ms3 05/29 15:11 Order name: SARS RAPID; Complete Time: 17:00 ms3 05/29 14:17 Order name: Chest Pa And Lat (2 Views) XRAY; Complete Time: 15:10 ms3 05/29 14:17 Order name: EKG; Complete Time: 14:18 ms3 05/29 14:17 Order name: Accucheck; Complete Time: 16:30 ms3 05/29 14:17 Order name: Cardiac monitoring; Complete Time: 16:48 ms3 05/29 14:17 Order name: EKG - Nurse/Tech; Complete Time: 16:48 ms3 05/29 14:17 Order name: IV Saline Lock - Large Bore; Complete Time: 14:24 ms3 05/29 14:17 Order name: Labs collected and sent; Complete Time: 14:24 ms3 05/29 14:17 Order name: O2 Per Protocol; Complete Time: 14:24 ms3 05/29 14:17 Order name: O2 Sat Monitoring; Complete Time: 14:23 ms3 05/29 14:17 Order name: Vital Signs; Complete Time: 14:23 ms3 EC:01 Rate is 82 beats/min. Rhythm is regular. Left axis deviation noted. WV interval is ms3 normal. QRS interval is normal. Clinical impression: NSR w/ Non-specific ST/T Changes. Interpreted by me. Reviewed by me. Administered Medications: 18:11 Drug: DuoNeb Nebulize (2.5 mg - 0.5 mg) 3 ml Nebulizer once Route: Nebulizer; me1 18:26 Follow up: Response: No adverse reaction; Wheezing diminished me1 18:11 Drug: Amoxicillin-Clavulanate PO 875 mg PO once Route: PO; me1 18:26 Follow up: Response: No adverse reaction me1 18:11 Drug: Doxycycline PO 100 mg PO once Route: PO; me1 18:26 Follow up: Response: No adverse reaction me1 Disposition Summary: 05/29/23 17:30 Discharge Ordered Notes: Location: Home ms3 Condition: Stable ms3 Diagnosis - Other pneumonia, unspecified organism ms3 - Cough ms3 - Nasal congestion ms3 Followup: ms3 - With: Patrick Landaverde DO - When: 1 - 2 days - Reason: Recheck today's complaints Discharge Instructions: - Discharge Summary Sheet ms3 - Community-Acquired Pneumonia, Adult ms3 - Cough, Adult ms3 Forms: - Medication Reconciliation Form ms3 - Thank You Letter ms3 - Antibiotic Education ms3 - Prescription Opioid Use ms3 - Patient Portal Instructions ms3 - Leadership Thank You Letter ms3 Prescriptions: - Ventolin HFA 90 mcg/actuation Inhalation HFA Aerosol Inhaler - inhale 2 inhalation INHALATION route every 2 to 4 hours as needed for ms3 bronchospasm; administer via ventilator; 1 unit; Refills: 0, Product Selection Permitted - azithromycin 250 mg Oral tablet - take 1 tablet ORAL route once daily for 4 days; 4 tablet; Refills: 0, Product ms3 Selection Permitted - Doxycycline Monohydrate 100 mg Oral tablet - take 1 tablet ORAL route every 12 hours for 5 days; 10 tablet; Refills: 0, ms3 Product Selection Permitted - benzonatate 200 mg Oral capsule - take 1 capsule ORAL route 3 times per day as needed; 15 capsule; Refills: 0, ms3 Product Selection Permitted Signatures: Dispatcher [employer] Stu Hua DO DO ms3 Sarah Amos RN RN cm10 Laine Up RN RN me1
--- NOTE | 2023-05-29 17:31 | ER ---
Nurse's Notes [facility] Name: Sae Cardozo Age: 67 yrs Sex: Male : 1955 Arrival Date: 05/29/2023 Time: 14:01 Bed 12 Private MD: Patrick Landaverde Diagnosis: Other pneumonia, unspecified organism;Cough;Nasal congestion Presentation: 05/29 14:09 Chief complaint: Patient states: Productive cough, body aches, weakness and headache cm10 onset Monday. Ebola Screen: Patient denies travel to an Ebola-affected area in the 21 days before illness onset. No symptoms or risks identified at this time. Initial Sepsis Screen: Does the patient meet any 2 criteria? HR > 90 bpm. Does the patient have a suspected source of infection? No. Patient's initial sepsis screen is negative. Risk Assessment: Do you want to hurt yourself or someone else? Patient reports no desire to harm self or others. Onset of symptoms was May 29, 2023. 14:09 Method Of Arrival: Ambulatory cm10 14:09 Acuity: JIMMIE 3 cm10 18:13 Coronavirus screen: Vaccine status:. me1 Historical: - Allergies: 14:08 No Known Allergies; cm10 - PMHx: 14:08 AAA; brain cancer; Cancer; COPD; cm10 - PSHx: 14:08 AAA repair; cm10 - Immunization history:: Adult Immunizations unknown. - Social history:: Smoking status: Patient/guardian denies using tobacco, the patient reports quitting approximately 5 years ago. Screenin:13 [facility] ED Fall Risk Assessment (Adult) History of falling in the last 3 months, me1 including since admission No falls in past 3 months (0 pts) Confusion or Disorientation No (0 pts) Intoxicated or Sedated No (0 pts) Impaired Gait No (0 pts) Mobility Assist Device Used No (0 pt) Altered Elimination No (0 pt) Score/Fall Risk Level 0 - 2 = Low Risk Maintained a safe environment, Provided non-skid footwear, Hourly rounding (assess needs \T\ fall precautionary measures) done. 18:33 Abuse screen: Denies threats or abuse. Nutritional screening: No deficits noted. me1 Tuberculosis screening: No symptoms or risk factors identified. Assessment: 18:13 General: Appears uncomfortable, well groomed, well developed, well nourished, Behavior me1 is calm, cooperative, appropriate for age, Reports chills for >3 days, fever for feeling ill for fatigue for Productive cough, body aches, weakness and headache onset Monday. Pain: Denies pain. Neuro: Level of Consciousness is awake, alert, obeys commands, Oriented to person, place, time, situation, Appropriate for age. Cardiovascular: Capillary refill < 3 seconds Patient's skin is warm and dry. Respiratory: Reports cough that is persistent Airway is patent Respiratory effort is even, unlabored, Respiratory pattern is regular, symmetrical. Vital Signs: 14:09 BP 124 / 83; Pulse 118; Resp 22; Temp 98.4; Pulse Ox 96% on R/A; Weight 86.18 kg; cm10 Height 5 ft. 10 in. ; 14:46 BP 112 / 74; Pulse 85; Resp 18; Pulse Ox 93% on R/A; me1 15:30 BP 111 / 72; Pulse 82; Resp 21; Pulse Ox 94% on R/A; me1 16:46 BP 109 / 74; Pulse 87; Resp 15; Pulse Ox 92% on R/A; me1 14:09 Body Mass Index 27.26 (86.18 kg, 177.8 cm) cm10 ED Course: 14:03 Patient arrived in ED. mr 14:03 Patrick Landaverde DO is Private Physician. mr 14:04 Stu Cabezas DO is Attending Physician. ms3 14:10 Triage completed. cm10 14:11 Arm band placed on Patient placed in waiting room. cm10 14:23 Inserted saline lock: 20 gauge in right forearm, using aseptic technique. Blood cm10 collected. 14:23 Initial lab(s) drawn, by id, sent to lab. First set of blood cultures drawn by id. cm10 14:23 CBC with Diff Sent. cm10 14:23 CMP Sent. cm10 14:23 Lactate w/ 2H reflex if indic. Sent. cm10 14:23 Ptt, Activated Sent. cm10 14:23 Protime (+inr) Sent. cm10 14:34 Chest Pa And Lat (2 Views) XRAY In Process Unspecified. EDMS 16:22 Laine Up, [place] is Primary Nurse. me1 16:22 Blood Culture Adult (2) Sent. me1 16:30 SARS RAPID Sent. me1 16:30 Flu Sent. me1 17:29 Patrick Landaverde DO is Referral Physician. ms3 18:13 Patient has correct armband on for positive identification. Bed in low position. Call me1 light in reach. Side rails up X 1. Provided Education on: POC. Verbalized understanding. . 18:13 No provider procedures requiring assistance completed. me1 18:33 IV discontinued, intact, bleeding controlled, No redness/swelling at site. Pressure me1 dressing applied. Administered Medications: 18:11 Drug: DuoNeb Nebulize (2.5 mg - 0.5 mg) 3 ml Nebulizer once Route: Nebulizer; me1 18:26 Follow up: Response: No adverse reaction; Wheezing diminished me1 18:11 Drug: Amoxicillin-Clavulanate PO 875 mg PO once Route: PO; me1 18:26 Follow up: Response: No adverse reaction me1 18:11 Drug: Doxycycline PO 100 mg PO once Route: PO; me1 18:26 Follow up: Response: No adverse reaction me1 Medication: 18:13 VIS not applicable for this client. me1 Outcome: 17:30 Discharge ordered by MD. ms3 18:33 Discharged to home ambulatory, me1 18:33 Condition: stable 18:33 Discharge instructions given to patient, Instructed on discharge instructions, follow up and referral plans. medication usage, Demonstrated understanding of instructions, follow-up care, medications, Prescriptions given X 4, 18:34 Patient left the ED. me1 Signatures: Dispatcher [employer] EDVT Maryellen Hill, Reg Reg mr CabezasStu DO DO ms3 Sarah Amos RN RN cm10 Laine Up RN RN me1 Corrections: (The following items were deleted from the chart) 14:13 14:09 BP 124 / 83; Pulse 118bpm; Resp 18bpm; Pulse Ox 96% RA; Temp 98.4F; 86.18 kg; cm10 Height 5 ft. 10 in.; BMI: 27.2; cm10 18:13 14:09 Chief complaint: Patient states: Productive cough, body aches, weakness and me1 headache onset Monday. cm10 18:33 16:46 BP 112 / 74; Pulse 85bpm; Resp 18bpm; Pulse Ox 93% RA; me1 me1
[2023-05-29] MEDS ORDERED: AMOX/K CLAV 875 MG TAB ONE (18:18)
[2023-05-29] MEDS ORDERED: ALBUTEROL 2.5 MG/3 ML NEB SOL ONE (18:18)
[2023-05-29] MEDS ORDERED: IPRATROPIUM BROM 0.5MG/2.5ML ONE (18:19)
[2023-05-29] MEDS ORDERED: DOXYCYCLINE 100 MG CAP PO ONE (18:19)
[2023-05-29 18:42] VITALS: TEMP 98.4
[2023-05-29 18:44] VITALS: BP 109/74; O2SAT 92
--- NOTE | 2023-05-30 13:42 | EKG ---
Test Date: 2023-05-29 Test Time: 16:44:11 [employer]: MEASUREMENT RESULTS: Intervals: Rate: 82 AL: 170 QRSD: 92 QT: 348 QTc: 406 Loami: P: 22 AL: 170 QRS: -52 T: 36 INTERPRETIVE STATEMENTS: Normal sinus rhythm Left anterior fascicular block Abnormal ECG Compared to ECG 11/06/2021 17:35:52 Myocardial infarct finding no longer present Electronically Signed On 05-30-23 13:39:30 MATERIAL STRESS TESTER by George Roach
== END 2023-05-29 18:34 | disposition home or self-care (01) ==
LOC: ER 14:01
DX: J18.8 Other pneumonia, unspecified organism (principal); R09.81 Nasal congestion; J44.9 Chronic obstructive pulmonary disease, unspecified; Z11.52 Encounter for screening for COVID-19; Z85.841 Personal history of malignant neoplasm of brain
CPT/HCPCS: 93005; 87040 ×2; 85025; 36415; 85610; 83605; 85730; 80053; 87804 ×2; 71046; 94640; 99284; 87811; J7613; J7644

== ENCOUNTER 2025-01-24 02:41 | Emergency (ER) | payer OTHER, BC ==
--- OUTSIDE RECORDS SUMMARY | 2025-01-24 02:45 | XMS REPORT | Clinical Summary ---
Author Name Unknown Organization [facility] Address [address] [place] [address] Care Team Providers Care Incident Response Lead Name Role Phone Joon Valdes MD Unavailable [phone] Ashley Benitez MD Primary Care Provider Allergies No known active allergies Medications Anoro Ellipta 62.5-25 mcg/actuation dsdv Inhale 1 puff by mouth daily. 1 Active alip acid/biotin/min [id number]/[id number] (BLOOD SUGAR BALANCE ORAL) Take 2 tablets by mouth daily. Active multivitamin capsule Take 1 capsule by mouth daily. Active zinc gluconate 50 mg tablet Take 50 mg by mouth daily. Active aspirin 81 mg EC tablet Take 81 mg by mouth daily. Active albuterol (VENTOLIN HFA,PROAIR HFA) 90 mcg/puff inhaler Inhale 2 puffs by mouth as needed. 1 Active diazePAM (Valium) 5 mg tabletIndicatio ns:Claustrophob ia Take one tablet orally when instructed by MRI staff 1 tablet 2 Active Active Problems Problem Noted Date Diagnosed [...] Date Smoking Tobacco: Former Cigarettes 1.5 49 0 06/27/1969 - 06/27/2018 Smokeless Tobacco: Never Alcohol Use Standard Drinks/Week Comments Yes 32 (1 standard drink = 0.6 oz pu re alcohol) Sex and Gender Information Value Date Recorded Sex Assigned at Male 11/26/2020 7:01 PM CDT Legal Sex Male 8:41 AM CDT Gender Identity Male 11/26/2020 7:01 PM CDT Sexual Orientation Straight 11/26/2020 7: 01 PM CDT Obstetrics History Plan of Treatment Health Maintenance Due Date Last Done Comments Pneumococcal Vaccine: 50+ Years (1 of 1 - PCV) 005 COVID-19 Vaccine ( - 2023- season) 2024 Influenza Vaccine (#1) 2025 Insurance MEDICARE PART A AND B MEDICARE PART A AND B Care Teams Incident Response Lead Relationship Specialty Start Date End Date Joon Valdes MD [address] [place] [address] [place] [address] [email or web address] PCP - External Follow Up A Radiation Oncology 11/20/20 Ashley Benitez MD [address] [place] [email or web address] PCP - General Thoracic Medicine 11/24/20
[2025-01-24] MEDS ORDERED: NA CHLORIDE 0.9% 1,000 ML ONE (03:09)
[2025-01-24] MEDS ORDERED: ONDANSETRON 4 MG/2 ML VIAL ONE (03:10)
[2025-01-24] MEDS ORDERED: MAGNESIUM CITRATE 300 ML BOT ONE (03:10)
[2025-01-24 04:02] LABS: Absolute Lymphocytes (CBC) 1.2 K/uL (0.7-4.9); Hematocrit 46.6 % (39.6-49.0); Hemoglobin 16.6 g/dL (13.6-17.9); MCH 32.1 pg (27.0-35.0); MCHC 35.6 g/dL (32.0-36.0); MCV 90.1 fL (80-100); MPV 8.1 fL (7.6-11.3); Nucleated RBC Absolute Count 0.0 (0-0); Nucleated Red Blood Cells % 0.3 % (0-0); RBC Red Blood Cell Count 5.18 M/uL (4.33-5.43); White Blood Count 5.70 thou/uL (4.3-10.9)
--- NOTE | 2025-01-24 04:02 | RAD REPORT ---
INDICATION: Abdominal pain COMPARISON: CT abdomen pelvis May 25, 2023, CT chest November 25, 2024 TECHNIQUE: Unenhanced CT of the abdomen and pelvis performed per protocol. Oral contrast was not administered. M ultiplanar reconstructions were provided. Dose reduction techniques were utilized for this exam including automated exposure control, adjustmen ts to mA and/or kV according to patient's size, and the use of iterative reconstruction techniques. FINDINGS: Lack of intravenous contrast limits evaluation of the viscera and vasculature. LOWER CHEST: Chronic elevation of the left hemidiaphragm. Lung bases otherwise clear. Coronary arteri al calcifications. Partially visualized dilated ascending aorta. LIVER: Unremarkable. SPLEEN: Unremarkable. PANCREAS: Unremarkable. ADRENALS: Unremarkable. KIDNEYS: 3 mm calculus within the right kidney. No hydronephrosis. GALLBLADDER: Unremarkable. VESSELS: Scattered atherosclerotic plaque within the abdominal aorta and iliac vessels without aneury smal dilatation. BOWEL: Unremarkable. APPENDIX: No pericecal inflammatory changes to suggest appendicitis. FLUID: No free fluid or abnormal fluid collection. ADENOPATHY: No pathologic adenopathy. BLADDER: Unremarkable. PELVIS: Prostate is enlarged. BONES: No acute bony abnormality. Multilevel degenerative changes throughout the spine. Degenerative changes of the hips with avascular necrosis of the femoral heads without articular collapse. SOFT TISSUES: Unremarkable. IMPRESSION: 1. No acute abdominopelvic findings on this unenhanced exam. 2. Nonobstructive right-sided nephrolithiasis. 3. Prostatomegaly. 4. 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 5. Partially visualized dilated ascending aorta. Electronically signed by: Bryant Amaya DO 01/24/2025 03:45 AM [facility] NR Due to temporary technical issues with the [employer] reporting system, reports are being enrico d by the in-house radiologist without review as a courtesy to ensure prompt reporting the interpreting radiologist is fully responsible for the content of the report. Transcribed Date/Time: 01/24/2025 4:02 AM
[2025-01-24 04:21] LABS: ALT/SGPT 30.0 U/L (16-61); Albumin 3.6 g/dL (3.4-5.0); Albumin/Globulin Ratio 1.0 (1.1-1.8); Alkaline Phosphatase 89.0 U/L (45-117); Anion Gap 10.4 mEq/L (5.0-15.0); BUN Blood Urea Nitrogen 14.0 mg/dL (7-18); Globulin 3.6 g/dL (2.3-3.5); Glucose Level 99.0 mg/dL (74-106); Lipase 37.0 U/L (13-75)
[2025-01-24 04:22] LABS: AST/SGOT 23.0 U/L (15-37); Potassium 4.4 mEq/L (3.5-5.1)
--- NOTE | 2025-01-24 05:56 | ER ---
Nurse's Notes [facility] Name: Sae Cardozo Age: 69 yrs Sex: Male : 1955 Arrival Date: 01/24/2025 Time: 02:41 Bed 5 Private MD: Diagnosis: Lower abdominal pain, unspecified;Irregular bowel habits Presentation: 01/24 02:58 Chief complaint: Patient states: Have not had a bowel movement in 2 weeks and the milk vc1 of magnesium is not working. Coronavirus screen: Client denies travel out of the [place] in the last 14 days. At this time, the client does not indicate any symptoms associated with coronavirus-19. Ebola Screen: Patient negative for fever greater than or equal to 101.5 degrees Fahrenheit, and additional compatible Ebola Virus Disease symptoms Patient denies exposure to infectious person. Patient denies travel to an Ebola-affected area in the 21 days before illness onset. No symptoms or risks identified at this time. Initial Sepsis Screen: Does the patient meet any 2 criteria? No. Patient's initial sepsis screen is negative. Does the patient have a suspected source of infection? No. Patient's initial sepsis screen is negative. Risk Assessment: Do you want to hurt yourself or someone else? Patient reports no desire to harm self or others. Onset of symptoms is unknown. 02:58 Method Of Arrival: Ambulatory vc1 02:58 Acuity: JIMMIE 3 vc1 Triage Assessment: 03:01 General: Appears in no apparent distress. uncomfortable, well groomed, well developed, vc1 Behavior is calm, cooperative, appropriate for age. Pain: Denies pain. EENT: No deficits noted. No signs and/or symptoms were reported regarding the EENT system. Neuro: Level of Consciousness is awake, alert, obeys commands, Oriented to person, place, time, situation, Appropriate for age. Cardiovascular: Capillary refill < 3 seconds Patient's skin is warm and dry. Respiratory: Airway is patent Respiratory effort is even, unlabored, Respiratory pattern is regular, symmetrical. GI: Abdomen is non-distended, Reports constipation, Patient currently denies abdominal pain, nausea, vomiting. : No deficits noted. No signs and/or symptoms were reported regarding the genitourinary system. Derm: Skin is intact, is healthy with good turgor, Skin is dry, Skin is normal, Skin temperature is warm. Musculoskeletal: Circulation, motion, and sensation intact. Range of motion: intact in all extremities. Historical: - Allergies: 02:59 No Known Allergies; vc1 - Home Meds: :59 finasteride oral [Active]; vc1 - PMHx: 02:59 AAA; brain cancer; Cancer; lung; COPD; BPH; vc1 - PSHx: 02:59 AAA repair; vc1 - Immunization history:: Client reports having NOT received the Covid vaccine. - Infectious Disease History:: Denies. - Social history:: Smoking status: Patient/guardian denies using tobacco, the patient reports quitting approximately 6 years ago. - Family history:: not pertinent. Screenin:19 [facility] ED Fall Risk Assessment (Adult) History of falling in the last 3 months, km10 including since admission No falls in past 3 months (0 pts) Confusion or Disorientation No (0 pts) Intoxicated or Sedated No (0 pts) Impaired Gait Yes (1 pt) Mobility Assist Device Used Yes (1 pt) Altered Elimination No (0 pt) Score/Fall Risk Level 0 - 2 = Low Risk Oriented to surroundings, Maintained a safe environment, Educated pt \T\ family on fall prevention, incl call for assistance when getting out of bed, Hourly rounding (assess needs \T\ fall precautionary measures) done. Abuse screen: Denies threats or abuse. Denies injuries from another. Nutritional screening: No deficits noted. Tuberculosis screening: No symptoms or risk factors identified. Assessment: 03:17 General: Appears uncomfortable, Behavior is calm, cooperative, appropriate for age. km10 Pain: Denies pain. Neuro: Level of Consciousness is awake, alert, obeys commands, Oriented to person, place, time, situation, Appropriate for age. Cardiovascular: Denies chest pain. Respiratory: Airway is patent Respiratory effort is even, unlabored, Respiratory pattern is regular, symmetrical. GI: Abd is rigid in left upper quadrant and left lower quadrant Reports bloating, constipation, last BM 2 weeks ago. GI: Patient currently denies vomiting. 03:49 Reassessment: Patient appears in no apparent distress at this time. No changes from km10 previously documented assessment. Patient and/or family updated on plan of care and expected duration. Pain level reassessed. Patient is alert, oriented x 3, equal unlabored respirations, skin warm/dry/pink. 06:09 Reassessment: Patient appears in no apparent distress at this time. No changes from km10 previously documented assessment. Patient and/or family updated on plan of care and expected duration. Pain level reassessed. Patient is alert, oriented x 3, equal unlabored respirations, skin warm/dry/pink. Vital Signs: 02:58 BP 128 / 79; Pulse 97; Resp 14; Temp 98; Pulse Ox 94% ; Weight 90.72 kg; Height 5 ft. vc1 10 in. ; Pain 0/10; 03:54 BP 113 / 66; Pulse 87; Resp 16; Pulse Ox 99% on R/A; km10 06:14 BP 128 / 69; Pulse 85; Resp 16; Pulse Ox 94% on R/A; km10 02:58 Body Mass Index 28.70 (90.72 kg, 177.8 cm) vc1 02:58 Pain Scale: Adult vc1 Ashley Coma Score: 03:54 Eye Response: spontaneous(4). Motor Response: obeys commands(6). Verbal Response: km10 oriented(5). Total: 15. 23:32 Eye Response: spontaneous(4). Motor Response: obeys commands(6). Verbal Response: sp4 oriented(5). Total: 15. ED Course: 02:45 Patient arrived in ED. gm2 02:51 Sarina Chau, RN is Primary Nurse. km10 02:59 Triage completed. vc1 03:02 Kb Huang MD is Attending Physician. sp4 03:02 Arm band placed on right wrist. vc1 03:02 Patient has correct armband on for positive identification. Placed in gown. Bed in low vc1 position. Call light in reach. Provided Education on: Plan of care. Pulse ox on. NIBP on. 03:19 Door closed. Noise minimized. Lights dimmed. km10 03:19 Assisted provider with: exam. Inserted saline lock: 20 gauge in right antecubital area, km10 using aseptic technique. Blood collected. Flushed with 10 mL NS. 03:20 Lipase Sent. km10 03:20 CMP Sent. km10 03:20 CBC with Diff Sent. km10 03:22 CT Abd/Pelvis - Without Contrast In Process Unspecified. EDMS 06:09 IV discontinued, intact, bleeding controlled, No redness/swelling at site. Pressure km10 dressing applied. Administered Medications: 03:16 Drug: Ondansetron IVP 8 mg IVP once; over 2 minutes Route: IVP; Site: right antecubital;km10 03:55 Follow up: Response: No adverse reaction 10 03:17 Drug: NS 0.9% IV 1000 ml IV at 1 bolus Per protocol; to be given as a bolus over 60 km10 minutes Route: IV; Rate: 1 bolus; Site: right antecubital; 04:26 Follow up: Response: No adverse reaction; IV Status: Completed infusion 10 03:17 Drug: Magnesium Citrate PO Liquid 300 ml PO once Route: PO; km10 03:55 Follow up: Response: No adverse reaction 10 06:00 Drug: Dicyclomine PO 20 mg PO once Route: PO; km10 06:09 Follow up: Response: No adverse reaction km10 06:00 Drug: MetoCLOPramide PO 10 mg PO once Route: PO; km10 06:09 Follow up: Response: No adverse reaction 10 Medication: 06:13 VIS not applicable for this client. km10 Outcome: 05:56 Discharge ordered by MD. garcia 06:10 Discharged to home ambulatory, km10 06:10 Condition: stable 06:10 Discharge instructions given to patient, Instructed on discharge instructions, follow up and referral plans. medication usage, clear liquid diet Demonstrated understanding of instructions, follow-up care, medications, Prescriptions given X 2, 06:14 Patient left the ED. km10 Signatures: Dispatcher [employer] EDMS Amelia Castillo RN RN vc1 Kb Huang MD MD sp4 Ana Morfin gm2 Sarina Chau RN RN km10 Corrections: (The following items were deleted from the chart) 03:01 02:59 PMHx: Cancer; vc1 vc1 03:02 02:58 Acuity: JIMMIE 4 vc1 vc1
--- NOTE | 2025-01-24 05:56 | EDPHYS ---
Physician Documentation [facility] Name: Sae Cardozo Age: 69 yrs Sex: Male : 1955 Arrival Date: 01/24/2025 Time: 02:41 Bed 5 Private MD: ED Physician Kb Huang HPI: 01/24 03:02 This 69 yrs old Male presents to ER via Ambulatory with complaints of sp4 Constipation. 23:32 Patient presents with complaint of feeling of bloating and constipation and no bowel sp4 movement for the past at least 7 days.. Patient also reported rectal discomfort denied rectal bleeding.. Historical: - Allergies: 02:59 No Known Allergies; vc1 - Home Meds: 02:59 finasteride oral [Active]; vc1 - PMHx: 02:59 AAA; brain cancer; Cancer; lung; COPD; BPH; vc1 - PSHx: 02:59 AAA repair; vc1 - Immunization history:: Client reports having NOT received the Covid vaccine. - Infectious Disease History:: Denies. - Social history:: Smoking status: Patient/guardian denies using tobacco, the patient reports quitting approximately 6 years ago. - Family history:: not pertinent. ROS: 23:32 Constitutional: Negative for fever, chills, and weight loss, positive for bloating, sp4 constipation, rectal discomfort 23:32 All other systems are negative, Exam: 23:32 Constitutional: This is a well developed, well nourished patient who is awake, alert, sp4 and in no acute distress. Head/Face: Normocephalic, atraumatic. Eyes: Pupils equal round and reactive to light, extra-ocular motions intact. Lids and lashes normal. Conjunctiva and sclera are not injected. Cornea within normal limits. Periorbital areas with no swelling, redness, or edema. ENT: Nares patent. No nasal discharge, no septal abnormalities noted. Tympanic membranes are normal and external auditory canals are clear. Oropharynx with no redness, swelling, or masses, exudates, or evidence of obstruction, uvula midline. Mucous membranes moist. Neck: Trachea midline, no thyromegaly or masses palpated, and no cervical lymphadenopathy. Supple, full range of motion without nuchal rigidity, or vertebral point tenderness. Chest/axilla: Normal chest wall appearance and motion. Nontender with no deformity. No lesions are appreciated. Cardiovascular: Regular rate and rhythm with a normal S1 and S2. No gallops, murmurs, or rubs. No pulse deficits. Respiratory: Lungs have equal breath sounds bilaterally, clear to auscultation and percussion. No rales, rhonchi or wheezes noted. No increased work of breathing, no retractions or nasal flaring. Abdomen/GI: Soft, with normal bowel sounds. No distension or tympany. No guarding or rebound. No evidence of tenderness throughout. Back: No spinal tenderness. No costovertebral tenderness. Male : Normal genitalia with no discharge or lesions. Rectal examination revealed no signs of fecal impaction, no fissure, no fistula, no hemorrhoid, normal stool in the rectal vault. Skin: Warm, dry with normal turgor. Normal color with no rashes, no lesions, and no evidence of cellulitis. MS/ Extremity: Pulses equal, no cyanosis. Neurovascular intact. Full, normal range of motion. Neuro: Awake and alert, GCS 15, oriented to person, place, time, and situation. Cranial nerves II-XII grossly intact. Motor strength 5/5 in all extremities. Sensory grossly intact. Psych: Awake, alert, with orientation to person, place and time. Behavior, mood, and affect are within normal limits Vital Signs: 02:58 BP 128 / 79; Pulse 97; Resp 14; Temp 98; Pulse Ox 94% ; Weight 90.72 kg; Height 5 ft. vc1 10 in. ; Pain 0/10; 03:54 BP 113 / 66; Pulse 87; Resp 16; Pulse Ox 99% on R/A; km10 06:14 BP 128 / 69; Pulse 85; Resp 16; Pulse Ox 94% on R/A; km10 02:58 Body Mass Index 28.70 (90.72 kg, 177.8 cm) vc1 02:58 Pain Scale: Adult vc1 [place] Coma Score: 03:54 Eye Response: spontaneous(4). Motor Response: obeys commands(6). Verbal Response: km10 oriented(5). Total: 15. 23:32 Eye Response: spontaneous(4). Motor Response: obeys commands(6). Verbal Response: sp4 oriented(5). Total: 15. MDM: 04:47 Medical Screening Exam initiated sp4 23:34 Differential diagnosis: bowel obstruction, gastritis, gastroesophageal reflux disease, sp4 Hepatitis, Irritable bowel syndrome. Data reviewed: vital signs, nurses notes, lab test result(s), radiologic studies, CT scan. Consideration of Admission/Observation Escalation of care including admission/observation considered. ED course: CT did not reveal significant constipation. No sign of acute abdominal or pelvic emergency.. ED course: INDICATION: Abdominal pain COMPARISON: CT abdomen pelvis May 25, 2023, CT chest November 25, 2024 TECHNIQUE: Unenhanced CT of the abdomen and pelvis performed per protocol. Oral contrast was not administered. Multiplanar reconstructions were provided. Dose reduction techniques were utilized for this exam including automated exposure control, adjustments to mA and/or kV according to patient's size, and the use of iterative reconstruction techniques. FINDINGS: Lack of intravenous contrast limits evaluation of the viscera and vasculature. LOWER CHEST: Chronic elevation of the left hemidiaphragm. Lung bases otherwise clear. Coronary arterial calcifications. Partially visualized dilated ascending aorta. LIVER: Unremarkable. SPLEEN: Unremarkable. PANCREAS: Unremarkable. ADRENALS: Unremarkable. KIDNEYS: 3 mm calculus within the right kidney. No hydronephrosis. GALLBLADDER: Unremarkable. VESSELS: Scattered atherosclerotic plaque within the abdominal aorta and iliac vessels without aneurysmal dilatation. BOWEL: Unremarkable. APPENDIX: No pericecal inflammatory changes to suggest appendicitis. FLUID: No free fluid or abnormal fluid collection. ADENOPATHY: No pathologic adenopathy. BLADDER: Unremarkable. PELVIS: Prostate is enlarged. BONES: No acute bony abnormality. Multilevel degenerative changes throughout the spine. Degenerative changes of the hips with avascular necrosis of the femoral heads without articular collapse. SOFT TISSUES: Unremarkable. IMPRESSION: 1. No acute abdominopelvic findings on this unenhanced exam. 2. Nonobstructive right-sided nephrolithiasis. 3. Prostatomegaly. 4. 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 5. Partially visualized dilated ascending aorta. Electronically signed by: Bryant Amaya DO 01/24/2025 03:45 AM. 01/24 03:03 Order name: CBC with Diff; Complete Time: 05:02 sp4 01/24 03:03 Order name: CMP; Complete Time: 05:02 sp4 01/24 03:03 Order name: Lipase; Complete Time: 05:02 sp4 01/24 03:03 Order name: CT Abd/Pelvis - Without Contrast sp4 01/24 03:03 Order name: IV Saline Lock; Complete Time: 03:16 sp4 01/24 03:03 Order name: Labs collected and sent; Complete Time: 03:16 sp4 Administered Medications: 03:16 Drug: Ondansetron IVP 8 mg IVP once; over 2 minutes Route: IVP; Site: right antecubital;km10 03:55 Follow up: Response: No adverse reaction 03:17 Drug: NS 0.9% IV 1000 ml IV at 1 bolus Per protocol; to be given as a bolus over 60 km10 minutes Route: IV; Rate: 1 bolus; Site: right antecubital; 04:26 Follow up: Response: No adverse reaction; IV Status: Completed infusion 03:17 Drug: Magnesium Citrate PO Liquid 300 ml PO once Route: PO; km10 03:55 Follow up: Response: No adverse reaction km10 06:00 Drug: Dicyclomine PO 20 mg PO once Route: PO; km10 06:09 Follow up: Response: No adverse reaction 10 06:00 Drug: MetoCLOPramide PO 10 mg PO once Route: PO; km10 06:09 Follow up: Response: No adverse reaction km10 Disposition Summary: 01/24/25 05:56 Discharge Ordered Notes: Clear liquid diet only for 24 hours Location: Home sp4 Problem: new sp4 Symptoms: have improved sp4 Condition: Stable sp4 Diagnosis - Lower abdominal pain, unspecified sp4 - Irregular bowel habits sp4 Followup: sp4 - With: Private Physician - When: 2 - 3 days - Reason: Recheck today's complaints Discharge Instructions: - Discharge Summary Sheet sp4 - Clear Liquid Diet, Adult, [id number] sp4 Forms: - Patient Portal Instructions sp4 Prescriptions: - Reglan 10 mg Oral tablet - take 1 tablet ORAL route every 8 hours PRN abdominal pain; 30 tablet; Refills: sp4 0, Product Selection Permitted - dicyclomine 20 mg Oral tablet - take 1 tablet ORAL route every 8 hours PRN abdominal pain; 40 tablet; Refills: sp4 0, Product Selection Permitted Signatures: [facility] Amelia Braden RN RN vc1 Kb Huang MD MD sp4 Sarina Chau RN RN km10 Corrections: (The following items were deleted from the chart) 03:01 02:59 PMHx: Cancer; vc1 vc1 03:03 03:03 CBC+H.LAB.BRZ ordered. EDMS EDMS 03:03 03:03 COMPREHENSIVE METABOLIC PANEL+C.LAB.BRZ ordered. EDMS EDMS 03:03 03:03 LIPASE+C.LAB.BRZ ordered. EDMS EDMS
[2025-01-24] MEDS ORDERED: METOCLOPRAMIDE 5 MG TAB ONE (05:57)
[2025-01-24] MEDS ORDERED: DICYCLOMINE HCL 10 MG CAP ONE (05:57)
[2025-01-24 06:20] VITALS: TEMP 98
[2025-01-24 06:22] VITALS: BP 113/66; O2SAT 99
== END 2025-01-24 06:14 | disposition home or self-care (01) ==
LOC: ER 02:41
DX: R10.30 Lower abdominal pain, unspecified (principal); R19.4 Change in bowel habit
CPT/HCPCS: 96361; 85025; 36415; 83690; 80053; 74176; 96374; 99284; J2405; J7030